=== PATIENT | female | born 1940 | race Caucasian/White ===

== ENCOUNTER 2019-08-11 15:23 | Inpatient (IN) | payer OTHER, MEDICARE ==
--- NOTE | 2019-08-11 16:21 | RAD REPORT ---
EXAM DESCRIPTION: RAD - Chest Single View - 08/11/2019 4:13 pm CLINICAL HISTORY: COUGH Chest pain. COMPARISON: CHEST PA AND LAT 2 VIEW dated 08/25/2012 FINDINGS: Portable technique limits examination quality. Interstitial lung markings are mildly prominent, nonspecific. No focal consolidation typical of pneum onia seen. The heart is normal in size. No displaced fractures.
[2019-08-11] MEDS ORDERED: ONDANSETRON 4 MG/2 ML VIAL ONE (17:04)
[2019-08-11] MEDS ORDERED: NA CHLORIDE 0.9% 1,000 ML ONE (17:04)
[2019-08-11 17:10] LABS: Absolute Lymphocytes (CBC) 0.8 K/uL (0.7-4.9); Basophils % 0.3 % (0-1.3); Hematocrit 41.5 % (36.0-45.0); Lymphocytes % 10.1 % (15.3-44.8); MPV 9.2 fL (7.6-11.3); RBC Red Blood Cell Count 4.74 M/uL (3.86-4.86)
[2019-08-11 17:35] LABS: Urine Blood NEGATIVE (NEG); Urine Glucose 1+ (NEG); Urine Protein 2+ (NEG); Urine Specific Gravity 1.025 (1.005-1.030); Urine pH 5.5 (5.0-7.0)
[2019-08-11 17:40] LABS: Albumin 3.3 g/dL (3.4-5.0); Bilirubin Direct 1.6 mg/dL (0-0.2); Bilirubin Total 2.4 mg/dL (0.2-1.0); Magnesium 1.8 mg/dL (1.8-2.4); Protein, Total 7.5 g/dL (6.4-8.2); Troponin (Emerg Dept Use Only) 0.02 ng/mL (0.0-0.045)
[2019-08-11 17:47] LABS: Potassium 2.9 mmol/L (3.5-5.1)
--- NOTE | 2019-08-11 18:01 | EDPHYS ---
Physician Documentation [facility] Name: Guadalupe Marie Age: 79 yrs Sex: Female : 1940 Arrival Date: 08/11/2019 Time: 15:28 Bed 16 Private MD: EVE Physician Chris Perez HPI: 08/10 15:51 This 79 yrs old Female presents to ER via Ambulatory with complaints of amado Vomiting, Fever. 15:51 The patient presents to the emergency department with nausea, vomiting. Onset: The amado symptoms/episode began/occurred 5 day(s) ago. Possible causes: unknown. The symptoms are aggravated by nothing. The symptoms are alleviated by nothing. Associated signs and symptoms: Pertinent positives: fever, nausea, vomiting. Severity of symptoms: At their worst the symptoms were mild moderate in the emergency department the symptoms are unchanged. The patient has not experienced similar symptoms in the past. Historical: - Allergies: 15:41 No Known Allergies; ll1 - PMHx: 15:41 Diabetes - IDDM; Hypertension; ll1 - Immunization history:: Adult Immunizations up to date. - Social history:: Smoking status: Patient denies any tobacco usage or history of. Patient/guardian denies using alcohol, street drugs, tobacco products. ROS: 15:52 Eyes: Negative for injury, pain, redness, and discharge, ENT: Negative for injury, amado pain, and discharge, Neck: Negative for injury, pain, and swelling, Cardiovascular: Negative for chest pain, palpitations, and edema, Respiratory: Negative for shortness of breath, cough, wheezing, and pleuritic chest pain, Back: Negative for injury and pain, : Negative for injury, bleeding, discharge, and swelling, MS/Extremity: Negative for injury and deformity, Skin: Negative for injury, rash, and discoloration, Neuro: Negative for headache, weakness, numbness, tingling, and seizure, Psych: Negative for depression, anxiety, suicide ideation, homicidal ideation, and hallucinations, Allergy/Immunology: Negative for hives, rash, and allergies, Endocrine: Negative for neck swelling, polydipsia, polyuria, polyphagia, and marked weight changes, Hematologic/Lymphatic: Negative for swollen nodes, abnormal bleeding, and unusual bruising. 15:52 Constitutional: Positive for fever. 15:52 Abdomen/GI: Positive for nausea and vomiting. Exam: 15:52 Constitutional: This is a well developed, well nourished patient who is awake, alert, amado and in no acute distress. Head/Face: Normocephalic, atraumatic. Eyes: Pupils equal round and reactive to light, extra-ocular motions intact. Lids and lashes normal. Conjunctiva and sclera are non-icteric and not injected. Cornea within normal limits. Periorbital areas with no swelling, redness, or edema. ENT: Nares patent. No nasal discharge, no septal abnormalities noted. Tympanic membranes are normal and external auditory canals are clear. Oropharynx with no redness, swelling, or masses, exudates, or evidence of obstruction, uvula midline. Mucous membranes moist. Neck: Trachea midline, no thyromegaly or masses palpated, and no cervical lymphadenopathy. Supple, full range of motion without nuchal rigidity, or vertebral point tenderness. No Meningismus. Chest/axilla: Normal chest wall appearance and motion. Nontender with no deformity. No lesions are appreciated. Cardiovascular: Regular rate and rhythm with a normal S1 and S2. No gallops, murmurs, or rubs. Normal PMI, no JVD. No pulse deficits. Respiratory: Lungs have equal breath sounds bilaterally, clear to auscultation and percussion. No rales, rhonchi or wheezes noted. No increased work of breathing, no retractions or nasal flaring. Back: No spinal tenderness. No costovertebral tenderness. Full range of motion. Female : Normal external genitalia. Skin: Warm, dry with normal turgor. Normal color with no rashes, no lesions, and no evidence of cellulitis. MS/ Extremity: Pulses equal, no cyanosis. Neurovascular intact. Full, normal range of motion. Neuro: Awake and alert, GCS 15, oriented to person, place, time, and situation. Cranial nerves II-XII grossly intact. Motor strength 5/5 in all extremities. Sensory grossly intact. Cerebellar exam normal. Normal gait. Psych: Awake, alert, with orientation to person, place and time. Behavior, mood, and affect are within normal limits. 15:52 Abdomen/GI: Inspection: abdomen appears normal, Bowel sounds: normal, Palpation: abdomen is soft and non-tender, Liver: no appreciated palpable abnormalities, Hernia: not appreciated. 18:18 ECG was reviewed by the Attending Physician. [facility] Vital Signs: 15:39 BP 173 / 60; Pulse 60; Resp 17; Temp 98.4; Pulse Ox 97% ; Pain 0/10; ll1 16:00 BP 161 / 65; Pulse 57; Resp 16; Pulse Ox 99% on R/A; vc 17:00 BP 169 / 56; Pulse 55; Resp 16; Pulse Ox 97% on R/A; vc 18:00 BP 181 / 74; Pulse 73; Resp 17; Pulse Ox 97% on R/A; vc 19:00 BP 161 / 64; Pulse 71; Resp 18; Pulse Ox 97% on R/A; vc 19:45 BP 161 / 49; Pulse 68; Resp 17; Pulse Ox 97% on R/A; vc 20:30 BP 126 / 83; Pulse 75; Resp 16; Pulse Ox 75% on R/A; vc MDM: 15:35 Patient medically screened. [facility] 15:53 Differential diagnosis: cholecystitis, viral Infection, UTI, gastroenteritis. [facility] 15:53 Data reviewed: vital signs, nurses notes, lab test result(s), EKG, radiologic studies, [facility] plain films. 18:18 Data interpreted: lunchroom monitor: rate is 60 beats/min, rhythm is normal sinus rhythm, [facility] Pulse oximetry: on room air is 97 %. Test interpretation: by ED physician or midlevel provider: ECG, plain radiologic studies. Counseling: I had a detailed discussion with the patient and/or guardian regarding: the historical points, exam findings, and any diagnostic results supporting the discharge/admit diagnosis, lab results, radiology results, the need for further work-up and treatment in the hospital. ED course: dw dr dorman, dr doe consullted, ct abd pelviis per dr dorman, replace potassium, hydrate, no changes to plan per dandy. plan explained to the patient. 19:31 Physician consultation: El Doe MD and will see patient in the hospital. Other [facility] consultation: dr roberts explained ct findings, will see and follow up the patient. ED course: all drs aware armando chen and dr doe.. 08/10 15:50 Order name: Basic Metabolic Panel; Complete Time: 17:49 amado 08/10 15:50 Order name: CBC with Diff; Complete Time: 17:31 amado 08/10 15:50 Order name: LFT's; Complete Time: 17:49 [facility] 08/10 15:50 Order name: Magnesium; Complete Time: 17:49 [facility] 08/10 15:50 Order name: NT PRO-BNP; Complete Time: 17:49 amado 08/10 15:50 Order name: Troponin (emerg Dept Use Only); Complete Time: 17:49 amado 08/10 15:50 Order name: Lipase; Complete Time: 17:49 [facility] 08/10 15:50 Order name: Procalcitonin; Complete Time: 17:49 [facility] 08/10 15:50 Order name: Lactate; Complete Time: 17:49 [facility] 08/10 15:50 Order name: Urine Culture [facility] 08/10 15:50 Order name: Blood Culture Adult (2) 08/10 17:07 Order name: Urine Dipstick--Ancillary (enter results); Complete Time: 17:49 em1 08/10 18:14 Order name: Influenza Screen (a \T\ B); Complete Time: 19:29 [facility] 08/10 18:14 Order name: COVID-19 08/10 15:50 Order name: XRAY Chest (1 view); Complete Time: 17:05 [facility] 08/10 15:50 Order name: EKG; Complete Time: 15:51 [facility] 08/10 15:50 Order name: Cardiac monitoring; Complete Time: 16:13 [facility] 08/10 15:50 Order name: EKG - Nurse/Tech; Complete Time: 16:13 [facility] 08/10 15:50 Order name: IV Saline Lock; Complete Time: 16:13 [facility] 08/10 15:50 Order name: Labs collected and sent; Complete Time: 16:13 [facility] 08/10 17:46 Order name: US Abdomen Limited: elevated lft, vomiting 08/10 18:07 Order name: CT Abd/Pelvis - IV Contrast Only: abd pain , elevated lft; Complete Time: [facility] 19:29 08/10 19:03 Order name: CONS Pharmacy Consult [facility] 08/10 19:03 Order name: CONS Physician Consult [facility] 08/10 15:50 Order name: O2 Per Protocol; Complete Time: 16:13 [facility] 08/10 15:50 Order name: O2 Sat Monitoring; Complete Time: 16:13 [facility] 08/10 15:50 Order name: Urine Dipstick-Ancillary (obtain specimen); Complete Time: 16:50 amado EC:18 Rate is 60 beats/min. Rhythm is regular. QRS [place] is Normal. MD interval is normal. QRS amado interval is normal. QT interval is normal. No Q waves. T waves are Normal. No ST changes noted. Clinical impression: Normal ECG. Interpreted by me. Reviewed by me. Administered Medications: 17:02 Drug: NS 0.9% 1000 ml Route: IV; Rate: 1 bolus; Site: right antecubital; vc 18:00 Follow up: IV Status: Completed infusion; IV Intake: 1000ml vc 17:02 Drug: Zofran (Ondansetron) 4 mg Route: IVP; Site: right antecubital; vc 19:38 Follow up: Response: No adverse reaction vc 19:09 Drug: Insulin Regular Human 6 units {Co-Signature: ll1 (Nikki Car RN).} Route: IVP; vc Site: right antecubital; 19:37 Follow up: Response: No adverse reaction vc 19:09 Drug: Zosyn 3.375 grams Route: IVPB; Infused Over: 60 mins; Site: right antecubital; vc 21:14 Follow up: IV Status: Completed infusion; IV Intake: 100ml vc 19:10 Drug: Potassium Chloride 20 mEq Route: IV; Rate: per protocol; Site: right antecubital; vc 21:14 Follow up: IV Status: Completed infusion; IV Intake: 50ml vc 19:10 Drug: NS 0.9% with KCl 20 mEq/L 1000 ml Route: IV; Rate: 125 ml/hr; Site: right vc antecubital; 21:14 Follow up: IV Status: Infusion continued upon admission vc Disposition: 08/11/19 18:00 Hospitalization ordered by Aleja Pollock for Inpatient Admission. Preliminary diagnosis are Fever, unspecified, Vomiting, Type 1 diabetes mellitus, Hypokalemia, Abdominal tenderness - elevated liver enzymes. - Bed requested for Telemetry/MedSurg (Inpatient). - Status is Inpatient Admission. vc - Condition is Fair. - Problem is new. - Symptoms have improved. Signatures: Dispatcher [employer] Chris Massey MD MD cha Garcia, Cindy, RN RN Ember Valentine RN RN vc Lewis, Lynsay, RN RN ll1 Nikki Car RN ll1 Corrections: (The following items were deleted from the chart) 18:09 18:00 Hospitalization Ordered by Aleja Pollock MD for Inpatient Admission. Preliminary amado diagnosis is Fever, unspecified; Vomiting; Type 1 diabetes mellitus; Hypokalemia. Bed requested for Telemetry/MedSurg (Inpatient). Status is Inpatient Admission. Condition is Fair. Problem is new. Symptoms have improved. amado 19:17 18:09 08/11/2019 18:00 Hospitalization Ordered by Aleja Pollock MD for Inpatient cg Admission. Preliminary diagnosis is Fever, unspecified; Vomiting; Type 1 diabetes mellitus; Hypokalemia; Abdominal tenderness - elevated liver enzymes. Bed requested for Telemetry/MedSurg (Inpatient). Status is Inpatient Admission. Condition is Fair. Problem is new. Symptoms have improved. [facility] 21:15 19:17 08/11/2019 18:00 Hospitalization Ordered by Aleja Pollock MD for Inpatient vc Admission. Preliminary diagnosis is Fever, unspecified; Vomiting; Type 1 diabetes mellitus; Hypokalemia; Abdominal tenderness - elevated liver enzymes. Bed requested for Telemetry/MedSurg (Inpatient). Status is Inpatient Admission. Condition is Fair. Problem is new. Symptoms have improved. cg
--- NOTE | 2019-08-11 18:01 | ER ---
Nurse's Notes [facility] Name: Guadalupe Marie Age: 79 yrs Sex: Female : 1940 Arrival Date: 08/11/2019 Time: 15:28 Bed 16 Private MD: Diagnosis: Fever, unspecified;Vomiting;Type 1 diabetes mellitus;Hypokalemia;Abdominal tenderness-elevated liver enzymes Presentation: 08/10 15:39 Chief complaint: Patient states: N/V with fever for 5 days. Coronavirus screen: Proceed ll1 with normal triage. Patient denies a cough. Patient denies shortness of breath or difficulty breathing. Patient reports a measured and/or subjective temperature greater than 100.4F. Patient denies travel on a cruise ship or to a country the [facility] currently lists as an affected area. Patient denies contact with known and/or suspected case of COVID-19. Ebola Screen: Patient denies travel to an Ebola-affected area in the 21 days before illness onset. Initial Sepsis Screen: Does the patient meet any 2 criteria? No. Patient's initial sepsis screen is negative. Does the patient have a suspected source of infection? No. Patient's initial sepsis screen is negative. Risk Assessment: Do you want to hurt yourself or someone else? Patient reports no desire to harm self or others. Onset of symptoms was August 06, 2019. 15:39 Method Of Arrival: Ambulatory ll1 15:39 Acuity: JUAN 3 ll1 Triage Assessment: 15:45 General: Appears in no apparent distress. uncomfortable, ill, Behavior is calm, vc cooperative, appropriate for age. Pain: Denies pain. GI: Reports nausea, vomiting. Historical: - Allergies: 15:41 No Known Allergies; ll1 - PMHx: 15:41 Diabetes - IDDM; Hypertension; ll1 - Immunization history:: Adult Immunizations up to date. - Social history:: Smoking status: Patient denies any tobacco usage or history of. Patient/guardian denies using alcohol, street drugs, tobacco products. Screenin:35 Abuse screen: Denies threats or abuse. vc 15:35 Nutritional screening: Has had N/V for 3 or more days. Tuberculosis screening: No vc symptoms or risk factors identified. Fall Risk None identified. Assessment: 15:35 GI: Abdomen is non-distended. vc 15:35 General: Appears in no apparent distress. uncomfortable, ill, Behavior is calm, vc cooperative, appropriate for age. Pain: Denies pain. Neuro: Level of Consciousness is awake, alert, obeys commands, Oriented to person, place, time, situation, Appropriate for age. Cardiovascular: Capillary refill < 3 seconds Patient's skin is warm and dry. Respiratory: Airway is patent Respiratory effort is even, unlabored, Respiratory pattern is regular, symmetrical. : Reports "I have only been urinating a little at a time. Derm: Skin is intact, is healthy with good turgor. Musculoskeletal: Circulation, motion, and sensation intact. Range of motion: intact in all extremities. 16:00 Reassessment: Patient appears in no apparent distress at this time. Patient and/or vc family updated on plan of care and expected duration. Pain level reassessed. 17:00 Reassessment: Patient appears in no apparent distress at this time. Patient and/or vc family updated on plan of care and expected duration. Pain level reassessed. Patient is alert, oriented x 3, equal unlabored respirations, skin warm/dry/pink. 17:46 Reassessment: Received call from lab with abnormal values of potassium 2.9, AST 371, ah ALT 559. Reported values to Dr. Perez. 18:00 Reassessment: Patient appears in no apparent distress at this time. Patient and/or vc family updated on plan of care and expected duration. Pain level reassessed. Patient is alert, oriented x 3, equal unlabored respirations, skin warm/dry/pink. Patient denies pain at this time. 19:00 Reassessment: Patient appears in no apparent distress at this time. Patient and/or vc family updated on plan of care and expected duration. Pain level reassessed. Patient is alert, oriented x 3, equal unlabored respirations, skin warm/dry/pink. Patient denies pain at this time. Patient states feeling better. Patient states symptoms have improved. 20:00 Reassessment: Patient appears in no apparent distress at this time. Patient and/or vc family updated on plan of care and expected duration. Pain level reassessed. Patient is alert, oriented x 3, equal unlabored respirations, skin warm/dry/pink. Patient denies pain at this time. Patient states feeling better. Patient states symptoms have improved. 21:00 Reassessment: Patient appears in no apparent distress at this time. Patient and/or vc family updated on plan of care and expected duration. Pain level reassessed. Patient is alert, oriented x 3, equal unlabored respirations, skin warm/dry/pink. Patient denies pain at this time. Patient states feeling better. Patient states symptoms have improved. Vital Signs: 15:39 BP 173 / 60; Pulse 60; Resp 17; Temp 98.4; Pulse Ox 97% ; Pain 0/10; ll1 16:00 BP 161 / 65; Pulse 57; Resp 16; Pulse Ox 99% on R/A; vc 17:00 BP 169 / 56; Pulse 55; Resp 16; Pulse Ox 97% on R/A; vc 18:00 BP 181 / 74; Pulse 73; Resp 17; Pulse Ox 97% on R/A; vc 19:00 BP 161 / 64; Pulse 71; Resp 18; Pulse Ox 97% on R/A; vc 19:45 BP 161 / 49; Pulse 68; Resp 17; Pulse Ox 97% on R/A; vc 20:30 BP 126 / 83; Pulse 75; Resp 16; Pulse Ox 75% on R/A; vc ED Course: 15:28 Patient arrived in ED. mr 15:35 Chris Perez MD is Attending Physician. amado 15:40 Triage completed. ll1 15:41 Arm band placed on Patient placed in an exam room, on a stretcher. ll1 15:56 Ember Valentine, RN is Primary Nurse. vc 16:12 Placed in gown. Bed in low position. Call light in reach. Side rails up X 1. Warm jp3 blanket given. Verbal reassurance given. plate painter on. Pulse ox on. NIBP on. 16:12 EKG done, by ED staff, reviewed by Chris Perez MD. Patient maintains SpO2 saturation jp3 greater than 95% on room air. 16:13 XRAY Chest (1 view) In Process Unspecified. EDMS 16:15 X-ray(s) taken. jp3 16:30 Inserted saline lock: 20 gauge in right antecubital area, using aseptic technique. jp3 Blood collected. 16:30 Initial lab(s) drawn, by me, sent to lab. First set of blood cultures drawn by me. jp3 16:42 Second set of blood cultures drawn by ED staff. jp3 16:50 Urine collected: clean catch specimen, clear, katie colored. jp3 17:58 Aleja Pollock MD is Hospitalizing Provider. amado 18:30 CT Abd/Pelvis - IV Contrast Only: abd pain , elevated lft In Process Unspecified. EDMS 21:08 No provider procedures requiring assistance completed. Patient admitted, IV remains in vc place. Administered Medications: 17:02 Drug: NS 0.9% 1000 ml Route: IV; Rate: 1 bolus; Site: right antecubital; vc 18:00 Follow up: IV Status: Completed infusion; IV Intake: 1000ml vc 17:02 Drug: Zofran (Ondansetron) 4 mg Route: IVP; Site: right antecubital; vc 19:38 Follow up: Response: No adverse reaction vc 19:09 Drug: Insulin Regular Human 6 units {Co-Signature: ll1 (Nikki Car RN).} Route: IVP; vc Site: right antecubital; 19:37 Follow up: Response: No adverse reaction vc 19:09 Drug: Zosyn 3.375 grams Route: IVPB; Infused Over: 60 mins; Site: right antecubital; vc 21:14 Follow up: IV Status: Completed infusion; IV Intake: 100ml vc 19:10 Drug: Potassium Chloride 20 mEq Route: IV; Rate: per protocol; Site: right antecubital; vc 21:14 Follow up: IV Status: Completed infusion; IV Intake: 50ml vc 19:10 Drug: NS 0.9% with KCl 20 mEq/L 1000 ml Route: IV; Rate: 125 ml/hr; Site: right vc antecubital; 21:14 Follow up: IV Status: Infusion continued upon admission vc Intake: 18:00 IV: 1000ml; Total: 1000ml. vc 21:14 IV: 100ml; Total: 1100ml. vc 21:14 IV: 50ml; Total: 1150ml. vc Outcome: 18:00 Decision to Hospitalize by Provider. [facility] 21:08 Admitted to Tele accompanied by tech, via stretcher, room 415, with chart, Report vc called to slim 21:08 Condition: good 21:15 Patient left the ED. vc Signatures: Dispatcher [employer] Chris Massey MD MD cha Rivera, Mary mr Pisarski, Jacob jp3 Ember Valentine RN RN vc Harris, Amy RN Nikki Levine RN RN ll1 Nikki Car RN ll1 Corrections: (The following items were deleted from the chart) 21:13 21:08 Admitted to Tele accompanied by tech, via stretcher, room 416, with chart, Report vc called to slim llanes
[2019-08-11] MEDS ORDERED: NS KCL 20MEQ 1,000 ML IV ONE (18:35)
[2019-08-11] MEDS ORDERED: INSULIN -REGULAR HUMAN 50 UNIT/0.5 ML ML ONE (18:35)
[2019-08-11] MEDS ORDERED: KCL 20 MEQ/100 mL IVPB 20 MEQ/100 ML BAG IV ONE (18:35)
[2019-08-11] MEDS ORDERED: PIPER/TAZO/NS 3.375gm 3.375 GM/100 ML BAG ONE (18:35)
[2019-08-11] MEDS ORDERED: MORPHINE 2 MG/ML SYR IV PRN (19:01)
--- NOTE | 2019-08-11 19:07 | RAD REPORT ---
EXAM DESCRIPTION: CTAbdomen Pelvis W Contrast - 08/11/2019 6:30 pm CLINICAL HISTORY: Abdominal pain. ABD PAIN COMPARISON: No comparisons TECHNIQUE: Biphasic CT imaging of the abdomen and pelvis was performed with 100 ml non-ionic IV cont rast. All CT scans are performed using dose optimization technique as appropriate and may include automated exposure control or mA/KV adjustment according to patient size. FINDINGS: The lung bases are clear. Small enhancing lesion is seen in the posterosuperior right lobe of the liver measuring 13 mm with mi ld surrounding hypoenhancing parenchyma nonspecific. The gallbladder demonstrates slight surrounding fluid and questionable gallbladder wall thickening. The spleen, adrenal glands and kidneys are within normal limits. Several benign cysts are present the cortices of the kidneys. Pancreas demonstrates s everal low-density masses, the largest in the mid body of pancreas measuring 13 mm. Aortic atheroscle rosis. No bowel obstruction, free air, free fluid or abscess. The appendix is not identified as a discrete s tructure, however, no secondary findings of appendicitis are identified. Significant retention of st ool is seen throughout the colon. No evidence of significant lymphadenopathy. Moderate lumbosacral degenerative changes. IMPRESSION: Significant fecal retention throughout the colon. Slight trace cholecystic fluid and mild gallbladder wall enhancement is suspected. Followup gallbladd er ultrasound may be of value. Several low-density pancreatic lesions are present, largest measuring 13 mm in the mid body pancreas. These are nonspecific but may represent small masses or dilated pancreatic side branches. Small 13 mm arterial phase enhancing liver lesion in the superior post right lobe. Followup nonemergent MR imaging of the abdomen with contrast may be of value to assess both the liver and pancreatic findings detailed above.
[2019-08-11] MEDS: INSULIN -REGULAR HUMAN 50 UNIT/0.5 ML ML SQ SCH (21:00)
[2019-08-11 21:48] VITALS: BMI 27.0
--- NOTE | 2019-08-11 23:29 | P.HP ---
Certification for Inpatient Patient admitted to: Inpatient With expected LOS: >2 Midnights Practitioner: I am a practitioner with admitting privileges, knowledge of patient current condition, hospital course, and medical plan of care. Services: Services provided to patient in accordance with Admission requirements found in Title 42 Section 412.3 of the Code of Federal Regulations Patient History Date of Service: 08/11/19 Reason for admission: Nausea and vomiting History of Present Illness: 79-year-old woman with a history of hypertension and diabetes presented to the emergency department with a complaint of nausea and vomiting which has been present for about 5 days. Patient also reports an episode of fever last night. She also reports frequent constipation. CT abdomen and pelvis done in the ED report possible gallbladder thickening and surrounding fluid which could suggest acute cholecystitis. CT scan also reported multiple nonspecific lesions in the pancreas and a lesion in the liver. She is being screened for Covid 19 and currently on droplet isolation. Patient denied any abdominal pain, cough or shortness of breath. Blood work demonstrated hypokalemia, significantly elevated liver enzyme and total bilirubin. Patient is admitted for further management. Allergies No Known Allergies Allergy (Verified 08/11/19 21:47) Home Medications: Clonidine HCl [Catapres*] 0.2 mg PO TID 08/11/19 Diltiazem HCl [Diltiazem ER] 1 tab PO QID 08/11/19 Insulin Glargine Human [Lantus] 32 unit SQ BEDTIME 08/11/19 Insulin Lispro [Humalog*] 12 unit SQ TIDWM 08/11/19 Losartan/Hydrochlorothiazide [Losartan-Hctz 100-12.5 mg Tab] 1 each PO DAILY 08/11/19 Metoprolol Succinate [Toprol Xl] 50 mg PO DAILY 08/11/19 Simvastatin 20 mg PO BEDTIME 08/11/19 - Past Medical/Surgical History Has patient received pneumonia vaccine in the past: Yes Diabetic: Yes -: DM -: HTN - Social History Smoking Status: Never smoker Alcohol use: No CD- Drugs: No Caffeine use: Yes Place of Residence: Home Review of Systems Other: Except as documented, all other systems reviewed and negative. Physical Examination - Vital Signs Temperature: 98.7 F Blood Pressure: 174/75 Pulse: 73 Respirations: 14 Pulse Ox (%): 96 - Physical Exam General: Alert, In no apparent distress, Oriented x3 HEENT: Atraumatic, Normocephalic, PERRLA, Mucous membr. moist/pink, Sclerae nonicteric Neck: Supple, JVD not distended Respiratory: Clear to auscultation bilaterally, Normal air movement Cardiovascular: No edema, Normal pulses, Regular rate/rhythm, Normal S1 S2 Capillary refill: <2 Seconds Gastrointestinal: Normal bowel sounds, Soft and benign, Non-distended, No tenderness Musculoskeletal: No swelling, No erythema Integumentary: No rashes Neurological: Normal speech, Normal strength at 5/5 x4 extr, Cranial nerves 3-12 intact - Studies Laboratory Data (last 24 hrs) 08/11/19 16:30: WBC 8.0, Hgb 13.8, Hct 41.5, Plt Count 159 08/11/19 16:30: Sodium 136, Potassium 2.9 L*, BUN 16, Creatinine 0.97, Glucose 311 H, Magnesium 1.8, Total Bilirubin 2.4 H, AST 371 H*, ALT 559 H*, Alkaline Phosphatase 755 H, Lipase 43 L Microbiology Data (last 24 hrs): 08/11/19 18:14 Nasopharnyx Coronavirus COVID-19 PCR - Final 08/11/19 18:48 Nasopharnyx Influenza Type A Antigen Screen - Final 08/11/19 18:48 Nasopharnyx Influenza Type B Antigen Screen - Final Assessment and Plan - Problems (Diagnosis) (1) Acute cholecystitis Current Visit: Yes Status: Acute (2) Pancreatic lesion Current Visit: Yes Status: Acute (3) Liver lesion Current Visit: Yes Status: Acute (4) Elevated LFTs Current Visit: Yes Status: Acute (5) Functional constipation Current Visit: Yes Status: Acute (6) Diabetes mellitus type 2 in obese Current Visit: Yes Status: Acute - Plan Admit to the medical floor. Covid 19 test is negative. Supportive measures with IV fluids Obtain MRCP to evaluate the liver, biliary tree and pancreas. Monitor LFT GI consult. Surgery consult pending ultrasound result. RUQ sono to evaluate for cholecystitis. Laxatives and stool softeners Replete potassium IV. Insulin sliding scale for glucose management. - Advance Directives Does patient have a Living Will: Yes Does patient have a Durable POA for Healthcare: No - Code Status/Comfort Care Code Status Assessed: Yes Code Status: Full Code
[2019-08-12] MEDS ORDERED: POTASSIUM 25 MEQ EFFERV TAB PO ONE (00:27)
[2019-08-12] MEDS: D5.45NS W/KCL 20MEQ 1,000 ML IV SCH ×3 (01:46→16:31)
[2019-08-12] MEDS: HYDRALAZINE HCL 20 MG/ML VIAL IV PRN ×3 (03:15→21:17)
[2019-08-12] MEDS: ONDANSETRON 4 MG/2 ML VIAL IV PRN ×2 (05:48→21:33)
[2019-08-12 05:56] LABS: Absolute Lymphocytes (CBC) 1.4 K/uL (0.7-4.9); Basophils % 0.2 % (0-1.3); Hematocrit 42.1 % (36.0-45.0); Lymphocytes % 12.9 % (15.3-44.8); MPV 9.5 fL (7.6-11.3); RBC Red Blood Cell Count 4.82 M/uL (3.86-4.86)
[2019-08-12 06:01] LABS: Protime INR 1.03
[2019-08-12 06:23] LABS: Albumin 3.1 g/dL (3.4-5.0); Bilirubin Total 1.4 mg/dL (0.2-1.0); Magnesium 2.1 mg/dL (1.8-2.4); Phosphorus 1.7 mg/dL (2.5-4.9); Potassium 3.6 mmol/L (3.5-5.1); Protein, Total 7.2 g/dL (6.4-8.2)
[2019-08-12] MEDS ORDERED: POTASSIUM PHOS IN 0.9 % NACL 15 MMOL/250 ML BAG IV ONE ×2 (06:42→09:00)
[2019-08-12] MEDS ORDERED: METOPROLOL TARTRATE 5 MG/5 ML INJ IV STA ×4 (07:29→16:04)
[2019-08-12] MEDS: INSULIN -REGULAR HUMAN 50 UNIT/0.5 ML ML SQ SCH ×4 (08:06→20:10)
--- NOTE | 2019-08-12 08:35 | RAD REPORT ---
EXAM DESCRIPTION: US - Abdomen Exam Limited - 08/12/2019 8:00 am CLINICAL HISTORY: ABD PAIN COMPARISON: Abdomen Pelvis W Contrast dated 08/11/2019 FINDINGS: Multiple gallstones fill the gallbladder lumen. Individual stone measurement cannot be per formed. There is dense posterior acoustic shadowing created by the gallstones. Gallbladder wall is mi ldly thickened. No pericholecystic fluid confirmed. No common duct stone or biliary tree dilatation identified. IMPRESSION: Multi stone cholelithiasis with wall thickening. Correlation is needed with any acute cholecystitis clinical findings. No biliary abnormality identified.
--- NOTE | 2019-08-12 09:43 | EKG ---
Test Date: 2019-08-12 Test Time: 08:43:51 Percussion Instrument Repairer: JUIDE MEASUREMENT RESULTS: Intervals: Rate: 116 IL: 144 QRSD: 88 QT: 320 QTc: 444 [place]: P: 64 IL: 144 QRS: -21 T: 57 INTERPRETIVE STATEMENTS: Sinus tachycardia conduction PVCs Abnormal ECG Electronically Signed On 08-12-19 09:43:09 CDT by Cal Butterfield
--- NOTE | 2019-08-12 09:43 | EKG ---
Test Date: 2019-08-12 Test Time: 06:29:51 Atmospheric Scientist: RT Crowder MEASUREMENT RESULTS: Intervals: Rate: 157 NC: QRSD: 82 QT: 298 QTc: 481 [place]: P: NC: QRS: -12 T: 54 INTERPRETIVE STATEMENTS: Atrial fibrillation with rapid ventricular response with premature ventricular or aberrantly conducted complexes Inferior infarct, age undetermined Abnormal ECG Electronically Signed On 08-12-19 09:43:33 CDT by Cal Butterfield
--- NOTE | 2019-08-12 09:49 | EKG ---
Test Date: 2019-08-11 Test Time: 16:06:59 Retail Account Manager: BETO MEASUREMENT RESULTS: Intervals: Rate: 60 SC: 148 QRSD: 90 QT: 458 QTc: 458 [place]: P: 38 SC: 148 QRS: 7 T: 31 INTERPRETIVE STATEMENTS: Sinus rhythm with occasional premature ventricular complexes Otherwise normal ECG No previous ECG available for comparison Electronically Signed On 08-12-19 09:48:45 CDT by Cal Butterfield
--- NOTE | 2019-08-12 12:09 | P.PN ---
Subjective Date of Service: 08/12/19 (Hospitalist) Chief Complaint: Nausea and vomiting atrial fibrillation Subjective: Improving (Patient is doing a little better she has has some nausea vomiting apparently got some potassium became even more nauseated ultrasound shows chronic gallbladder disease) Review of Systems General: Weakness Gastrointestinal: Nausea, Vomiting Physical Examination - Vital Signs Temperature: 98.9 F Blood Pressure: 150/69 Pulse: 115 Respirations: 16 Pulse Ox (%): 95 - Physical Exam General: Alert, Oriented x3 HEENT: Atraumatic Neck: Supple Respiratory: Clear to auscultation bilaterally Cardiovascular: No edema Gastrointestinal: Other (Mild right upper quadrant tendon) - Studies Laboratory Data (last 24 hrs) 08/11/19 16:30: WBC 8.0, Hgb 13.8, Hct 41.5, Plt Count 159 08/11/19 16:30: Sodium 136, Potassium 2.9 L*, BUN 16, Creatinine 0.97, Glucose 311 H, Magnesium 1.8, Total Bilirubin 2.4 H, AST 371 H*, ALT 559 H*, Alkaline Phosphatase 755 H, Lipase 43 L Microbiology Data (last 24 hrs): 08/11/19 16:38 Blood - Blood Anaerobic Blood Culture - Final 08/11/19 18:14 Nasopharnyx Coronavirus COVID-19 PCR - Final 08/11/19 18:48 Nasopharnyx Influenza Type A Antigen Screen - Final 08/11/19 18:48 Nasopharnyx Influenza Type B Antigen Screen - Final Assessment & Plan - Problems (Diagnosis) (1) Acute cholecystitis Current Visit: Yes Status: Acute Plan: Patient is 79 years of age admitted with abdominal pain nausea and vomiting presumed cholecystitis abnormal liver function tests most likely she has an obstruction MRCP spending white count normal vital signs stable GI has been consulted Several low-density pancreatic lesions are present, largest measuring 13 mm in the mid body pancreas. These are nonspecific but may represent small masses or dilated pancreatic side branches. Continue with IV fluids (2) Atrial fibrillation Current Visit: Yes Status: Acute Plan: Patient had a transient onset of AFib not reverted back to normal sinus consult cardiology Qualifiers: Atrial fibrillation type: paroxysmal Qualified Code(s): I48.0 - Paroxysmal atrial fibrillation
--- NOTE | 2019-08-12 14:54 | ECHO ---
HEIGHT: 5 ft 8 in WEIGHT: 178 lb 0 oz DATE OF STUDY: 08/12/[address]: Cal Butterfield MD 2-DIMENSIONAL: YES M.MODE: YES DOPPLER: YES COLOR FLOW: YES TDS: NO PORTABLE: NO DEFINITY: NO BUBBLE STUDY: NO DIAGNOSIS: ATRIAL FIBRILLATION CARDIAC HISTORY: CATHERIZATION: NO SURGERY: NO PROSTHETIC VALVE: NO PACEMAKER: NO MEASUREMENTS (cm) DIASTOLIC (NORMALS) SYSTOLIC (NORMALS) IVSd 1.1 (0.6-1.2) LA Diam 2.8 (1.9-4.0) LVEF 73% LVIDd 3.8 (3.5-5.7) LVIDs 2.2 (2.0-3.5) %FS 42% LVPWd 1.0 (0.6-1.2) Ao Diam 2.4 (2.0-3.7) 2 DIMENSIONAL ASSESSMENT: RIGHT ATRIUM: NORMAL LEFT ATRIUM: ENLARGED RIGHT VENTRICLE: NORMAL LEFT VENTRICLE: NORMAL TRICUSPID VALVE: NORMAL MITRAL VALVE: MILD MITRAL ANNULAR CALCIFICATION PULMONIC VALVE: NORMAL AORTIC VALVE: SCLEROSIS PERICARDIAL EFFUSION: NONE AORTIC ROOT: NORMAL LEFT VENTRICULAR WALL MOTION: NORMAL. DOPPLER/COLOR FLOW: ELEVATED RIGHT VENTRICULAR SYSTOLIC PRESSURE > 60 mmHg. COMMENTS: NORMAL LEFT VENTRICULAR EJECTION FRACTION, NORMAL WALL MOTION. DIASTOLIC DYSFUNCTION. ELEVATED RIGHT VENTRICULAR SYSTOLIC PRESSURE >60mmHg (SEVERE PULMONARY HYPERTENSION). TECHNOLOGIST: SHERYL PARMAR
[2019-08-12] MEDS ORDERED: METOPROLOL TAR 25 MG TAB PO ONE (15:00)
[2019-08-12] MEDS: METOPROLOL TAR 25 MG TAB PO SCH (17:18)
--- NOTE | 2019-08-12 18:52 | RAD REPORT ---
EXAM DESCRIPTION: MRI - Cholangiogram - 08/12/2019 6:05 pm CLINICAL HISTORY: Liver and pancreas lesions Abdominal pain COMPARISON: Abdomen Exam Limited dated 08/12/2019; Abdomen Pelvis W Contrast dated 08/11/2019 FINDINGS: Three-dimensional MRCP was performed using maximum intensity projection reconstruction on the same work station. No intrahepatic biliary tree dilatation is seen. The common bile duct is normal caliber without evide nce of retained stone, stricture or mass. Several pancreatic lesions are present which are T2 hyperin tense and nonspecific. These are favored to represent dilated pancreatic side branches or IPMNs. Extensive cholelithiasis. Small T2 hyperintense 10 mm lesion is seen in the posterior right lobe liver, incompletely assessed. IMPRESSION: No pathologic biliary tree abnormality. Extensive cholelithiasis.
--- NOTE | 2019-08-12 21:15 | CON ---
Date of Consultation: 08/12/2019 Reason For Consultation: Possible cholecystitis, cholelithiasis with nausea, vomiting, fever. History Of Present Illness: Patient is an 79-year-old white female with history of diabetes, hyperte nsion, who presented to primary care's office with persistent nausea, vomiting, especially after eati ng fatty foods. Patient states that she ate some meat loaf, had nausea, vomiting, some fever and a k not in her stomach somewhere around the midepigastric periumbilical area. She had labs drawn in the office and it showed elevation of liver chemistry, so she was brought to the hospital for further kathleen luation and care for suspected cholecystitis. Ultrasound of abdomen revealed cholelithiasis with cho lecystitis probably. CT scan revealed once again probably cholecystitis and pancreatic lesions or po ssible masses being 13 mm or less in size, mainly in the body of the pancreas, possibly associated wi th the pancreatic duct, possible IPMN. Patient states she has nausea, vomiting, predominantly some f ever and fatigue for the past 6 days, worse with fatty meals such as meat loaf, which seems to have b rought her to the hospital with extreme nausea and vomiting after she ate that prior to admission. P atient denies any other major problems except for diabetes, hypertension, possible hyperlipidemia. S he has had problems sleeping, hysterectomy in the past and she says her primary care physician told t hat she may have had an arrhythmia, but has no knowledge of ever having AFib, even though she has tere t now on the floor, rapid ventricular response with a heart rate up to 150s to 160s and a blood press ure of approximately 176/80 or 90 with 5 of IV metoprolol. Her blood pressure has come down to like 150s over 80s with heart rate to the 130s. More IV metoprolol to be given. MRCP is pending. Past Medical History: Significant for diabetes, hypertension, hyperlipidemia, insomnia, possible arr hythmia in the past with no definitive diagnosis of atrial fibrillation as per patient nor on chart fouzia samuel. She also had hysterectomy in the past. Medications At Home: Catapres, diltiazem, Lantus insulin, Humalog insulin, losartan, hydrochlorothia zide, Toprol, and Zocor. Allergies: NKDA. Social History: She is a . 2 children, a son and a daughter. No tobacco. No alcohol. Family History: Father of coronary artery disease, CABG, and [place]. Mother of Alzheimer dise ase at 90+ years of age. Review of Systems: The patient has nausea, vomiting, fever, fatigue for the past 6 days. She has occasional nausea in t he stomach somewhere in the midepigastric periumbilical area which is mild pain at most. She denies any melena, hematochezia, hematemesis, coffee-ground emesis, hematuria, dysuria, polydipsia, chest pa in, shortness of breath, seizure, syncope, lower extremity edema, muscle aches, joint aches, depressi on, anxiety. Physical Examination: Vital Signs: Patient is 5 foot 8 inches, 178 pounds, BMI 27.1 kg per sq m. Temperature 98.9 degrees Fahrenheit, pulse down to 128 last checked, blood pressure 158/74. On admission, she has gotten up to as high as 178/81 with a pulse of approximately 150s to 160s and now down. General: She is an elderly female lying in bed, in mild distress, and she cannot sleep and uncomfort able. She cannot sleep on her back, hooked up all the wires, she cannot go to sleep yet. Nausea see ms to be controlled on medications since admission. HEENT: Normocephalic, atraumatic. Anicteric. Pupils equal, round, and reactive to light. Neck: Supple. No masses. Respirations: Clear. Good air movement. Abdomen: Positive bowel sounds. Hypoactive, soft, nondistended. No abdominal pain. No hepatosplen omegaly. Mild obesity. No peritoneal or Luque sign. No rebound. Extremities: No clubbing, cyanosis. 2+ pulses. Neuro: Alert and oriented x3. Grossly nonfocal. 5/5 motor strength and intact to light touch. Laboratory Data: Patient's white count of 10.7, up from 8.0 yesterday; hemoglobin 14.0; hematocrit 4 2; platelet count of 184. Neutrophils 74%, lymphocytes 13%, monocytes 8%, eosinophils 0.1%. PT of 1 2.2, INR of 1.03. Patient has a sodium of 139, potassium 3.6, chloride 103, bicarb 24, BUN 11, creat inine 0.74, glucose 308. Lactate of 1.1, calcium 8.6, phosphorus 1.7, magnesium 2.1, total bilirubin 1.4. AST of 157, ALT of 426, alkaline phosphatase 659. Troponin I of 0.04. Total protein 7.2, alb umin 3.1. Triglycerides 191, cholesterol 142, LDL of 85, HDL of 19, lipase 43. UA: 4+ ketones, 1+ glucose, 2+ total protein, negative nitrite, leukocyte esterase otherwise negative. Patient had an u ltrasound of the abdomen, which revealed multiple gallstones in gallbladder with gallbladder wall thi ckening consistent with acute cholecystitis. No biliary tree abnormality identified. CT scan reveal ed trace cholecystic fluid and mild gallbladder wall enhancement suspicious for cholecystitis. Sever al low-density pancreatic lesions all 13 mm or less, mainly in the mid body of the pancreas. This co uld be consistent with small masses or dilated pancreatic side branches such as IPMN. MRCP or MRI of abdomen advised. Impression: 1.Possible cholecystitis with cholelithiasis. Ultrasound of abdomen revealed cholelithiasis and cho lecystitis. CT of abdomen revealed cholecystitis with pancreatic lesions as discussed below. Mahin t has elevated liver chemistries as stated in the above report with AST of 157, ALT of 426, alkaline phosphatase of 659, total bilirubin of 1.4. Consistent with this as well, we will need to determine whether the patient has any stones in the bile duct urgently. 2.Abnormal CT of abdomen revealing smaller density masses in the pancreas less than 13 mm into the b ivet of the pancreas, could be cyst masses or IPMN or other. We will need to investigate with MRCP an d check CA19-9. 3.Atrial fibrillation with rapid ventricular response. Unclear if patient had prior history of atri al fib or not. Cardiology has been consulted. Metoprolol has been given IV, n.p.o. We will need mo re IV. Pulse is still 130 at this point, down from approximately 160s. 4.History of diabetes, hypertension, hyperlipidemia, insomnia, hysterectomy, and possible atrial fib rillation or other arrhythmia prior to this admission, but it is unclear if she had that or not. Recommendations: 1.Rate control with AFib given IV and p.o. metoprolol. I think IV metoprolol can rate down below 13 0 level now. 2.MRCP stat once heart rate stable. Surgery consultation which has been done. Check for hepatitis panel and check CA19-9. 3.I will keep patient n.p.o. with IV fluids and p.r.n. antiemetics and pain medicines if needed. KLAUS/RUDOLPH Voice ID: [id number] Report ID: [id number]
[2019-08-12] MEDS ORDERED: TRAZODONE 50 MG TABLET PO PRN (22:40)
[2019-08-12] MEDS ORDERED: MELATONIN 5 MG TABLET PO ONE (23:30)
[2019-08-13] MEDS ORDERED: METOPROLOL TARTRATE 5 MG/5 ML INJ IV STA (01:10)
[2019-08-13] MEDS: D5.45NS W/KCL 20MEQ 1,000 ML IV SCH ×2 (01:28→15:45)
[2019-08-13] MEDS: METOPROLOL TAR 25 MG TAB PO SCH ×2 (04:44→17:46)
[2019-08-13 06:03] LABS: BUN Blood Urea Nitrogen 14 mg/dL (7-18); Bicarbonate 26 mmol/L (21-32); Glucose Level 298 mg/dL (74-106); Phosphorus 1.9 mg/dL (2.5-4.9); Potassium 3.5 mmol/L (3.5-5.1); Sodium Level 141 mmol/L (136-145)
[2019-08-13] MEDS ORDERED: AMLODIPINE 10 MG TAB PO ONE (06:05)
[2019-08-13] MEDS ORDERED: POTASSIUM PHOS IN 0.9 % NACL 15 MMOL/250 ML BAG IV ONE (08:00)
[2019-08-13] MEDS ORDERED: hydroCHLOROthiazide 12.5 MG CAP PO SCH (09:00)
[2019-08-13] MEDS ORDERED: HOME MED 1 EA UNK (Losartan/Hydrochlorothiazide [Losartan-Hctz 100-12.5 Mg Tab] 1 EACH) PO SCH (09:00)
[2019-08-13] MEDS ORDERED: LOSARTAN POTASSIUM 50 MG TABLET PO SCH (09:00)
[2019-08-13] MEDS: cloNIDine HCL 0.1 MG TAB PO SCH ×2 (09:04→12:54)
[2019-08-13] MEDS: INSULIN -REGULAR HUMAN 50 UNIT/0.5 ML ML SQ SCH ×3 (09:06→17:47)
--- NOTE | 2019-08-13 10:24 | P.PN ---
Subjective Date of Service: 08/13/19 Chief Complaint: Chronic cholecystitis Subjective: Improving (Patient is improving nausea and vomiting also improving MRCP shows gallstones evidence of biliary tract obstruction) Review of Systems General: Weakness Gastrointestinal: Nausea Physical Examination - Vital Signs Temperature: 97.6 F Blood Pressure: 150/80 Pulse: 112 Respirations: 18 Pulse Ox (%): 90 - Physical Exam General: Alert, In no apparent distress, Oriented x3 Respiratory: Clear to auscultation bilaterally Cardiovascular: No edema, Regular rate/rhythm Gastrointestinal: Normal bowel sounds, Soft and benign - Studies Microbiology Data (last 24 hrs): 08/11/19 16:53 Clean Catch Urine Gates Count - Final BETWEEN 10,000 & 100,000 CFU/ML 08/11/19 16:53 Clean Catch Urine - Final MIXED CARMEN. 08/11/19 16:38 Blood - Blood Anaerobic Blood Culture - Final Assessment & Plan - Problems (Diagnosis) (1) Acute cholecystitis Current Visit: Yes Status: Acute Plan: Patient admitted with cholecystitis MRCP does not show dilatation of the biliary tract discuss with Dr. Jimenez has a lesion in the pancreas/he will further contact GI to decide the best plan of care patient's blood pressure is little elevated there is no evidence of sepsis (2) Atrial fibrillation Current Visit: Yes Status: Acute Plan: Discuss with cardiology are echo looked fairly normal plan for rate control only Qualifiers: Atrial fibrillation type: paroxysmal Qualified Code(s): I48.0 - Paroxysmal atrial fibrillation (3) Pulmonary hypertension Current Visit: Yes Status: Acute Plan: U to patient has severe pulmonary hypertension no evidence of right ventricular dilatation patient will need better blood pressure control
[2019-08-13] MEDS ORDERED: SPIRONOLACTONE 25 MG TABLET PO SCH (10:25)
[2019-08-13 11:03] LABS: Absolute Lymphocytes (CBC) 0.8 K/uL (0.7-4.9); Basophils % 0.2 % (0-1.3); Hematocrit 40.1 % (36.0-45.0); Lymphocytes % 5.5 % (15.3-44.8); MPV 8.4 fL (7.6-11.3); RBC Red Blood Cell Count 4.49 M/uL (3.86-4.86)
[2019-08-13 11:17] LABS: Albumin 2.7 g/dL (3.4-5.0); Bilirubin Direct 0.4 mg/dL (0-0.2); Bilirubin Total 0.9 mg/dL (0.2-1.0); Protein, Total 6.3 g/dL (6.4-8.2)
[2019-08-13 11:50] LABS: Blood Morphology Comment NOT SEEN (NOT SEEN); Platelet Estimate ADEQ
[2019-08-13] MEDS ORDERED: CEFOXITIN SODIUM 1 GM/VIAL IVPB SCH (12:00)
[2019-08-13 12:48] VITALS: TEMP 98.1
[2019-08-13] MEDS: CEFOXITIN/SWI 1gm 1 GM/10 ML SYR IVP SCH ×2 (12:55→17:47)
[2019-08-13 12:57] VITALS: BP 140/60
[2019-08-13 13:08] VITALS: O2SAT 89
--- NOTE | 2019-08-13 13:40 | CON ---
Date of Consultation: 08/13/2019 Reason For Consultation: Cholelithiasis. History Of Present Illness: The patient is an 79-year-old female, who was admitted with nausea and v omiting for about a week. She has had a workup done and she has cholelithiasis with elevated liver f unction tests. She had an MRCP which did not show any biliary tree abnormalities, but did show cysti c lesions in the pancreas which could be IPMNs. I was consulted. Review of Systems: She is currently awake, alert, in no pain. No nausea, vomiting. No diarrhea, constipation. No bloo d in her stool. No dysuria or hematuria. No sore throat, runny nose, cough, headaches, or dizziness . No chest pain. No fever or chills. The review of systems otherwise unremarkable. Medical History: Significant for diabetes and hypertension. Past Surgical History: Negative. Allergies: NO ALLERGIES. Social History: She does not smoke or drink alcohol. Physical Examination: Vital Signs: Her vital signs show slight tachycardia, blood pressure slightly high 150/80, but she i s afebrile. General: She is awake, alert, and oriented x3. Head and neck: Cranial nerves 2 through 12 are grossly within normal limits. Neck: No neck masses. No JVD noted. Throat clear. Neck supple. Chest: Clear. Heart: S1 and S2. Abdomen: Soft, nondistended. No significant tenderness, rebound, rigidity, or guarding. Positive b owel sounds. Extremities: Adequately perfused. Nontender. Neuro: Nonfocal. Labaratory Data: Her white count this morning is 13.8, with a left shift. INR is 1.03. Chemistry re viewed. Her direct bilirubin on admission was 1.6, total bilirubin was 2.4. AST and ALT were elevat ed at 371 and 559, alkaline phosphatase was 755. Her potassium which was replaced is 2.9. Lipase wa s normal. Today her electrolytes reviewed. Glucose is elevated and remainder of the electrolytes are within normal limits. Her direct bilirubin is down to 0.4, total bilirubin is 0.9. AST and ALT are slightly elevated, now at 38 and 235. Alkaline phosphatase is 471. Her MRCP reviewed, it shows ext ensive cholelithiasis, but there are several pancreatic lesions are present which are T2 hyperintense and nonspecific. These are favored to represent dilated pancreatic side branches or IPMNS. She had an ultrasound, which showed multi-stone cholelithiasis with wall thickening and she had CT of the ab domen and pelvis fluid showed fecal retention throughout the colon. Trace cholecystic fluid, low den sity pancreatic lesions present, largest measuring 13 mm in the mid body pancreas. Assessment: An 79-year-old female with multiple medical problems with chronic cholecystitis, choleli thiasis, and pancreatic mass. Recommendations: I discussed the case with Dr. Bruce Owusu at [facility] as well as Dr. Matthew marino and essentially the patient has a 20% chance of having malignancy in those cystic lesions in the p ancreas and this needs to be further evaluated with an endoscopic ultrasound and probably fluid aspir ation and tissue sampling to be sure that it is not malignant, following which an appropriate surgica l plan could be made for the patient including a cholecystectomy. As obviously was unable to do some of the diagnostic procedures the patient requires, I would recommend that we transfer the patient un bianca the care of Dr. Owusu who has kindly accepted, the transfer process has begun. The patient needs to be on IV antibiotics which I will start and the plan of care was discussed with Dr. Oseguera as well and then the entire plan was discussed in detail with the son. SHIRA/RUDOLPH Voice ID: [id number] Report ID: [id number]
--- NOTE | 2019-08-13 14:42 | P.DS ---
Admission Date: 08/11/19 (Hospitalist) Discharge Date: 08/13/19 Disposition: TRANSFER TO [facility] Discharge Condition: FAIR Reason for Admission: Chronic cholecystitis Consultations: Zane and Sweat - Problems (1) Acute cholecystitis Current Visit: Yes Status: Acute (2) Atrial fibrillation Current Visit: Yes Status: Acute Qualifiers: Atrial fibrillation type: paroxysmal Qualified Code(s): I48.0 - Paroxysmal atrial fibrillation (3) Pulmonary hypertension Current Visit: Yes Status: Acute Brief History of Present Illness: AW nausea and vomiting and c abdominal pain Hospital Course: developed transient Afib S/b cardiology. MRCP no biliary duct stones. Multiple cystic lesion on pancreas.DW Dr. flores. Tx to [facility] evaluate forpancreatic cancer. Pt stable Enho pulmonary HTN presumed sec to diastolic dysfunction. Severe HTN. Abnormal LFT patient stable at this time of discharge poly benefit from spironolactone to control of blood pressure and the hypokalemia in addition to the diastolic dysfunction Vital Signs/Physical Exam: Temp Pulse Resp BP Pulse Ox 98.1 F 136 H 18 140/60 92 08/13/19 12:00 08/13/19 12:54 08/13/19 12:00 08/13/19 12:54 08/13/19 12:00 General: Alert, Oriented x3 HEENT: Atraumatic Neck: Supple Respiratory: Clear to auscultation bilaterally Laboratory Data at Discharge: WBC 13.8 K/uL (4.3-10.9) H D 08/13/19 10:50 Hgb 13.2 g/dL (12.0-15.0) 08/13/19 10:50 Hct 40.1 % (36.0-45.0) 08/13/19 10:50 Plt Count 182 K/uL (152-406) 08/13/19 10:50 PT 12.2 SECONDS (9.5-12.5) 08/12/19 05:13 INR 1.03 08/12/19 05:13 Sodium 141 mmol/L (136-145) 08/13/19 05:06 Potassium 3.5 mmol/L (3.5-5.1) 08/13/19 05:06 BUN 14 mg/dL (7-18) 08/13/19 05:06 Creatinine 0.59 mg/dL (0.55-1.3) 08/13/19 05:06 Glucose 298 mg/dL (74-106) H 08/13/19 05:06 Phosphorus 1.9 mg/dL (2.5-4.9) L 08/13/19 05:06 Magnesium 2.1 mg/dL (1.8-2.4) 08/12/19 05:13 Total Bilirubin 0.9 mg/dL (0.2-1.0) 08/13/19 10:50 AST 38 U/L (15-37) H D 08/13/19 10:50 ALT 235 U/L (12-78) H D 08/13/19 10:50 Alkaline Phosphatase 471 U/L (45-117) H 08/13/19 10:50 Troponin I 0.04 ng/mL (0.0-0.045) 08/12/19 09:00 Triglycerides 191 mg/dL (<150) H 08/12/19 05:13 Cholesterol 142 mg/dL (<200) 08/12/19 05:13 HDL Cholesterol 19 mg/dL (40-60) L 08/12/19 05:13 Cholesterol/HDL Ratio 7.47 08/12/19 05:13 Lipase 43 U/L (73-393) L 08/11/19 16:30 Home Medications: Clonidine HCl [Catapres*] 0.2 mg PO TID 08/11/19 Diltiazem HCl [Diltiazem ER] 1 tab PO QID 08/11/19 Insulin Glargine Human [Lantus] 32 unit SQ BEDTIME 08/11/19 Insulin Lispro [Humalog*] 12 unit SQ TIDWM 08/11/19 Losartan/Hydrochlorothiazide [Losartan-Hctz 100-12.5 mg Tab] 1 each PO DAILY 08/11/19 Metoprolol Succinate [Toprol Xl] 50 mg PO DAILY 08/11/19 Simvastatin 20 mg PO BEDTIME 08/11/19
--- NOTE | 2019-08-13 16:30 | P.PN ---
Subjective Date of Service: 08/13/19 Chief Complaint: N/V, mid abdominal pain, abnormal pancreas Subjective: New changes (Increasing WBC with N/V. Sleeping now with therapy.) Review of Systems General: Weakness, Malaise Gastrointestinal: Nausea, Vomiting (none now) Physical Examination - Vital Signs Temperature: 98.1 F Blood Pressure: 140/60 Pulse: 136 Respirations: 18 Pulse Ox (%): 92 - Physical Exam General: Alert, In no apparent distress HEENT: Atraumatic, Normocephalic Neck: Supple Respiratory: Normal air movement Cardiovascular: Normal pulses Gastrointestinal: Soft and benign, No tenderness, No rebound, No guarding - Studies Microbiology Data (last 24 hrs): 08/11/19 16:53 Clean Catch Urine [place] Count - Final BETWEEN 10,000 & 100,000 CFU/ML 08/11/19 16:53 Clean Catch Urine - Final MIXED CARMEN. 08/11/19 16:38 Blood - Blood Anaerobic Blood Culture - Final Assessment And Plan - Current Problems (Diagnosis) (1) Nausea & vomiting Current Visit: Yes Status: Acute (2) Abdominal pain Current Visit: Yes Status: Acute (3) Abnormal transaminases Current Visit: Yes Status: Acute (4) Cholecystitis with cholelithiasis Current Visit: Yes Status: Acute (5) Abnormal ultrasound Current Visit: Yes Status: Acute (6) Abnormal CT of the abdomen Current Visit: Yes Status: Acute (7) Atrial fibrillation Current Visit: Yes Status: Acute Qualifiers: Atrial fibrillation type: paroxysmal Qualified Code(s): I48.0 - Paroxysmal atrial fibrillation (8) Diabetes mellitus type 2 in obese Current Visit: Yes Status: Acute (9) Pancreatic lesion Current Visit: Yes Status: Acute Comment: Probable IPMN. - Plan REC: 1) continue IVFs & IV antibiotic therapy 2) lap vanessa as per surgery 3) EUS for probable IPMN (ensure no advanced findings)
[2019-08-13] MEDS: ONDANSETRON 4 MG/2 ML VIAL IV PRN (17:48)
== END 2019-08-13 18:55 | disposition short-term general hospital (02) | DRG 446 ==
LOC: ER 15:23 → ERHOLD 19:02 → 4TH 20:40 → 2ND 08-12 00:47
PROVIDERS: ADMIT Internal Medicine; ATTEND Internal Medicine Sleep Medicine
PROC: 8E0ZXY6 Isolation (ICD-10-PCS; principal; 2019-08-11)
DX: K80.12 Calculus of gallbladder with acute and chronic cholecystitis without obstruction (principal); I48.0 Paroxysmal atrial fibrillation; I27.20 Pulmonary hypertension, unspecified; E11.9 Type 2 diabetes mellitus without complications; K59.00 Constipation, unspecified; I10 Essential (primary) hypertension; K76.9 Liver disease, unspecified; K59.04 Chronic idiopathic constipation; E66.9 Obesity, unspecified; K86.9 Disease of pancreas, unspecified; E78.5 Hyperlipidemia, unspecified; R74.0 Nonspecific elevation of levels of transaminase and lactic acid dehydrogenase [LDH]; R79.89 Other specified abnormal findings of blood chemistry; Z79.899 Other long term (current) drug therapy; Z68.27 Body mass index [BMI] 27.0-27.9, adult; Z20.828 Contact with and (suspected) exposure to other viral communicable diseases; Z79.4 Long term (current) use of insulin; Z90.710 Acquired absence of both cervix and uterus
CPT/HCPCS: 36415; 71045; 74177; 74181; 76705; 80048; 80053; 80061; 80074; 80076; 81003; 82947; 83605; 83690; 83735; 83880; 84100; 84145; 84484; 85025; 85610; 86301; 87040; 87086; 87088; 87804; 93005; 93306; 94760; 96361; 96365; 96375; 99285; J0360; J2405; J2543; J7030; Q9967; U0002

== ENCOUNTER 2020-02-15 22:06 | Emergency (ER) | payer OTHER, MEDICARE ==
--- OUTSIDE RECORDS SUMMARY | 2020-02-15 22:09 | XMS REPORT | Clinical Summary ---
:1940 Author Organization [facility] Address [address] [place] [address] Care Team Providers Name Role Phone Unavailable Primary Care Provider Unavailable Allergies No Known Allergies Medications Medication Sig Dispensed Refills Start End Status Date Date cloNIDine HCL Take 1 tablet (0.2 90 tablet 3 08/26/19 Active (CATAPRES) 0.2 MG mg total) by mouth 20 tabletIndications: 3 (three) times hypertension daily. insulin lispro Inject 10 Units 21 mL 3 08/26/19 Active (HUMALOG U-100 subcutaneously 3 20 INSULIN) 100 (three) times unit/mL daily before CrtgIndications: meals. type 2 diabetes mellitus amiodarone Take 1 tablet (200 60 tablet 0 08/26/19 Active (PACERONE) 200 MG mg total) by mouth 20 021 tablet 2 (two) times daily. metoprolol Take 1 tablet (50 180 tablet 3 08/26/19 Active succinate mg total) by mouth 20 (TOPROL-XL) 50 MG daily. 24 hr tabletIndications: hypertension aspirin 81 MG EC Take 1 tablet (81 90 tablet 3 08/26/1908/252 Active tablet mg total) by mouth 20 021 daily. atorvastatin Take 1 tablet (10 90 tablet 3 08/26/192 Active (LIPITOR) 10 MG mg total) by mouth 20 021 tablet nightly. NIFEdipine (ADALAT Take 1 tablet (30 90 tablet 3 08/26/192 Active CC) 30 MG 24 hr mg total) by mouth 20 021 tablet daily. losartan-hydroCHLO Take 1 tablet by 90 tablet 3 08/26/19 05/ 5/2 Active ROthiazide mouth daily. 20 021 (HYZAAR) 100-25 mg per tablet insulin glargine Inject 28 Units 30 mL 3 08/26/19 Active (LANTUS) 100 subcutaneously 20 unit/mL nightly Use as injectionIndicatio directed . ns: type 2 diabetes mellitus cloNIDine HCL Take 0.2 mg by 0 15/2 D iscontinued (CATAPRES) 0.2 MG mouth 3 (three) 020 (Reorder) tabletIndications: times daily. hypertension insulin glargine Inject 32 Units 0 15/2 Discontinued (LANTUS) 100 subcutaneously 020 (R eorder) unit/mL nightly Use as injectionIndicatio directed . ns: type 2 diabetes mellitus insulin lispro Inject 12 Units 0 15/2 Discontinued (HUMALOG) 100 subcutaneously 3 020 (Reorder) unit/mL (three) times injectionIndicatio daily before ns: type 2 meals. diabetes mellitus losartan-hydrochlo Take 1 tablet by 0 / 5/2 Discontinued rothiazide mouth daily. 020 (Stop Taking at (HYZAAR) 100-12.5 Di scharge) mg per tabletIndications: hypertension metoprolol Take 50 mg by 0 15/2 Disco ntinued succinate mouth daily. 020 (Reorde r) (TOPROL-XL) 50 MG 24 hr tabletIndications: hypertension simvastatin Take 20 mg by 0 /15/2 Disc ontinued (ZOCOR) 20 MG mouth nightly. 020 ( Stop Taking at tabletIndications: D ischarge) hyperlipidemia dilTIAZem (TIAZAC) Take 360 mg by 0 15 2 Discontinued 360 MG 24 hr mouth daily. 020 (Sto p Taking at capsuleIndications D ischarge) : hypertension Active Problems Problem Noted Date Liver lesion 08/13/2019 Encounters Date Type Specialty Care Team Description 08/18/2019 Anesthesia Event John Rea MD Devoe, Ross A, TAYLOR 08/18/2019 Surgery Cherrie Suarez LAPAROSCOPY,CHO RADHA Andre Aba, MD 08/17/2019 Surgery Gastroenterology Fatuma, DOMENICA,PAPILL OTOMY MD Olman 08/17/2019 Anesthesia Event Gastroenterology Jasmyne De Guzman MD 08/15/2019 Orders Only General Internal Medicine 08/13/2019 Hospital Encounter Cardiology Bruce Owusu ion; - Teodoro Ashby MD Insulin dependent type 2 diabetes mell us ([facility]); 08/26/2019 , Paroxysmal atri al fibrillation (HCC); MD Kapil Cholecystitis; Tricuspid valve mass; Acute calculous cholecystitis; Fever, unspecif ied fever cause; Acute bacterial endocarditis; S/P laparoscopi c cholecystectomy 08/13/2019 Travel 08/11/2019 Lab Requisition Lab after 02/14/2019 Social History Tobacco Use Types Packs/Day Years Used Date Former Smoker 0.1 5 Quit: 04/13/18 80 Smokeless Tobacco: Never Used Alcohol Use Drinks/Week oz/Week Comments No Alcohol Habits Answer Date Recorded How often do you have a drink containing alcohol? Never 08/13/2019 How many drinks containing alcohol do you have on a typical Not asked day when you are drinking? How often do you have six or more drinks on one occasion? No t asked Sex Assigned at Date Recorded Not on file Last Filed Vital Signs Vital Sign Reading Time Taken Comments Blood Pressure 147/68 08/26/2019 7:26 AM CDT Pulse 59 08/26/2019 7:26 AM CDT Temperature 36.9 C (98.5 F) 08/26/2019 7:26 AM CDT Respiratory Rate 18 08/26/2019 7:26 AM CDT Oxygen Saturation 95% 08/26/2019 7:26 AM CDT Inhaled Oxygen Concentration - - Weight 83.4 kg (183 lb 12.8 oz) 08/24/2019 8:00 AM CDT Height 172.7 cm (5' 8") 08/13/2019 8:05 PM CDT Body Mass Index 27.95 08/13/2019 8:05 PM CDT Plan of Treatment Health Maintenance Due Date Last Done Comments DIABETIC EYE EXAM 1950 DIABETIC FOOT EXAM 1950 URINE MICROALBUMIN 1950 PNEUMOCOCCAL 65+ YRS (1 of 1 - [id number] PCV13) 02/21/2004 MEDICARE ANNUAL WELLNESS (YEAR 2 or FIRST YEAR if no 02/12/2005 IPPE) INFLUENZA VACCINE (#1) 2019 HEMOGLOBIN A1C 02/13/2020 08/13/2019 Procedures Procedure Name Priority Date/Time Associated Diagnosis Comme nts RHYTHM STRIP - SCAN 08/29/2019 11:00 AM CDT POCT-GLUCOSE METER Routine 08/26/2019 9:24 Resul ts for this AM CDT procedure are i n the results section. VENOUS DOPPLER ARM, STAT 08/26/2019 8:55 Resu lts for this LEFT AM CDT procedure are i n the results section. PROTHROMBIN TIME/INR Routine 08/26/2019 3:32 Res ults for this AM CDT procedure are i n the results section. HEPATIC FUNCTION PANEL Routine 08/26/2019 3:32 R esults for this AM CDT procedure are i n the results section. APTT Routine 08/26/2019 3:32 Results for this AM CDT procedure are i n the results section. PHOSPHORUS Routine 08/26/2019 3:32 Results for this AM CDT procedure are i n the results section. MAGNESIUM Routine 08/26/2019 3:32 Results for this AM CDT procedure are i n the results section. BASIC METABOLIC PANEL Routine 08/26/2019 3:32 Re sults for this (7) AM CDT procedure are i n the results section. CBC (HEMOGRAM ONLY) Routine 08/26/2019 3:32 Resu lts for this AM CDT procedure are i n the results section. POCT-GLUCOSE METER Routine 08/25/2019 8:33 Resul ts for this PM CDT procedure are i n the results section. POCT-GLUCOSE METER Routine 08/25/2019 5:13 Resul ts for this PM CDT procedure are i n the results section. POCT-GLUCOSE METER Routine 08/25/2019 12:30 Resul ts for this PM CDT procedure are i n the results section. POCT-GLUCOSE METER Routine 08/25/2019 7:38 Resul ts for this AM CDT procedure are i n the results section. PROTHROMBIN TIME/INR Routine 08/25/2019 5:04 Res ults for this AM CDT procedure are i n the results section. HEPATIC FUNCTION PANEL Routine 08/25/2019 5:04 R esults for this AM CDT procedure are i n the results section. APTT Routine 08/25/2019 5:04 Results for this AM CDT procedure are i n the results section. PHOSPHORUS Routine 08/25/2019 5:04 Results for this AM CDT procedure are i n the results section. MAGNESIUM Routine 08/25/2019 5:04 Results for this AM CDT procedure are i n the results section. BASIC METABOLIC PANEL Routine 08/25/2019 5:04 Re sults for this (7) AM CDT procedure are i n the results section. CBC (HEMOGRAM ONLY) Routine 08/25/2019 5:04 Resu lts for this AM CDT procedure are i n the results section. POCT-GLUCOSE METER Routine 08/24/2019 9:22 Resul ts for this PM CDT procedure are i n the results section. MISCELLANEOUS LAB Routine 08/24/2019 9:12 ORDER PM CDT POCT-GLUCOSE METER Routine 08/24/2019 4:24 Resul ts for this PM CDT procedure are i n the results section. POCT-GLUCOSE METER Routine 08/24/2019 12:13 Resul ts for this PM CDT procedure are i n the results section. POCT-GLUCOSE METER Routine 08/24/2019 8:14 Resul ts for this AM CDT procedure are i n the results section. PROCALCITONIN Routine 08/24/2019 3:41 Results fo r this AM CDT procedure are i n the results section. PROTHROMBIN TIME/INR Routine 08/24/2019 3:41 Res ults for this AM CDT procedure are i n the results section. HEPATIC FUNCTION PANEL Routine 08/24/2019 3:41 R esults for this AM CDT procedure are i n the results section. APTT Routine 08/24/2019 3:41 Results for this AM CDT procedure are i n the results section. PHOSPHORUS Routine 08/24/2019 3:41 Results for this AM CDT procedure are i n the results section. MAGNESIUM Routine 08/24/2019 3:41 Results for this AM CDT procedure are i n the results section. BASIC METABOLIC PANEL Routine 08/24/2019 3:41 Re sults for this (7) AM CDT procedure are i n the results section. CBC (HEMOGRAM ONLY) Routine 08/24/2019 3:41 Resu lts for this AM CDT procedure are i n the results section. POCT-GLUCOSE METER Routine 08/23/2019 9:14 Resul ts for this PM CDT procedure are i n the results section. POCT-GLUCOSE METER Routine 08/23/2019 5:27 Resul ts for this PM CDT procedure are i n the results section. POCT-GLUCOSE METER Routine 08/23/2019 4:45 Resul ts for this PM CDT procedure are i n the results section. POCT-GLUCOSE METER Routine 08/23/2019 1:12 Resul ts for this PM CDT procedure are i n the results section. POCT-GLUCOSE METER Routine 08/23/2019 7:42 Resul ts for this AM CDT procedure are i n the results section. PROTHROMBIN TIME/INR Routine 08/23/2019 3:38 Res ults for this AM CDT procedure are i n the results section. HEPATIC FUNCTION PANEL Routine 08/23/2019 3:38 R esults for this AM CDT procedure are i n the results section. APTT Routine 08/23/2019 3:38 Results for this AM CDT procedure are i n the results section. PHOSPHORUS Routine 08/23/2019 3:38 Results for this AM CDT procedure are i n the results section. MAGNESIUM Routine 08/23/2019 3:38 Results for this AM CDT procedure are i n the results section. BASIC METABOLIC PANEL Routine 08/23/2019 3:38 Re sults for this (7) AM CDT procedure are i n the results section. CBC (HEMOGRAM ONLY) Routine 08/23/2019 3:38 Resu lts for this AM CDT procedure are i n the results section. POCT-GLUCOSE METER Routine 08/22/2019 9:39 Resul ts for this PM CDT procedure are i n the results section. BLOOD CULTURE Routine 08/22/2019 9:30 Results fo r this PM CDT procedure are i n the results section. BLOOD CULTURE Routine 08/22/2019 9:25 Results fo r this PM CDT procedure are i n the results section. ECHOCARDIOGRAM REPORT 08/22/2019 9:11 - SCAN PM CDT POCT-GLUCOSE METER Routine 08/22/2019 5:37 Resul ts for this PM CDT procedure are i n the results section. URINE CULTURE STAT 08/22/2019 3:15 Results fo r this PM CDT procedure are i n the results section. URINALYSIS W/ REFLEX STAT 08/22/2019 3:13 Res ults for this URINE CULTURE PM CDT procedure are in the results section. POCT-GLUCOSE METER Routine 08/22/2019 12:45 Resul ts for this PM CDT procedure are i n the results section. TRANSESOPHAGEAL ECHO Routine 08/22/2019 9:21 Res ults for this AM CDT procedure are i n the results section. POCT-GLUCOSE METER Routine 08/22/2019 7:55 Resul ts for this AM CDT procedure are i n the results section. PREALBUMIN Routine 08/22/2019 3:32 Results for this AM CDT procedure are i n the results section. HEPATIC FUNCTION PANEL Routine 08/22/2019 3:32 R esults for this AM CDT procedure are i n the results section. PHOSPHORUS Routine 08/22/2019 3:32 Results for this AM CDT procedure are i n the results section. MAGNESIUM Routine 08/22/2019 3:32 Results for this AM CDT procedure are i n the results section. BASIC METABOLIC PANEL Routine 08/22/2019 3:32 Re sults for this (7) AM CDT procedure are i n the results section. CBC (HEMOGRAM ONLY) Routine 08/22/2019 3:32 Resu lts for this AM CDT procedure are i n the results section. PROTHROMBIN TIME/INR Routine 08/22/2019 3:31 Res ults for this AM CDT procedure are i n the results section. APTT Routine 08/22/2019 3:31 Results for this AM CDT procedure are i n the results section. POCT-GLUCOSE METER Routine 08/21/2019 10:19 Resul ts for this PM CDT procedure are i n the results section. POCT-GLUCOSE METER Routine 08/21/2019 8:26 Resul ts for this PM CDT procedure are i n the results section. POCT-GLUCOSE METER Routine 08/21/2019 5:16 Resul ts for this PM CDT procedure are i n the results section. POCT-GLUCOSE METER Routine 08/21/2019 12:20 Resul ts for this PM CDT procedure are i n the results section. POCT-GLUCOSE METER Routine 08/21/2019 8:53 Resul ts for this AM CDT procedure are i n the results section. HEPATIC FUNCTION PANEL Routine 08/21/2019 6:16 R esults for this AM CDT procedure are i n the results section. APTT Routine 08/21/2019 6:16 Results for this AM CDT procedure are i n the results section. PHOSPHORUS Routine 08/21/2019 6:16 Results for this AM CDT procedure are i n the results section. MAGNESIUM Routine 08/21/2019 6:16 Results for this AM CDT procedure are i n the results section. BASIC METABOLIC PANEL Routine 08/21/2019 6:16 Re sults for this (7) AM CDT procedure are i n the results section. CBC (HEMOGRAM ONLY) Routine 08/21/2019 6:16 Resu lts for this AM CDT procedure are i n the results section. POCT-GLUCOSE METER Routine 08/20/2019 9:42 Resul ts for this PM CDT procedure are i n the results section. POCT-GLUCOSE METER Routine 08/20/2019 5:40 Resul ts for this PM CDT procedure are i n the results section. CONT WAVE PULSED Routine 08/20/2019 4:52 DOPPLER PM CDT COLOR-FLOW MAPPING Routine 08/20/2019 4:52 PM CDT POCT-GLUCOSE METER Routine 08/20/2019 12:31 Resul ts for this PM CDT procedure are i n the results section. POCT-GLUCOSE METER Routine 08/20/2019 8:33 Resul ts for this AM CDT procedure are i n the results section. HEPATIC FUNCTION PANEL Routine 08/20/2019 4:37 R esults for this AM CDT procedure are i n the results section. APTT Routine 08/20/2019 4:37 Results for this AM CDT procedure are i n the results section. PHOSPHORUS Routine 08/20/2019 4:37 Results for this AM CDT procedure are i n the results section. MAGNESIUM Routine 08/20/2019 4:37 Results for this AM CDT procedure are i n the results section. BASIC METABOLIC PANEL Routine 08/20/2019 4:37 Re sults for this (7) AM CDT procedure are i n the results section. CBC (HEMOGRAM ONLY) Routine 08/20/2019 4:37 Resu lts for this AM CDT procedure are i n the results section. POCT-GLUCOSE METER Routine 08/20/2019 12:52 Resul ts for this AM CDT procedure are i n the results section. TRANSFUSION SERVICE 08/19/2019 5:50 REPORT - SCAN PM CDT POCT-GLUCOSE METER Routine 08/19/2019 5:25 Resul ts for this PM CDT procedure are i n the results section. POCT-GLUCOSE METER Routine 08/19/2019 12:13 Resul ts for this PM CDT procedure are i n the results section. POCT-GLUCOSE METER Routine 08/19/2019 8:09 Resul ts for this AM CDT procedure are i n the results section. POCT-GLUCOSE METER Routine 08/19/2019 6:11 Resul ts for this AM CDT procedure are i n the results section. HEPATIC FUNCTION PANEL Routine 08/19/2019 3:38 R esults for this AM CDT procedure are i n the results section. APTT Routine 08/19/2019 3:38 Results for this AM CDT procedure are i n the results section. PHOSPHORUS Routine 08/19/2019 3:38 Results for this AM CDT procedure are i n the results section. MAGNESIUM Routine 08/19/2019 3:38 Results for this AM CDT procedure are i n the results section. BASIC METABOLIC PANEL Routine 08/19/2019 3:38 Re sults for this (7) AM CDT procedure are i n the results section. CBC (HEMOGRAM ONLY) Routine 08/19/2019 3:38 Resu lts for this AM CDT procedure are i n the results section. POCT-GLUCOSE METER Routine 08/18/2019 11:51 Resul ts for this PM CDT procedure are i n the results section. POCT-GLUCOSE METER Routine 08/18/2019 6:21 Resul ts for this PM CDT procedure are i n the results section. POCT-GLUCOSE METER Routine 08/18/2019 5:44 Resul ts for this PM CDT procedure are i n the results section. POCT-GLUCOSE METER Routine 08/18/2019 5:09 Resul ts for this PM CDT procedure are i n the results section. TISSUE EXAM AP Routine 08/18/2019 3:45 Results for this PM CDT procedure are i n the results section. LAPAROSCOPY,CHOLECYSTE 08/18/2019 1:17 Calculus of CTOMY PM CDT gallbladder with acute cholecystitis without obstruction Special Needs (REQ 12:00) POCT-GLUCOSE METER Routine 08/18/2019 11:19 Resul ts for this AM CDT procedure are i n the results section. POCT-GLUCOSE METER Routine 08/18/2019 7:29 Resul ts for this AM CDT procedure are i n the results section. XR CHEST 1 VIEW Routine 08/18/2019 7:28 Results for this PORTABLE/BEDSIDE AM CDT procedure a re in the results section. ABORH, MANUAL STAT 08/18/2019 5:01 Results fo r this AM CDT procedure are i n the results section. HEPATIC FUNCTION Routine 08/18/2019 5:01 Results for this PANEL AM CDT procedure are i n the results section. TYPE AND SCREEN, Routine 08/18/2019 3:29 Results for this AUTOMATED AM CDT procedure are i n the results section. PROTHROMBIN TIME/INR Routine 08/18/2019 3:29 Res ults for this AM CDT procedure are i n the results section. APTT Routine 08/18/2019 3:29 Results for this AM CDT procedure are i n the results section. PHOSPHORUS Routine 08/18/2019 3:29 Results for this AM CDT procedure are i n the results section. MAGNESIUM Routine 08/18/2019 3:29 Results for this AM CDT procedure are i n the results section. BASIC METABOLIC PANEL Routine 08/18/2019 3:29 Re sults for this (7) AM CDT procedure are i n the results section. CBC (HEMOGRAM ONLY) Routine 08/18/2019 3:29 Resu lts for this AM CDT procedure are i n the results section. HEPATIC FUNCTION Routine 08/18/2019 3:29 Results for this PANEL AM CDT procedure are i n the results section. POCT-GLUCOSE METER Routine 08/17/2019 9:28 Resul ts for this PM CDT procedure are i n the results section. POCT-GLUCOSE METER Routine 08/17/2019 1:44 Resul ts for this PM CDT procedure are i n the results section. FL ERCP STAT 08/17/2019 8:50 Results for this AM CDT procedure are i n the results section. POCT-GLUCOSE METER Routine 08/17/2019 8:49 Resul ts for this AM CDT procedure are i n the results section. REPORT OF PROCEDURE - 08/17/2019 8:36 ENDOSCOPY URL AM CDT ERCP,BALLOON SWEEPING 08/17/2019 7:54 Abnormal findin gs on AM CDT examination of gastrointestinal tract UPPER 08/17/2019 7:54 Abnormal findings on ENDOSCOPY,ULTRASOUND AM CDT examination of gastrointestinal tract PROCEDURE W/ C-ARM 08/17/2019 7:54 Abnormal findings on AM CDT examination of gastrointestinal tract ERCP,PAPILLOTOMY 08/17/2019 7:54 Abnormal findings on AM CDT examination of gastrointestinal tract POCT-GLUCOSE METER Routine 08/17/2019 5:30 Resul ts for this AM CDT procedure are i n the results section. PHOSPHORUS Routine 08/17/2019 5:26 Results for this AM CDT procedure are i n the results section. MAGNESIUM Routine 08/17/2019 5:26 Results for this AM CDT procedure are i n the results section. BASIC METABOLIC PANEL Routine 08/17/2019 5:26 Re sults for this (7) AM CDT procedure are i n the results section. POCT-GLUCOSE METER Routine 08/17/2019 3:30 Resul ts for this AM CDT procedure are i n the results section. PROTHROMBIN TIME/INR Routine 08/17/2019 3:26 Res ults for this AM CDT procedure are i n the results section. APTT Routine 08/17/2019 3:26 Results for this AM CDT procedure are i n the results section. CBC (HEMOGRAM ONLY) Routine 08/17/2019 3:26 Resu lts for this AM CDT procedure are i n the results section. ECHOCARDIOGRAM REPORT 08/16/2019 9:23 - SCAN PM CDT POCT-GLUCOSE METER Routine 08/16/2019 5:09 Resul ts for this PM CDT procedure are i n the results section. POCT-GLUCOSE METER Routine 08/16/2019 12:29 Resul ts for this PM CDT procedure are i n the results section. 2D ECHO W/ DOPPLER IAIN 08/16/2019 9:32 Resul ts for this (CW/PW/COLOR) AM CDT procedure are in the results section. POCT-GLUCOSE METER Routine 08/16/2019 7:58 Resul ts for this AM CDT procedure are i n the results section. POCT-GLUCOSE METER Routine 08/16/2019 4:49 Resul ts for this AM CDT procedure are i n the results section. XR CHEST 1 VIEW Routine 08/16/2019 4:01 Results for this PORTABLE/BEDSIDE AM CDT procedure a re in the results section. HEPATIC FUNCTION Routine 08/16/2019 3:33 Results for this PANEL AM CDT procedure are i n the results section. PROTHROMBIN TIME/INR Routine 08/16/2019 3:33 Res ults for this AM CDT procedure are i n the results section. APTT Routine 08/16/2019 3:33 Results for this AM CDT procedure are i n the results section. PHOSPHORUS Routine 08/16/2019 3:33 Results for this AM CDT procedure are i n the results section. MAGNESIUM Routine 08/16/2019 3:33 Results for this AM CDT procedure are i n the results section. BASIC METABOLIC PANEL Routine 08/16/2019 3:33 Re sults for this (7) AM CDT procedure are i n the results section. CBC (HEMOGRAM ONLY) Routine 08/16/2019 3:33 Resu lts for this AM CDT procedure are i n the results section. POCT-GLUCOSE METER Routine 08/15/2019 11:21 Resul ts for this PM CDT procedure are i n the results section. ECG 12-LEAD Routine 08/15/2019 4:45 Results for this PM CDT procedure are i n the results section. ECG 12-LEAD Routine 08/15/2019 4:45 PM CDT Procedure Note - Interface, External Ris In - 08/15/2019 4:48 PM CDT Ventricular Rate 83 BPM Atrial Rate 83 BPM P-R Interval 132 ms QRS Duration 84 ms Q-T Interval 362 ms QTC Calculation(Bazett) 425 ms P [place] 59 degrees R [place] -15 degrees T [place] 28 degrees Normal sinus rhythm Septal infarct (cited on or before 15-AUG-2019) Inferior infarct , age undet ermined Abnormal ECG When compared with ECG of 06:29, Sinus rhythm has replaced At rial flutter XR CHEST 1 VIEW Routine 08/15/2019 9:33 AM CDT R esults for this PORTABLE/BEDSIDE procedure a re in the results section . ECG 12-LEAD Routine 08/15/2019 6:29 AM CDT Resu lts for this procedure are i n the results section . POCT-GLUCOSE METER Routine 08/15/2019 5:36 AM CDT Results for this procedure are i n the results section . TROPONIN I Routine 08/15/2019 3:41 AM CDT Resu lts for this procedure are i n the results section . B-TYPE NATRIURETIC FACTOR Routine 08/15/2019 3:41 AM CDT Results for this (BNP) procedure are i n the results section . HEPATIC FUNCTION PANEL Routine 08/15/2019 3:41 AM CDT Results for this procedure are i n the results section . PHOSPHORUS Routine 08/15/2019 3:41 AM CDT Resu lts for this procedure are i n the results section . MAGNESIUM Routine 08/15/2019 3:41 AM CDT Resu lts for this procedure are i n the results section . BASIC METABOLIC PANEL (7) Routine 08/15/2019 3:41 AM CDT Results for this procedure are i n the results section . CBC (HEMOGRAM ONLY) Routine 08/15/2019 3:41 AM CDT Results for this procedure are i n the results section . PROTHROMBIN TIME/INR Routine 08/15/2019 3:40 AM CDT Results for this procedure are i n the results section . APTT Routine 08/15/2019 3:40 AM CDT Resu lts for this procedure are i n the results section . POCT-GLUCOSE METER Routine 08/15/2019 12:20 AM CDT Results for this procedure are i n the results section . ECG 12-LEAD STAT 08/14/2019 10:36 PM CDT Resu lts for this procedure are i n the results section . MR ABDOMEN WITH & WITHOUT IV IAIN 08/14/2019 5:28 PM CDT Results for this CONTRAST procedure are i n the results section . POCT-GLUCOSE METER Routine 08/14/2019 5:27 PM CDT Results for this procedure are i n the results section . XR CHEST 1 VIEW Routine 08/14/2019 8:50 AM CDT R esults for this PORTABLE/BEDSIDE procedure a re in the results section . POCT-GLUCOSE METER Routine 08/14/2019 6:34 AM CDT Results for this procedure are i n the results section . 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 HEPATIC FUNCTION PANEL Routine 08/14/2019 5:37 AM CDT Results for this procedure are i n the results section . PROTHROMBIN TIME/INR Routine 08/14/2019 5:37 AM CDT Results for this procedure are i n the results section . APTT Routine 08/14/2019 5:37 AM CDT Resu lts for this procedure are i n the results section . PHOSPHORUS Routine 08/14/2019 5:37 AM CDT Resu lts for this procedure are i n the results section . MAGNESIUM Routine 08/14/2019 5:37 AM CDT Resu lts for this procedure are i n the results section . BASIC METABOLIC PANEL (7) Routine 08/14/2019 5:37 AM CDT Results for this procedure are i n the results section . CBC (HEMOGRAM ONLY) Routine 08/14/2019 5:37 AM CDT Results for this procedure are i n the results section . TROPONIN I STAT 08/14/2019 5:37 AM CDT Resu lts for this procedure are i n the results section . LIPASE Add-On 08/13/2019 11:52 PM CDT Resu lts for this procedure are i n the results section . AMYLASE Add-On 08/13/2019 11:52 PM CDT Resu lts for this procedure are i n the results section . TROPONIN I STAT Add-on 08/13/2019 11:52 PM CDT Resu lts for this procedure are i n the results section . HEPATIC FUNCTION PANEL STAT 08/13/2019 11:52 PM CDT Results for this procedure are i n the results section . PHOSPHORUS STAT 08/13/2019 11:52 PM CDT Resu lts for this procedure are i n the results section . MAGNESIUM STAT 08/13/2019 11:52 PM CDT Resu lts for this procedure are i n the results section . BASIC METABOLIC PANEL (7) STAT 08/13/2019 11:52 PM CDT Results for this procedure are i n the results section . XR CHEST 1 VIEW STAT 08/13/2019 11:50 PM CDT R esults for this PORTABLE/BEDSIDE procedure a re in the results section . ECG 12-LEAD STAT 08/13/2019 10:31 PM CDT Resu lts for this procedure are i n the results section . CBC W/PLT COUNT & AUTO STAT 08/13/2019 10:27 PM CDT Results for this DIFFERENTIAL procedure are i n the results section . APTT STAT 08/13/2019 10:27 PM CDT Resu lts for this procedure are i n the results section . PROTHROMBIN TIME/INR STAT 08/13/2019 10:27 PM CDT Results for this procedure are i n the results section . CBC W/PLT COUNT & AUTO STAT 08/13/2019 10:27 PM CDT Results for this DIFFERENTIAL procedure are i n the results section . HEMOGLOBIN A1C Routine 08/13/2019 10:27 PM CDT Re sults for this procedure are i n the results section . POCT-GLUCOSE METER Routine 08/13/2019 9:44 PM CDT Results for this procedure are i n the results section . SARS-COV2/RT-PCR (HS & Routine 08/11/2019 6:14 PM CDT Results for this REF LABS) procedure are i n the results section . after 02/14/2019 Results RHYTHM STRIP - SCAN (08/29/2019 11:00 AM CDT) Narrative Performed At This result has an attachment that is no t available. POC-Glucose meter (08/26/2019 9:24 AM CDT)Only the most recent of53 results within the time period is included. Pathologist [facility] POC-Glucose Meter 142 (H)Comment: 70 - 110 mg/dL [facility] : TESTED AT [address], [address]: Research Hydraulic Engineer/Technic stephanie ID = [id number] for ESME MCFADDEN Specimen Blood Performing Organization Address City/State/Zipcode Phone Number [address] [phone] [place] Venous doppler arm, left (08/26/2019 8:55 AM CDT) Pathologist Sig nature Ejection Fraction [facility] ECHO HEARTLAB [facility] Specimen Impressions Performed At [facility] ECHO [facility] Left Impression 1. There is total mildly echogenic superficial venous obstruction in the cephalic vein. 2. There is no deep venous obstruction in the jugular, subclavian, axillary, brachial, radial or ulnar veins. 3. There is no superficial venous obstruction in the basilic vein. Conclusions Summary Venous duplex imaging and compression of the left upper extremity were performed. The veins were adequately visualized. The left superficial venous system was positive with acute thrombus. The left deep venous system was patent and compressible with no evidence of thrombus. Signature Velocities are measured in cm/s ; Diameters are measured in cm Narrative Performed At PV LAB - Upper Extremities Veins [facility] E[facility] HEART[facility] Demographics Patient Name GUADALUPE HERNANDEZ Date of Study 08/26/2019 DAVIDA Age 79 Visit Number [id number] Gender Female Accession Number [id number] Date of 1940 Referring Kapil Garza Room Number 1411 Physician Paper Cap Machine Operator Yan Ramirez Interpreting Melida meng, S Physician Procedure Type of Study: Veins: Upper Extremities Veins, VENOUS DOPPLER ARM, LEFT. Indications for Study:Left arm swelling . Patient Status:STAT. Study Location:Vascular Lab. Technical Quality:Adequate visualization . - Results were reported to: Esme GLASGOW @ 9:00 am. Risk Factors History of Disease + + + + !Diagnosis !Date !Comments ! + + + + !History/Risk Factors:!08/26/2019!S/P Lap Cholecystectomy 08/18/2019, DM, HTN! + + + + Procedure Note Interface, External Ris In - 08/26/2019 4:13 PM CDT PV LAB - Upper Extremities Veins Demographics Patient Name GUADALUPE HERNANDEZ Bruno e of Study 08/26/2019 DAVIDA Age 79 Visit Number [id number] Gen bianca Female Accession Number [id number] Bruno e of 1940 Referring Kapil Soliman m Number [id number] Physician Paper Cap Machine Operator Yan Ramirez Int erpreting Melida Alicea, S Betsy rhoades MD Procedure Type of Study: Veins: Upper Extremities Veins, VENOUS DOPPLER ARM, LEFT. Indications for Study:Left arm swelling . Patient Status:STAT. Study Location:Vascular Lab. Technical Quality:Adequate visualization . - Results were reported to: Esme GLASGOW @ 9:00 am. Risk Factors History of Disease + + +------ + !Diagnosis !Date !Commen ts ! + + +------ + !History/Risk Factors:!08/26/2019!S/P Shanon Bermeo 08/18/2019, DM, HTN! + + +------ + Impressions Left Impression 1. There is total mildly echogenic super ficial venous obstruction in the cephalic vein. 2. There is no deep venous obstruction i n the jugular, subclavian, axillary, brachial, radial or ulnar veins. 3. There is no superficial venous obstru ction in the basilic vein. Conclusions Summary Venous duplex imaging and compression o f the left upper extremity were performed. The veins were adequately vi sualized. The left superficial venous system was positive with acute t hrombus. The left deep venous system was patent and compressible with no evidence of thrombus. Signature Velocities are measured in cm/s ; Diamet ers are measured in cm Performing Organization Address City/State/Zipcode Phone Number [facility] aPTT (08/26/2019 3:32 AM CDT)Only the most recent of14 resultswithin the time period is included. Pathologist Sig [place] PTT 37.5 (H) 22.5 - 36.0 seconds [facility] Specimen Blood Performing Organization Address City/State/Zipcode Phone Number [facility] [address] [place] [address] CENTER Prothrombin time/INR (08/26/2019 3:32 AM CDT)Only the most recent of11 results within the time period is included. Pathologist [facility] [place] Protime 14.1 11.9 - 14.2 seconds [facility] INR 1.1 <=5.9 [facility] Specimen Blood Narrative Performed At Effective 09/08/2018: PT Reference Range [facility] Change New: 11.9-14.2 Previous: 11.7-14.7 RECOMMENDED COUMADIN/WARFARIN INR THERAPY RANGES STANDARD DOSE: 2.0-3.0 Includes: PROPHYLAXIS for venous thrombosis, systemic embolization; TREATMENT for venous thrombosis and/or pulmonary embolus. HIGH RISK: Target INR is 2.5-3.5 for patients wiht mechanical heart valves. Performing Organization Address City/[facility] Phone Number [address] [address] CENTER CBC (Hemogram only) (08/26/2019 3:32 AM CDT)Only the most recent of13 results within the time period is included. Pathologist Sig nature WBC 6.0 3.5 - 10.5 K/L [facility] RBC 3.43 (L) 3.93 - 5.22 M/L [facility] Hemoglobin 10.1 (L) 11.2 - 15.7 GM/DL [facility] Hematocrit 31.0 (L) 34.1 - 44.9 % [facility] MCV 90.4 79.4 - 94.8 fL [facility] MCH 29.4 25.6 - 32.2 pg [facility] MCHC 32.6 32.2 - 35.5 GM/DL [facility] RDW 13.0 11.7 - 14.4 % [facility] Platelets 234 150 - 450 K/CU MM [facility] MPV 10.5 9.4 - 12.3 fL [facility] nRBC 0 0 - 0 /100 WBC [facility] Specimen Blood Performing Organization Address City/[facility]/Zipcode Phone Number [facility] [address] [address] CENTER Phosphorus (08/26/2019 3:32 AM CDT)Only the most recent of14 resultswithin the time period is included. Pathologist Sig nature Phosphorus 3.2 2.3 - 4.7 mg/dL [facility] Specimen Blood Narrative Performed At Research Hydraulic Engineer ID - [facility] Performing Organization Address [facility] Phone Number [address] [phone] CENTER Magnesium (08/26/2019 3:32 AM CDT)Only the most recent of14 resultswithin the time period is included. Pathologist Sig nature Magnesium 1.9 1.6 - 2.6 mg/dL [facility] Specimen Blood Narrative Performed At Research Hydraulic Engineer ID - [facility] Performing Organization Address [facility] Phone Number [address] [address] CENTER Hepatic function panel (08/26/2019 3:32 AM CDT)Only the most recent of14 resultswithin the time period is included. Pathologist Sig nature Protein, Total 5.8 (L) 6.0 - 8.3 gm/dL [facility] Albumin 2.9 (L) 3.5 - 5.0 g/dL [facility] Total Bilirubin 0.6 0.2 - 1.2 mg/dL [facility] Bilirubin, Direct 0.3 0.1 - 0.5 mg/dL [facility] Alkaline Phosphatase 105 40 - 150 U/L [facility] AST 10 5 - 34 U/L [facility] ALT 7 6 - 55 U/L [facility] Specimen Blood Narrative Performed At Research Hydraulic Engineer ID - [facility] Performing Organization Address City/State/Zipcode Phone Number [facility] [address] [place] [address] [place] Basic Metabolic Panel (08/26/2019 3:32 AM CDT)Only the most recent of14 results within the time period is included. Sodium 141 136 - 145 meq/L [facility] Potassium 4.3 3.5 - 5.1 meq/L [facility] Chloride 105 98 - 107 meq/L [facility] CO2 30 (H) 22 - 29 meq/L [facility] BUN 9 7 - 21 mg/dL [facility] Creatinine 0.69 0.57 - 1.25 [facility] mg/dL [facility] Glucose 146 (H) 70 - 105 mg/dL [facility] Calcium 8.7 8.4 - 10.2 [facility] mg/dL [facility] EGFR 82Comment: ESTIMATED mL/min/1.73 sq [facility] GFR IS NOT m [facility] ACCURATE [place] CREATININE CLEARANCE IN PREDICTING GLOMERULAR FILTRATION RATE. ESTIMATED GFR IS NOT APPLICABLE FOR DIALYSIS PATIENTS. Specimen Blood Narrative Performed At Research Hydraulic Engineer [place] - [facility] Performing Organization Address City/[facility]/Zipcode Phone Number [facility] [address] [place] [address] [place] Karius DNA assay (08/24/2019 9:12 PM CDT) Pathologist Sig nature Scan Result [facility] Specimen Blood - Structure of right forearm (body structure) Narrative Performed At This result has an attachment that is no t available. Performing Organization Address City/State/Zipcode Phone Number [facility] [address] [facility] o, [place] Procalcitonin (08/24/2019 3:41 AM CDT) Pathologist Sig nature Procalcitonin 0.06 (H) <0.05 ng/mL [facility] Specimen Blood Narrative Performed At SEPSIS RISK (ng/mL) [facility] Low: 0.05-0.50 Intermediate: 0.51-2.00 High: >=2.01 Performing Organization Address [facility] Phone Number [address] [address] [place] Blood Culture - Routine (Left Venipuncture) (08/22/2019 9:30 PM CDT)Only the most recent of2 resultswithin the time period is included. Pathologist Sig nature Result No growth in 5 days [facility] Specimen Blood - Entire left upper arm (body stru cture) Performing Organization Address [facility] Phone Number [address] [address] [place] ECHOCARDIOGRAM REPORT - SCAN (08/22/2019 9:11 PM CDT) Narrative Performed At This result has an attachment that is no t available. Urine culture (08/22/2019 3:15 PM CDT) Pathologist Sig nature Result No growth [facility]AL [place] Specimen Urine - Urine specimen collection, clean catch (procedure) Performing Organization Address [facility] Phone Number [address] [address] [place] Urinalysis w/Microscopic + Reflex to Culture (08/22/2019 3:13 PM CDT) Color, UA Light Yellow [facility] Clarity, UA Clear [facility] Specific [place], 1.011 1.001 - 1.035 [facility] pH, UA 7.0 5.0 - 8.0 [facility] Protein, UA Negative Negative [facility] Glucose, UA Negative Negative [facility] Ketones, UA Negative Negative [facility] Bilirubin, UA Negative Negative [facility] Blood, UA Negative Negative [facility] Nitrite, UA Negative Negative [facility] Leukocytes, UA Negative Negative [facility] Urobilinogen, UA 0.2 0.2 - 1.0 mg/dL [facility] RBC, UA 1 /HPF [facility] WBC, UA 1 /HPF [facility] Mucus Occasional [facility] Squam Epithel, UA 6 /HPF [facility] Specimen Source [facility] Specimen Urine - Urine specimen collection, clean catch (procedure) Narrative Performed At Research Hydraulic Engineer ID - [auto] [facility] Research Hydraulic Engineer ID - tech Performing Organization Address City/State/Zipcode Phone Number [facility] [address] [place] [address] CENTER Transesophageal echo (08/22/2019 9:21 AM CDT) Pathologist Sig nature Ejection Fraction [facility] ECHO HEARTLAB [facility] Specimen Narrative Performed At [facility]es[facility] E[facility]JUN[facility] Demographics Patient Name GUADALUPE HERNANDEZ Date of Study 08/22/2019 NABEELODA Gender Female Visit Number [id number] Race Room Number 1411 Number Date of 1940 Referring Toño Cantrell Physician Age 79 year(s) Paper Cap Machine Operator Jason whitmore Interpreting Javier peterson MD Physician Fellow NATACHA Whitehead FEL Procedure Type of Study ARJUN procedure:TRANSESOPHAGE AL ECHO Indications:Endocarditis. Clinical History A-FIB,DM,HTN,PANCREATIC LESSION,HYPERBILISUBINIMA,HEPATIC STEVEN GIOMA Height: 68 inches Weight: 83.01 kg (183 lbs) BSA: 1.97 m^2 BMI: 27.82 kg/m^2 HR: 65 bpm BP: 169/78 mmHg Procedure Informed Consent ARJUN procedure notes The patient was counseled and informed consent was obtained. Topical and intravenous anesthesia was administered. The esophagus was intubated without difficulty. The probe was passed and all standard echocardiographic views were obtained. The patient tolerated the procedure well.. Summary There is a 1.0x0.8 cm well-circumscribed mass on the atrial aspect of the posterior TV leaflet where it interfaces with the annulus. No evidence of valve destruction. Differential for this includes vegetation vs fibroelastoma. Mild tricuspid regurgitation. PASP is estimated at 29 + right atrial pressure. Lambl's excrescence visible on NCC. Estimated ejection fraction by visual estimation method is normal. Signature Findings Rhythm/BP Normal sinus rhythm during the exam. 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 LV chamber size is normal. There is no LV hypertrophy. All of the segments appear to contract normally. Estimated ejection fraction by visual estimation method is normal. Left Atrium Left atrium is adequately visualized. Left atrial size is normal (16-34 mL/m2). No evidence of left atrial or left atrial appendage thro mbus. Right Ventricle The right ventricular chamber size and systolic function are within normal limits. Right Atrium Right atrial size is normal. Atrial Septum The intraatrial septum is well visualized. Normal intraatrial septum by available views. IV saline contrast injection was negative for a PF O (patent foramen ovale) at rest and post Valsalva . Aortic Valve Grossly normal aortic valve morphology. Lambl's excrescence visible on NCC. There is a slight decrease in excursion of the LCC. Trace aortic regu rgitation. Mitral Valve Normal mitral structure. No mitral stenosis. Mild mitral regurgitation. Tricuspid Valve There is a 1.0x0.8 cm well-circumscribed mass on the atrial aspect of the posterior TV leaflet where it interfaces with the annulus. No evidence of valve destruction. Differential for this inclu kina vegetation vs fibroelastoma. Mild tricuspid regurgitation. PASP is estimated at 29 + right atrial pressure. Pulmonic Valve Normal pulmonic valve structure and function. Aorta Aortic root size (sinus of Valsalva diameter) is normal. Visualized aortic arch is normal. Pericardium No pericardial effusion is visualized. IVC/SVC/PA/PV/Pleural IVC and SVC are grossly normal by available views. Unable to estimate right atrial pressure. 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 Clinical History A-FIB,DM,HTN,PANCREATIC LESSION,HYPERBIL ISUBINIMA,HEPATIC HERMANGIOMA Height: 68 inches Weight: 83.01 kg (183 lbs) BSA: 1.97 m^2 BMI: 27.82 kg/m^2 HR: 65 bpm BP: 169/78 mmHg Procedure Informed Consent ARJUN procedure notes The patient was counseled and informed consent was obtained. Topical and intravenous anesthesia was administered . The esophagus was intubated without difficulty. The probe was passe d and all standard echocardiographic views were obtained. The patient tolerated the procedure well.. Summary There is a 1.0x0.8 cm well-circumscribe d mass on the atrial aspect of the posterior TV leaflet where it interface s with the annulus. No evidence of valve destruction. Differential for thi s includes vegetation vs fibroelastoma. Mild tricuspid regurgita tion. PASP is estimated at 29 + right atrial pressure. Lambl's excrescence visible on NCC. Estimated ejection fraction by visual e stimation method is normal. Signature Findings Rhythm/BP Normal sinus rhy thm during the exam. 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 LV c hamber size is normal. There is no LV hypertrophy. All of the segments appear to contract normall y. Estimated ejection fraction by visual estimatio n method is normal. Left Atrium Left atrium is a dequately visualized. Left atrial size is normal ( 16-34 mL/m2). No evidence of l eft atrial or left atrial appendage thrombus. Right Ventricle The right ventri cular chamber size and systolic function are wit hin normal limits. Right Atrium Right atrial siz e is normal. Atrial Septum The intraatrial septum is well visualized. Normal intraatrial sept um by available views. IV saline contra st injection was negative for a PFO (patent foramen ovale) at rest and post Valsalva. Aortic Valve Grossly normal a ortic valve morphology. Lambl's excrescence visi ble on NCC. There is a slight decrease in excu rsion of the LCC. Trace aortic regurgitation. Mitral Valve Normal mitral st ructure. No mitral stenos is. Mild mitral regu rgitation. Tricuspid Valve There is a 1.0x0 .8 cm well-circumscribed mass on the atrial aspec t of the posterior TV leaflet where it interfaces wi th the annulus. No evidence of valve destructio n. Differential for this includes vegetation vs fi broelastoma. Mild tricuspid regurgitation. P ASP is estimated at 29 + right atrial pressure. Pulmonic Valve Normal pulmonic valve structure and function. Aorta Aortic root size (sinus of Valsalva diameter) is normal. Visualiz ed aortic arch is normal. Pericardium No pericardial e ffusion is visualized. IVC/SVC/PA/PV/Pleural IVC and SVC are grossly normal by available views. Unable to estima te right atrial pressure. Doppler/Quantitative Measurements Tricuspid Valve TR Velocity: 2.68 m/s TR Gradient: 28.73 mmHg Performing Organization Address City/[facility]/Zipcode Phone Number [facility] ECHO HEARTLAB [facility] Prealbumin (08/22/2019 3:32 AM CDT) Pathologist Sig nature Prealbumin 11 (L) 14 - 45 mg/dL [facility] Specimen Blood Narrative Performed At Research Hydraulic Engineer ID - DB [facility] Performing Organization Address [facility]/Zipcode Phone Number [address] [address] CENTER TRANSFUSION SERVICE REPORT - SCAN (08/19/2019 5:50 PM CDT) Narrative Performed At This result has an attachment that is no t available. Tissue Exam (08/18/2019 3:45 PM CDT) Case Report Surgical Pathology Report Case: [id number] CH I [facility] Authorizing Provider: Cherrie Suarez Aba, MD Collected: 08/18/2019 03:45 PM [facility] Ordering Location: [facility] Received: 08/18/2019 04:10 PM [facility] Pathologist: Guadalupe Vaca MD Specimen: Gallbladder, GALLBLADDER DIAGNOSIS A. GALLBLADDER, LAPAROSCOPIC CHOLECYSTECTOMY: [facility] Electronically - PREDOMINANTLY CHRONIC AND FOCAL ACUTE CHOLECYSTITIS [facility] signed by Lio, - [facility] Guadalupe Schneider MD on - ONE BENIGN LYMPH NODE (0/1), 3MM 08/19/2019 at 4:32 PM Signing Pathologist Direct Phone Line: [phone] CPT Code(s) 10136 [facility] GROSS DESCRIPTION A. Received fresh labeled wi th the patient's name, MRN and gallbladder is a 8.2x3x2.2 cm intact gallbladder with a 0.8 cm long x 0.8 cm in diameter cystic duct. The serosa is mckeon pink and hyperem [facility]. A cystic duct lymph node measuring 0.3x0.3x0 .2 cm is identified. [facility] On opening, the mucosa is ta n white and trabeculated. The wall is 0.8 cm think. There is approximately 3 ml of yellow white bile. Multiple goldstein to orange faceted calculi ranging from 0.5-1.4 cm in great est dimension and 7.6x6x0.7 cm in aggregate are identified. There is a calculus lodged within the cystic duct. Manager Unit sections are submitted. Ink Code: Blue: Hepatic bed Section Code: A1: Cystic duct margin, en face and cystic duct lymph node A2: Gallbladder wall MICROSCOPIC Performed. [facility] Specimen Tissue - Gallbladder structure (body str ucture) Performing Organization Address City/State/Zipcode Phone Number [facility] [address] [place] [address] CENTER XR chest 1 view portable / bedside (08/18/2019 7:28 AM CDT)Only the most recent of5 resultswithin the time period is included. Specimen Narrative Performed At FINAL REPORT GE RIS INDICATION: preop assessment COMPARISON: August 16, 2019 TECHNIQUE: Single frontal view of the est. FINDINGS: Lungs and pleura: Clear lungs. No effusi on. Heart and mediastinum: Normal heart size . Unremarkable mediastinal contours. Osseous structures: No acute abnormality . Other: None. IMPRESSION: No acute intrathoracic abnormality. Signed: Ermias Mckeon MD Report Verified Date/Time: 08/18/2019 08:25:05 Reading Location: [facility] y Reading Room Procedure Note Interface, External Ris In - 08/18/2019 8:27 AM CDT FINAL REPORT INDICATION: preop assessment COMPARISON: August 16, 2019 TECHNIQUE: Single frontal view of the est. FINDINGS: Lungs and pleura: Clear lungs. No effusi on. Heart and mediastinum: Normal heart size . Unremarkable mediastinal contours. Osseous structures: No acute abnormality . Other: None. IMPRESSION: No acute intrathoracic abnormality. Signed: Ermias Mckeon MD Report Verified Date/Time: 08/18/2019 0 8:25:05 Reading Location: [facility] Reading Room Performing Organization Address City/[facility]/Zipcode Phone Number GE RIS ABORH, manual (08/18/2019 5:01 AM CDT) Pathologist Sig nature ABO Grouping A [facility] Rh Factor POSComment: ` [facility] Specimen Blood Performing Organization Address [facility]/Zipcode Phone Number [facility] [address] [place] [address] [phone] Type and screen, automated (08/18/2019 3:29 AM CDT) Pathologist Sig nature ABO/RH AUTOMATED A POSITIVE [facility] Ab Scrn NEGATIVE [facility] Specimen Blood Performing Organization Address [facility] Phone Number [facility] [address] [place] [address] [phone] [place] Endoscopic Retrograde Cholangiopancreatography (08/17/2019 8:50 AM CDT) Specimen Narrative Performed At FINAL REPORT RIS A fluoroscopic unit was utilized for a p rocedure performed in the operating room. No interpretation was re quested. Please refer to the operative report regarding findings. Ple ase refer to PACS for patient radiation dose information. Signed: Ermias Mckeon MD Report Verified Date/Time: 08/17/2019 10:54:06 Reading Location: [facility] Reading Room Procedure Note Interface, External Ris In - 08/17/2019 10:57 AM CDT FINAL REPORT A fluoroscopic unit was utilized for a p rocedure performed in the operating room. No interpretation was re quested. Please refer to the operative report regarding findings. Ple ase refer to PACS for patient radiation dose information. Signed: Ermias Mckeon MD Report Verified Date/Time: 08/17/2019 1 0:54:06 Reading Location: [facility] y Reading Room Performing Organization Address City/State/Zipcode Phone Number [employer] RIS REPORT OF PROCEDURE - ENDOSCOPY URL (08/17/2019 8:36 AM CDT) Narrative Performed At This result has an attachment that is no t available. ECHOCARDIOGRAM REPORT - SCAN (08/16/2019 9:23 PM CDT) Narrative Performed At This result has an attachment that is no t available. 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 Clinical History HGB 11.8 HCT 35.1 % DM, HTN, PANCREATIC/HEPATIC LESIONS Height: 68 inches Weight: 83.01 kg (183 lbs) BSA: 1.97 m^2 BMI: 27.82 kg/m^2 HR: 86 bpm BP: 190/78 mmHg Summary 1. Normal left ventricular chamber size. Mild concentric LVH noted. The LV endocardium is partially visualized. All of the LV segments contract normally . Global LV systolic function normal . Suboptimal endocardial definition precludes evaluation of EF by Bi-Plane Rosas's method. Estimated LVEF by qualitative assessment is normal (55-60%) . Grade 2 diastolic dysfunction (moderately increased LA pressure). 2. The right ventricular chamber size and systolic function are within normal limits. S' 17 cm/sec. 3. LA size is mildly enlarged (35-41 ml/m2) . RA size is normal. 4. In the limited views of the posterior leaflet of the tricuspid valve, there is a 1 cm x 0.7 cm prominence at the base of the leaflet. Unclear etiology. ( Best seen in images 15, 16, 17). Cannot rule out presence of vegetation. 5. Mild tricuspid regurgitation noted. Peak systolic pressure may be underestimated; partial TR signal. Estimated peak systolic pressure is at least 50-55 mmHg assuming RAP of 0-5 mm Hg. The estimated RA pressure by IVC dynamics 0-5 mm Hg. Previous Study No prior exam available for comparison. Please consider ARJUN for a more comprehensive evaluation of the tricuspid valve morphology if clinically indicated. Signature Findings Left Ventricle Normal left ventricular chamber size. Mild concentric LVH noted. The LV endocardium is partially visualized. All of the LV segments contract normally . Global LV systolic function normal . Suboptimal endocardial definition precludes evaluation of EF by Bi-Plane Rosas's method. Estimated LVEF by qualitative assessment is normal (55- 60%) . Grade 2 diastolic dysfunction (moderately increa sed LA p ressure). Left Atrium LA size is mildly enlarged (35-41 ml/m2) . Right Ventricle The right ventricular chamber size and systolic function are within normal limits. S' 17 cm/sec. Right Atrium RA size is normal. Aortic Valve Trileaflet aortic valve. The aortic valve leaflets appear mildly thickened. Trace AI. No evidence of aortic stenosis. Mitral Valve Normal MV structure and function. Trace MR. Tricuspid Valve In the limited views of the posterior leaflet of the tricuspid valve, there is a 1 cm x 0.7 cm prominence at the base of the leaflet. Unclear etiology. ( Best seen in images 15, 16, 17). Cannot rule out presence of vegetation. Mild tricuspid regurgitation noted. Peak systolic pressure may be underestimated; partial TR signal. Estimated peak systolic pressure is at least 50-55 mmHg assuming RAP of 0-5 mm Hg. Please consider ARJUN for a more comprehensive evaluation of the tricuspid valve morphology if clinically indicated. Pulmonic Valve Normal PV structure appears normal by available view s. Aorta Aortic root size (SInus of Valsalva diameter) is norm al . Pericardium No significant pericardial effusion is visualized. IVC/SVC/PA/PV/Pleural The estimated RA pressure by IVC dynamics 0-5 mm Hg. Chambers/Structures Left Atrium LA Volume: 71 ml LA Area: 16.18 cm^2 LA Vol. Index: 36 ml/m^2 Left Ventricle LVIDd: 4 cm LVEDV:70.04 ml LV Septum Diastolic: 1.3 cm LV PW Diastolic: 1.2 cm LVOT Diameter: 2.02 cm Right Ventricle RV Diast Dim.: 3.6 cm RV Systolic Pressure: 54 mmHg TAPSE: 2.45 cm Aorta Ao Root S of Shayy.: 2.8 cm Doppler/Quantitative Measurements Mitral Valve MV Peak E-Wave: 1.01 m/s MV Peak A-Wave: 1.26 m/s E/A Ratio: 0.8 Peak Gradient: 4.06 mmHg Deceleration Time: 195.2 msec MV Osmany. Peak: Tissue Doppler E' Septal Velocity: 0.06 m/s E/E': 14 E' Lateral Velocity: 0.08 m/s Aortic Valve Peak Velocity: 2.34 m/s Mean Velocity: 1.7 m/s Peak Gradient: 21.86 mmHg Mean Gradient: 12.46 mmHg AV Area (continuity): 2.12 cm^2 AV VTI: 39.13 cm AV DVI: 0.66 LVOT Peak Velocity: 1.41 m/s Peak Gradient: 7.97 mmHg Mean Velocity: 0.91 m/s Mean Gradient: 3.9 mmHg LVOT Diameter: 2.02 cm LVOT VTI: 25.92 cm LVOT Area: 3.2 cm^2 LVOT SV:83.02 ml LVOT CO: 7.14 l/min LVOT CI: 3.62 l/min/m^2 Tricuspid Valve Estimated RAP: 5 mmHg TR Velocity: 3.5 m/s TR Gradient: 49 mmHg Pulmonic Valve Estimated PASP: 54 mmHg Procedure Note Interface, External Ris In - 08/16/2019 1:06 PM CDT Transthoracic Echocardiography Report (TTE) Demographics Patient Name GUADALUPE HERNANDEZ Date of Study 08/16/2019 [place] Female Visit Number [id number] Race Room Number [id number] Number Date of 1940 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 Clinical History HGB 11.8 HCT 35.1 % DM, HTN, PANCREATIC/HEPATIC LESIONS Height: 68 inches Weight: 83.01 kg (183 lbs) BSA: 1.97 m^2 BMI: 27.82 kg/m^2 HR: 86 bpm BP: 190/78 mmHg Summary 1. Normal left ventricular chamber size . Mild concentric LVH noted. The LV endocardium is partially visuali zed. All of the LV segments contract normally . Global LV systolic function normal . Suboptimal endocardial definition precludes evalua tion of EF by Bi-Plane Rosas's method. Estimated LVEF by qualitative assessmen t is normal (55-60%) . Grade 2 diastolic dysfunction (moderate ly increased LA pressure). 2. The right ventricular chamber size a nd systolic function are within normal limits. S' 17 cm/sec. 3. LA size is mildly enlarged (35-41 ml /m2) . RA size is normal. 4. In the limited views of the posterio r leaflet of the tricuspid valve, there is a 1 cm x 0.7 cm prominence at the base of the leaflet. Unclear etiology. ( Best seen in images 15, 16, 17). Cannot rule out presence of vegetation. 5. Mild tricuspid regurgitation noted. Peak systolic pressure may be underestimated; partial TR signal. Carla mated peak systolic pressure is at least 50-55 mmHg assuming RAP of 0-5 mm Hg. The estimated RA pressure by IVC dynamics 0-5 mm Hg. Previous Study No prior exam available for comparison. Please consider ARJUN for a more comprehensive evaluation of the tricusp id valve morphology if clinically indicated. Signature Findings Left Ventricle Normal left vent ricular chamber size. Mild concentric LVH n oted. The LV endocardi um is partially visualized. All of the LV segments contract normally . Global LV systolic functio n normal . Suboptimal endocardial definition precl udes evaluation of EF by Bi-Plane Rosas's method . Estimated LVEF b y qualitative assessment is normal (55-60%) . Grade 2 diastoli c dysfunction (moderately increased LA pressure). Left Atrium LA size is mildl y enlarged (35-41 ml/m2) . Right Ventricle The right ventri cular chamber size and systolic function are wit hin normal limits. S' 17 cm/sec. Right Atrium RA size is sylvester l. Aortic Valve Trileaflet aorti c valve. The aortic valve leaflets appear mildly th ickened. Trace AI. No evidence of a ortic stenosis. Mitral Valve Normal MV struct ure and function. Trace MR. Tricuspid Valve In the limited v iews of the posterior leaflet of the tricuspid va lve, there is a 1 cm x 0.7 cm prominence at th e base of the leaflet. Unclear etiology. ( Best seen in images 15, 16, 17). Cannot rule out presenc e of vegetation. Mild tricuspid regurgitation no kelly. Peak systolic pressure may be underestimated; partial TR signal. Estimated peak systolic pressur e is at least 50-55 mmHg assuming RAP of 0-5 mm Hg . Please consider ARJUN for a more comprehensive ev aluation of the tricuspid valve morphology if cl inically indicated. Pulmonic Valve Normal PV struct ure appears normal by available views. Aorta Aortic root size (SInus of Valsalva diameter) is normal . Pericardium No significant p ericardial effusion is visualized. IVC/SVC/PA/PV/Pleural The estimated RA pressure by IVC dynamics 0-5 mm Hg. Chambers/Structures Left Atrium LA Volume: 71 ml LA Area: 16.18 cm^2 LA Vol. Index: 36 ml/m^2 Left Ventricle LVIDd: 4 cm LVEDV:70.04 ml LV Septum Diastolic: 1.3 cm LV PW Diastolic: 1.2 cm LVOT Diameter: 2.02 cm Right Ventricle RV Diast Dim.: 3.6 cm RV Syst olic Pressure: 54 mmHg TAPSE: 2.45 cm Aorta Ao Root S of Shayy.: 2.8 cm Doppler/Quantitative Measurements Mitral Valve MV Peak E-Wave: 1.01 m/s M V Peak A-Wave: 1.26 m/s E /A Ratio: 0.8 P eak Gradient: 4.06 mmHg D eceleration Time: 195.2 msec MV Osmany. Peak: Tissue Doppler E' Septal Velocity: 0.06 m/s E /E': 14 E' Lateral Velocity: 0.08 m/s Aortic Valve Peak Velocity: 2.34 m/s Mean Velocity: 1.7 m/s Peak Gradient: 21.86 mmHg Mean Gradient: 12.46 mmHg AV Area (continuity): 2.12 cm^2 AV VTI: 39.13 cm AV DVI: 0.66 LVOT Peak Velocity: 1.41 m/s Pea k Gradient: 7.97 mmHg Mean Velocity: 0.91 m/s Dolores n Gradient: 3.9 mmHg LVOT Diameter: 2.02 cm LVO T VTI: 25.92 cm LVOT Area: 3.2 cm^2 LVO T SV:83.02 ml LVOT CO: 7.14 l/min LVO T CI: 3.62 l/min/m^2 Tricuspid Valve Estimated RAP: 5 mmHg TR Velocity: 3.5 m/s TR Gradient: 49 mmHg Pulmonic Valve Estimated PASP: 54 mmHg Performing Organization Address City/State/Zipcode Phone Number [facility] 12 lead (08/15/2019 4:45 PM CDT)Only the most recent of5 resultswithin the time period is included. Specimen Narrative Performed At Ventricular Rate 83 BPM GE MUSE Atrial Rate 83 BPM P-R Interval 132 ms QRS Duration 84 ms Q-T Interval 362 ms QTC Calculation(Bazett) 425 ms P [place] 59 degrees R [place] -15 degrees T [place] 28 degrees Normal sinus rhythm Septal infarct (cited on or before ) Inferior infarct , age undetermined Abnormal ECG When compared with ECG of 15-AUG-2019 06 :29, Sinus rhythm has replaced Atrial flutter Confirmed by Fili PARRA MICHAEL ([id number]) on 08/16/2019 6:47:47 AM Procedure Note Interface, External Ris In - 08/16/2019 6:47 AM CDT Ventricular Rate 83 BPM Atrial Rate 83 BPM P-R Interval 132 ms QRS Duration 84 ms Q-T Interval 362 ms QTC Calculation(Bazett) 425 ms P [place] 59 degrees R [place] -15 degrees T [place] 28 degrees Normal sinus rhythm Septal infarct (cited on or before ) Inferior infarct , age undetermined Abnormal ECG When compared with ECG of 15-AUG-2019 06 :29, Sinus rhythm has replaced Atrial flutter Confirmed by Fili PARRA MICHAEL ([id number]) on 08/16/2019 6:47:47 AM Performing Organization Address City/[facility] Phone Number [employer] MUSE Troponin I (08/15/2019 3:41 AM CDT)Only the most recent of3 resultswithin the time period is included. Pathologist Sig nature Troponin I 0.06 (H) 0.00 - 0.03 ng/mL [facility] Specimen Blood Narrative Performed At Troponin I (TnI) levels must be interpreted [facility] in the context of the presenting symptoms and the clinical findings. Elevated TnI levels indicate myocardial damage, but are not specific for ischemic heart disease. Elevated TnI levels are seen in patients with other cardiac conditions (including myocarditis and congestive heart failure), and slight TnI elevations occur in patients with other conditions, including sepsis, renal failure, acidosis, acute neurological disease, and persistent tachyarrhythmia. Research Hydraulic Engineer ID - PIAYA L Performing Organization Address City/State/Zipcode Phone Number [facility] [address] [place] [phone] [place] B-type Natriuretic Factor (BNP) (08/15/2019 3:41 AM CDT) Pathologist Sig nature BNP 577 (H) 0 - 100 pg/mL [facility] Specimen Blood Narrative Performed At Research Hydraulic Engineer ID - MALU Marsh [facility] Performing Organization Address City/State/Zipcode Phone Number [facility] [address] [place] [address] [place] MR abdomen without & with IV contrast (08/14/2019 5:28 PM CDT) Specimen Narrative Performed At FINAL REPORT [employer] RIS TECHNIQUE: MRI of the abdomen WITHOUT an d WITH intravenous contrast. INDICATION: MRI Abd/Pelvis - LIVER/PANCR EAS PROTOCOL for liver \\T\\ pancreas lesions. COMPARISON: None. FINDINGS: LOWER THORAX: Unremarkable. LIVER: Diffuse loss of signal in the doron er on out of phase imaging. A mass in segment VII which measures 1 cm on axial T2-weighted image 26 is mildly hyperintense on T2-weighted im aging, arterially enhances, and continues to enhance on delayed phas e imaging. This is consistent with a hemangioma. BILIARY: The gallbladder contains multip le stones. No gallbladder distention or wall thickening. The gallb ladder wall is hyperenhancing on delayed phase imaging. There is a lik evans stone in the distal common bile duct which measures 0.2 cm o n axial T2 fat-saturated image 8. Low medial insertion of the cys tic duct. Mild intrahepatic ductal dilation. SPLEEN: No splenomegaly. The spleen cyn ures 11 cm in length. Multiple lesions in the spleen are hyper intense on T2-weighted imaging, measure up to 1.2 cm, and progr essively enhance on postcontrast imaging, most consistent wi th hemangiomas. PANCREAS: Cystic lesions in the pancreas measure 2.5 cm in the uncinate process, 1.3 cm in the pancreat ic head, and 1.2 cm in the pancreatic neck. ADRENALS: No adrenal nodules. KIDNEYS/URETERS: No hydronephrosis or so lid mass lesions. A right lower pole exophytic renal lesion is int ermediate signal on T2-weighted imaging and measures 0.8 cm. Several bilateral simple renal cysts measure up to 0.7 cm. PERITONEUM/RETROPERITONEUM: No free flui d. LYMPH NODES: No lymphadenopathy. VESSELS: Conventional hepatic arterial a natomy. The main portal vein is patent and measures 1.1 cm diameter. GI TRACT: No distention or wall thickeni ng. BONES AND SOFT TISSUES: Moderate degener ative disc changes of the lumbar spine. IMPRESSION: The outside hospital CT and MRCP would b e helpful for comparison. 1.A stone in the distal common bile duct measures 0.2 cm and results in mild intrahepatic ductal dilation. 2.Cystic lesions in the pancreas measure up to 2.5 cm and are indeterminate. 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 No definit e ductal dilation or nodular component to suggest malignant transform ation. The lack of MRCP images does make evaluation for connecti on to the pancreatic duct suboptimal. 3.The hepatic lesion in segment VII cyn ures 1 cm and is most consistent with a hemangioma. If the pat ient has a known primary malignancy or underlying liver disease, consider a follow-up MRI in three months. 4.The multiple splenic lesions measure u p to 1.2 cm and are most consistent with hemangiomas. 5.Diffuse fatty infiltration of the live r. 6.The gallbladder is filled with stones without specific signs for acute cholecystitis. The gallbladder wal l hyperenhancement may be due to chronic cholecystitis or resolving ac [place] cholecystitis. 7.Low medial insertion of the cystic sara t. 8.A lesion in the right lower pole was n ot visualized on postcontrast imaging and is indeterminate. Consider a follow-up MRI or CT of the abdomen with and without intravenous con trast, renal mass protocol, in six months to document stability and definitively characterize the renal lesion. Signed: Tevin Coombs MD Report Verified Date/Time: 08/15/2019 07:34:37 Reading Location: [facility] Reading Room - [place] [id number] Procedure Note Interface, External Ris In - 08/15/2019 7:36 AM CDT FINAL REPORT TECHNIQUE: MRI of the abdomen WITHOUT an d WITH intravenous contrast. INDICATION: MRI Abd/Pelvis - LIVER/PANCR EAS PROTOCOL for liver \\T\\ pancreas lesions. COMPARISON: None. FINDINGS: LOWER THORAX: Unremarkable. LIVER: Diffuse loss of signal in the doron er on out of phase imaging. A mass in segment VII which measures 1 cm on axial T2-weighted image 26 is mildly hyperintense on T2-weighted im aging, arterially enhances, and continues to enhance on delayed phas e imaging. This is consistent with a hemangioma. BILIARY: The gallbladder contains multip le stones. No gallbladder distention or wall thickening. The gallb ladder wall is hyperenhancing on delayed phase imaging. There is a lik evans stone in the distal common bile duct which measures 0.2 cm o n axial T2 fat-saturated image 8. Low medial insertion of the cys tic duct. Mild intrahepatic ductal dilation. SPLEEN: No splenomegaly. The spleen cyn ures 11 cm in length. Multiple lesions in the spleen are hyper intense on T2-weighted imaging, measure up to 1.2 cm, and progr essively enhance on postcontrast imaging, most consistent wi th hemangiomas. PANCREAS: Cystic lesions in the pancreas measure 2.5 cm in the uncinate process, 1.3 cm in the pancreat ic head, and 1.2 cm in the pancreatic neck. ADRENALS: No adrenal nodules. KIDNEYS/URETERS: No hydronephrosis or so lid mass lesions. A right lower pole exophytic renal lesion is int ermediate signal on T2-weighted imaging and measures 0.8 cm. Several bilateral simple renal cysts measure up to 0.7 cm. PERITONEUM/RETROPERITONEUM: No free flui d. LYMPH NODES: No lymphadenopathy. VESSELS: Conventional hepatic arterial a natomy. The main portal vein is patent and measures 1.1 cm diameter. GI TRACT: No distention or wall thickeni ng. BONES AND SOFT TISSUES: Moderate degener ative disc changes of the lumbar spine. IMPRESSION: The outside hospital CT and MRCP would b e helpful for comparison. 1.A stone in the distal common bile duct measures 0.2 cm and results in mild intrahepatic ductal dilation. 2.Cystic lesions in the pancreas measure up to 2.5 cm and are indeterminate. 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 No definit e ductal dilation or nodular component to suggest malignant transform ation. The lack of MRCP images does make evaluation for connecti on to the pancreatic duct suboptimal. 3.The hepatic lesion in segment VII cyn ures 1 cm and is most consistent with a hemangioma. If the pat ient has a known primary malignancy or underlying liver disease, consider a follow-up MRI in three months. 4.The multiple splenic lesions measure u p to 1.2 cm and are most consistent with hemangiomas. 5.Diffuse fatty infiltration of the live r. 6.The gallbladder is filled with stones without specific signs for acute cholecystitis. The gallbladder wal l hyperenhancement may be due to chronic cholecystitis or resolving ac [place] cholecystitis. 7.Low medial insertion of the cystic sara t. 8.A lesion in the right lower pole was n ot visualized on postcontrast imaging and is indeterminate. Consider a follow-up MRI or CT of the abdomen with and without intravenous con trast, renal mass protocol, in six months to document stability and definitively characterize the renal lesion. Signed: Tevin Coombs MD Report Verified Date/Time: 08/15/2019 0 7:34:37 Reading Location: [facility] Reading Room - [place] [id number] Performing Organization Address City/[facility]/Zipcode Phone Number [facility] Lipase (08/13/2019 11:52 PM CDT) Pathologist Sig nature Lipase 41 8 - 78 U/L [facility] Specimen Blood - Entire left upper arm (body stru cture) Narrative Performed At Research Hydraulic Engineer ID - PIAYA L [facility] Performing Organization Address [facility] Phone Number [address] [address] CENTER Amylase (08/13/2019 11:52 PM CDT) Pathologist Sig nature Amylase 21 (L)Comment: 25 - 125 U/L [facility] Specimen slightly [facility] hemolyzed Specimen Blood - Entire left upper arm (body stru cture) Narrative Performed At Research Hydraulic Engineer ID - PIAYA L [facility] Performing Organization Address [facility]/Zipcode Phone Number [address] [address] CENTER CBC with platelet count + automated diff (08/13/2019 10:27 PM CDT) Pathologist Sig nature WBC 12.6 (H) 3.5 - 10.5 [facility] RBC 4.53 3.93 - 5.22 [facility] M/L [facility] Hemoglobin 13.3 11.2 - 15.7 [facility] GM/DL [facility] Hematocrit 39.8 34.1 - 44.9 % [facility] MCV 87.9 79.4 - 94.8 fL [facility] MCH 29.4 25.6 - 32.2 pg [facility] MCHC 33.4 32.2 - 35.5 [facility] GM/[facility] RDW 14.2 11.7 - 14.4 % [facility] Platelets 199 150 - 450 K/CU [facility] MPV 10.1 9.4 - 12.3 fL [facility] nRBC 0 0 - 0 /100 WBC [facility] % Neutros 76 % [facility] % Lymphs 15 % [facility] % Monos 7 % [facility] % Eos 1 % [facility] % Baso 0 % [facility] # Neutros 9.49 (H) 1.56 - 6.13 [facility] # Lymphs 1.91 1.18 - 3.74 [facility] # Monos 0.91 (H) 0.24 - 0.36 [facility] # Eos 0.07 0.04 - 0.36 [facility] # Baso 0.04 0.01 - 0.08 [facility] Immature 1 0 - 1 % [facility] Granulocytes-Relative [facility] Specimen Blood Performing Organization Address City/State/Zipcode Phone Number [facility] [address] [place] [address] [place] Hemoglobin A1c (08/13/2019 10:27 PM CDT) Pathologist Sig nature Hemoglobin A1C 7.8 (H) 4.3 - 6.1 % [facility] Specimen Blood Performing Organization Address City/State/Zipcode Phone Number [place] [phone] [place] [address] CENTER SARS-CoV2/RT-PCR ([facility]) (08/11/2019 6:14 PM CDT) SARS-COV2/RT-PCR Not Detected Not Detected, [facility] Negative [facility] SARS-COV-2 [facility] PERFORMING LAB [facility] Specimen Other - Nasopharyngeal wall structure (b ivet structure) Narrative Performed At Negative results do not preclude SARS-CoV-2 [facility] infection and should not be used as the sole basis for patient management decisions. Negative results must be combined with clinical observations, patient history, and epidemiological information. A false negative result may occur if a specimen is improperly collected, transported or handled. The limit of detection for this assay is 250 copies/mL. This SARS CoV-2 test is a rapid, real-time RT-PCR test intended for the qualitative detection of nucleic acid from SARS-CoV-2 in a nasopharyngeal swab specimen collected from individuals suspected of COVID-19 by their healthcare provider. This test has not been Food and Drug Administration (FDA) cleared or approved and has been authorized by FDA under an Emergency Use Authorization (EUA). This EUA will be effective until the declaration that circumstances exist justifying the authorization of the emergency use of in vitro diagnostic tests for detection and/or diagnosis of COVID-19 is terminated under Section 564(b)(2) of the Act or the EUA is revoked under Section 564(g) of the Act. Fact Sheet for Healthcare Providers: https://www.cepfor; to (do)/Documents/Xpert%20Xpre ss%20SARS%20CoV-2/Fact%20Sheets/302-3802%20SAR S-COV-2%20HEALTHCARE%20PROVIDERS%20FACT%20SHEE T.pdf Fact Sheet for Healthcare Patients: https://www.[employer]/Documents/Xpert%20Xpre ss%20SARS%20CoV-2/Fact%20Sheets/302-3801%20SAR S-COV-2%20PATIENT%20FACT%20SHEET.pdf Performing Laboratory: [address] [place] [address] Performing Organization Address City/State/Zipcode Phone Number [address] [address] CENTER after 02/14/2019 Insurance Payer Benefit Plan / Subscriber ID Effective Phone Address T ype Group Dates MEDICARE MEDICARE A B [id number] 2004-Pres Medicare ent [facility] AAR/[place] [id number] 2019-Prese M [employer]ap SUPPLEMENT/[employer] nt IVIDUAL CDC REVIEW CDC REVIEW [id number] 2019[place] [address] [place] [address] Advance Directives For more information, please contact: [phone] Code Status Date Activated Date Inactivated Comments Full Code 08/13/2019 10:12 PM 08/26/2019 1:55 PM This code status was determined by: Patient
--- OUTSIDE RECORDS SUMMARY | 2020-02-15 22:14 | XMS REPORT | Continuity of Care Document ---
:1940 Author Organization [facility] t Address [address] [place] [address] Care Team Providers Name Role Phone TAMEKA OWUSU Attending Clinician Unavailable Tameka Owusu MD Attending Clinician Merchant SALGUERO Attending Clinician Álavro SALGUERO Attending Clinician Francisco Foster Attending Clinician Unavailable Fadi Suarez MD Attending Clinician Fatuma SALGUERO Attending Clinician Marcial De Guzman MD Attending Clinician TAMEKA OWUSU Admitting Clinician Unavailable Payers Payer Name Policy Type Policy Effective Date Expiration Date Sour ce Number MEDICAREMEDICARE A [id number] HARMONY [place] [id number] 2003- 00:00:00 - Medical PresentMedicare Center [facility] [id number] 2019 HARMONY Almaguer SUPPLEMENT/INDIVIDUALA 00:00:00 - Medical [id number] /04/2019-PresentMedigap CDC REVIEWCDC [id number] 2019 HARMONY Leon [id number]/ 00:00:00 [place] [address] Problems Condition Condition Condition Status Onset Resolution Last Treating Co mments Source Name Details Category Date Date Treatment Clinician Date Liver Liver Disease Active [facility] Allergies, Adverse Reactions, Alerts This patient has no known allergies or adverse reactions. Social History Social Habit Start Date Stop Date Quantity Comments Source History [facility] - Alcohol Std Drinks Medica [facility] History [facility] - Alcohol Binge Medical Jazmyne ter Sex Assigned At [facility] Cigarettes smoked 2019-08-18 2019-08-[address] [facility] - current (pack per 00:00:00 00:00:00 [facility] day) - Reported Cigarette 2019-08-18 2019-08-[address] [facility] - pack-years 00:00:00 00:00:00 [facility] Tobacco use and 2019-08-18 2019-08-18 Never used [facility] - exposure 00:00:00 00:00:00 [facility] Alcohol intake 2019-08-18 2019-08-[address] [facility] - 00:00:00 00:00:00 non-drinker of Medical Ce nter alcohol (finding) History [facility] 2019-08-13 2019-08-[address] [facility] - Alcohol Frequency 00:00:00 00:00:00 [facility] History of tobacco 1979-04-13 [facility] use 00:00:00 [facility] Smoking Status Start Date Stop Date Source Former smoker 2019-08-18 00:00:00 2019-08-18 00:00:00 [facility] Medications Ordered Filled Start Stop Current Ordering Indication Dosage Frequency Signature Comments Components Source Medication Medication Date Date Medication? Clinician (SIG) Name Name cloNIDine hypertensio .2mg Q.[id number] Take 0.[address] HCL - 05-15 n [id number] mg by [facility] - (CATAPRES) 09:10: 00:00 3D mouth 3 Med ical 0.2 MG 19 :00 (three) Center tablet times daily. insulin type 2 32U QD Inject [address] glargine 5-15 05-15 diabetes Units [facility] - (LANTUS) 09:10: 00:00 mellitus subcutaneo Medical 100 unit/mL 19 :00 ly [place] injection nightly Use as directed . insulin type 2 12U Inject [address] lispro 5-15 05-15 diabetes Units [facility] - (HUMALOG) 09:10: 00:00 mellitus subcutaneo Medical 100 unit/mL 19 :00 usly 3 Center injection (three) times daily before meals. losartan-hy No hypertensio 1{tbl} QD Take [address] drochloroth 5-15 05-15 n tablet by [facility] kenisha - iazide 09:10: 00:00 mouth Medical (HYZAAR) 19 :00 daily. [place] 100-12.5 mg per tablet metoprolol No hypertensio 50mg QD Take [address] succinate 5-15 05-15 n by mouth [facility] - (TOPROL-XL) 09:10: 00:00 daily. Med ical 50 MG 24 hr 19 :00 Center tablet simvastatin No hyperlipide 20mg QD Take [address] (ZOCOR) 20 5-15 05-15 henrique by mouth Luke s - MG tablet 09:10: 00:00 nightly. Med ical 19 :00 [place] dilTIAZem 2019- No hypertensio 360mg QD Take [address] (TIAZAC) 5-15 05-15 n mg by [facility] - 360 MG 24 09:10: 00:00 mouth Medica l hr capsule 19 :00 daily. [place] cloNIDine 2019- Yes hypertensio .2mg Q.[id number] Take [address] HCL 5-15 n [id number] tablet [facility] - (CATAPRES) 00:00: 3D (0.2 mg Medi michael 0.2 MG 00 total) by Center tablet mouth 3 (three) times daily. insulin Yes type 2 10U Inject [address] lispro 5-15 diabetes Units [facility] - (HUMALOG 00:00: mellitus subcutaneo Medical U-100 00 usly 3 Center INSULIN) (three) 100 unit/mL times Crtg daily before meals. metoprolol Yes hypertensio 50mg QD Take [address] succinate 5-15 n tablet (50 Luke s - (TOPROL-XL) 00:00: mg total) M edical 50 MG 24 hr 00 by mouth Cent er tablet daily. insulin 2019- Yes type 2 28U QD Inject [address] glargine 5-15 diabetes Units [facility] - (LANTUS) 00:00: mellitus subcutaneo Medical 100 unit/mL 00 usly Center injection nightly Use as directed . amiodarone No 200mg Q.5D Take [address] (PACERONE) 5-15 05-15 tablet [facility] - 200 MG 00:00: 23:59 (200 mg Medical tablet 00 :00 total) by Center mouth 2 (two) times daily. aspirin 81 No 81mg QD Take [address] MG EC 5-15 05-15 tablet (81 [facility] - tablet 00:00: 23:59 mg total) Medic al 00 :00 by mouth Center daily. atorvastati No 10mg QD Take [address] n (LIPITOR) 5-15 05-15 tablet (10 L ukes - 10 MG 00:00: 23:59 mg total) Medica l tablet 00 :00 by mouth Center nightly. NIFEdipine No 30mg QD Take [address] (ADALAT CC) 5-15 05-15 tablet (30 L ukes - 30 MG 24 hr 00:00: 23:59 mg total) Medical tablet 00 :00 by mouth Center daily. losartan-hy No 1{tbl} QD Take [address] droCHLOROth 5-15 05-15 tablet by [place] spence 00:00: 23:59 mouth Medical (HYZAAR) 00 :00 daily. Center 100-25 mg per tablet Vital Signs Vital Name Observation Time Observation Value Comments Source Systolic blood 2019-08-26 07:26:00 147 mm[Hg] [facility] pressure [facility] Diastolic blood 2019-08-26 07:26:00 68 mm[Hg] [facility] S t [facility] pressure [facility] Heart rate 2019-08-26 07:26:00 59 /min [facility] Body temperature 2019-08-26 07:26:00 36.94 [place] [facility] Respiratory rate 2019-08-26 07:26:00 18 /min [facility] Oxygen saturation in 2019-08-26 07:26:00 95 /min [facility] - Arterial blood by Medical Ce nter Pulse oximetry Body weight 2019-08-24 08:00:00 83.371 kg [facility] BMI 2019-08-24 08:00:00 27.95 kg/m2 [facility] Body height 2019-08-13 20:05:00 172.7 cm [facility] Procedures Procedure Date / Time Performing Clinician Source Performed RHYTHM STRIP - SCAN 2019-08-29 11:00:18 ProviderTammi [facility] POCT-GLUCOSE METER 2019-08-26 09:24:00 [facility]EN[facility] DOPPL[facility] ARM, LEFT 2019-08-26 08:55:00 [facility] (HEMOGRAM ONLY) 2019-08-26 03:32:00 Madhav Browning [facility] BASIC METABOLIC PANEL (7) 2019-08-26 03:32:00 RadtsMadhav gunter [facility] MAGNESIUM 2019-08-26 03:32:00 CritsMadhav gunter [facility] PHOSPHORUS 2019-08-26 03:32:00 RadtsMadhav gunter [facility] APTT 2019-08-26 03:32:00 Madhav Browning [facility] HEPATIC FUNCTION PANEL 2019-08-26 03:32:00 Amparo Pham [facility] PROTHROMBIN TIME/INR 2019-08-26 03:32:00 Ba Alvarenga [facility] POCT-GLUCOSE METER 2019-08-25 20:33:00 [facility] PO[facility]SE METER 2019-08-25 17:13:00 [facility] POCT-GLUCOSE METER 2019-08-25 12:30:00 [facility] POCT-GLUCOSE METER 2019-08-25 07:38:00 [facility] CBC (HEMOGRAM ONLY) 2019-08-25 05:04:00 CriMadhav ramos [facility] BASIC METABOLIC PANEL (7) 2019-08-25 05:04:00 Madhav Browning [facility] MAGNESIUM 2019-08-25 05:04:00 Madhav Browning [facility] PHOSPHORUS 2019-08-25 05:04:00 Madhav Browning [facility] APTT 2019-08-25 05:04:00 Madhav Browning [facility] HEPATIC FUNCTION PANEL 2019-08-25 05:04:00 [facility] PROTHROMBIN TIME/INR 2019-08-25 05:04:00 Ba Alvarenga [facility] POCT-GLUCOSE METER 2019-08-24 21:22:00 [facility] MISCELLANEOUS LAB ORDER 2019-08-24 21:12:00 Samaria Oh [facility] POCT-GLUCOSE METER 2019-08-24 16:24:00 [facility] POCT-GLUCOSE METER 2019-08-24 12:13:00 [facility] POCT-GLUCOSE METER 2019-08-24 08:14:00 Bruce Owusu [facility] CBC (HEMOGRAM ONLY) 2019-08-24 03:41:00 Madhav Browning [facility] BASIC METABOLIC PANEL (7) 2019-08-24 03:41:00 Madhav Browning [facility] MAGNESIUM 2019-08-24 03:41:00 Madhav Browning [facility] PHOSPHORUS 2019-08-24 03:41:00 Madhav Browning [facility] APTT 2019-08-24 03:41:00 Madhav Browning [facility] HEPATIC FUNCTION PANEL 2019-08-24 03:41:00 Ankit [facility] PROTHROMBIN TIME/INR 2019-08-24 03:41:00 Ba Alvarenga [facility] PROCALCITONIN 2019-08-24 03:41:00 Samaria Oh [facility] POCT-GLUCOSE METER 2019-08-23 21:14:00 Umer [facility] POCT-GLUCOSE METER 2019-08-23 17:27:00 Umer [facility] POCT-GLUCOSE METER 2019-08-23 16:45:00 Umer [facility] POCT-GLUCOSE METER 2019-08-23 13:12:00 Umer [facility] POCT-GLUCOSE METER 2019-08-23 07:42:[facility] 2019-08-23 03:38:00 Madhav Browning [facility] BASIC METABOLIC PANEL (7) 2019-08-23 03:38:00 Madhav Browning [facility] MAGNESIUM 2019-08-23 03:38:00 Radtsinebrionna [facility] PHOSPHORUS 2019-08-23 03:38:00 Nam [facility] APTT 2019-08-23 03:38:00 Nam [facility] HEPATIC FUNCTION PANEL 2019-08-23 03:38:00 [facility] PROTHROMBIN TIME/INR 2019-08-23 03:38:00 Ba Alvarenga [facility] POCT-GLUCOSE METER 2019-08-22 21:39:00 Umer [facility] BLOOD CULTURE 2019-08-22 21:30:00 [facility] BLOOD CULTURE 2019-08-22 21:25:00 [facility] ECHOCARDIOGRAM REPORT - 2019-08-22 21:11:26 Provider, Default I [facility] POCT-GLUCOSE METER 2019-08-22 17:37:00 Bruce Owusu [facility] URINE CULTURE 2019-08-22 15:15:00 [facility] URINALYSIS W/ REFLEX URINE 2019-08-22 15:13:00 Alfredo Phamah [facility] POCT-GLUCOSE METER 2019-08-22 12:45:00 Bruce Owusu [facility] TRANSESOPHAGEAL ECHO 2019-08-22 09:21:31 [facility]SE [facility]ER 2019-08-22 07:55:00 Umer [facility] CBC (HEMOGRAM ONLY) 2019-08-22 03:32:00 Madhav Browning [facility] BASIC METABOLIC PANEL (7) 2019-08-22 03:32:00 Madhav Browning [facility] MAGNESIUM 2019-08-22 03:32:00 Madhav Browning [facility] PHOSPHORUS 2019-08-22 03:32:00 Madhav Browning [facility] HEPATIC FUNCTION PANEL 2019-08-22 03:32:00 [facility] PREALBUMIN 2019-08-22 03:32:00 Ba Alvarenga [facility] APTT 2019-08-22 03:31:00 Madhav Browning [facility] PROTHROMBIN TIME/INR 2019-08-22 03:31:00 Ba Alvarenga [facility] POCT-GLUCOSE METER 2019-08-21 22:19:00 Umer [facility] POCT-GLUCOSE METER 2019-08-21 20:26:00 Umer [facility] POCT-GLUCOSE METER 2019-08-21 17:16:00 Umer [facility] POCT-GLUCOSE METER 2019-08-21 12:20:00 Bruce Owusu [facility] POCT-GLUCOSE METER 2019-08-21 08:53:00 Umer [facility] CBC (HEMOGRAM ONLY) 2019-08-21 06:16:00 Madhav Browning [facility] BASIC METABOLIC PANEL (7) 2019-08-21 06:16:00 RadtsMadhav gunter [facility] MAGNESIUM 2019-08-21 06:16:00 CritsMadhav gunter [facility] PHOSPHORUS 2019-08-21 06:16:00 CritsMadhav gunter [facility] APTT 2019-08-21 06:16:00 Madhav Browning [facility] HEPATIC FUNCTION PANEL 2019-08-21 06:16:00 Amparo Pham [facility] POCT-GLUCOSE METER 2019-08-20 21:42:00 Umer [facility] POCT-GLUCOSE METER 2019-08-20 17:40:00 Umer [facility] COLOR-FLOW MAPPING 2019-08-20 16:52:57 [facility] CONT WAVE PULSED DOPPLER 2019-08-20 16:52:57 [facility] POCT-GLUCOSE METER 2019-08-20 12:31:00 Umer [facility] POCT-GLUCOSE METER 2019-08-20 08:33:00 Bruce Owusu [facility] CBC (HEMOGRAM ONLY) 2019-08-20 04:37:00 Madhav Browning [facility] BASIC METABOLIC PANEL (7) 2019-08-20 04:37:00 Madhav Browning [facility] MAGNESIUM 2019-08-20 04:37:00 Madhav Browning [facility] PHOSPHORUS 2019-08-20 04:37:00 Critsinelis, Madhav C [facility] APTT 2019-08-20 04:37:00 RadtsineMadhav staton [facility] HEPATIC FUNCTION PANEL 2019-08-20 04:37:00 Ankit [facility] POCT-GLUCOSE METER 2019-08-20 00:52:00 Umer [facility] TRANSFUSION SERVICE REPORT 2019-08-19 17:50:28 Antonia [facility] POCT-GLUCOSE METER 2019-08-19 17:25:00 Umer [facility] POCT-GLUCOSE METER 2019-08-19 12:13:00 Umer [facility] POCT-GLUCOSE METER 2019-08-19 08:09:00 Umer [facility] POCT-GLUCOSE METER 2019-08-19 06:11:00 Umer [facility] CBC (HEMOGRAM ONLY) 2019-08-19 03:38:00 Madhav Browning [facility] BASIC METABOLIC PANEL (7) 2019-08-19 03:38:00 Madhav Browning [facility] MAGNESIUM 2019-08-19 03:38:00 CritsMadhav gunter [facility] PHOSPHORUS 2019-08-19 03:38:00 RadtsMadhav gunter [facility] APTT 2019-08-19 03:38:00 RadtsMadhav gunter [facility] HEPATIC FUNCTION PANEL 2019-08-19 03:38:00 Ankit [facility] POCT-GLUCOSE METER 2019-08-18 23:51:00 Umer [facility] POCT-GLUCOSE METER 2019-08-18 18:21:00 Umer [facility] POCT-GLUCOSE METER 2019-08-18 17:44:00 Umer [facility] POCT-GLUCOSE METER 2019-08-18 17:09:00 Bruce Owusu [facility] TISSUE EXAM 2019-08-18 15:45:00 Cherrie Suarez Aba [facility] LAPAROSCOPY,CHOLECYSTECTOM 2019-08-18 13:17:00 Cherrie Suarez Aba [facility] POCT-GLUCOSE METER 2019-08-18 11:19:00 Bruce Owusu [facility] POCT-GLUCOSE METER 2019-08-18 07:29:00 Bruce Owusu Tameka [facility] XR CHEST 1 VIEW 2019-08-18 07:28:00 Madhav Browning [facility]/BEDSIDE [facility] HEPATIC FUNCTION PANEL 2019-08-18 05:01:00 [facility] ABORH, MANUAL 2019-08-18 05:01:00 Asya Hillman [facility] HEPATIC FUNCTION PANEL 2019-08-18 03:29:00 [facility] CBC (HEMOGRAM ONLY) 2019-08-18 03:29:00 Madhav Browning [facility] BASIC METABOLIC PANEL (7) 2019-08-18 03:29:00 Madhav Browning [facility] MAGNESIUM 2019-08-18 03:29:00 Madhav Browning [facility] PHOSPHORUS 2019-08-18 03:29:00 Madhav Browning [facility] APTT 2019-08-18 03:29:00 Madhav Browning [facility] PROTHROMBIN TIME/INR 2019-08-18 03:29:00 Madhav Browning [facility] TYPE AND SCREEN, AUTOMATED 2019-08-18 03:29:00 Ba Alvarenga ra [facility] POCT-GLUCOSE METER 2019-08-17 21:28:00 Bruce Owusu [facility] POCT-GLUCOSE METER 2019-08-17 13:44:00 Bruce Owusu [facility] FL ERCP 2019-08-17 08:50:00 Fatuma [facility] POCT-GLUCOSE METER 2019-08-17 08:49:00 Bruce Owusu Tameka [facility] REPORT OF PROCEDURE - 2019-08-17 08:36:09 Olman Burris [facility] ENDOSCOPY [facility] ERCP,PAPILLOTOMY 2019-08-17 07:54:00 Fatuma [facility] PROCEDURE W/ C-ARM 2019-08-17 07:54:00 Fatuma [facility] UPPER ENDOSCOPY,ULTRASOUND 2019-08-17 07:54:00 Fatuma Olman [facility] ERCP,BALLOON SWEEPING 2019-08-17 07:54:00 Fatuma [facility] POCT-GLUCOSE METER 2019-08-17 05:30:00 Bruce Owusu [facility] BASIC METABOLIC PANEL (7) 2019-08-17 05:26:00 Madhav Browning [facility] MAGNESIUM 2019-08-17 05:26:00 Madhav Browning [facility] PHOSPHORUS 2019-08-17 05:26:00 Madhav Browning [facility] POCT-GLUCOSE METER 2019-08-17 03:30:00 Bruce Owusu [facility] CBC (HEMOGRAM ONLY) 2019-08-17 03:26:00 Madhav Browning [facility] APTT 2019-08-17 03:26:00 Madhav Browning [facility] PROTHROMBIN TIME/INR 2019-08-17 03:26:00 Madhav Browning [facility] ECHOCARDIOGRAM REPORT - 2019-08-16 21:23:02 Provider, Tammi [facility] POCT-GLUCOSE METER 2019-08-16 17:09:00 Bruce Owusu [facility] POCT-GLUCOSE METER 2019-08-16 12:29:00 Bruce Owusu [facility] 2D ECHO W/ DOPPLER 2019-08-16 09:32:39 Javier Mancia [facility] (CW/PW/COLOR) [facility] POCT-GLUCOSE METER 2019-08-16 07:58:00 Bruce Owusu [facility] POCT-GLUCOSE METER 2019-08-16 04:49:00 Bruce Owusu Tameka [facility] XR CHEST 1 VIEW 2019-08-16 04:01:00 Madhav Browning [facility] PORTABLE/BEDSIDE [facility] CBC (HEMOGRAM ONLY) 2019-08-16 03:33:00 Madhav Browning [facility] BASIC METABOLIC PANEL (7) 2019-08-16 03:33:00 Madhav Browning [facility] MAGNESIUM 2019-08-16 03:33:00 RadtsMadhav gunter [facility] PHOSPHORUS 2019-08-16 03:33:00 Madhav Browning [facility] APTT 2019-08-16 03:33:00 Madhav Browning [facility] PROTHROMBIN TIME/INR 2019-08-16 03:33:00 Madhav Browning [facility] HEPATIC FUNCTION PANEL 2019-08-16 03:33:00 Madhav Browning [facility] POCT-GLUCOSE METER 2019-08-15 23:21:00 Bruce Owusu [facility] ECG 12-LEAD 2019-08-15 16:45:32 Unknown, Hl7 [facility] XR CHEST 1 VIEW 2019-08-15 09:33:00 CritsMadhav gunter [facility] PORTABLE/BEDSIDE [facility] ECG 12-LEAD 2019-08-15 06:29:27 Rahat Turner [facility] POCT-GLUCOSE METER 2019-08-15 05:36:00 Bruce Owusu [facility] CBC (HEMOGRAM ONLY) 2019-08-15 03:41:00 Madhav Browning [facility] BASIC METABOLIC PANEL (7) 2019-08-15 03:41:00 Madhav Browning [facility] MAGNESIUM 2019-08-15 03:41:00 Madhav Browning [facility] PHOSPHORUS 2019-08-15 03:41:00 Madhav Browning [facility] HEPATIC FUNCTION PANEL 2019-08-15 03:41:00 Madhav Browning [facility] B-TYPE NATRIURETIC FACTOR 2019-08-15 03:41:00 Rahat Turner [facility] (BNP) [facility] TROPONIN I 2019-08-15 03:41:00 Rahat Turner [facility] APTT 2019-08-15 03:40:00 Madhav Browning [facility] PROTHROMBIN TIME/INR 2019-08-15 03:40:00 Madhav Browning [facility] POCT-GLUCOSE METER 2019-08-15 00:20:00 Bruce Owusu [facility] ECG 12-LEAD 2019-08-14 22:36:38 Rahat Turner [facility] MR ABDOMEN WITH & WITHOUT 2019-08-14 17:28:00 Tanvi Casillas [facility] IV CONTRAST [facility] POCT-GLUCOSE METER 2019-08-14 17:27:00 Bruce Owusu [facility] XR CHEST 1 VIEW 2019-08-14 08:50:00 Madhav Browning [facility] PORTABLE/BEDSIDE [facility] POCT-GLUCOSE METER 2019-08-14 06:34:00 Bruce Owusu [facility] ECG 12-LEAD 2019-08-14 06:29:11 Unknown, Hl7 Doctor [facility] TROPONIN I 2019-08-14 05:37:00 Madhav Browning [facility] CBC (HEMOGRAM ONLY) 2019-08-14 05:37:00 Madhav Browning [facility] BASIC METABOLIC PANEL (7) 2019-08-14 05:37:00 Madhav Browning [facility] MAGNESIUM 2019-08-14 05:37:00 Madhav Browning [facility] PHOSPHORUS 2019-08-14 05:37:00 Madhav Browning [facility] APTT 2019-08-14 05:37:00 Madhav Browning [facility] PROTHROMBIN TIME/INR 2019-08-14 05:37:00 Madhav Browning [facility] HEPATIC FUNCTION PANEL 2019-08-14 05:37:00 Madhav Browning [facility] BASIC METABOLIC PANEL (7) 2019-08-13 23:52:00 Madhav Browning [facility] MAGNESIUM 2019-08-13 23:52:00 Madhav Browning [facility] PHOSPHORUS 2019-08-13 23:52:00 RadtsMadhav gunter [facility] HEPATIC FUNCTION PANEL 2019-08-13 23:52:00 Madhav Browning [facility] TROPONIN I 2019-08-13 23:52:00 Madhav Browning [facility] AMYLASE 2019-08-13 23:52:00 Madhav Browning [facility] LIPASE 2019-08-13 23:52:00 Madhav Browning [facility] XR CHEST 1 VIEW 2019-08-13 23:50:00 Madhav Browning [facility]/BEDSIDE [facility] [place] ECG 12-LEAD 2019-08-13 22:31:52 Nam [facility] HEMOGLOBIN A1C 2019-08-13 22:27:00 Madhav Browning [facility] PROTHROMBIN TIME/INR 2019-08-13 22:27:00 Madhav Browning [facility] APTT 2019-08-13 22:27:00 Madhav Browning [facility] CBC W/PLT COUNT & AUTO 2019-08-13 22:27:00 Madhav Browning [facility] POCT-GLUCOSE METER 2019-08-13 21:44:00 Bruce Owusu [facility] SARS-COV2/RT-PCR ([facility] & 2019-08-11 18:14:00 [facility] - REF LABS) Medical Center Plan of Care Planned Activity Planned Date Details Comments Source Future Scheduled 2020-02-13 Hemoglobin A1c [facility] kes - Test 00:00:00 measurement [facility] (procedure) [code = 59973616] Future Scheduled 2019-12-13 INFLUENZA VACCINE (#1) [facility] Test 00:00:00 [code = INFLUENZA Medical Ce nter VACCINE (#1)] Future Scheduled 2005-02-12 MEDICARE ANNUAL [facility] - Test 00:00:00 WELLNESS (YEAR 2 or Medical Center FIRST YEAR if no IPPE) [code = MEDICARE ANNUAL WELLNESS (YEAR 2 or FIRST YEAR if no IPPE)] Future Scheduled 2004-02-21 PNEUMOCOCCAL 65+ YRS [facility] - Test 00:00:00 (1 of 1 - Medical Center [id number] [id number]) [code = PNEUMOCOCCAL 65+ YRS (1 of 1 - [id number] PCV13)] Future Scheduled 1949 DIABETIC EYE EXAM [facility] - Test 00:00:00 [code = DIABETIC EYE Medical Center EXAM] Future Scheduled 1949 Diabetic foot [facility] es - Test 00:00:00 examination Medical Center (regime/therapy) [code = [id number]] Future Scheduled 1949 Urine screening for [facility] - Test 00:00:00 protein (procedure) [facility] [code = 693521114] Results Test Description Test Time Test Comments Results Result Sourc e Comments Karius DNA assay 2019-08-[address] [facility] 07:16:00 NON-INTERFACED - Medical LAB Center Blood Culture - Routine (Left Venipuncture) 2019-08-27 23:00 :00 Test Item Value Reference Range Interpretation Comme nts Result (test code = 6463-4) No growth in 5 days [facility] [id number] 23:00:00 Test Item Value Reference Range Interpretation Comments CULTURE (BEAKER) (test No growth in 5 days code = 1095) BLOOD [id number] 23:00:00 Test Item Value Reference Range Interpretation Comments CULTURE (BEAKER) (test No growth in 5 days code = 1095) Venous doppler arm, [id number] 16:12:53Ejection FractionSLEH ECHO HEARTLAB MKCKESSON CPACS Left Impression1. There is total mildly echogenic superficial venous obstruction in thecephalic vein.2. There is no deep venous obstruction in the jugular, subclavian, axillary,brachial, radial or ulnar veins.3. There is no superficial venous obstruction in [...] cm/s ; Diameters are measured in cm Interface, External Ris In - 08/26/2019 4:13 PM CDTPV LAB - Upper Extremities Veins Demographics Patient Name GUADALUPE HERNANDEZ Date of Study 08/26/2019 DAVIDA Age 79 Visit Number [id number] Female Accession Number [id number] Date of 1940 Referring Kapil Narvaez Room Number 1411 Physician Criminal Justice Instructor Yan Ramirez Interpreting DWIGHT Garza Physician ProcedureType of Study: Veins: Upper Extremities Veins, VENOUS DOPPLER ARM, LEFT. Indications for Study:Left arm swelling .Patient Status:STAT.Study Location:Vascular Lab.Technical Quality:Adequate visualization. - Results were reported to: Sergei GLASGOW @ 9:00 am.Risk FactorsHistory of Disease+ + + +!Diagnosis !Date !Comments !+ + + +!History/Risk Factors:!08/26/2019!S/P Lap Cholecystectomy 08/18/2019, DM, HTN!+ + + +ImpressionsLeft Impression1. There is total mildly echogenic superficial venous obstruction in thecephalic vein.2. There is no deep venous obstruction in the jugular, subclavian, axillary,brachial, radial or ulnar veins.3. There is no superficial venous obstruction in the basilic vein. Conclusions Summary Venous duplex imaging and compression of the left upper extremity were performed. The veins were adequately visualized. The left superficial venous system was positive with acute thrombus. The left deep venous system was patent andcompressible with no evidence of thrombus. Signature Velocities are measured in cm/s ; Diameters are measured [facility] [id number] 09:56:00 Test Item Value Reference Range Interpretation Comments POC-Glucose Meter (test 142 mg/dL 70-110 H : TE STED AT [facility] code = 1538) [address] [facility], 770 30: Rf Manager/Techni chad ID = [id number] for SERGEI MCFADDEN Lab Interpretation (test Abnormal code = 25616-0) [facility]-GLUCOSE [id number] 09:56:00 Test Item Value Reference Range Interpretation Comments POC-GLUCOSE METER 142 mg/dL 70-110 H : TESTED A T [facility] 6720 (BEAKER) (test code = KWAME Souza [facility], 1538) [address]: Rf Manager/Techni chad ID = [id number] for VALENTINE SINHASERGEI Singh Basic Metabolic [id number] 04:34:00 Test Item Value Reference Range Interpretation Comments Sodium (test code = 141 meq/L 205-286 0197-2) Potassium (test code = 4.3 meq/L 3.5-5.1 2823-3) Chloride (test code = 105 meq/L 98-107 2075-0) CO2 (test code = 30 meq/L 22-29 H 8-9) BUN (test code = 9 mg/dL 7-21 3094-0) Creatinine (test code 0.69 mg/dL 0.57-1.25 = 2160-0) Glucose (test code = 146 mg/dL 70-105 H 2345-7) Calcium (test code = 8.7 mg/dL 8.4-10.2 42902-3) EGFR (test code = 82 mL/min/1.73 [place] [address]-2) NOT ACCURATE CREATININE CLEARANCE IN PREDICTING GLOMERULAR FILTRATION RATE . ESTIMATED GFR I S NOT APPLICABLE FOR DIALYSIS PATIENTS. JAY (test code = JAY) Rf Manager ID - LUPE Seals Lab Interpretation Abnormal (test code = 22952-4) [facility] HospitalHepatic function [id number] 04:34:00 Test Item Value Reference Range Interpretation Comments Protein, Total (test code 5.8 6.0- 8.3 gm/dL L = 2885-2) Albumin (test code = 2.9 g/dL 3.5-5 L 27565-7) Total Bilirubin (test code 0.6 mg/dL 0.2-1.2 = 1975-2) Bilirubin, Direct (test 0.3 mg/dL 0.1-0.5 code = 1968-7) Alkaline Phosphatase (test 105 U/L 40-150 code = 6768-6) AST (test code = 1920-8) 10 U/L 5-34 ALT (test code = 1742-6) 7 U/L 6-55 JAY (test code = JAY) Rf Manager COLTON Seals Lab Interpretation (test Abnormal code = 46450-8) [facility] HospitalMagnesium2020-05-15 04:34:00 Test Item Value Reference Range Interpretation Comments Magnesium (test code = 1.9 mg/dL 1.6-2.6 15089-0) JAY (test code = JAY) Rf Manager COLTON ANDRADE W Lab Interpretation (test Normal code = 26051-7) [facility] HospitalPhosphorus2020-[facility]-15 04:34:00 Test Item Value Reference Range Interpretation Comments Phosphorus (test code = 3.2 mg/dL 2.3-4.7 2777-1) JAY (test code = JAY) Rf Manager COLTON ANDRADE W Lab Interpretation (test Normal code = 32736-8) [facility] HospitalPHOSPHORUS2020-05-15 04:34:00 Test Item Value Reference Range Interpretation Comments PHOSPHORUS (BEAKER) (test code = 3.2 mg/dL 2.3-4.7 604) Rf Manager COLTON ANDRADE [id number] 04:34:00 Test Item Value Reference Range Interpretation Comments MAGNESIUM (BEAKER) (test code = 1.9 mg/dL 1.6-2.6 627) Rf Manager COLTON ANDRADE WBASIC METABOLIC [id number] 04:34:00 Test Item Value Reference Range Interpretation Comments SODIUM (BEAKER) 141 meq/L 136-145 (test code = 381) POTASSIUM (BEAKER) 4.3 meq/L 3.5-5.1 (test code = 379) CHLORIDE (BEAKER) 105 meq/L 98-107 (test code = 382) CO2 (BEAKER) (test 30 meq/L 22-29 H code = 355) BLOOD UREA NITROGEN 9 mg/dL 7-21 (BEAKER) (test code = 354) CREATININE (BEAKER) 0.69 mg/dL 0.57-1.25 (test code = 358) GLUCOSE RANDOM 146 mg/dL 70-105 H (BEAKER) (test code = 652) CALCIUM (BEAKER) 8.7 mg/dL 8.4-10.2 (test code = 697) EGFR (BEAKER) (test 82 mL/min/1.73 ESTIMA NAYELI GFR IS code = 1092) sq m NOT ACCURATE CREATININE CLEARANCE IN PREDICTING GLOMERULAR FILTRATION RATE . ESTIMATED GFR I S NOT APPLICABLE FOR DIALYSIS PATIEN TS. Rf Manager ID Enriqueta ANDRADE [facility] FUNCTION [id number] 04:34:00 Test Item Value Reference Range Interpretation Comments TOTAL PROTEIN (BEAKER) (test code = 5.8 gm/dL 6.0-8.3 L 770) ALBUMIN (BEAKER) (test code = 1145) 2.9 g/dL 3.5-5.0 L BILIRUBIN TOTAL (BEAKER) (test code 0.6 mg/dL 0.2-1.2 = 377) BILIRUBIN DIRECT (BEAKER) (test 0.3 mg/dL 0.1-0.5 code = 706) ALKALINE PHOSPHATASE (BEAKER) (test 105 U/L 40-150 code = 346) AST (SGOT) (BEAKER) (test code = 10 U/L 5-34 353) ALT (SGPT) (BEAKER) (test code = 7 U/L 6-55 347) Rf Manager ID Enriqueta ANDRADE [id number] 04:23:00 Test Item Value Reference Range Interpretation Comments PTT (test code = 93056-1) 37.5 22.5- 36.0 seconds H Lab Interpretation (test code = Abnormal 31524-2) [facility] HospitalAPTT2020-[facility] 04:23:00 Test Item Value Reference Range Interpretation Comments PARTIAL THROMBOPLASTIN TIME 37.5 seconds 22.5-36.0 H (BEAKER) (test code = 760) Prothrombin time/[id number] 04:22:00 Test Item Value Reference Range Interpretation Comments Protime (test code = 14.1 11.9- 14.2 5902-2) seconds INR (test code = 1.1 <=5.9 6301-6) JAY (test code = JAY) Effective 09/08/2018: PT Reference Range ChangeNew: 11.9-14.2 Previous: 11.7-14.7 RECOMMENDED COUMADIN/WARFARIN INR THERAPY RANGESSTANDARD DOSE: 2.0-3.0 Includes: PROPHYLAXIS for venous thrombosis, systemic embolization; TREATMENT for venous thrombosis and/or pulmonary embolus.HIGH RISK: Target INR is 2.5-3.5 for patients wiht mechanical heart valves. Lab Interpretation Normal (test code = 53497-4) [facility] HospitalPROTHROMBIN TIME/[id number] 04:22:00 Test Item Value Reference Range Interpretation Comments PROTIME (BEAKER) (test code = 14.1 seconds 11.9-14.2 759) INR (BEAKER) (test code = 370) 1.1 <=5.9 Effective 09/08/2018: PT Reference Range ChangeNew: 11.9-14.2 Previous: 11.7- 14.7RECOMMENDED COUMADIN/WARFARIN INR THERAPY RANGESSTANDARD DOSE: 2.0-3.0 Includes: PROPHYLAXIS for venous thrombosis, systemic embolization; TREATMENT for venous thrombosis and/or pulmonary embolus.HIGH RISK: Target INR is2.5-3.5 for patients wiht mechanical heart valves.CBC (Hemogram only)2019-08-26 04:02:00 Test Item Value Reference Range Interpretation Comments WBC (test code = 6690-2) 6.0 3.5- 10.5 K/L RBC (test code = 789-8) 3.43 3.93- 5.22 M/L L MCHC (test code = 786-4) 32.6 32.2- 35.5 GM/DL L Hematocrit (test code = 4544-3) 31.0 % 34.1-44.9 L MCV (test code = 787-2) 90.4 fL 79.4-94.8 MCH (test code = 785-6) 29.4 pg 25.6-32.2 RDW (test code = 788-0) 13.0 % 11.7-14.4 Platelets (test code = 777-3) 234 150- 450 K/CU MM MPV (test code = 21113-8) 10.5 fL 9.4-12.3 nRBC (test code = 413) 0 0- 0 /100 WBC Lab Interpretation (test code = Abnormal 95997-0) [facility] (HEMOGRAM ONLY)2019-08-26 04:02:00 Test Item Value Reference Range Interpretation Comments WHITE BLOOD CELL COUNT (BEAKER) 6.0 K/ L 3.5-10.5 (test code = 775) RED BLOOD CELL COUNT (BEAKER) 3.43 M/ L 3.93-5.22 L (test code = 761) HEMOGLOBIN (BEAKER) (test code = 10.1 GM/DL 11.2-15.7 L 410) HEMATOCRIT (BEAKER) (test code = 31.0 % 34.1-44.9 L 411) MEAN CORPUSCULAR VOLUME (BEAKER) 90.4 fL 79.4-94.8 (test code = 753) MEAN CORPUSCULAR HEMOGLOBIN 29.4 pg 25.6-32.2 (BEAKER) (test code = 751) MEAN CORPUSCULAR HEMOGLOBIN CONC 32.6 GM/DL 32.2-35.5 (BEAKER) (test code = 752) RED CELL DISTRIBUTION WIDTH 13.0 % 11.7-14.4 (BEAKER) (test code = 412) PLATELET COUNT (BEAKER) (test 234 K/CU MM 150-450 code = 756) MEAN PLATELET VOLUME (BEAKER) 10.5 fL 9.4-12.3 (test code = 754) NUCLEATED RED BLOOD CELLS 0 /100 WBC 0-0 (BEAKER) (test code = 413) POCT-GLUCOSE [id number] 20:52:00 Test Item Value Reference Range Interpretation Comments POC-GLUCOSE METER 194 mg/dL 70-110 H : TESTED A T [facility] 6720 (BEAKER) (test code = [place], 1538) [address]: Rf Manager/Techni chad ID = [id number] for MELISSA SPANGLER POCT-GLUCOSE [id number] 17:24:00 Test Item Value Reference Range Interpretation Comments POC-GLUCOSE METER 146 mg/dL 70-110 H : [facility] ([facility] (test code = [facility], 1538) [address]: Rf Manager/Techni chad ID = [id number] for JASON GARCIA POCT-GLUCOSE [id number] 12:41:00 Test Item Value Reference Range Interpretation Comments POC-GLUCOSE METER 170 mg/dL 70-110 H : Notified RN/MD: ([facility]) (test code = TESTED AT [facility] 67[address] 1538) [facility], [address]: Rf Manager/Techni chad ID = [id number] for MELIZA KRISHNAMURTHY POCT-GLUCOSE [id number] 07:51:00 Test Item Value Reference Range Interpretation Comments POC-GLUCOSE METER 135 mg/dL 70-110 H : [facility] ([facility]) (test code = [facility] [place], 1538) [address]: Rf Manager/Techni chad ID = [id number] for JASON GARCIA [id number] 06:04:00 Test Item Value Reference Range Interpretation Comments PHOSPHORUS (BEAKER) (test code = 3.3 mg/dL 2.3-4.7 604) Rf Manager ID - SCOTTY [id number] 06:04:00 Test Item Value Reference Range Interpretation Comments MAGNESIUM (BEAKER) (test code = 1.9 mg/dL 1.6-2.6 627) Rf Manager ID - SCOTTY MBASIC METABOLIC [id number] 06:04:00 Test Item Value Reference Range Interpretation Comments SODIUM (BEAKER) 141 meq/L 136-145 (test code = 381) POTASSIUM (BEAKER) 4.1 meq/L 3.5-5.1 (test code = 379) CHLORIDE (BEAKER) 104 meq/L 98-107 (test code = 382) CO2 (BEAKER) (test 31 meq/L 22-29 H code = 355) BLOOD UREA NITROGEN 9 mg/dL 7-21 (BEAKER) (test code = 354) CREATININE (BEAKER) 0.74 mg/dL 0.57-1.25 (test code = 358) GLUCOSE RANDOM 132 mg/dL 70-105 H (BEAKER) (test code = 652) CALCIUM (BEAKER) 8.2 mg/dL 8.4-10.2 L (test code = 697) EGFR (BEAKER) (test 76 mL/min/1.73 ESTIMA NAYELI GFR IS code = 1092) sq m NOT ACCURATE CREATININE CLEARANCE IN PREDICTING GLOMERULAR FILTRATION RATE . ESTIMATED GFR I S NOT APPLICABLE FOR DIALYSIS PATIEN TS. Rf Manager ID - SCOTTY EPATIC FUNCTION [id number] 06:04:00 Test Item Value Reference Range Interpretation Comments TOTAL PROTEIN (BEAKER) (test code = 5.8 gm/dL 6.0-8.3 L 770) ALBUMIN (BEAKER) (test code = 1145) 2.8 g/dL 3.5-5.0 L BILIRUBIN TOTAL (BEAKER) (test code 0.7 mg/dL 0.2-1.2 = 377) BILIRUBIN DIRECT (BEAKER) (test 0.3 mg/dL 0.1-0.5 code = 706) ALKALINE PHOSPHATASE (BEAKER) (test 108 U/L 40-150 code = 346) AST (SGOT) (BEAKER) (test code = 9 U/L 5-34 353) ALT (SGPT) (BEAKER) (test code = 9 U/L 6-55 347) Rf Manager COLTON FAJARDO [id number] 05:37:00 Test Item Value Reference Range Interpretation Comments PARTIAL THROMBOPLASTIN TIME 31.6 seconds 22.5-36.0 (BEAKER) (test code = 760) PROTHROMBIN TIME/[id number] 05:36:00 Test Item Value Reference Range Interpretation Comments PROTIME (BEAKER) (test code = 14.3 seconds 11.9-14.2 H 759) INR (BEAKER) (test code = 370) 1.1 <=5.9 Effective 09/08/2018: PT Reference Range ChangeNew: 11.9-14.2 Previous: 11.7- 14.7RECOMMENDED COUMADIN/WARFARIN INR THERAPY RANGESSTANDARD DOSE: 2.0-3.0 Includes: PROPHYLAXIS for venous thrombosis, systemic embolization; TREATMENT for venous thrombosis and/or pulmonary embolus.HIGH RISK: Target INR is2.5-3.5 for patients wiht mechanical heart valves.CBC (HEMOGRAM ONLY)2019-08-25 05:28:00 Test Item Value Reference Range Interpretation Comments WHITE BLOOD CELL COUNT (BEAKER) 6.3 K/ L 3.5-10.5 (test code = 775) RED BLOOD CELL COUNT (BEAKER) 3.66 M/ L 3.93-5.22 L (test code = 761) HEMOGLOBIN (BEAKER) (test code = 10.4 GM/DL 11.2-15.7 L 410) HEMATOCRIT (BEAKER) (test code = 32.4 % 34.1-44.9 L 411) MEAN CORPUSCULAR VOLUME (BEAKER) 88.5 fL 79.4-94.8 (test code = 753) MEAN CORPUSCULAR HEMOGLOBIN 28.4 pg 25.6-32.2 (BEAKER) (test code = 751) MEAN CORPUSCULAR HEMOGLOBIN CONC 32.1 GM/DL 32.2-35.5 L (BEAKER) (test code = 752) RED CELL DISTRIBUTION WIDTH 13.2 % 11.7-14.4 (BEAKER) (test code = 412) PLATELET COUNT (BEAKER) (test 239 K/CU MM 150-450 code = 756) MEAN PLATELET VOLUME (BEAKER) 10.1 fL 9.4-12.3 (test code = 754) NUCLEATED RED BLOOD CELLS 0 /100 WBC 0-0 (BEAKER) (test code = 413) POCT-GLUCOSE [id number] 21:35:00 Test Item Value Reference Range Interpretation Comments POC-GLUCOSE METER 204 mg/dL 70-110 H : TESTED A T [facility] 6720 (BEAKER) (test code = [facility] [place], 153) [address]: Rf Manager/Techni chad ID = [id number] for Lupis Carney POCT-GLUCOSE [id number] 17:23:00 Test Item Value Reference Range Interpretation Comments POC-GLUCOSE METER 142 mg/dL 70-110 H : TESTED A T [facility] 6720 (BEAKER) (test code = [facility] [place], 153) [address]: Rf Manager/Techni chad ID = [id number] for ROCK GAMA POCT-GLUCOSE [id number] 12:37:00 Test Item Value Reference Range Interpretation Comments POC-GLUCOSE METER 236 mg/dL 70-110 H : TESTED A T [facility] 6720 (BEAKER) (test code = [place], 1538) [address]: Rf Manager/Techni chad ID = [id number] for ROCK GAMA POCT-GLUCOSE [id number] 08:39:00 Test Item Value Reference Range Interpretation Comments POC-GLUCOSE METER 107 mg/dL 70-110 : TESTED A T [facility] 6720 (BEAKER) (test code = KW[place] [facility], 1538) [address]: Rf Manager/Techni chad ID = [id number] for ROCK GAMA [id number] 05:58:00 Test Item Value Reference Range Interpretation Comments Procalcitonin (test code = 0.06 ng/mL <0.05 H 12176-1) JAY (test code = JAY) SEPSIS RISK (ng/mL)Low: 0.05-0.50Intermedi ate: 0.51-2.00High: >=2.01 Lab Interpretation (test Abnormal code = 47525-6) [facility]2020-[facility]13 05:58:00 Test Item Value Reference Range Interpretation Comments PROCALCITONIN (BEAKER) (test code 0.06 ng/mL <0.05 H = 3036) SEPSIS RISK (ng/mL)Low: 0.05-0.50Intermediate: 0.51-2.00High: >=[id number] 04:47:00 Test Item Value Reference Range Interpretation Comments PHOSPHORUS (BEAKER) (test code = 3.8 mg/dL 2.3-4.7 604) Rf Manager ID - MALU [id number] 04:47:00 Test Item Value Reference Range Interpretation Comments MAGNESIUM (BEAKER) (test code = 1.9 mg/dL 1.6-2.6 627) Rf Manager ID - MALU LBASIC METABOLIC [id number] 04:47:00 Test Item Value Reference Range Interpretation Comments SODIUM (BEAKER) 143 meq/L 136-145 (test code = 381) POTASSIUM (BEAKER) 3.2 meq/L 3.5-5.1 L (test code = 379) CHLORIDE (BEAKER) 103 meq/L 98-107 (test code = 382) CO2 (BEAKER) (test 34 meq/L 22-29 H code = 355) BLOOD UREA NITROGEN 12 mg/dL 7-21 (BEAKER) (test code = 354) CREATININE (BEAKER) 0.73 mg/dL 0.57-1.25 (test code = 358) GLUCOSE RANDOM 113 mg/dL 70-105 H (BEAKER) (test code = 652) CALCIUM (BEAKER) 8.6 mg/dL 8.4-10.2 (test code = 697) EGFR (BEAKER) (test 77 mL/min/1.73 ESTIMA NAYELI GFR IS code = 1092) sq m NOT ACCURATE CREATININE CLEARANCE IN PREDICTING GLOMERULAR FILTRATION RATE . ESTIMATED GFR I S NOT APPLICABLE FOR DIALYSIS PATIEN TS. Rf Manager ID - PIRJ EPATIC FUNCTION [id number] 04:47:00 Test Item Value Reference Range Interpretation Comments TOTAL PROTEIN (BEAKER) (test code = 5.8 gm/dL 6.0-8.3 L 770) ALBUMIN (BEAKER) (test code = 1145) 3.0 g/dL 3.5-5.0 L BILIRUBIN TOTAL (BEAKER) (test code 0.8 mg/dL 0.2-1.2 = 377) BILIRUBIN DIRECT (BEAKER) (test 0.3 mg/dL 0.1-0.5 code = 706) ALKALINE PHOSPHATASE (BEAKER) (test 125 U/L 40-150 code = 346) AST (SGOT) (BEAKER) (test code = 11 U/L 5-34 353) ALT (SGPT) (BEAKER) (test code = 14 U/L 6-55 347) Rf Manager ID - PIRJ [id number] 04:22:00 Test Item Value Reference Range Interpretation Comments PARTIAL THROMBOPLASTIN TIME 38.4 seconds 22.5-36.0 H (BEAKER) (test code = 760) PROTHROMBIN TIME/[id number] 04:21:00 Test Item Value Reference Range Interpretation Comments PROTIME (BEAKER) (test code = 14.1 seconds 11.9-14.2 759) INR (BEAKER) (test code = 370) 1.1 <=5.9 Effective 09/08/2018: PT Reference Range ChangeNew: 11.9-14.2 Previous: 11.7- 14.7RECOMMENDED COUMADIN/WARFARIN INR THERAPY RANGESSTANDARD DOSE: 2.0-3.0 Includes: PROPHYLAXIS for venous thrombosis, systemic embolization; TREATMENT for venous thrombosis and/or pulmonary embolus.HIGH RISK: Target INR is2.5-3.5 for patients wiht mechanical heart valves.CBC (HEMOGRAM ONLY)2019-08-24 04:12:00 Test Item Value Reference Range Interpretation Comments WHITE BLOOD CELL COUNT (BEAKER) 6.7 K/ L 3.5-10.5 (test code = 775) RED BLOOD CELL COUNT (BEAKER) 3.60 M/ L 3.93-5.22 L (test code = 761) HEMOGLOBIN (BEAKER) (test code = 10.6 GM/DL 11.2-15.7 L 410) HEMATOCRIT (BEAKER) (test code = 32.1 % 34.1-44.9 L 411) MEAN CORPUSCULAR VOLUME (BEAKER) 89.2 fL 79.4-94.8 (test code = 753) MEAN CORPUSCULAR HEMOGLOBIN 29.4 pg 25.6-32.2 (BEAKER) (test code = 751) MEAN CORPUSCULAR HEMOGLOBIN CONC 33.0 GM/DL 32.2-35.5 (BEAKER) (test code = 752) RED CELL DISTRIBUTION WIDTH 13.1 % 11.7-14.4 (BEAKER) (test code = 412) PLATELET COUNT (BEAKER) (test 226 K/CU MM 150-450 code = 756) MEAN PLATELET VOLUME (BEAKER) 10.3 fL 9.4-12.3 (test code = 754) NUCLEATED RED BLOOD CELLS 0 /100 WBC 0-0 (BEAKER) (test code = 413) POCT-GLUCOSE [id number] 21:26:00 Test Item Value Reference Range Interpretation Comments POC-GLUCOSE METER 202 mg/dL 70-110 H : TESTED [place] [facility] 6720 (BEAKER) (test code = [place], 1538) [address]: Rf Manager/Techni chad ID = [id number] for Charlene Gibbs POCT-GLUCOSE [id number] 17:43:00 Test Item Value Reference Range Interpretation Comments POC-GLUCOSE METER 252 mg/dL 70-110 H : TESTED A T [facility] 6720 (BEAKER) (test code = [facility] [place], 1538) [address]: Rf Manager/Techni chad ID = [id number] for CATHERINE GAMAA POCT-GLUCOSE [id number] 16:57:00 Test Item Value Reference Range Interpretation Comments POC-GLUCOSE METER 278 mg/dL 70-110 H : TESTED A T [facility] 6720 (BEAKER) (test code = [facility] [place], 1538) [address]: Rf Manager/Techni chad ID = [id number] for Salome Valladares POCT-GLUCOSE [id number] 13:23:00 Test Item Value Reference Range Interpretation Comments POC-GLUCOSE METER 121 mg/dL 70-110 H : TESTED A T [facility] 6720 (BEAKER) (test code = [facility] [place], 1538) [address]: Rf Manager/Techni chad ID = [id number] for Ca daniela, Zanenia Urine [id number] 10:40:00 Test Item Value Reference Range Interpretation Comments Result (test code = 6463-4) [facility] [id number] 10:40:00 Test Item Value Reference Range Interpretation Comments CULTURE (BEAKER) (test code = 1095) No growth POCT-GLUCOSE [id number] 09:14:00 Test Item Value Reference Range Interpretation Comments POC-GLUCOSE METER 167 mg/dL 70-110 H : TESTED A T [facility] 6720 (BEAKER) (test code = [facility] [place], 153) [address]: Rf Manager/Techni chad ID = [id number] for CATHERINE GAMAA [id number] 05:24:00 Test Item Value Reference Range Interpretation Comments PHOSPHORUS (BEAKER) (test code = 3.4 mg/dL 2.3-4.7 604) Rf Manager ID - MALU [id number] 05:24:00 Test Item Value Reference Range Interpretation Comments MAGNESIUM (BEAKER) (test code = 1.7 mg/dL 1.6-2.6 627) Rf Manager ID - MALU LBASIC METABOLIC [id number] 05:24:00 Test Item Value Reference Range Interpretation Comments SODIUM (BEAKER) 139 meq/L 136-145 (test code = 381) POTASSIUM (BEAKER) 3.6 meq/L 3.5-5.1 (test code = 379) CHLORIDE (BEAKER) 101 meq/L 98-107 (test code = 382) CO2 (BEAKER) (test 32 meq/L 22-29 H code = 355) BLOOD UREA NITROGEN 15 mg/dL 7-21 (BEAKER) (test code = 354) CREATININE (BEAKER) 0.70 mg/dL 0.57-1.25 (test code = 358) GLUCOSE RANDOM 126 mg/dL 70-105 H (BEAKER) (test code = 652) CALCIUM (BEAKER) 8.6 mg/dL 8.4-10.2 (test code = 697) EGFR (BEAKER) (test 81 mL/min/1.73 ESTIMA NAYELI GFR IS code = 1092) sq m NOT ACCURATE CREATININE CLEARANCE IN PREDICTING GLOMERULAR FILTRATION RATE . ESTIMATED GFR I S NOT APPLICABLE FOR DIALYSIS PATIEN TS. Rf Manager ID - PIAYA EPATIC FUNCTION [id number] 05:24:00 Test Item Value Reference Range Interpretation Comments TOTAL PROTEIN (BEAKER) (test code = 5.7 gm/dL 6.0-8.3 L 770) ALBUMIN (BEAKER) (test code = 1145) 2.9 g/dL 3.5-5.0 L BILIRUBIN TOTAL (BEAKER) (test code 0.6 mg/dL 0.2-1.2 = 377) BILIRUBIN DIRECT (BEAKER) (test 0.3 mg/dL 0.1-0.5 code = 706) ALKALINE PHOSPHATASE (BEAKER) (test 130 U/L 40-150 code = 346) AST (SGOT) (BEAKER) (test code = 15 U/L 5-34 353) ALT (SGPT) (BEAKER) (test code = 12 U/L 6-55 347) Rf Manager ID - PIRJ [id number] 04:14:00 Test Item Value Reference Range Interpretation Comments PARTIAL THROMBOPLASTIN TIME 37.8 seconds 22.5-36.0 H (BEAKER) (test code = 760) PROTHROMBIN TIME/[id number] 04:13:00 Test Item Value Reference Range Interpretation Comments PROTIME (BEAKER) (test code = 13.8 seconds 11.9-14.2 759) INR (BEAKER) (test code = 370) 1.1 <=5.9 Effective 09/08/2018: PT Reference Range ChangeNew: 11.9-14.2 Previous: 11.7- 14.7RECOMMENDED COUMADIN/WARFARIN INR THERAPY RANGESSTANDARD DOSE: 2.0-3.0 Includes: PROPHYLAXIS for venous thrombosis, systemic embolization; TREATMENT for venous thrombosis and/or pulmonary embolus.HIGH RISK: Target INR is2.5-3.5 for patients wiht mechanical heart valves.CBC (HEMOGRAM ONLY)2019-08-23 04:09:00 Test Item Value Reference Range Interpretation Comments WHITE BLOOD CELL COUNT (BEAKER) 7.7 K/ L 3.5-10.5 (test code = 775) RED BLOOD CELL COUNT (BEAKER) 3.54 M/ L 3.93-5.22 L (test code = 761) HEMOGLOBIN (BEAKER) (test code = 10.4 GM/DL 11.2-15.7 L 410) HEMATOCRIT (BEAKER) (test code = 31.5 % 34.1-44.9 L 411) MEAN CORPUSCULAR VOLUME (BEAKER) 89.0 fL 79.4-94.8 (test code = 753) MEAN CORPUSCULAR HEMOGLOBIN 29.4 pg 25.6-32.2 (BEAKER) (test code = 751) MEAN CORPUSCULAR HEMOGLOBIN CONC 33.0 GM/DL 32.2-35.5 (BEAKER) (test code = 752) RED CELL DISTRIBUTION WIDTH 13.1 % 11.7-14.4 (BEAKER) (test code = 412) PLATELET COUNT (BEAKER) (test 228 K/CU MM 150-450 code = 756) MEAN PLATELET VOLUME (BEAKER) 10.4 fL 9.4-12.3 (test code = 754) NUCLEATED RED BLOOD CELLS 0 /100 WBC 0-0 (BEAKER) (test code = 413) POCT-GLUCOSE [id number] 21:50:00 Test Item Value Reference Range Interpretation Comments POC-GLUCOSE METER 139 mg/dL 70-110 H : TESTED A T [place] [facility] 67[facility] (BEAKER) (test code = K[place]AME [place], 1538) [address]: Rf Manager/Techni chad ID = [id number] for DAYAMI BAUTISTA POCT-GLUCOSE [id number] 17:49:00 Test Item Value Reference Range Interpretation Comments POC-GLUCOSE METER 290 mg/dL 70-110 H : TESTED A T [facility] 6720 (BEAKER) (test code = [place], 1538) [address]: Rf Manager/Techni chad ID = [id number] for JONAH RUBIO Urinalysis w/Microscopic + Reflex to [id number] 15:33:00 Test Item Value Reference Range Interpretation Comments Color, UA (test code = Light Yellow 5778-6) Clarity, UA (test code Clear = 5767-9) Specific Lawrence, UA 1.011 1.001-1.035 (test code = 5811-5) pH, UA (test code = 7.0 5.0-8.0 5803-2) Protein, UA (test code Negative Negative = 62832-8) Glucose, UA (test code Negative Negative = 365) Ketones, UA (test code Negative Negative = 2514-8) Bilirubin, UA (test Negative Negative code = 83589-7) Blood, UA (test code = Negative Negative 96951-5) Nitrite, UA (test code Negative Negative = 5802-4) Leukocytes, UA (test Negative Negative code = 5799-2) Urobilinogen, UA (test 0.2 mg/dL 0.2-1 code = 32753-8) RBC, UA (test code = 1 /HPF 54609-9) WBC, UA (test code = 1 /HPF 5821-4) Mucus (test code = Occasional 8247-9) Squam Epithel, UA 6 /HPF (test code = 65041-8) Specimen Source (test code = 2795) JAY (test code = JAY) Rf Manager ID - [auto]Rf Manager ID - tech [facility] [id number] 15:33:00 Test Item Value Reference Range Interpretation Comments COLOR (BEAKER) (test code = 470) Light Yellow CLARITY (BEAKER) (test code = Clear 469) SPECIFIC GRAVITY UA (BEAKER) 1.011 1.001-1.035 (test code = 468) PH UA (BEAKER) (test code = 467) 7.0 5.0-8.0 PROTEIN UA (BEAKER) (test code = Negative Negative 464) GLUCOSE UA (BEAKER) (test code = Negative Negative 365) KETONES UA (BEAKER) (test code = Negative Negative 371) BILIRUBIN UA (BEAKER) (test code Negative Negative = 462) BLOOD UA (BEAKER) (test code = Negative Negative 461) NITRITE UA (BEAKER) (test code = Negative Negative 465) LEUKOCYTE ESTERASE UA (BEAKER) Negative Negative (test code = 466) UROBILINOGEN UA (BEAKER) (test 0.2 mg/dL 0.2-1.0 code = 463) RBC UA (BEAKER) (test code = 1 /HPF 519) WBC UA (BEAKER) (test code = 1 /HPF 520) MUCUS (BEAKER) (test code = Occasional 1574) SQUAMOUS EPITHELIAL (BEAKER) 6 /HPF (test code = 516) SOURCE(BEAKER) (test code = 2795) Rf Manager ID - [auto]Rf Manager ID - techTransesophageal [id number] 13:17:33 Ejection FractionSLEH ECHO HEARTLAB MKCKESSON CPACSInterface, External Ris In - 08/22/2019 1:17 PM CDTTransesophageal Echocardiography Report (ARJUN) Demographics Patient Name GUADALUPE HERNANDEZ Dateof Study 08/22/2019 DAVIDA GenderFemale Visit Number [id number] Race Room Number 1411 Number Date of 1940 Referring Toño Cantrell Physician Age 79 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 No evidence ofvalve destruction. Differential for this includes vegetation vs fibroelastoma. Mild tricuspid regurgitation. PASP is estimated at 29 + right atrial pressure. Lambl's excrescence visible on NCC. Estimated ejection fraction by visual estimation method is normal. Signature Findings Rhythm/BP Normal sinus rhythm during the exam. 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 LV chamber size is normal. There isno LV hypertrophy. All of the segments appear to contract normally. Estimated ejection fraction by visual estimation method is normal. Left Atrium Left atrium is adequately visualized. Left atrial size is normal (16-34 mL/m2). No evidence of left atrial or left atrial appendage thrombus. Right Ventricle The right ventricular chamber size and systolic function are within normal limits. Right Atrium Right atrialsize is normal. Atrial Septum The intraatrial septum is well visualized. Normal intraatrial septum by available views. IV saline contrast injection was negative for a PFO (patent foramen ovale) at rest and post Valsalva. Aortic Valve Grossly normal aortic valve morphology. Lambl's excrescence visible on NCC. There is a slight decrease in excursion of the LCC. Trace aortic regurgitation. Mitral Valve Normal mitral structure. No mitral stenosis. Mild mitral regurgitation. Tricuspid Valve There is a 1.0x0.8 cm well-circumscribed mass on the atrial aspect ofthe posterior TV leaflet where it interfaces with the annulus. No evidence of valve destruction. Differential for this includes veget ation vs fibroelastoma. Mild tricuspid regurgitation. PASP is estimated at 29+ right atrial pressure. Pulmonic Valve Normal pulmonic valve structure and function. Aorta Aortic root size (sinus of Valsalva diameter) is normal. Visualized aortic arch is normal. Pericardium No pericardial effusion is visualized. IVC/SVC/PA/PV/Pleural IVC and SVC are grossly normal by available views. Unable to estimate right atrial pressure. Doppler/Quantitative Measurements Tricuspid Valve TR Velocity: 2.68 m/s TR Gradient: 28.73 mmHgCHI Pioneers Memorial HospitalPOCT-GLUCOSE [id number] 12:57:00 Test Item Value Reference Range Interpretation Comments POC-GLUCOSE METER 144 mg/dL 70-110 H : TESTED A T [facility] 6720 (BEAKER) (test code = [facility] [place], 153) 680[address]: Rf Manager/Techni chad ID = [id number] for JOANNE, JONAH BEL POCT-GLUCOSE [id number] 09:58:00 Test Item Value Reference Range Interpretation Comments POC-GLUCOSE METER 162 mg/dL 70-110 H : TESTED A T [facility] 6720 (BEAKER) (test code = [facility] [place], 153) 53698: Rf Manager/Techni chad ID = [id number] for JOANNE, OJNAH BEL POCT-GLUCOSE [id number] 09:49:00 Test Item Value Reference Range Interpretation Comments POC-GLUCOSE METER 132 mg/dL 70-110 H : TESTED A T [facility] 6720 ([employer]) (test code = [facility] [place], 153) 05978: Rf Manager/Techni chad ID = [id number] for AP URA, ARELY POCT-GLUCOSE [id number] 09:46:00 Test Item Value Reference Range Interpretation Comments POC-GLUCOSE METER 129 mg/dL 70-110 H : TESTED A T [facility] 6720 ([email or web address]) (test code = [facility] [place], 153) 62831: Rf Manager/Techni chad ID = [id number] for PI TTS, HUDSON POCT-GLUCOSE [id number] 09:42:00 Test Item Value Reference Range Interpretation Comments POC-GLUCOSE METER 230 mg/dL 70-110 H : TESTED A T [facility] 6720 (BEAKER) (test code [facility], = 1538) 02451: Rf Manager/Techni chad ID = [id number] for HORTENCIA MUÑOZO POCT-GLUCOSE [id number] 09:38:00 Test Item Value Reference Range Interpretation Comments POC-GLUCOSE METER 277 mg/dL 70-110 H : TESTED A T [facility] 6720 (BEAKER) (test code = [facility] [place] [facility], 1538) 18099: Rf Manager/Techni chad ID = [id number] for Ta tsch, Denny POCT-GLUCOSE [id number] 09:33:00 Test Item Value Reference Range Interpretation Comments POC-GLUCOSE METER 108 mg/dL 70-110 : TESTED A T [facility] 6720 (BEAKER) (test code [facility], = 1538) 47623: Rf Manager/Techni chad ID = [id number] for HORTENCIA MUÑOZO [id number] 05:08:00 Test Item Value Reference Range Interpretation Comments PHOSPHORUS (BEAKER) (test code = 3.2 mg/dL 2.3-4.7 604) Rf Manager ID - SCOTTY [id number] 05:08:00 Test Item Value Reference Range Interpretation Comments MAGNESIUM (BEAKER) (test code = 1.8 mg/dL 1.6-2.6 627) Rf Manager ID - SCOTTY MBASIC METABOLIC [id number] 05:08:00 Test Item Value Reference Range Interpretation Comments SODIUM (BEAKER) 140 meq/L 136-145 (test code = 381) POTASSIUM (BEAKER) 3.4 meq/L 3.5-5.1 L (test code = 379) CHLORIDE (BEAKER) 102 meq/L 98-107 (test code = 382) CO2 (BEAKER) (test 32 meq/L 22-29 H code = 355) BLOOD UREA NITROGEN 16 mg/dL 7-21 (BEAKER) (test code = 354) CREATININE (BEAKER) 0.73 mg/dL 0.57-1.25 (test code = 358) GLUCOSE RANDOM 160 mg/dL 70-105 H (BEAKER) (test code = 652) CALCIUM (BEAKER) 8.3 mg/dL 8.4-10.2 L (test code = 697) EGFR (BEAKER) (test 77 mL/min/1.73 ESTIMA NAYELI GFR IS code = 1092) sq m NOT ACCURATE CREATININE CLEARANCE IN PREDICTING GLOMERULAR FILTRATION RATE . ESTIMATED GFR I S NOT APPLICABLE FOR DIALYSIS PATIEN TS. Rf Manager ID - SCOTTY MHEPATIC FUNCTION [id number] 05:08:00 Test Item Value Reference Range Interpretation Comments TOTAL PROTEIN (BEAKER) (test code = 5.5 gm/dL 6.0-8.3 L 770) ALBUMIN (BEAKER) (test code = 1145) 2.8 g/dL 3.5-5.0 L BILIRUBIN TOTAL (BEAKER) (test code 0.6 mg/dL 0.2-1.2 = 377) BILIRUBIN DIRECT (BEAKER) (test 0.3 mg/dL 0.1-0.5 code = 706) ALKALINE PHOSPHATASE (BEAKER) (test 116 U/L 40-150 code = 346) AST (SGOT) (BEAKER) (test code = 10 U/L 5-34 353) ALT (SGPT) (BEAKER) (test code = 19 U/L 6-55 347) Rf Manager ID - SCOTTY [id number] 04:38:00 Test Item Value Reference Range Interpretation Comments Prealbumin (test code = 11 mg/dL 14-45 L 15617-0) JAY (test code = JAY) Rf Manager ID - DB Lab Interpretation (test Abnormal code = 65684-2) [id number] 04:38:00 Test Item Value Reference Range Interpretation Comments PREALBUMIN (BEAKER) (test code = 11 mg/dL 14-45 L 586) Rf Manager ID - DBPROTHROMBIN TIME/[id number] 04:22:00 Test Item Value Reference Range Interpretation Comments PROTIME (BEAKER) (test code = 13.8 seconds 11.9-14.2 759) INR (BEAKER) (test code = 370) 1.1 <=5.9 Effective 09/08/2018: PT Reference Range ChangeNew: 11.9-14.2 Previous: 11.7- 14.7RECOMMENDED COUMADIN/WARFARIN INR THERAPY RANGESSTANDARD DOSE: 2.0-3.0 Includes: PROPHYLAXIS for venous thrombosis, systemic embolization; TREATMENT for venous thrombosis and/or pulmonary embolus.HIGH RISK: Target INR is2.5-3.5 for patients wiht mechanical heart valves.[id number] 04:22:00 Test Item Value Reference Range Interpretation Comments PARTIAL THROMBOPLASTIN TIME 35.5 seconds 22.5-36.0 (BEAKER) (test code = 760) CBC (HEMOGRAM ONLY)2019-08-22 04:07:00 Test Item Value Reference Range Interpretation Comments WHITE BLOOD CELL COUNT (BEAKER) 7.9 K/ L 3.5-10.5 (test code = 775) RED BLOOD CELL COUNT (BEAKER) 3.75 M/ L 3.93-5.22 L (test code = 761) HEMOGLOBIN (BEAKER) (test code = 10.5 GM/DL 11.2-15.7 L 410) HEMATOCRIT (BEAKER) (test code = 33.0 % 34.1-44.9 L 411) MEAN CORPUSCULAR VOLUME (BEAKER) 88.0 fL 79.4-94.8 (test code = 753) MEAN CORPUSCULAR HEMOGLOBIN 28.0 pg 25.6-32.2 (BEAKER) (test code = 751) MEAN CORPUSCULAR HEMOGLOBIN CONC 31.8 GM/DL 32.2-35.5 L (BEAKER) (test code = 752) RED CELL DISTRIBUTION WIDTH 13.2 % 11.7-14.4 (BEAKER) (test code = 412) PLATELET COUNT (BEAKER) (test 235 K/CU MM 150-450 code = 756) MEAN PLATELET VOLUME (BEAKER) 10.3 fL 9.4-12.3 (test code = 754) NUCLEATED RED BLOOD CELLS 0 /100 WBC 0-0 (BEAKER) (test code = 413) [id number] 07:14:00 Test Item Value Reference Range Interpretation Comments PHOSPHORUS (BEAKER) (test code = 3.1 mg/dL 2.3-4.7 604) Rf Manager ID - [id number] 07:14:00 Test Item Value Reference Range Interpretation Comments MAGNESIUM (BEAKER) (test code = 1.8 mg/dL 1.6-2.6 627) Rf Manager ID - NTPBASIC METABOLIC [id number] 07:14:00 Test Item Value Reference Range Interpretation Comments SODIUM (BEAKER) 140 meq/L 136-145 (test code = 381) POTASSIUM (BEAKER) 3.5 meq/L 3.5-5.1 (test code = 379) CHLORIDE (BEAKER) 103 meq/L 98-107 (test code = 382) CO2 (BEAKER) (test 31 meq/L 22-29 H code = 355) BLOOD UREA NITROGEN 15 mg/dL 7-21 (BEAKER) (test code = 354) CREATININE (BEAKER) 0.65 mg/dL 0.57-1.25 (test code = 358) GLUCOSE RANDOM 93 mg/dL 70-105 (BEAKER) (test code = 652) CALCIUM (BEAKER) 8.4 mg/dL 8.4-10.2 (test code = 697) EGFR (BEAKER) (test 88 mL/min/1.73 ESTIMA NAYELI GFR IS code = 1092) sq m NOT ACCURATE CREATININE CLEARANCE IN PREDICTING GLOMERULAR FILTRATION RATE . ESTIMATED GFR I S NOT APPLICABLE FOR DIALYSIS PATIEN TS. Rf Manager ID - NTPHEPATIC FUNCTION [id number] 07:14:00 Test Item Value Reference Range Interpretation Comments TOTAL PROTEIN (BEAKER) (test code = 5.4 gm/dL 6.0-8.3 L 770) ALBUMIN (BEAKER) (test code = 1145) 2.9 g/dL 3.5-5.0 L BILIRUBIN TOTAL (BEAKER) (test code 0.8 mg/dL 0.2-1.2 = 377) BILIRUBIN DIRECT (BEAKER) (test 0.3 mg/dL 0.1-0.5 code = 706) ALKALINE PHOSPHATASE (BEAKER) (test 126 U/L 40-150 code = 346) AST (SGOT) (BEAKER) (test code = 14 U/L 5-34 353) ALT (SGPT) (BEAKER) (test code = 19 U/L 6-55 347) Rf Manager ID - [id number] 07:06:00 Test Item Value Reference Range Interpretation Comments PARTIAL THROMBOPLASTIN TIME 33.2 seconds 22.5-36.0 (BEAKER) (test code = 760) CBC (HEMOGRAM ONLY)2019-08-21 06:35:00 Test Item Value Reference Range Interpretation Comments WHITE BLOOD CELL COUNT (BEAKER) 8.1 K/ L 3.5-10.5 (test code = 775) RED BLOOD CELL COUNT (BEAKER) 3.48 M/ L 3.93-5.22 L (test code = 761) HEMOGLOBIN (BEAKER) (test code = 10.1 GM/DL 11.2-15.7 L 410) HEMATOCRIT (BEAKER) (test code = 31.3 % 34.1-44.9 L 411) MEAN CORPUSCULAR VOLUME (BEAKER) 89.9 fL 79.4-94.8 (test code = 753) MEAN CORPUSCULAR HEMOGLOBIN 29.0 pg 25.6-32.2 (BEAKER) (test code = 751) MEAN CORPUSCULAR HEMOGLOBIN CONC 32.3 GM/DL 32.2-35.5 (BEAKER) (test code = 752) RED CELL DISTRIBUTION WIDTH 13.7 % 11.7-14.4 (BEAKER) (test code = 412) PLATELET COUNT (BEAKER) (test 196 K/CU MM 150-450 code = 756) MEAN PLATELET VOLUME (BEAKER) 11.1 fL 9.4-12.3 (test code = 754) NUCLEATED RED BLOOD CELLS 0 /100 WBC 0-0 (BEAKER) (test code = 413) POCT-GLUCOSE [id number] 21:55:00 Test Item Value Reference Range Interpretation Comments POC-GLUCOSE METER 450 mg/dL 70-110 HH : TESTED A T [facility] 6720 (BEAKER) (test code = KWAME [place] [facility], 153) 7[address]: Rf Manager/Techni chad ID = [id number] for UG ORJI, SOCORRO POCT-GLUCOSE [id number] 17:52:00 Test Item Value Reference Range Interpretation Comments POC-GLUCOSE METER 146 mg/dL 70-110 H : TESTED A T [facility] 6720 (BEAKER) ([facility] = 1538[facility] 46454: Rf Manager/Techni chad ID = [id number] for KRISTA NEFF POCT-GLUCOSE [id number] 12:43:00 Test Item Value Reference Range Interpretation Comments POC-GLUCOSE METER 238 mg/dL 70-110 H : Notified RN/MD: TESTED (BEAKER) (test code AT [facility] [address] [facility] = 1538) [facility], 770 30: Rf Manager/Techni chad ID = [id number] for MOOD Y, SEEMAWNTELL POCT-GLUCOSE [id number] 08:45:00 Test Item Value Reference Range Interpretation Comments POC-GLUCOSE METER 236 mg/dL 70-110 H : Notified RN/MD: TESTED (BEAKER) (test code AT [facility] [address] [place] = 1538) [place], 7[address]: Rf Manager/Techni chad ID = [id number] for MOOD Y, SHAWNTELL [id number] 06:42:00 Test Item Value Reference Range Interpretation Comments PHOSPHORUS (BEAKER) (test code = 2.3 mg/dL 2.3-4.7 604) Rf Manager ID - MALU [id number] 06:42:00 Test Item Value Reference Range Interpretation Comments MAGNESIUM (BEAKER) (test code = 1.8 mg/dL 1.6-2.6 627) Rf Manager ID - MALU LBASIC METABOLIC [id number] 06:42:00 Test Item Value Reference Range Interpretation Comments SODIUM (BEAKER) 137 meq/L 136-145 (test code = 381) POTASSIUM (BEAKER) 3.5 meq/L 3.5-5.1 (test code = 379) CHLORIDE (BEAKER) 101 meq/L 98-107 (test code = 382) CO2 (BEAKER) (test 31 meq/L 22-29 H code = 355) BLOOD UREA NITROGEN 14 mg/dL 7-21 (BEAKER) (test code = 354) CREATININE (BEAKER) 0.68 mg/dL 0.57-1.25 (test code = 358) GLUCOSE RANDOM 260 mg/dL 70-105 H (BEAKER) (test code = 652) CALCIUM (BEAKER) 8.0 mg/dL 8.4-10.2 L (test code = 697) EGFR (BEAKER) (test 83 mL/min/1.73 ESTIMA NAYELI GFR IS code = 1092) sq m NOT ACCURATE CREATININE CLEARANCE IN PREDICTING GLOMERULAR FILTRATION RATE . ESTIMATED GFR I S NOT APPLICABLE FOR DIALYSIS PATIEN TS. Rf Manager ID - MALU LHEPATIC FUNCTION [id number] 06:42:00 Test Item Value Reference Range Interpretation Comments TOTAL PROTEIN (BEAKER) (test code = 5.0 gm/dL 6.0-8.3 L 770) ALBUMIN (BEAKER) (test code = 1145) 2.7 g/dL 3.5-5.0 L BILIRUBIN TOTAL (BEAKER) (test code 0.7 mg/dL 0.2-1.2 = 377) BILIRUBIN DIRECT (BEAKER) (test 0.3 mg/dL 0.1-0.5 code = 706) ALKALINE PHOSPHATASE (BEAKER) (test 132 U/L 40-150 code = 346) AST (SGOT) (BEAKER) (test code = 15 U/L 5-34 353) ALT (SGPT) (BEAKER) (test code = 24 U/L 6-55 347) Rf Manager ID - MALU [id number] 05:47:00 Test Item Value Reference Range Interpretation Comments PARTIAL THROMBOPLASTIN TIME 30.5 seconds 22.5-36.0 (BEAKER) (test code = 760) CBC (HEMOGRAM ONLY)2019-08-20 05:41:00 Test Item Value Reference Range Interpretation Comments WHITE BLOOD CELL COUNT (BEAKER) 9.9 K/ L 3.5-10.5 (test code = 775) RED BLOOD CELL COUNT (BEAKER) 3.29 M/ L 3.93-5.22 L (test code = 761) HEMOGLOBIN (BEAKER) (test code = 9.8 GM/DL 11.2-15.7 L 410) HEMATOCRIT (BEAKER) (test code = 29.9 % 34.1-44.9 L 411) MEAN CORPUSCULAR VOLUME (BEAKER) 90.9 fL 79.4-94.8 (test code = 753) MEAN CORPUSCULAR HEMOGLOBIN 29.8 pg 25.6-32.2 (BEAKER) (test code = 751) MEAN CORPUSCULAR HEMOGLOBIN CONC 32.8 GM/DL 32.2-35.5 (BEAKER) (test code = 752) RED CELL DISTRIBUTION WIDTH 13.7 % 11.7-14.4 (BEAKER) (test code = 412) PLATELET COUNT (BEAKER) (test 205 K/CU MM 150-450 code = 756) MEAN PLATELET VOLUME (BEAKER) 10.9 fL 9.4-12.3 (test code = 754) NUCLEATED RED BLOOD CELLS 0 /100 WBC 0-0 (BEAKER) (test code = 413) POCT-GLUCOSE [id number] 01:04:00 Test Item Value Reference Range Interpretation Comments POC-GLUCOSE METER 252 mg/dL 70-110 H : TESTED A T [facility] 6720 (BEAKER) (test code = [place] [facility], 1538) [address]: Rf Manager/Techni chad ID = [id number] for SOCORRO ROBERSON POCT-GLUCOSE [id number] 17:37:00 Test Item Value Reference Range Interpretation Comments POC-GLUCOSE METER 190 mg/dL 70-110 H : TESTED A T [facility] 6720 (BEAKER) (test code = [place]AME [place] [facility], 1538) [address]: Rf Manager/Techni chad ID = [id number] for JONAH RUBIO BEL Tissue [id number] 16:32:00 Test Item Value Reference Range Interpretation Comments Case Report (test code Surgical Pathology = 104) Report Case: [id number] Authorizing Provider: Cherrie Suarez Aba, MD Collected: 08/18/2019 03:45 PM Ordering Location: [facility] Received: 08/18/2019 04:10 PM PERIOPERATIVE SERVICES Pathologist: Guadalupe Vaca MD Specimen: Gallbladder, GALLBLADDER DIAGNOSIS (test code = [id number] 3220) uZzEwMzNcZnRuYmpcdWMxIH xjsnWlQDvkc6VqG5VcTxSoE FxhbnNpXGRlZmxhbmcxMDMz RQL7keNkKWHyGRilYOTdQFf zKh1huXBtgPxvFkGgJNZtb1 qmayJNxbswvOz4m6tlCIKgE mK7rWFaFEywO7ithkRqfCCp IPDnXWo8hW09DHYapE4cdAM qZGrjruOmLcX3AHuhZIWyDf R8VQZwdEHsMTSlP4puQCWfB GzlJIZuQHqrfVWeRYD2gNac f8J5tKJfvEZhfElkUwAsDsL iJZGPb1LcKNw5vBozI2PtIA IiHlP6zYPsVPAnCUseFFXwJ JAigjV2zU17JImhudZ0lXGr i9Gdh98vd167aD3zySGoADP 9MNNoNGBgtLLlUVXlYOI8VH MlkCBoG2k1IgAgmFDgP6T6B oAyzRHzG1B1FbNrlZDkQ0E2 CnDrqUTnBOUszBBsSy0fxFN msHRtvi4qwn32NWQ1m0WnsS qyTNM5FKM8CfXwZe4zfCHvR DOwQW1hZvIabMVlIVRitm01 zMxmJDnvzkEtiU9fLzSkMUE rrDOfAVChNH5vzNVvDFAhzX 5ucmxjXHBnYnJkcmhlYWRcc TpiemKtVn0wiGdrQVX1XWts F5smpW3pGgH8XOigS8aqoG9 nCOa9AXphmXR1QZFciO4oCP 5rnhkij8zgQuJvUJ9nenxby 8ynGlAcGD3ghqw5h9hjOrNo KN1cmqtrx9mtYnJfXDpqYWI lisboCDYtj0SjatrzOPFym8 VfF7AlzXyyZ41kpAmjO51vO FQptZeigW5cbViarG7qTtVd ZnMyNFxxbFxwbGFpblxmMVx mczIwXGxhbmcxMDMzXGhpY2 lxOgOfJDDxoVkrRXkkm8KcA EEcNEFfBrTpZI2pB3ETWMLU YSLMVWRtCGhAZHZLI4BNQ7N TLkQGLR2VJKYLP5TAM0JPIZ n8TIXbzbUnNHFRHULFLMpFA D0OLMvgR6mWG52VGfDVZbTl Ej1PDTkeVILCWCPtT2xDFQD NECBXHAXSF4vqWIVfWPLNEF 9AOSdOORlNJPAEZ8ryRSVuQ SBPTkUgQkVOSUdOIExZTVBI CV5WWZFbQIPwJMbiUVTGWNx qRBX9q5lwzTIuBXAneUIlFN AwMFxhbnNpXGRlZmxhbmcxM YKsYLA8twOhOXQcYNgxQTLd HNmqHu3gfVWswFeoWpEvPLO by3pbbwROznaocHu1r0myCH GpEhD9bKSgEDtxS6fhuiTos IIrAGCfSTb2tT56LWVbaX2p qUQxUZntyzJmDoI7KIoxTYT nZuZ6ULAbgTYjHZPhD8keLE HbYYxcZEFiJUpelOXrRBL0c Bqfw4G0rRVmbJAwhQkvQwEr LoWoUhAWz0FxMUr6pDkeB0M sCMLiDiI3mXNrMTKnWIduRH RlEBWsfmM2wR72ESenvbR9o STtz1Lkn30en460rA2prZVh FUC4ZAJoXYFbsFGyLIIaQOF 0UZXswXThS8juZTNgVA4tjh vpBUgrKYmwBQRnpMS3RIShn LIqL8WiKHGaLQxoGONfjeb0 FiBeGy3inXMnzMpzCJltc5o hn4updLAiEsr1OXBfIsZqQu epRSmkf5Rqf4hoKQTxww1kB MD4cVLunXmtb4A3pBPiDRLu sPPiTCRpKO5rsGJkTAXuhV0 ucmxjXHBnYnJkcmhlYWRccG sibhXbEh5bxHorTFN5XWhvW 9fncI6oXqW4PEyiR0bdtD6f BNy2JSdrTOOfcQZ0zmP4JMK gzNVwF3OqnK2iGASgDT9cej w7z9ezNIE6CBlnHUFeUlE4r sE5IDTddZRlSKQdhZsvBEzr u598UON7ImDzVPHms9MzJ2E ccUcgJ25isCtmN08jKKYmkF lomJ0gnJblzJ2cKiUfHgInK DnfsSdyRO1bBNNgU8aifHIm GISuUSIuU2oyJnXpsI9bqUt oVRpomnQrFBDlVbi6HYGwkV WgAEUqJrm9MCJqWGBbX92ql pbfNOV1tK6by9hjj3WuSVeo NHJ8XEUln79rMEgidpS7TNy uBp7gWbSiTPB4PDidTSR4lD == CPT Code(s) (test code b7ifoOHdMBDfdBUrBxKcTGZ = 3357) cHMUig0ikTBBonLTaMzBzSj NcZnRuYmpcdWMxXGRlZmYwe 3mwu566dOQso4eyBAYsRhZ7 iOUoPXPhvIOyO750y0xhk9e penWnnUO0NNVwIKI1MMjcgz NyrsE6RCafjFPnZnV5JAlfk jHmCTroygZurhAxGsy2ZEAx B648EQN7jJvhd3stIKD9BZQ oUOHmVuRbUy8nwUEiV997MC MoPJDQWWBipPn7HOPxqjGlg bUfjRIVj439E794s3hyFAOr euQmpXkRcrrbw7afF864EEJ hcGVydzEyMjQwXHBhcGVyaD H6JBMjAM7ggdgpEgZkRL7qb hnyKnMyHC7xdur2ShEhSW1k cmdiNzIwXGhlYWRlcnkwXGZ ub3DhuothJN5eF0Mnd4C8pX 9maXRcZGVmdGFiNzIwXGZvc w8fbQIcEJfph5WrDTP5jtL9 mXHkgGHvDCPwER18Yskxb3D sWdioRKE8AZAmojErg2Qbo5 srYvXtdcJeB6dnG6RqJNEeF PUjQPRlWuAwwvDew0Rnw6Lx xMOmlFa7p2qqLINqXAFqaXi cn8kwRGX4UIWuZ3C4uYQov3 hvKPzmMUYnrUX0msquEDnyX PUdapS9pubaVPwmPVHnlTR5 itdzJHjgOVSvWgP4jaiyZAm iJOUpZKX3TIatc017XOV9XJ xzYmtwYWdlXHBnbmNvbnRcc GduZGVjXHBsYWluXHBsYWlu XGYwXGZzMjRccWxccGxhaW5 aJcBhDxYrKHdmVJ4rRAMkW7 yigHHfJQSiIAIeW6cnPvWdu R0oqRsuPRllfcSvKHk3ZcG5 XHBhcn0= GROSS DESCRIPTION j3pcfRPbJQLunMJbAcQwNCF (test code = 3366) xHXBen7frQDVljCJzVsMlIp NcZnRuYmpcdWMxXGRlZmYwe 0xgn966uVXof1ryWNEeBgO4 sIPwNVEqgJJuC393CHWeOZf tv7bhe2HiWHEavTDyu3R7UZ MFwlxilFy9eXeyX84im3D5V srjK4zvOGDmNZRkJ5OpZM0t IJMmMbf2PDG0VWK7FRMjLWS cO1BsVW0xNWPfrRJqYCz8d5 mxbNvyVRSdLZI5b7hyMUvel sCyYS4fmp2oyLw9r9vgvsDe DREjEAMxrVDSJGVqC4IyxMt fXf3oqSz1fCzxUfnqWJM6Pf d4WL8avx99rwg7iOtfPPOsb escWsW6BPcvUJJzflsgQZm0 MFxtYXJnbDcyMFxtYXJncjc yMFxtYXJndDcyMFxtYXJnYj yfLUpoLUUoEGU7WWgsd968E AN7WKegw6gpa4ptpEHePhl2 CWYgSwFkEnltNKyow9Phf5j iDDWaqn7rDAZ7gLXdsWyca1 E9kBRwLYNuzHYcxmUxWXPcm z43fFPhpMKzgNCdcv6rfkEx wXOofFNdMVR8tZEzjbLbFIB jbICxEDNxCMNvY7woIbEfmn RiF1noG6PmQVCoTBRvXREnN kNncvHpt5Tlz0KnvXKgrSv9 g2jzWPQmKZIocVuul3vdJME 6YOLhB3C4vGLml9pjVDuqDH MvsNA1swzdCMpoYXGrqiW3c biiUMpiSIWnvLJ6murvAArq ZFZyCaA6etemKZprNQQkCFO 2UMjup704QOB4XOckRuquFT dlXHBnbmNvbnRccGduZGVjX HBsYWluXHBsYWluXGYwXGZz AwRyhOLfOVqma1MpxmIsxPa pWDLpIQl2zjXhtgiglVp4pH DdcTstADFyhAckoH5zPxHvS qGpJYrlHY7nMGMvB6ggtARp OQMfVSOtH3ntDfUkdH0pwLt mMVxmczIwIEEuIFxwbGFpbl xmMVxmczIwXGxhbmcxMDMzX BqwU5wuBuNvKKZkiQvnJQab y0RfRGAdNGMgZqotvkViKUr 4rhDwDTXvgZfslB6mUwOuKm BuDLceBZ6kBJQnJ3fbqQClK HHlGAGnQ6wgAfJxmV5zyXbo LUiqmrAwQYXbBNj3LPEpAjN ub1nrAVEwVJxqBEIvZEEzBl BcbGFuZzEwMzNcaGljaFxmM VsaVdNaMTCtBArdC0nrLsFq M3ZfWSEbRpTzkETqU6hgiBE iZWxlZFxwbGFpblxmMVxmcz RlJGgibzmyAZLvVWatJ7emQ sMfBTIdbCvuFTleb0XyRUFj XGZzMjAgIHdpdGggdGhlIHB kpKtvfvDmzfNjHY8zFOEDVz 5yXU8hQHSqKCalPQLuSIZdT jBcbGFuZzEwMzNcaGljaFxm BJswPiPmOKCsJTjhW2xqWpC xU7TzBMQsBwFcfWNeS9cpEY xwbGFpblxmMVxmczIwXGxhb zadICGgPFdrS9txSdPlRFEc kSqeFRygz3LjFRSpCVBfGlq frdGaSPe9fjWkZCG0GyNnFY yuDQYfwFfgsZ7kXmDlYoIuO IwjWK0kDATyU3uhnUSiYGXw IKSfI3psKoGwnN5pmHycCEb jZjJcZnMyMFxsdHJjaCBnYW xsYmxhZGRlclxwbGFpblxmM VxmczIwXGxhbmcxMDMzXGhp A7ajExGbWEUgvLjfNRohm0F hOFTtMXJtIylxjkTfBLj8cu GwYHF6XuPzRCfiNRTyxIpga M3nGtTwLfLvCLmvZB7hXVUv B7gfwBEhLZJqGMSgH8poEoV syN2ngXxuZNnxObTpJdAxAN xsdHJjaCAgaXMgYSBccGxha I7bBxQkAlDuFBbbVO8nTMBg V5mxuOChBCXqKIPqK0uqYpR duO7vjTddPBjxveUcFEvfCd scoTFuZrMbqPqvyY6oMgIgS hMdDLdpCJ5bHQKlB0oceGFq UMLrCRCdT1ldQiKrvJ7fpDd mMVxjZjJcZnMyMFxsdHJjaC GluIKlsHysvS0pYzKtYxOkM IkgXI3bOHCuS0foeEEcWKEq OTTtL3pxFjAtsY6kbLhdOHw mczIwIGludGFjdFxwbGFpbl xmMVxmczIwXGxhbmcxMDMzX RknZ5gnIjFiDLCwvHzuCJxp y9VzEIAzPNRmJpwicmXrLIt 0cmNoICBnYWxsYmxhZGRlci S4eOPqUCCaZKZuZJneYYImM GZzMjBcbGFuZzEwMzNcaGlj jCtcXEsoUwWtSJGbDRtdR4v zNmLtLxUyCUCpNasnQ11nwH 4sGrB3GGHwCAIugJKkcdNba NLjHPXcnhNizNrvsL9xRmSb DxCyDTnsYF9tBKMrC2lrqIT oQFWeMJUwM2nbZfSrjY6cbH xmMVxjZjJcZnMyMFxsdHJja IZbvYU4qUHhVRZchJ3zXTOa YKBxMDLzf5QqkSQcFISyUXe uXGYxXGZzMjBcbGFuZzEwMz NcaGljaFxmMVxkYmNoXGYxX WenL2czHdTwBmPsLMV3XT4f cGluayBhbmQgaHlwZXJlbWl jXHBsYWluXGYxXGZzMjBcbG FuZzEwMzNcaGljaFxmMVxkY gDdZLKxUNyiG3hlNcHvF9Px ZHRjTsOfqVKmR2mwWeVopGe lsB5lYeEbOrMhZRalYB6wMC OoT6dlzXXeGDWcCQZyL1piQ aJivG7xaEdhLFixbpDbLUJl A4sxvQyuWHN5O2YpxBaktPz ndl1uPLGqVFOitWBpvhvnLL 2hxMQjH2vsQrXkB97iuQNbe TDjwyEyPvkbNP4bzSDcSPIq YWluXGYxXGZzMjBcbGFuZzE wMzNcaGljaFxmMVxkYmNoXG BtILcfO8avVpWvY3WvZXQtW jJyzYEpS0frfFOmXU6nJN7g NA3mwpuuBJKoLUAibFTln5Y gaXMgXHBsYWluXGYxXGZzMj BcbGFuZzEwMzNcaGljaFxmM QimCiDlGBDlYBviB5zyWmFy BmMyERK8HV6fd6pntAMwSQ0 jRVEbIFZxA0ZnQFMrIRtbbC FpblxmMVxmczIwXGxhbmcxM QByBKwuJ9iqChKvFSHicJjx CVclr6BtAFZvJGVdPnuqxoV rSKt9fkHmPM4eLUqgJWebaA wgaXMgXHBsYWluXGYxXGZzM jBcbGFuZzEwMzNcaGljaFxm CNtyYiGgZAQbYNtgW1wgMcO cZnMyMCAwLjggXHBsYWluXG YxXGZzMjBcbGFuZzEwMzNca GljaFxmMVxkYmNoXGYxXGxv O0otClApS0PzGFThKpYaoNB dY5fpI84izYufpwwyQVFpVC JlIGlzIFxwbGFpblxmMVxmc mSoCRbojylbKBSvXJzoX2ui HzUuPOFotBzkLIpmk0SnYKR uOQEnUnEaLXTujv14jP2btR GehYOcBU1gXI3iZNfytZwjt bE9cLh0KWowlBNadlsjYZqw bmWfVTbhmskmOFKkLUfoN7c hEiRfRRQbwRtdBMtir9JvAS FaADCsIcocxoVtTIm1rrMyM YMqmQkcOpHuyIjjkZ5iXsQd VbCjOAnnGQ8tABCrS2lwvXJ kZQMoYMFcH2plJjUtnW2wwW ujPPnzdtYzYP5ihWqboA9xY jOaXiNpQPwxWD5cCGZvK9yi vWYxAWEyGGOdN7gjLyMjcV6 jaFxmMVxjZjJcZnMyMFxsdH JwaFQ0kJKygVcvTNVjQAmiX GYxXGZzMjBcbGFuZzEwMzNc aGljaFxmMVxkYmNoXGYxXGx nZ3lnTtOtTfYcDEHoU0SegU S3axIgmuLrR3SsEqLsHCWqJ FxwbGFpblxmMVxmczIwXGxh qvjdJVCxBCeqE3gzKjYbRVM obWtcJXvsj0QuCDXgQYYeQv faehTsHFs2wmMtDMOrSKibx WxpXHBsYWluXGYxXGZzMjBc bGFuZzEwMzNcaGljaFxmMVx oTsCjMUJeCUkxD0gbHvFcQr DtPXHasbEmJ8abFaEipx3hI HIcLX0lRxRiV33uhD5dL1Ls JTKkw0UrUShgSW9apZ2hOJC sYWluXGYxXGZzMjBcbGFuZz EwMzNcaGljaFxmMVxkYmNoX VKfNOhjI1gqAhLiI5VfVOYs VbUrgDOaU2ekJBCmTZVszBi tjP6xWhRrAhVwUZkfTQ0pHH NqA4gzdCGfISRqGQTeE4pdU kDlqQ8gnGguXTofhnSiHTqo NlxwbGFpblxmMVxmczIwXGx ynhdbLQFlTCduA8mwXfRjKS RqvLsyDZzht7NlVGDpHFCqP qbqfiCpLBe8feWuRKhinQaf mM4eNfFuVcEyLDsgLV0tECV yY6vjaRCnSXOpYYUoN1iyGb JclT7wiVpgKIchwrSqCBFki PuxkH7kRtOhIwFtUQchYX0z UKBqJ6mgvSXvILNyRLQjC6g qXsTfzN4asAqjDIseBmJlUq ImKUzosYXehQW9EFLdPNpsV GYxXGZzMjBcbGFuZzEwMzNc aGljaFxmMVxkYmNoXGYxXGx iO9peWsEvCjXeVPMyBchbY4 6ukIpiaM3dGtEkTmWyZYqrF E4uFSUxZ5dqcCMjQCBmJVKn N3yvBaMdxG9ceYwxVHufIjN dZmVpQNkkzBEoiFFclF7aVV dncmVnYXRlXHBsYWluXGYxX GZzMjBcbGFuZzEwMzNcaGlj jCotZSloCkHbXVLgZAnvG6i cZjFcZnMyMCAgYXJlIGlkZW 13eBXcGJFhhSwnsZ5jRwJzT oEyAOnvIN5zWFAdQ8temULs BLQaAANyK9fiFhXdxG5ccJw mMVxjZjJcZnMyMFxsdHJjaC AuIFRoZXJlXHBsYWluXGYxX GZzMjBcbGFuZzEwMzNcaGlj bVhqLEmjTeKsAIHxSOyzK9u cZjFcZnMyMCAgaXMgYSBccG nojS7tCbPaEnGvIMkeEZ5jQ OAaC5uskAIoJWCdFQEuZ8gj WeUqwZ1ssGqsGCqoUzOwVgU oXOuguKMkoONnDQeneDm5ne Obl8LiWTQjzBzjkG2fSkRxT jLsSAqqAA8kMNQsD5hobUHd DBMeCBAdB4axPmGauH9clTa oVFycyhHcQIX8mJVaoU6tCN BsYWluXGYxXGZzMjBcbGFuZ zEwMzNcaGljaFxmMVxkYmNo JKGtZXcsZ9teKyNyT9IlBDU vJrLteDIdK7xxyHbqPPO9e8 DcZaIdxDK4WpPtCaGyxfIfS X72EEUhfqXfy3ReqGojxwCg IKDmONS9Wb6ekPWqCYxmbSE pblxmMVxmczIwXGxhbmcxMD OdETlzX1joCiBuQABdzJaeY Zjte4AzYVIhFETiNnAvAtwr KWTqxKVoJKwrhkBZg6AuXnp dCKHvQpm7QUeiDMVoKVJqOh YyESLqgFBkSGXcigHEOVT0w C3eGNTlVFS6DMWcmuBXWKwz N0mdoYvgWYM1O0KiqNEuR0n uLCBlbiBmYWNlIGFuZCBjeX C0hVQhJLHqeHUceQ7vlYNez 2RlXHBhclxwYXJkXHNzcGFy CKW0qGFqumYsaYrlzLpkoO6 cZjBcZnMyNFxwbGFpblxmMV xmczIwXGxhbmcxMDMzXGhpY 6eeZiMvNRQzmFkhVIasu8Ez LQOdPHSjRpXnXAM0JDwdpYy ibGFkZGVyIHdhbGxccGFyXH Bhcn0= MICROSCOPIC l3elpXRiGOZjkMZrTtXjYDP DESCRIPTION (test code gSEKyl7pbUOMqlKWbWoClHx = 3371) NcZnRuYmpcdWMxXGRlZmYwe 8duj695cZDzd6jmUGKeJjP8 jOErSKAwqNPxY637u3cbd7v mzvYzdRF2TJHtETO0OSrdqm QhbcE9FHqhaTScSxY0ZUzah qFpBPgghlSigfYiYou7OLIf F845HNU7tFrvr1qpMSO4OUO cEXQeVzDeBt7orDNjY004YM YqSEZHENNijCn9AVLratHgp bJysFFZe180N379n1gpVFGs pfGugOqIpxurb7cvE935TQZ hcGVydzEyMjQwXHBhcGVyaD O3UNUrIS1ofeczPaGeLK0rp xsnSqJtSZ4hbuf8BjUqGU4e cmdiNzIwXGhlYWRlcnkwXGZ vk8HijanhZM0qA3Zme3O8gU 9maXRcZGVmdGFiNzIwXGZvc e9shJRdJJdvm3MwEOK4fcQ1 mGYmoXXnTDUxDL32Cqksf2R yLhyvGWM7UIRfusVnd0Wwj9 ofEkVbehFrM6xhT8QgZBZeR MQhLSZoGtBrupUuc0Fjl1Xc gLAejNh7d5ivLANaCOOueLl bf0zeFIO3LQScK7K9gELku9 sgFUjlHAFxvOG3iqpwDYtiS HGnbrX7duzxXZahYGEhuPX3 iidiGVwaEXBdWbF9vxadAXb iKBTjBJK5AKmfc213DLG8FK xzYmtwYWdlXHBnbmNvbnRcc GduZGVjXHBsYWluXHBsYWlu XGYwXGZzMjRccWxccGxhaW5 eXsKjBtQlHKxlSV7wAPLqR1 zenOKiDPOsIZHqB6sbOcEqe V5mzWlbKElivhKwFVIrsyJa ve4uZY7vkIOobT== [facility] [id number] 16:32:00Surgical Pathology Report Case: [id number] Authorizing Provider: Cherrie Suarez Aba, MD Collected: 08/18/2019 03:45 PM Ordering Location: [facility] Received: 08/18/2019 04:10 PM PERIOPERATIVE SERVICES Pathologist: Guadalupe Vaca MD Specimen: Gallbladder, GALLBLADDER A. GALLBLADDER, LAPAROSCOPIC CHOLECYSTECTOMY:- PREDOMINANTLY CHRONIC AND FOCAL ACUTE CHOLECYSTITIS- CHOLELITHIASIS- ONE BENIGN LYMPH NODE (0/1), 3MM Signing Pathologist Direct Phone Line: [phone] by Guadalupe Vaca MD on 08/19/2019 at 4:32 [id number]. Received fresh labeled with the patient's name, ANDRE and "gallbladder" is a 8.2x3x2.2 cm intact gallbladder with a 0.8 cm long x 0.8 cm in diameter cystic duct. The serosa is mckeon pink and hyperemic. A cystic duct lymph node measuring 0.3x0.3x0.2 cm is identified.On opening, the mucosa is mckeon white and trabeculated. The wall is 0.8 cm think. There is approximately 3 ml of yellow white bile. Multiple goldstein to orange faceted calculi ranging from 0.5-1.4 cm in greatest dimension and 7.6x6x0.7 cm in aggregate are identified. There is a calculus lodged within the cystic duct. Senior Interaction Designer sections are submitted.Ink Code:Blue: Hepatic bedSection Code:A1: Cystic duct margin, en face and cystic duct lymph nodeA2: Gallbladder wallPerformed.POCT-GLUCOSE METER 2019-08-19 12:25:00 Test Item Value Reference Range Interpretation Comments POC-GLUCOSE METER 158 mg/dL 70-110 H : TESTED A T [facility] 6720 ([email or web address]) (test code = [facility] [place], [facility]) [address]: Rf Manager/Techni chad ID = [id number] for JOANNE, JONAH BEL POCT-GLUCOSE [id number] 08:21:00 Test Item Value Reference Range Interpretation Comments POC-GLUCOSE METER 267 mg/dL 70-110 H : TESTED A T [facility] 6720 ([email or web address]) (test code = [facility] [place], 1538) 23987: Rf Manager/Techni chad ID = [id number] for JOANNE, JONAH BEL POCT-GLUCOSE [id number] 06:23:00 Test Item Value Reference Range Interpretation Comments POC-GLUCOSE METER 288 mg/dL 70-110 H : [facility] A T [facility] ([facility] (test code = [facility] [place], 1538) 08[address]: Rf Manager/Techni chad ID = [id number] for DAYAMI BAUTISTA [id number] 05:09:00 Test Item Value Reference Range Interpretation Comments PARTIAL THROMBOPLASTIN TIME 30.6 seconds 22.5-36.0 (TrevenaAKER) (test code = 760) [id number] 04:46:00 Test Item Value Reference Range Interpretation Comments MAGNESIUM (BEAKER) 1.9 mg/dL 1.6-2.6 Specimen slightly (test code = 627) hemolyzed Rf Manager ID - PIAYA [id number] 04:46:00 Test Item Value Reference Range Interpretation Comments PHOSPHORUS (BEAKER) 3.4 mg/dL 2.3-4.7 Specimen slightly (test code = 604) hemolyzed Rf Manager ID - MALU LBASIC METABOLIC [id number] 04:46:00 Test Item Value Reference Range Interpretation Comments SODIUM (BEAKER) 137 meq/L 136-145 (test code = 381) POTASSIUM (BEAKER) 4.2 meq/L 3.5-5.1 Specimen slightly (test code = 379) hemolyzed CHLORIDE (BEAKER) 100 meq/L 98-107 (test code = 382) CO2 (BEAKER) (test 26 meq/L 22-29 code = 355) BLOOD UREA NITROGEN 10 mg/dL 7-21 (BEAKER) (test code = 354) CREATININE (BEAKER) 0.73 mg/dL 0.57-1.25 Specimen slightly (test code = 358) hemolyzed GLUCOSE RANDOM 340 mg/dL 70-105 H (BEAKER) (test code = 652) CALCIUM (BEAKER) 8.1 mg/dL 8.4-10.2 L (test code = 697) EGFR (BEAKER) (test 77 mL/min/1.73 ESTIMA NAYELI GFR IS code = 1092) sq m NOT ACCURATE CREATININE CLEARANCE IN PREDICTING GLOMERULAR FILTRATION RATE . ESTIMATED GFR I S NOT APPLICABLE FOR DIALYSIS PATIEN TS. Rf Manager ID - PIAYA LHEPATIC FUNCTION [id number] 04:46:00 Test Item Value Reference Range Interpretation Comments TOTAL PROTEIN (BEAKER) 6.0 gm/dL 6.0-8.3 Speci men slightly (test code = 770) hemolyzed ALBUMIN (BEAKER) (test 3.2 g/dL 3.5-5.0 L Speci men slightly code = 1145) hemolyzed BILIRUBIN TOTAL 0.9 mg/dL 0.2-1.2 Specimen sli ghtly (BEAKER) (test code = hemoly zed 377) BILIRUBIN DIRECT 0.4 mg/dL 0.1-0.5 Specimen sl ightly (BEAKER) (test code = hemoly zed 706) ALKALINE PHOSPHATASE 175 U/L 40-150 H (BEAKER) (test code = 346) AST (SGOT) (BEAKER) 27 U/L 5-34 Specimen slightly (test code = 353) hemolyzed ALT (SGPT) (BEAKER) 34 U/L 6-55 Specimen slightly (test code = 347) hemolyzed Rf Manager ID - KRYSTINAAYA LCBC (HEMOGRAM ONLY)2019-08-19 04:27:00 Test Item Value Reference Range Interpretation Comments WHITE BLOOD CELL COUNT (BEAKER) 15.4 K/ L 3.5-10.5 H (test code = 775) RED BLOOD CELL COUNT (BEAKER) 4.02 M/ L 3.93-5.22 (test code = 761) HEMOGLOBIN (BEAKER) (test code = 12.0 GM/DL 11.2-15.7 410) HEMATOCRIT (BEAKER) (test code = 35.9 % 34.1-44.9 411) MEAN CORPUSCULAR VOLUME (BEAKER) 89.3 fL 79.4-94.8 (test code = 753) MEAN CORPUSCULAR HEMOGLOBIN 29.9 pg 25.6-32.2 (BEAKER) (test code = 751) MEAN CORPUSCULAR HEMOGLOBIN CONC 33.4 GM/DL 32.2-35.5 (BEAKER) (test code = 752) RED CELL DISTRIBUTION WIDTH 13.5 % 11.7-14.4 (BEAKER) (test code = 412) PLATELET COUNT (BEAKER) (test 206 K/CU MM 150-450 code = 756) MEAN PLATELET VOLUME (BEAKER) 10.6 fL 9.4-12.3 (test code = 754) NUCLEATED RED BLOOD CELLS 0 /100 WBC 0-0 (BEAKER) (test code = 413) POCT-GLUCOSE [id number] 00:06:00 Test Item Value Reference Range Interpretation Comments POC-GLUCOSE METER 334 mg/dL 70-110 H : TESTED A T [facility] 67[facility] (BEAKER) (test code = [place], 1538) 15[address]: Rf Manager/Techni chad ID = [id number] for PH DAYAMI ELLIOTT POCT-GLUCOSE [id number] 18:34:00 Test Item Value Reference Range Interpretation Comments POC-GLUCOSE METER 313 mg/dL 70-110 H : TESTED A T [facility] (BEAKER) (test code = [facility] [place], 1538) [address]87[address]: Rf Manager/Techni chad ID = [id number] for SARA FLORES POCT-GLUCOSE [id number] 17:56:00 Test Item Value Reference Range Interpretation Comments POC-GLUCOSE METER 321 mg/dL 70-110 H : TESTED A T [facility] 67[facility] (BEAKER) (test code = [facility] [place], 1538) [address]: Rf Manager/Techni chad ID = [id number] for KISHA SETHI POCT-GLUCOSE [id number] 17:21:00 Test Item Value Reference Range Interpretation Comments POC-GLUCOSE METER 322 mg/dL 70-110 H : TESTED A T [facility] 6720 (BEAKER) (test code = [facility] [place], 1538) 46926: Rf Manager/Techni chad ID = [id number] for Srini Silverman POCT-GLUCOSE [id number] 11:46:00 Test Item Value Reference Range Interpretation Comments POC-GLUCOSE METER 265 mg/dL 70-110 H : TESTED A T [facility] 67[facility] (BEAKER) (test code = [facility] [place], 1538) 23224: Rf Manager/Techni chad ID = [id number] for SARA FLORES RAD, CHEST, 1 VIEW, NON [id number] 08:25:00Reason for exam:->preop assessmentShould this be performed at the bedside?->YesFINAL REPORT INDICATION: preop assessment COMPARISON: August 16, 2019 TECHNIQUE: S victor m frontal view of the chest. FINDINGS: Lungs and pleura: Clear lungs. No effusion.Heart and mediastinum: Normal heart size. Unremarkable mediastinal contours.Osseous structures: No acute abnormality.Other: None. IMPRESSION: No acute intrathoracic abnormality. Signed: Amparo Frey Verified Date/Time: 08/18/2019 08:25:05 Reading Location: [facility] Radiology Reading Room XR chest 1 view portable / [id number] 08:25:00 Interface, External Ris In - 08/18/2019 8:27 AM CDTFINAL REPORT INDICATION: preop assessment COMPARISON: August 16, 2019 TECHNIQUE: Single frontal view of the chest. FINDINGS: Lungsand pleura: Clear lungs. No effusion.Heart and mediastinum: Normal heart size. Unremarkable mediastinal contours.Osseous structures: No acute abnormality.Other: None. IMPRESSION: No acute intrathoracic abnormality. Signed: Amparo Frey MDReport Verified Date/Time: 08/18/2019 08:25:05 Reading Location: [facility] Radiology Reading [facility] [id number] 08:10:00 Test Item Value Reference Range Interpretation Comments POC-GLUCOSE METER 270 mg/dL 70-110 H : TESTED A T [facility] 6720 (BEAKER) (test code = [facility], 1538) 665[address]: Rf Manager/Techni chad ID = [id number] for SARA FLORES HEPATIC FUNCTION [id number] 05:47:00 Test Item Value Reference Range Interpretation Comments TOTAL PROTEIN (BEAKER) (test code = 5.6 gm/dL 6.0-8.3 L 770) ALBUMIN (BEAKER) (test code = 1145) 3.2 g/dL 3.5-5.0 L BILIRUBIN TOTAL (BEAKER) (test code 1.1 mg/dL 0.2-1.2 = 377) BILIRUBIN DIRECT (BEAKER) (test 0.5 mg/dL 0.1-0.5 code = 706) ALKALINE PHOSPHATASE (BEAKER) (test 185 U/L 40-150 H code = 346) AST (SGOT) (BEAKER) (test code = 10 U/L 5-34 353) ALT (SGPT) (BEAKER) (test code = 29 U/L 6-55 347) Rf Manager ID - SCOTTY MABLITA, [id number] 05:23:00 Test Item Value Reference Range Interpretation Comments ABO Grouping (test code = 2588) A Rh Factor (test code = 7128) [facility] [id number] 05:09:00 Test Item Value Reference Range Interpretation Comments ABO/RH AUTOMATED (BEAKER) (test A POSITIVE code = 2260) Ab Scrn (test code = 890-4) NEGATIVE [facility] 04:52:00 Test Item Value Reference Range Interpretation Comments PHOSPHORUS (BEAKER) (test code = 3.2 mg/dL 2.3-4.7 604) Rf Manager ID - SCOTTY [id number] 04:52:00 Test Item Value Reference Range Interpretation Comments MAGNESIUM (BEAKER) (test code = 1.7 mg/dL 1.6-2.6 627) Rf Manager ID - SCOTTY MBASIC METABOLIC [id number] 04:52:00 Test Item Value Reference Range Interpretation Comments SODIUM (BEAKER) 136 meq/L 136-145 (test code = 381) POTASSIUM (BEAKER) 2.9 meq/L 3.5-5.1 L (test code = 379) CHLORIDE (BEAKER) 99 meq/L 98-107 (test code = 382) CO2 (BEAKER) (test 28 meq/L 22-29 code = 355) BLOOD UREA NITROGEN 10 mg/dL 7-21 (BEAKER) (test code = 354) CREATININE (BEAKER) 0.72 mg/dL 0.57-1.25 (test code = 358) GLUCOSE RANDOM 287 mg/dL 70-105 H (BEAKER) (test code = 652) CALCIUM (BEAKER) 8.3 mg/dL 8.4-10.2 L (test code = 697) EGFR (BEAKER) (test 78 mL/min/1.73 ESTIMA NAYELI GFR IS code = 1092) sq m NOT ACCURATE CREATININE CLEARANCE IN PREDICTING GLOMERULAR FILTRATION RATE . ESTIMATED GFR I S NOT APPLICABLE FOR DIALYSIS PATIEN TS. Rf Manager ID - SCOTTY MHEPATIC FUNCTION [id number] 04:52:00 Test Item Value Reference Range Interpretation Comments TOTAL PROTEIN (BEAKER) (test code = 5.5 gm/dL 6.0-8.3 L 770) ALBUMIN (BEAKER) (test code = 1145) 3.1 g/dL 3.5-5.0 L BILIRUBIN TOTAL (BEAKER) (test code 1.1 mg/dL 0.2-1.2 = 377) BILIRUBIN DIRECT (BEAKER) (test 0.5 mg/dL 0.1-0.5 code = 706) ALKALINE PHOSPHATASE (BEAKER) (test 184 U/L 40-150 H code = 346) AST (SGOT) (BEAKER) (test code = 10 U/L 5-34 353) ALT (SGPT) (BEAKER) (test code = 30 U/L 6-55 347) Rf Manager ID - SCOTTY [id number] 04:36:00 Test Item Value Reference Range Interpretation Comments PARTIAL THROMBOPLASTIN TIME 31.2 seconds 22.5-36.0 (BEAKER) (test code = 760) PROTHROMBIN TIME/[id number] 04:35:00 Test Item Value Reference Range Interpretation Comments PROTIME (BEAKER) (test code = 13.7 seconds 11.9-14.2 759) INR (BEAKER) (test code = 370) 1.1 <=5.9 Effective 09/08/2018: PT Reference Range ChangeNew: 11.9-14.2 Previous: 11.7- 14.7RECOMMENDED COUMADIN/WARFARIN INR THERAPY RANGESSTANDARD DOSE: 2.0-3.0 Includes: PROPHYLAXIS for venous thrombosis, systemic embolization; TREATMENT for venous thrombosis and/or pulmonary embolus.HIGH RISK: Target INR is2.5-3.5 for patients wiht mechanical heart valves.CBC (HEMOGRAM ONLY)2019-08-18 04:30:00 Test Item Value Reference Range Interpretation Comments WHITE BLOOD CELL COUNT (BEAKER) 7.6 K/ L 3.5-10.5 (test code = 775) RED BLOOD CELL COUNT (BEAKER) 3.84 M/ L 3.93-5.22 L (test code = 761) HEMOGLOBIN (BEAKER) (test code = 11.4 GM/DL 11.2-15.7 410) HEMATOCRIT (BEAKER) (test code = 33.9 % 34.1-44.9 L 411) MEAN CORPUSCULAR VOLUME (BEAKER) 88.3 fL 79.4-94.8 (test code = 753) MEAN CORPUSCULAR HEMOGLOBIN 29.7 pg 25.6-32.2 (BEAKER) (test code = 751) MEAN CORPUSCULAR HEMOGLOBIN CONC 33.6 GM/DL 32.2-35.5 (BEAKER) (test code = 752) RED CELL DISTRIBUTION WIDTH 13.8 % 11.7-14.4 (BEAKER) (test code = 412) PLATELET COUNT (BEAKER) (test 185 K/CU MM 150-450 code = 756) MEAN PLATELET VOLUME (BEAKER) 10.4 fL 9.4-12.3 (test code = 754) NUCLEATED RED BLOOD CELLS 0 /100 WBC 0-0 (BEAKER) (test code = 413) POCT-GLUCOSE [id number] 21:40:00 Test Item Value Reference Range Interpretation Comments POC-GLUCOSE METER 344 mg/dL 70-110 H : TESTED A T [facility] 6720 (BEAKER) (test code = [facility] [place], 1538) [address]: Rf Manager/Techni chad ID = [id number] for Charlene Gibbs POCT-GLUCOSE [id number] 13:56:00 Test Item Value Reference Range Interpretation Comments POC-GLUCOSE METER 256 mg/dL 70-110 H : TESTED A T [facility] 6720 (BEAKER) (test code = [facility] [facility], 1538) [address]: Rf Manager/Techni chad ID = [id number] for JONAH RUBIO PA, [id number] 10:54:00Reason for exam:->bile duct stonesFINAL REPORT A fluoroscopic unit was utilized for a procedure performed in the operating room. No interpretation was requested. Please refer to the operative report regarding findings. Please refer to PACS for patient radiation dose information. Signed: Amparo Frey MDReport Verified Date/Time: 08/17/2019 10:54:06 Reading Location: [facility] Radiology Reading Room [facility] Endoscopic Retrograde [id number] 10:54:00Interface, External Ris In - 08/17/2019 10:57 AM CDTFINAL REPORT A fluoroscopic unit was utilized for a procedure performed in the operating room. No interpretation was requested. Please refer to the operative report regarding findings. Please refer to PACS for patient radiationdose information. Signed: Amparo Frey MDReport Verified Date/Time: 08/17/2019 10:54:06 Reading L ocation: LUCINDA Suazo Radiology [facility] [id number] 09:01:00 Test Item Value Reference Range Interpretation Comments POC-GLUCOSE METER 323 mg/dL 70-110 H : TESTED A T [facility] 6720 (BEAKER) (test code = [place], 1538) [address]: Rf Manager/Techni chad ID = [id number] for LARISSA CASTANEDA [id number] 06:16:00 Test Item Value Reference Range Interpretation Comments PHOSPHORUS (BEAKER) (test code = 2.7 mg/dL 2.3-4.7 604) Rf Manager ID - SCOTTY [id number] 06:16:00 Test Item Value Reference Range Interpretation Comments MAGNESIUM (BEAKER) (test code = 1.8 mg/dL 1.6-2.6 627) Rf Manager ID - SCOTTY MBASIC METABOLIC [id number] 06:16:00 Test Item Value Reference Range Interpretation Comments SODIUM (BEAKER) 138 meq/L 136-145 (test code = 381) POTASSIUM (BEAKER) 3.5 meq/L 3.5-5.1 (test code = 379) CHLORIDE (BEAKER) 103 meq/L 98-107 (test code = 382) CO2 (BEAKER) (test 30 meq/L 22-29 H code = 355) BLOOD UREA NITROGEN 15 mg/dL 7-21 (BEAKER) (test code = 354) CREATININE (BEAKER) 0.72 mg/dL 0.57-1.25 (test code = 358) GLUCOSE RANDOM 337 mg/dL 70-105 H (BEAKER) (test code = 652) CALCIUM (BEAKER) 8.1 mg/dL 8.4-10.2 L (test code = 697) EGFR (BEAKER) (test 78 mL/min/1.73 ESTIMA NAYELI GFR IS code = 1092) sq m NOT ACCURATE CREATININE CLEARANCE IN PREDICTING GLOMERULAR FILTRATION RATE . ESTIMATED GFR I S NOT APPLICABLE FOR DIALYSIS PATIEN TS. Rf Manager ID - SCOTTY MPOCT-GLUCOSE [id number] 05:42:00 Test Item Value Reference Range Interpretation Comments POC-GLUCOSE METER 316 mg/dL 70-110 H : [facility] [place] [facility] ([facility]ER[facility] (test code = [place], 1538) [address]: Rf Manager/Techni chad ID = [id number] for LESTER COBURN PROTHROMBIN TIME/[id number] 05:34:00 Test Item Value Reference Range Interpretation Comments PROTIME (BEAKER) (test code = 13.1 seconds 11.9-14.2 759) INR (BEAKER) (test code = 370) 1.0 <=5.9 Effective 09/08/2018: PT Reference Range ChangeNew: 11.9-14.2 Previous: 11.7- 14.7RECOMMENDED COUMADIN/WARFARIN INR THERAPY RANGESSTANDARD DOSE: 2.0-3.0 Includes: PROPHYLAXIS for venous thrombosis, systemic embolization; TREATMENT for venous thrombosis and/or pulmonary embolus.HIGH RISK: Target INR is2.5-3.5 for patients wiht mechanical heart valves.[id number] 05:30:00 Test Item Value Reference Range Interpretation Comments PARTIAL THROMBOPLASTIN TIME 26.4 seconds 22.5-36.0 (BEAKER) (test code = 760) CBC (HEMOGRAM ONLY)2019-08-17 04:55:00 Test Item Value Reference Range Interpretation Comments WHITE BLOOD CELL COUNT (BEAKER) 7.0 K/ L 3.5-10.5 (test code = 775) RED BLOOD CELL COUNT (BEAKER) 3.89 M/ L 3.93-5.22 L (test code = 761) HEMOGLOBIN (BEAKER) (test code = 11.3 GM/DL 11.2-15.7 410) HEMATOCRIT (BEAKER) (test code = 33.8 % 34.1-44.9 L 411) MEAN CORPUSCULAR VOLUME (BEAKER) 86.9 fL 79.4-94.8 (test code = 753) MEAN CORPUSCULAR HEMOGLOBIN 29.0 pg 25.6-32.2 (BEAKER) (test code = 751) MEAN CORPUSCULAR HEMOGLOBIN CONC 33.4 GM/DL 32.2-35.5 (BEAKER) (test code = 752) RED CELL DISTRIBUTION WIDTH 13.4 % 11.7-14.4 (AKER) (test code = 412) PLATELET COUNT ([facility]) (test 194 K/CU MM 150-450 code = 756) MEAN PLATELET VOLUME (AKER) 10.3 fL 9.4-12.3 (test code = 754) NUCLEATED RED BLOOD CELLS 0 /100 WBC 0-0 ([facility]) (test code = 413) POCT-GLUCOSE [id number] 03:42:00 Test Item Value Reference Range Interpretation Comments POC-GLUCOSE METER 346 mg/dL 70-110 H : TESTED A T [facility] 6720 ([facility]) (test code = [facility], 1538) [address]: Rf Manager/Techni chad ID = [id number] for LESTER COBURN POCT-GLUCOSE [id number] 17:20:00 Test Item Value Reference Range Interpretation Comments POC-GLUCOSE METER 305 mg/dL 70-110 H : Notified RN/MD: ([facility]) (test code = TESTED AT [facility] 6720 1538) [facility], [address]: Rf Manager/Techni chad ID = [id number] for SEGUNDO EVANS 2D Echo W/Doppler(CW/PW/Color)2019-08-16 13:06:22Ejection FractionSLE ECHO HEARTLAB MKCKESSON CPACSInterface, External Ris In - 08/16/2019 1:06 PM C DTTransthoracic Echocardiography Report (TTE) Demographics Patient Name GUADALUPE HERNANDEZ Date of Study 08/16/2019 Gender Female Visit Number [id number] Race Room Number 1411 Number Date of 1940 Referring Physician Umer Valerio Age 79 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 [...] posterior leaflet of the tricuspid valve, there jonah 1 cm x 0.7 cm prominence at the base of the leaflet. Unclear etiology. ( Best seen in images 15, 16, 17). Cannot rule out presence of vegetation. 5. Mild tricuspid regurgitation noted. Peak systolic pressure may be underestimated; partial TR signal. Estimated peak systolic pressure is at least 50-55mmHg assuming RAP of 0-5 mm Hg. The estimated RA pressure by IVC dynamics 0-5 mm Hg. Previous StudyNo prior exam available for comparison. Please consider ARJUN for a more comprehensive evaluation of the tricuspid valve morphology if clinically indicated. Signature Findings Left Ventricle Normal left ventricular chamber size. Mild concentric LVH noted. The LV endocardium is partially visualized. All of the LV segments contract normally . Global LV systolic function normal . Subopti mal endocardial definition precludes evaluation of EF by Bi-Plane Rosas's method. Estimated LVEF by qualitative assessment is normal (55-60%) . Grade 2 diastolic dysfunction (moderately increased LA pressure). Left Atrium LA size is mildly enlarged (35-41 ml/m2) . Right Ventricle The right ventricular chamber size and systolic function are within normal limits. S' 17 cm/sec. Right Atrium RA size is normal.Aortic Valve Trileaflet aortic valve. The aortic valve leaflets appear mildly thickened. Trace AI. No evidence of aortic stenosis. Mitral Valve Normal MV structure and function. Trace MR. Tricuspid Valve In the limited views ofthe posterior leaflet of the tricuspid valve, there [...] more comprehensive evaluation of the tricuspid valve morphologyif clinically indicated. Pulmonic Valve Normal PV structure appears normal by available views. Aorta Aortic root size (SInus of Valsalva diameter) is normal . Pericardium No significant pericardial effusion is [...] Velocity: 0.91 m/s Mean Gradient: 3.9 mmHg LVOTDiameter: 2.02 cm LVOT VTI: 25.92 cm LVOT Area: 3.2 cm^2 LVOT SV:83.02 ml LVOT CO: 7.14 l/min LVOT CI: 3.62 l/min/m^2 Tricuspid Valve Estimated RAP: 5 mmHg TR Velocity: 3.5 m/s TR Gradient: 49 mmHg Pulmonic Valve Estimated PASP: 54 mmHgCHI [facility] HospitalPO[facility] [id number] 12:40:00 Test Item Value Reference Range Interpretation Comments POC-GLUCOSE METER 340 mg/dL 70-110 H : Notified RN/MD: TESTED ([facility]) (test code AT [place] [address] [place] = 1538) [facility], [facility] 30: Rf Manager/Techni chad ID = [id number] for MOOD Y, SEEMAWNTELL POCT-GLUCOSE [id number] 08:10:00 Test Item Value Reference Range Interpretation Comments POC-GLUCOSE METER 243 mg/dL 70-110 H : Notified RN/MD: TESTED ([facility]) (test code AT [place] [address] [place] = 1538) [facility], [facility] 30: Rf Manager/Techni chad ID = [id number] for MOOD Y, SHAWNTELL ECG 12 [id number] 06:47:50Interface, External Ris In - 08/16/2019 6:47 AM CDTVentricular Rate 83 BPMAtrial Rate 83 BPMP-R Interval 132 msQRS Duration 84 msQ-T Interval 362 msQTC Calculation(Bazett) 425 msP [place] 59 degreesR [place] -15 degreesT [place] 28 degreesNormal sinus rhythmSeptal infarct (cited on or before 15-AUG-2019)Inferior infarct , age undeterminedAbnormal ECGWhen compared with ECG of 15-AUG-2019 06:29,Sinus rhythm has replaced Atrial flutterConfirmed by Fili PARRA MICHAEL ([id number]) on 08/16/2019 6:47:47 [facility] 05:04:00 Test Item Value Reference Range Interpretation Comments PHOSPHORUS (BEAKER) (test code = 2.0 mg/dL 2.3-4.7 L 604) Rf Manager ID Enriqueta TORIBIO [id number] 05:04:00 Test Item Value Reference Range Interpretation Comments MAGNESIUM (BEAKER) (test code = 1.8 mg/dL 1.6-2.6 627) Rf Manager ID Enriqueta TORIBIO LBASIC METABOLIC [id number] 05:04:00 Test Item Value Reference Range Interpretation Comments SODIUM (BEAKER) 137 meq/L 136-145 (test code = 381) POTASSIUM (BEAKER) 3.2 meq/L 3.5-5.1 L (test code = 379) CHLORIDE (BEAKER) 102 meq/L 98-107 (test code = 382) CO2 (BEAKER) (test 24 meq/L 22-29 code = 355) BLOOD UREA NITROGEN 11 mg/dL 7-21 (BEAKER) (test code = 354) CREATININE (BEAKER) 0.66 mg/dL 0.57-1.25 (test code = 358) GLUCOSE RANDOM 233 mg/dL 70-105 H (BEAKER) (test code = 652) CALCIUM (BEAKER) 8.3 mg/dL 8.4-10.2 L (test code = 697) EGFR (BEAKER) (test 86 mL/min/1.73 ESTIMA NAYELI GFR IS code = 1092) sq m NOT ACCURATE CREATININE CLEARANCE IN PREDICTING GLOMERULAR FILTRATION RATE . ESTIMATED GFR I S NOT APPLICABLE FOR DIALYSIS PATIEN TS. Rf Manager ID Enriqueta TORIBIO LHEPATIC FUNCTION [id number] 05:04:00 Test Item Value Reference Range Interpretation Comments TOTAL PROTEIN (BEAKER) (test code = 6.0 gm/dL 6.0-8.3 770) ALBUMIN (BEAKER) (test code = 1145) 3.5 g/dL 3.5-5.0 BILIRUBIN TOTAL (BEAKER) (test code 1.3 mg/dL 0.2-1.2 H = 377) BILIRUBIN DIRECT (BEAKER) (test 0.6 mg/dL 0.1-0.5 H code = 706) ALKALINE PHOSPHATASE (BEAKER) (test 255 U/L 40-150 H code = 346) AST (SGOT) (BEAKER) (test code = 13 U/L 5-34 353) ALT (SGPT) (BEAKER) (test code = 65 U/L 6-55 H 347) Rf Manager ID - MALU LPOCT-GLUCOSE [id number] 05:00:00 Test Item Value Reference Range Interpretation Comments POC-GLUCOSE METER 200 mg/dL 70-110 H : TESTED A T [facility] 6720 (BEAKER) (test code = [place], 1538) [address]: Rf Manager/Techni chad ID = [id number] for KARI TTCHADWICK, KASIYELL [id number] 04:42:00 Test Item Value Reference Range Interpretation Comments PARTIAL THROMBOPLASTIN TIME 28.2 seconds 22.5-36.0 (BEAKER) (test code = 760) PROTHROMBIN TIME/[id number] 04:41:00 Test Item Value Reference Range Interpretation Comments PROTIME (BEAKER) (test code = 13.1 seconds 11.9-14.2 759) INR (BEAKER) (test code = 370) 1.0 <=5.9 Effective 09/08/2018: PT Reference Range ChangeNew: 11.9-14.2 Previous: 11.7- 14.7RECOMMENDED COUMADIN/WARFARIN INR THERAPY RANGESSTANDARD DOSE: 2.0-3.0 Includes: PROPHYLAXIS for venous thrombosis, systemic embolization; TREATMENT for venous thrombosis and/or pulmonary embolus.HIGH RISK: Target INR is2.5-3.5 for patients wiht mechanical heart valves.CBC (HEMOGRAM ONLY)2019-08-16 04:38:00 Test Item Value Reference Range Interpretation Comments WHITE BLOOD CELL COUNT (BEAKER) 9.0 K/ L 3.5-10.5 (test code = 775) RED BLOOD CELL COUNT (BEAKER) 4.07 M/ L 3.93-5.22 (test code = 761) HEMOGLOBIN (BEAKER) (test code = 11.8 GM/DL 11.2-15.7 410) HEMATOCRIT (BEAKER) (test code = 35.1 % 34.1-44.9 411) MEAN CORPUSCULAR VOLUME (BEAKER) 86.2 fL 79.4-94.8 (test code = 753) MEAN CORPUSCULAR HEMOGLOBIN 29.0 pg 25.6-32.2 (BEAKER) (test code = 751) MEAN CORPUSCULAR HEMOGLOBIN CONC 33.6 GM/DL 32.2-35.5 (BEAKER) (test code = 752) RED CELL DISTRIBUTION WIDTH 13.2 % 11.7-14.4 (BEAKER) (test code = 412) PLATELET COUNT (BEAKER) (test 204 K/CU MM 150-450 code = 756) MEAN PLATELET VOLUME (BEAKER) 9.8 fL 9.4-12.3 (test code = 754) NUCLEATED RED BLOOD CELLS 0 /100 WBC 0-0 (BEAKER) (test code = 413) RAD, CHEST, 1 VIEW, NON [id number] 04:14:00Reason for exam:->preop assessmentShould this be performed at the bedside?->YesFINAL REPORT RAD, CHEST, 1 VIEW, NON DEPT INDICATION: preop assessment COMPARI SON: Prior day's exam FINDINGS: Portable frontal view of the chest. IMPRESSION: Lungs and pleura:Prominence of the pulmonary vasculature may be elated to technique versus pulmonary vascular congestion. No lobar consolidation. Minimal left basilar atelectasis is unchanged. No large pleural effusion. No pneumothorax.Heart and mediastinum: Stable contours. Atherosclerotic calcifications of the thoracic aorta.Additional findings: None. Signed: Nikki Colindres Verified Date/Time: 08/16/2019 04:14:22 -GLUCOSE [id number] 23:35:00 Test Item Value Reference Range Interpretation Comments POC-GLUCOSE METER 255 mg/dL 70-110 H : TESTED A T [facility] 6720 (BEAKER) (test code = [place], 1538) [address]: Rf Manager/Techni chad ID = [id number] for BA TTCHADWICK, ARYELL RAD, CHEST, 1 VIEW, NON [id number] 09:53:00Reason for exam:->preop assessmentShould this be performed at the bedside?->YesFINAL REPORT INDICATION: preop assessment COMPARISON: August 14, 2019 TECHNIQUE: S victor m frontal view of the chest. FINDINGS: Lungs and pleura: No significant interval change and trace left effusion and left basilar subsegmental atelectasis Heart and mediastinum: Normal heart size. Unremarkable mediastinal contours.Osseous structures: No acute abnormality.Other: None. . Signed: Amparo Johnson MDReport Verified Date/Time: 08/15/2019 09:53:41 Reading Location: [facility] Radiology Reading Room MR, ABDOMEN, [id number] 07:34:00FINAL REPORT TECHNIQUE: MRI of the abdomen WITHOUT and WITH intravenous contrast. INDICATION: MRI Abd/Pelvis - LIVER/PANCREAS PROTOCOL for liver \\T\\ pancreas lesions. COMPARISON:None. FINDINGS: LOWER THORAX: Unremarkable. LIVER: Diffuse loss of signal in the liver on out of phase imaging. A mass in segment VII which measures 1 cm on axial T2-weighted image 26 is mildly hyperintense on T2-weighted imaging, arterially enhances, and continues to enhance on delayed phase imaging. This is consistent with a hemangioma. BILIARY: The gallbladder contains multiple stones. No gallbladder distention or wall thickening. The gallbladder wall is hyperenhancing on delayed phase imaging. There is a likely stone in the distal common bile duct which measures 0.2 cm on axial T2 fat-saturated image 8. Low medial insertion of the cystic duct. Mild intrahepatic ductal dilation. SPLEEN: No splenomegaly. The spleen measures 11 cm in length. Multiple lesions in the spleen are hyperintense on T2-weighted imaging, measure up to 1.2 cm, and progressively enhance on postcontrast imaging, most consistent with hemangiomas.PANCREAS: Cystic lesions in the pancreas measure 2.5 cm in the uncinate process, 1.3 cm in the pancreatic head, and 1.2 cm in the pancreatic neck. ADRENALS: No adrenal nodules.KID NEYS/URETERS: No hydronephrosis or solid mass lesions. A right lower pole exophytic renal lesion is intermediate signal on T2-weighted imaging and measures 0.8 cm. Several bilateral simple renal cysts measure up to 0.7 cm. PERITONEUM/RETROPERITONEUM: No free fluid.LYMPH NODES: No lymphadenopathy.VESSEL S: Conventional hepatic arterial anatomy. The main portal vein is patent and measures 1.1 cm diameter. GI TRACT: No distention or wall thickening. BONES AND SOFT TISSUES: Moderate degenerative disc changes of the lumbar spine. IMPRESSION: The outside hospital CT and MRCP would be helpful for comparison. 1.A stone in the distal common bile duct measures 0.2 cm and results in mild intrahepatic ductal dilation. 2.Cystic lesions in the pancreas measure up to 2.5 cm and are indeterminate. However, theseare most likely side branch intraductal papillary mucinous neoplasms. No definite ductal dilation ornodular component to suggest malignant transformation. The lack of MRCP images does make evaluation for connection to the pancreatic duct suboptimal. 3.The hepatic lesion in segment VII measures 1 cm and is most consistent with a hemangioma. If the patient has a known primary malignancy or underlying liver disease, consider a follow-up MRI in three months. 4.The multiple splenic lesions measure up to1.2 cm and are most consistent with hemangiomas. 5.Diffuse fatty infiltration of the liver. 6.The gallbladder is filled with stones without specific signs for acute cholecystitis. The gallbladder wall hyperenhancement may be due to chronic cholecystitis or resolving acute cholecystitis. 7.Low medial insertion of the cystic duct. 8.A lesion in the right lower pole was not visualized on postcontrast imaging and is indeterminate. Consider a follow-up MRI or CT of the abdomen with and without intravenous contrast, renal mass protocol, in six months to document stability and definitively characterize the renal lesion. Signed: Bozena White MDRort Verified Date/Time: 08/15/2019 07:34:37 Reading Location: [facility] Diagnostic Imaging Reading Room - [place] [address] MR abdomen without & with IV [id number] 07:34:00Interface, External Ris In - 08/15/2019 7:36 AM CDTFINAL REPORT TECHNIQUE: MRI of the abdomen WITHOUT and WITH intravenous contrast. INDICATION: MRI Abd/Pelvis - LIVER/PANCREAS PROTOCOL for liver \\T\\ pancreas lesions. COMPARISON: None. FINDINGS: LOWER THORAX: Unremarkable. LIVER: Diffuse loss of signal in the liver on out of phase imaging. A mass in segment VII which measures1 cm on axial T2- weighted image 26 is mildly hyperintense on T2-weighted imaging, arterially enhances, and continues to enhance on delayed phase imaging. This is consistent with a hemangioma. BILIARY: The gallbladder contains multiple stones. No gallbladder distention or wall thickening. The gallbladder wall is hyperenhancing on delayed phase imaging. There is a likely stone in the distal common bileduct which measures 0.2 cm on axial T2 fat-saturated image 8. Low medial insertion of the cystic duct. Mild intrahepatic ductal dilation. SPLEEN: No splenomegaly. The spleen measures 11 cm in length. Multiple lesions in the spleen are hyperintense on T2-weighted imaging, measure up to 1.2 cm, and progr essively enhance on postcontrast imaging, most consistent with hemangiomas.PANCREAS: Cystic lesions in the pancreas measure 2.5 cm in the uncinate process, 1.3 cm in the pancreatic head, and 1.2 cm in the pancreatic neck. ADRENALS: No adrenal nodules.KIDNEYS/URETERS: No hydronephrosis or solid mass lesions. A right lower pole exophytic renal lesion is intermediate signal on T2-weighted imaging and measures 0.8 cm. Several bilateral simple renal cysts measure up to 0.7 cm. PERITONEUM/RETROPERITONEUM:No free fluid.LYMPH NODES: No lymphadenopathy.VESSELS: Conventional hepatic arterial anatomy. The main portal vein is patent and measures 1.1 cm diameter. GI TRACT: No distention or wall thickening. BONES AND SOFT TISSUES: Moderate degenerative disc changes of the lumbar spine. IMPRESSION: The outside hospital CT and MRCP would be helpful for comparison. 1.A stone in the distal common bile duct measures 0.2 cm and results in mild intrahepatic ductal dilation. 2.Cystic lesions in the pancreas measure up to 2.5 cm and are indeterminate. However, these are most likely side branch intraductal papillary mucinous neoplasms. No definite ductal dilation or nodular component to suggest malignant transformation. The lack of MRCP images does make evaluation for connection to the pancreatic duct suboptimal.3.The hepatic lesion in segment VII measures 1 cm and is most consistent with a hemangioma. If the patient has a known primary malignancy or underlying liver disease, consider a follow-up MRI in three months. 4.The multiple splenic lesions measure up to 1.2 cm and are most consistent with hemangiomas.5.Diffuse fatty infiltration of the liver. 6.The gallbladder is filled with stones without specific signs for acute cholecystitis. The gallbladder wall hyperenhancement may be due to chronic cholecystitis or resolving acute cholecystitis. 7.Low medial insertion of the cystic duct. 8.A lesion in the right lower pole was not visualized on postcontrast imaging and is indeterminate. Consider a follow-up M RI or CT of the abdomen with and without intravenous contrast, renal mass protocol, in six months todocument stability and definitively characterize the renal lesion. Signed: Bozena White MDReport Verified Date/Time: 08/15/2019 07:34:37 Reading Location: [facility] Diagnostic Imaging Reading Room - [place] [address] [facility] [id number] 05:47:00 Test Item Value Reference Range Interpretation Comments POC-GLUCOSE METER 175 mg/dL 70-110 H : TESTED A T [facility] 6720 (BEAKER) (test code = [place], [address]) [address]: Rf Manager/Techni chad ID = [id number] for BERKLEY GRESHAM Troponin [id number] 05:18:00 Test Item Value Reference Range Interpretation Comments Troponin I (test code = 0.06 ng/mL 0-0.03 H 32896-9) JAY (test code = JAY) Troponin I (TnI) levels must be interpreted in the context of the presenting symptoms and the clinical findings. Elevated TnI levels indicate myocardial damage, but are not specific for ischemic heart disease. Elevated TnI levels are seen in patients with other cardiac conditions (including myocarditis and congestive heart failure), and slight TnI elevations occur in patients with other conditions, including sepsis, renal failure, acidosis, acute neurological disease, and persistent tachyarrhythmia.Opera tor ID - PIAYA L Lab Interpretation (test Abnormal code = 99247-6) [facility] [id number] 05:18:00 Test Item Value Reference Range Interpretation Comments TROPONIN I (BEAKER) (test code = 0.06 ng/mL 0.00-0.03 H 397) Troponin I (TnI) levels must be interpreted in the context of the presenting symptoms and the clinical findings. Elevated TnI levels indicate myocardial damage, but are not specific for ischemic heart disease. Elevated TnI levels are seen in patients with other cardiac conditions (including myocarditis and congestive heart failure), and slight TnI elevations occur in patients with other conditions, including sepsis, renal failure, acidosis, acute neurological disease, and persistent tachyarrhythmia.Rf Manager ID Enriqueta TORIBIO LB-type Natriuretic Factor (BNP)2019-08-15 05:13:00 Test Item Value Reference Range Interpretation Comments BNP (test code = 31283-7) 577 pg/mL 0-100 H JAY (test code = JAY) Rf Manager ID Enriqueta TORIBIO L Lab Interpretation (test Abnormal code = 24544-3) [facility] (BNP)2019-08-15 05:13:00 Test Item Value Reference Range Interpretation Comments B-TYPE NATRIURETIC PEPTIDE (BEAKER) 577 pg/mL 0-100 H (test code = 700) Rf Manager ID - MALU [id number] 05:10:00 Test Item Value Reference Range Interpretation Comments PHOSPHORUS (BEAKER) (test code = 2.3 mg/dL 2.3-4.7 604) Rf Manager ID - MALU [id number] 05:10:00 Test Item Value Reference Range Interpretation Comments MAGNESIUM (BEAKER) (test code = 2.0 mg/dL 1.6-2.6 627) Rf Manager ID - MALU LBASIC METABOLIC [id number] 05:10:00 Test Item Value Reference Range Interpretation Comments SODIUM (BEAKER) 137 meq/L 136-145 (test code = 381) POTASSIUM (BEAKER) 3.8 meq/L 3.5-5.1 (test code = 379) CHLORIDE (BEAKER) 103 meq/L 98-107 (test code = 382) CO2 (BEAKER) (test 21 meq/L 22-29 L code = 355) BLOOD UREA NITROGEN 9 mg/dL 7-21 (BEAKER) (test code = 354) CREATININE (BEAKER) 0.65 mg/dL 0.57-1.25 (test code = 358) GLUCOSE RANDOM 184 mg/dL 70-105 H (BEAKER) (test code = 652) CALCIUM (BEAKER) 8.2 mg/dL 8.4-10.2 L (test code = 697) EGFR (BEAKER) (test 88 mL/min/1.73 ESTIMA NAYELI GFR IS code = 1092) sq m NOT ACCURATE CREATININE CLEARANCE IN PREDICTING GLOMERULAR FILTRATION RATE . ESTIMATED GFR I S NOT APPLICABLE FOR DIALYSIS PATIEN TS. Rf Manager ID - PIAYA LHEPATIC FUNCTION [id number] 05:10:00 Test Item Value Reference Range Interpretation Comments TOTAL PROTEIN (BEAKER) (test code = 6.2 gm/dL 6.0-8.3 770) ALBUMIN (BEAKER) (test code = 1145) 3.8 g/dL 3.5-5.0 BILIRUBIN TOTAL (BEAKER) (test code 1.4 mg/dL 0.2-1.2 H = 377) BILIRUBIN DIRECT (BEAKER) (test 0.6 mg/dL 0.1-0.5 H code = 706) ALKALINE PHOSPHATASE (BEAKER) (test 304 U/L 40-150 H code = 346) AST (SGOT) (BEAKER) (test code = 20 U/L 5-34 353) ALT (SGPT) (BEAKER) (test code = 101 U/L 6-55 H 347) Rf Manager ID - MALU [id number] 04:51:00 Test Item Value Reference Range Interpretation Comments PARTIAL THROMBOPLASTIN TIME 29.3 seconds 22.5-36.0 (BEAKER) (test code = 760) PROTHROMBIN TIME/[id number] 04:50:00 Test Item Value Reference Range Interpretation Comments PROTIME (BEAKER) (test code = 13.6 seconds 11.9-14.2 759) INR (BEAKER) (test code = 370) 1.1 <=5.9 Effective 09/08/2018: PT Reference Range ChangeNew: 11.9-14.2 Previous: 11.7- 14.7RECOMMENDED COUMADIN/WARFARIN INR THERAPY RANGESSTANDARD DOSE: 2.0-3.0 Includes: PROPHYLAXIS for venous thrombosis, systemic embolization; TREATMENT for venous thrombosis and/or pulmonary embolus.HIGH RISK: Target INR is2.5-3.5 for patients wiht mechanical heart valves.CBC (HEMOGRAM ONLY)2019-08-15 04:39:00 Test Item Value Reference Range Interpretation Comments WHITE BLOOD CELL COUNT (BEAKER) 9.0 K/ L 3.5-10.5 (test code = 775) RED BLOOD CELL COUNT (BEAKER) 4.06 M/ L 3.93-5.22 (test code = 761) HEMOGLOBIN (BEAKER) (test code = 12.0 GM/DL 11.2-15.7 410) HEMATOCRIT (BEAKER) (test code = 36.4 % 34.1-44.9 411) MEAN CORPUSCULAR VOLUME (BEAKER) 89.7 fL 79.4-94.8 (test code = 753) MEAN CORPUSCULAR HEMOGLOBIN 29.6 pg 25.6-32.2 (BEAKER) (test code = 751) MEAN CORPUSCULAR HEMOGLOBIN CONC 33.0 GM/DL 32.2-35.5 (BEAKER) (test code = 752) RED CELL DISTRIBUTION WIDTH 13.6 % 11.7-14.4 (BEAKER) (test code = 412) PLATELET COUNT (BEAKER) (test 184 K/CU MM 150-450 code = 756) MEAN PLATELET VOLUME (BEAKER) 10.1 fL 9.4-12.3 (test code = 754) NUCLEATED RED BLOOD CELLS 0 /100 WBC 0-0 (BEAKER) (test code = 413) POCT-GLUCOSE [id number] 00:31:00 Test Item Value Reference Range Interpretation Comments POC-GLUCOSE METER 190 mg/dL 70-110 H : TESTED A T [facility] 6720 (BEAKER) (test code = [facility] [place], 1538) [address]: Rf Manager/Techni chad ID = [id number] for BERKLEY GRESHAM POCT-GLUCOSE [id number] 17:38:00 Test Item Value Reference Range Interpretation Comments POC-GLUCOSE METER 243 mg/dL 70-110 H : TESTED A T [facility] 6720 (BEAKER) (test code = [facility] [place], 1538) [address]: Rf Manager/Techni chad ID = [id number] for LINDSEY VASQUEZ RAD, CHEST, 1 VIEW, NON [id number] 09:13:00Reason for exam:->preop assessmentShould this be performed at the bedside?->YesFINAL REPORT Chest, 1 view, 08/14/2019 9:00 AM. History: Preop, cholelithiasis. Comparison: 08/13/2019. Discussion: The cardiomediastinal silhouette and pulmonary vasculature are within normal limits for a portable exam. The lungs are clear without evidence of consolidation or effusion. Degenerative changes are present in both shoulders. IMPRESSION: No acute cardiopulmonary abnor mality. Signed: Cuong Judd MDReport Verified Date/Time: 08/14/2019 09:13:41 Reading Location: [facility] B1 [id number] Ortho Consult Reading Room Hemoglobin [id number] 07:35:00 Test Item Value Reference Range Interpretation Comments Hemoglobin A1C (test code = 4548-4) 7.8 % 4.3-6.1 H Lab Interpretation (test code = Abnormal 33856-0) [facility] [id number] 07:35:00 Test Item Value Reference Range Interpretation Comments HEMOGLOBIN A1C (BEAKER) (test code = 7.8 % 4.3-6.1 H 368) [id number] 07:25:00 Test Item Value Reference Range Interpretation Comments PHOSPHORUS (BEAKER) (test code = 2.6 mg/dL 2.3-4.7 604) Rf Manager ID Enriqueta SHIPLEY [id number] 07:25:00 Test Item Value Reference Range Interpretation Comments MAGNESIUM (BEAKER) (test code = 1.9 mg/dL 1.6-2.6 627) Rf Manager ID Enriqueta SHIPLEY WBASIC METABOLIC [id number] 07:25:00 Test Item Value Reference Range Interpretation Comments SODIUM (BEAKER) 140 meq/L 136-145 (test code = 381) POTASSIUM (BEAKER) 3.6 meq/L 3.5-5.1 (test code = 379) CHLORIDE (BEAKER) 102 meq/L 98-107 (test code = 382) CO2 (BEAKER) (test 25 meq/L 22-29 code = 355) BLOOD UREA NITROGEN 18 mg/dL 7-21 (BEAKER) (test code = 354) CREATININE (BEAKER) 0.74 mg/dL 0.57-1.25 (test code = 358) GLUCOSE RANDOM 210 mg/dL 70-105 H (BEAKER) (test code = 652) CALCIUM (BEAKER) 8.5 mg/dL 8.4-10.2 (test code = 697) EGFR (BEAKER) (test 76 mL/min/1.73 ESTIMA NAYELI GFR IS code = 1092) sq m NOT ACCURATE CREATININE CLEARANCE IN PREDICTING GLOMERULAR FILTRATION RATE . ESTIMATED GFR I S NOT APPLICABLE FOR DIALYSIS PATIEN TS. Rf Manager ID Enriqueta SHIPLEY WHEPATIC FUNCTION [id number] 07:25:00 Test Item Value Reference Range Interpretation Comments TOTAL PROTEIN (BEAKER) (test code = 6.5 gm/dL 6.0-8.3 770) ALBUMIN (BEAKER) (test code = 1145) 3.4 g/dL 3.5-5.0 L BILIRUBIN TOTAL (BEAKER) (test code 1.3 mg/dL 0.2-1.2 H = 377) BILIRUBIN DIRECT (BEAKER) (test 0.6 mg/dL 0.1-0.5 H code = 706) ALKALINE PHOSPHATASE (BEAKER) (test 458 U/L 40-150 H code = 346) AST (SGOT) (BEAKER) (test code = 61 U/L 5-34 H 353) ALT (SGPT) (BEAKER) (test code = 183 U/L 6-55 H 347) Rf Manager ID Enriqueta SHIPLEY WTROPONIN [id number] 07:20:00 Test Item Value Reference Range Interpretation Comments TROPONIN I (BEAKER) (test code = 0.08 ng/mL 0.00-0.03 H 397) Troponin I (TnI) levels must be interpreted in the context of the presenting symptoms and the clinical findings. Elevated TnI levels indicate myocardial damage, but are not specific for ischemic heart disease. Elevated TnI levels are seen in patients with other cardiac conditions (including myocarditis and congestive heart failure), and slight TnI elevations occur in patients with other conditions, including sepsis, renal failure, acidosis, acute neurological disease, and persistent tachyarrhythmia.Rf Manager ID Enriqueta SHIPLEY WPROTHROMBIN [id number] 07:06:00 Test Item Value Reference Range Interpretation Comments PROTIME (BEAKER) (test code = 13.3 seconds 11.9-14.2 759) INR (BEAKER) (test code = 370) 1.0 <=5.9 Effective 09/08/2018: PT Reference Range ChangeNew: 11.9-14.2 Previous: 11.7- 14.7RECOMMENDED COUMADIN/WARFARIN INR THERAPY RANGESSTANDARD DOSE: 2.0-3.0 Includes: PROPHYLAXIS for venous thrombosis, systemic embolization; TREATMENT for venous thrombosis and/or pulmonary embolus.HIGH RISK: Target INR is2.5-3.5 for patients wiht mechanical heart valves.[id number] 07:06:00 Test Item Value Reference Range Interpretation Comments PARTIAL THROMBOPLASTIN TIME 28.1 seconds 22.5-36.0 (BEAKER) (test code = 760) CBC (HEMOGRAM ONLY)2019-08-14 06:59:00 Test Item Value Reference Range Interpretation Comments WHITE BLOOD CELL COUNT (BEAKER) 11.2 K/ L 3.5-10.5 H (test code = 775) RED BLOOD CELL COUNT (BEAKER) 4.63 M/ L 3.93-5.22 (test code = 761) HEMOGLOBIN (BEAKER) (test code = 13.7 GM/DL 11.2-15.7 410) HEMATOCRIT (BEAKER) (test code = 41.5 % 34.1-44.9 411) MEAN CORPUSCULAR VOLUME (BEAKER) 89.6 fL 79.4-94.8 (test code = 753) MEAN CORPUSCULAR HEMOGLOBIN 29.6 pg 25.6-32.2 (BEAKER) (test code = 751) MEAN CORPUSCULAR HEMOGLOBIN CONC 33.0 GM/DL 32.2-35.5 (BEAKER) (test code = 752) RED CELL DISTRIBUTION WIDTH 14.1 % 11.7-14.4 (BEAKER) (test code = 412) PLATELET COUNT (BEAKER) (test 193 K/CU MM 150-450 code = 756) MEAN PLATELET VOLUME (BEAKER) 10.6 fL 9.4-12.3 (test code = 754) NUCLEATED RED BLOOD CELLS 0 /100 WBC 0-0 (BEAKER) (test code = 413) POCT-GLUCOSE [id number] 06:45:00 Test Item Value Reference Range Interpretation Comments POC-GLUCOSE METER 240 mg/dL 70-110 H : TESTED Francisco T [facility] 6720 (BEAKER) (test code = KWAME BARAJAS, 1538) [address]86: Rf Manager/Techni chad ID = [id number] for Lupis Carney [id number] 05:40:00 Test Item Value Reference Range Interpretation Comments Amylase (test code = 21 U/L 25-125 L Specime n 1798-8) slightly hemolyzed JAY (test code = JAY) Rf Manager ID Enriqueta TORIBIO L Lab Interpretation Abnormal (test code = 41152-9) [facility] Test Item Value Reference Range Interpretation Comments Lipase (test code = 41 U/L 878 3040-3) JAY (test code = JAY) Rf Manager ID Enriqueta TORIBIO L Lab Interpretation (test Normal code = 40637-7) [facility]00 Test Item Value Reference Range Interpretation Comments AMYLASE (BEAKER) (test 21 U/L 25-125 L Speci men slightly code = 349) hemolyzed Rf Manager ID Enriqueta TORIBIO [id number] 05:40:00 Test Item Value Reference Range Interpretation Comments LIPASE (BEAKER) (test code = 749) 41 U/L 8-78 Rf Manager ID - MALU LTROPONIN [id number] 01:16:00 Test Item Value Reference Range Interpretation Comments TROPONIN I (BEAKER) (test code = 0.09 ng/mL 0.00-0.03 H 397) Troponin I (TnI) levels must be interpreted in the context of the presenting symptoms and the clinical findings. Elevated TnI levels indicate myocardial damage, but are not specific for ischemic heart disease. Elevated TnI levels are seen in patients with other cardiac conditions (including myocarditis and congestive heart failure), and slight TnI elevations occur in patients with other conditions, including sepsis, renal failure, acidosis, acute neurological disease, and persistent tachyarrhythmia.Rf Manager ID - MALU [id number] 00:23:00 Test Item Value Reference Range Interpretation Comments MAGNESIUM (BEAKER) (test code = 1.9 mg/dL 1.6-2.6 627) Rf Manager ID Enriqueta TORIBIO LBASIC METABOLIC [id number] 00:22:00 Test Item Value Reference Range Interpretation Comments SODIUM (BEAKER) 140 meq/L 136-145 (test code = 381) POTASSIUM (BEAKER) 3.7 meq/L 3.5-5.1 (test code = 379) CHLORIDE (BEAKER) 105 meq/L 98-107 (test code = 382) CO2 (BEAKER) (test 26 meq/L 22-29 code = 355) BLOOD UREA NITROGEN 15 mg/dL 7-21 (BEAKER) (test code = 354) CREATININE (BEAKER) 0.68 mg/dL 0.57-1.25 (test code = 358) GLUCOSE RANDOM 133 mg/dL 70-105 H (BEAKER) (test code = 652) CALCIUM (BEAKER) 8.2 mg/dL 8.4-10.2 L (test code = 697) EGFR (BEAKER) (test 83 mL/min/1.73 ESTIMA NAYELI GFR IS code = 1092) sq m NOT ACCURATE CREATININE CLEARANCE IN PREDICTING GLOMERULAR FILTRATION RATE . ESTIMATED GFR I S NOT APPLICABLE FOR DIALYSIS PATIEN TS. Rf Manager COLTON TORIBIO [id number] 00:22:00 Test Item Value Reference Range Interpretation Comments PHOSPHORUS (BEAKER) (test code = 2.2 mg/dL 2.3-4.7 L 604) Rf Manager COLTON TORIBIO LHEPATIC FUNCTION [id number] 00:22:00 Test Item Value Reference Range Interpretation Comments TOTAL PROTEIN (BEAKER) (test code = 6.0 gm/dL 6.0-8.3 770) ALBUMIN (BEAKER) (test code = 1145) 3.1 g/dL 3.5-5.0 L BILIRUBIN TOTAL (BEAKER) (test code 1.1 mg/dL 0.2-1.2 = 377) BILIRUBIN DIRECT (BEAKER) (test 0.5 mg/dL 0.1-0.5 code = 706) ALKALINE PHOSPHATASE (BEAKER) (test 442 U/L 40-150 H code = 346) AST (SGOT) (BEAKER) (test code = 79 U/L 5-34 H 353) ALT (SGPT) (BEAKER) (test code = 188 U/L 6-55 H 347) Rf Manager COLTON TORIBIO LRAD, CHEST, 1 VIEW, NON [id number] 00:09:00Reason for exam:->preopShould this be performed at the bedside?->YesFINAL REPORT Chest one view. Clinical history: 79yF with history of hypertension and diabetes admitted with cholelithiasis, with incidental finding of hepatic and pancreatic lesions on preoperative imaging for a Lap cholecystectomy at OSH. Preop evaluation. Comparison: None. Technique: A single frontal view of the chest was obtained. Findings: The heart is normal size. The aorta is uncoiled and atherosclerotic. The right hemidiaphragm is elevated. There is mild bibasilar subsegmental atelectasis. There is mild discoid atelectasis in the left lung base. There is no pulmonary edema, pleural effusion or pneumothorax. There are mild degenerative changes of the left shoulder. Impression:Elevated right hemidiaphragm.Mild bibasilar atelectatic changes. Signed: Casandra Gonzalezeplori Verified Date/Time: 08/14/2019 00:09:06 PROTHROMBIN [id number] 22:49:00 Test Item Value Reference Range Interpretation Comments PROTIME (BEAKER) (test code = 12.9 seconds 11.9-14.2 759) INR (BEAKER) (test code = 370) 1.0 <=5.9 Effective 09/08/2018: PT Reference Range ChangeNew: 11.9-14.2 Previous: 11.7- 14.7RECOMMENDED COUMADIN/WARFARIN INR THERAPY RANGESSTANDARD DOSE: 2.0-3.0 Includes: PROPHYLAXIS for venous thrombosis, systemic embolization; TREATMENT for venous thrombosis and/or pulmonary embolus.HIGH RISK: Target INR is2.5-3.5 for patients wiht mechanical heart valves.[id number] 22:49:00 Test Item Value Reference Range Interpretation Comments PARTIAL THROMBOPLASTIN TIME 26.5 seconds 22.5-36.0 (BEAKER) (test code = 760) CBC with platelet count + automated [id number] 22:40:00 Test Item Value Reference Range Interpretation Comments WBC (test code = 6690-2) 12.6 3.5- 10.5 K/L H RBC (test code = 789-8) 4.53 3.93- 5.22 M/L MCHC (test code = 786-4) 33.4 32.2- 35.5 GM/DL Hematocrit (test code = 4544-3) 39.8 % 34.1-44.9 MCV (test code = 787-2) 87.9 fL 79.4-94.8 MCH (test code = 785-6) 29.4 pg 25.6-32.2 RDW (test code = 788-0) 14.2 % 11.7-14.4 Platelets (test code = 777-3) 199 150- 450 K/CU MM MPV (test code = 87610-0) 10.1 fL 9.4-12.3 nRBC (test code = 413) 0 0- 0 /100 WBC % Neutros (test code = 429) 76 % % Lymphs (test code = 430) 15 % % Monos (test code = 431) 7 % % Eos (test code = 432) 1 % % Baso (test code = 437) 0 % # Neutros (test code = 670) 9.49 1.56- 6.13 K/L H # Lymphs (test code = 414) 1.91 1.18- 3.74 K/L # Monos (test code = 415) 0.91 0.24- 0.36 K/L H # Eos (test code = 416) 0.07 0.04- 0.36 K/L # Baso (test code = 417) 0.04 0.01- 0.08 K/L Immature Granulocytes-Relative 1 % 0-1 (test code = 2801) Lab Interpretation (test code = Abnormal 51241-6) [facility] W/PLT COUNT & AUTO [id number] 22:40:00 Test Item Value Reference Range Interpretation Comments WHITE BLOOD CELL COUNT (BEAKER) 12.6 K/ L 3.5-10.5 H (test code = 775) RED BLOOD CELL COUNT (BEAKER) 4.53 M/ L 3.93-5.22 (test code = 761) HEMOGLOBIN (BEAKER) (test code = 13.3 GM/DL 11.2-15.7 410) HEMATOCRIT (BEAKER) (test code = 39.8 % 34.1-44.9 411) MEAN CORPUSCULAR VOLUME (BEAKER) 87.9 fL 79.4-94.8 (test code = 753) MEAN CORPUSCULAR HEMOGLOBIN 29.4 pg 25.6-32.2 (BEAKER) (test code = 751) MEAN CORPUSCULAR HEMOGLOBIN CONC 33.4 GM/DL 32.2-35.5 (BEAKER) (test code = 752) RED CELL DISTRIBUTION WIDTH 14.2 % 11.7-14.4 (BEAKER) (test code = 412) PLATELET COUNT (BEAKER) (test 199 K/CU MM 150-450 code = 756) MEAN PLATELET VOLUME (BEAKER) 10.1 fL 9.4-12.3 (test code = 754) NUCLEATED RED BLOOD CELLS 0 /100 WBC 0-0 (BEAKER) (test code = 413) NEUTROPHILS RELATIVE PERCENT 76 % (BEAKER) (test code = 429) LYMPHOCYTES RELATIVE PERCENT 15 % (BEAKER) (test code = 430) MONOCYTES RELATIVE PERCENT 7 % (BEAKER) (test code = 431) EOSINOPHILS RELATIVE PERCENT 1 % (BEAKER) (test code = 432) BASOPHILS RELATIVE PERCENT 0 % (BEAKER) (test code = 437) NEUTROPHILS ABSOLUTE COUNT 9.49 K/ L 1.56-6.13 H (BEAKER) (test code = 670) LYMPHOCYTES ABSOLUTE COUNT 1.91 K/ L 1.18-3.74 (BEAKER) (test code = 414) MONOCYTES ABSOLUTE COUNT (BEAKER) 0.91 K/ L 0.24-0.36 H (test code = 415) EOSINOPHILS ABSOLUTE COUNT 0.07 K/ L 0.04-0.36 (BEAKER) (test code = 416) BASOPHILS ABSOLUTE COUNT (BEAKER) 0.04 K/ L 0.01-0.08 (test code = 417) IMMATURE GRANULOCYTES-RELATIVE 1 % 0-1 PERCENT (BEAKER) (test code = 2801) POCT-GLUCOSE [id number] 21:56:00 Test Item Value Reference Range Interpretation Comments POC-GLUCOSE METER 130 mg/dL 70-110 H : TESTED A T [facility] 6720 (BEAKER) (test code = KWAME BARAJAS, 1538) 773[address]: Rf Manager/Techni chad ID = [id number] for TAMIKA CARTER SARS-CoV2/RT-PCR ([facility])2019-08-11 23:10:00 Test Item Value Reference Range Interpretation Comments SARS-COV2/RT-PCR Not Detected Not Detected, (test code = Negative 90073-9) SARS-COV-2 [facility] PERFORMING LAB (test code = 19423-0) JAY (test code = Negative results do not JAY) preclude SARS-CoV-2 infection and should not be used as [...] of the Act. Fact Sheet for Healthcare Providers:https://www.HowDo/Documents/Xper t%20Xpress%20SARS%20CoV- 2/Fact%20Sheets/302-3802 %41ETGF-IVY-5%20HEALTHCA RE%20PROVIDERS%20FACT%20 SHEET.pdf Fact Sheet for Healthcare Patients:https://www.[employer]/Documents/Xpert %20Xpress%20SARS%20CoV-2 /Fact%20Sheets/302-3801% 88IVDN-VQR-9%20PATIENT%2 0FACT%20SHEET.pdf Performing Laboratory:[facility] [place] [address] [facility] ([facility])2019-08-11 23:10:00 Test Item Value Reference Range Interpretation Comments SARS-COV2/RT-PCR (test Not Detected Not Detected, Negative code = 0495176) SARS-COV-2 PERFORMING LAB [facility] (test code = 6245286) Negative results do not preclude SARS-CoV-2 infection and should not be used as the sole basis for patient management decisions. Negative results must be combined with clinical observations, patient history, and epidemiological information. A false negative result may occur if a specimen is improperly collected, transported or handled.The limit of detection for this assay is 250 copies/mL.This SARS CoV-2 test is a rapid, real-time RT-PCR test intended for the qualitative detection of nucleic acid from SARS-CoV-2 in a nasopharyngeal swab specimen collected from individuals suspected of COVID-19 by their healthcare provider.This test has not been Food and Drug [...] is revoked under Section 564(g) of the Act.Fact Sheet for Healthcare Pro viders:https://www.[employer]/Documents/Xpert%20Xpress%20SARS%20CoV-2/Fact%20Sh eets/3023802%75DZBP-RKU-7%20HEALTHCARE%20PROVIDERS%20FACT%20SHEET.pdfFact Sheet for Healthcare Patients:https://www.[employer]/Documents/Xpert%20Xpress%20SARS%20CoV-2/Fact%20Sheets/3023801%20SARS-COV -2%20PATIENT%20FACT%20SHEET.pdfPerforming Laboratory:[facility] [place] [address]
[2020-02-15 23:45] LABS: Absolute Lymphocytes (CBC) 1.5 K/uL (0.7-4.9); Basophils % 0.5 % (0-1.3); Hematocrit 38.7 % (36.0-45.0); Lymphocytes % 25.1 % (15.3-44.8); MPV 9.1 fL (7.6-11.3); RBC Red Blood Cell Count 4.34 M/uL (3.86-4.86)
[2020-02-15 23:48] LABS: Protime INR 1.32
[2020-02-16 00:05] LABS: ALT/SGPT 38 U/L (12-78); AST/SGOT 19 U/L (15-37); Albumin 3.4 g/dL (3.4-5.0); Alkaline Phosphatase 108 U/L (45-117); BUN Blood Urea Nitrogen 22 mg/dL (7-18); Bicarbonate 31 mmol/L (21-32); Bilirubin Direct 0.2 mg/dL (0-0.2); Bilirubin Total 0.6 mg/dL (0.2-1.0); Glucose Level 137 mg/dL (74-106); Magnesium 2.1 mg/dL (1.8-2.4); NT PRO-BNP 100 pg/mL (<450); Potassium 3.6 mmol/L (3.5-5.1); Protein, Total 6.8 g/dL (6.4-8.2); Sodium Level 145 mmol/L (136-145); Troponin (Emerg Dept Use Only) < 0.02 ng/mL (0.0-0.045)
[2020-02-16 00:26] LABS: Urine Blood TRACE (NEG); Urine Glucose TRACE (NEG); Urine Protein NEGATIVE (NEG); Urine pH 5.5 (5.0-7.0)
--- NOTE | 2020-02-16 01:17 | ER ---
Nurse's Notes [facility] Name: Guadalupe Marie Age: 79 yrs Sex: Female : 1940 Arrival Date: 02/15/2020 Time: 22:10 Bed 17 Private MD: Christ Gibson R Diagnosis: Hypertension;Urinary tract infection, site not specified Presentation: 02/14 22:32 Chief complaint: Patient states: "My blood pressure at home was 220/90. I don't have jd3 any headache or anything, just worrying about my blood pressure being high.". Coronavirus screen: At this time, the client does not indicate any symptoms associated with coronavirus-19. Ebola Screen: Patient negative for fever greater than or equal to 101.5 degrees Fahrenheit, and additional compatible Ebola Virus Disease symptoms. Initial Sepsis Screen: Does the patient meet any 2 criteria? No. Patient's initial sepsis screen is negative. Does the patient have a suspected source of infection? No. Patient's initial sepsis screen is negative. Risk Assessment: Do you want to hurt yourself or someone else? Patient reports no desire to harm self or others. Onset of symptoms was February 15, 2020. 22:32 Method Of Arrival: Wheelchair jd3 22:32 Acuity: JUAN 4 jd3 Historical: - Allergies: 22:34 No Known Allergies; jd3 - Home Meds: 22:34 Eliquis oral oral [Active]; jd3 - PMHx: 22:34 Diabetes - IDDM; Hypertension; jd3 - Immunization history:: Adult Immunizations up to date. - Social history:: Smoking status: Patient denies any tobacco usage or history of. Screenin:35 Abuse screen: Denies threats or abuse. Nutritional screening: No deficits noted. jd3 Tuberculosis screening: No symptoms or risk factors identified. Fall Risk Ambulatory Aid- None/Bed Rest/Nurse Assist (0 pts). Gait- Normal/Bed Rest/Wheelchair (0 pts) Mental Status- Oriented to own ability (0 pts). Total Coyle Fall Scale indicates No Risk (0-24 pts). Assessment: 22:35 General: Appears in no apparent distress. comfortable, Behavior is calm, cooperative, jd3 appropriate for age. Pain: Denies pain. Neuro: Level of Consciousness is awake, alert, obeys commands, Oriented to person, place, time, situation. Cardiovascular: Denies chest pain, Capillary refill < 3 seconds Patient's skin is warm and dry. Respiratory: Airway is patent Respiratory effort is even, unlabored, Respiratory pattern is regular, symmetrical, Denies cough, shortness of breath. GI: No signs and/or symptoms were reported involving the gastrointestinal system. : No signs and/or symptoms were reported regarding the genitourinary system. EENT: No signs and/or symptoms were reported regarding the EENT system. Derm: Skin is intact, Skin is dry, Skin is normal, Skin temperature is warm. Musculoskeletal: Circulation, motion, and sensation intact. Range of motion: intact in all extremities. 02/15 00:09 Reassessment: pt taken to CT. jv1 00:15 Reassessment: pt back from CT. jv1 00:28 Reassessment: Patient appears in no apparent distress at this time. No changes from jv1 previously documented assessment. Patient and/or family updated on plan of care and expected duration. Pain level reassessed. Patient is alert, oriented x 3, equal unlabored respirations, skin warm/dry/pink. Patient denies pain at this time. Patient states feeling better. 01:10 Reassessment: notified provider that pt's bp is 175/54, HR 50. pt is also feeling jv1 anxious. he said BP is fine. no new orders received. 01:16 Reassessment: provider in the room with patient. explained findings and notified her jv1 that she is for discharge. Vital Signs: 02/14 22:24 BP 196 / 47 RA (auto/lg); Pulse 57; Resp 20 S; Temp 99.1(O); Pulse Ox 98% on R/A; jp3 Weight 79.38 kg (R); Height 5 ft. 8 in. (172.72 cm) (R); Pain 0/10; 22:32 BP 168 / 57 RA (auto/lg); jd3 02/15 00:28 BP 157 / 60; Pulse 51; Resp 18; Temp 98.9; Pulse Ox 97% on R/A; Pain 0/10; jv1 01:30 BP 160 / 75; Pulse 55; Resp 18; Temp 98.5; Pulse Ox 98% on R/A; Pain 0/10; jv1 02/14 22:24 Body Mass Index 26.61 (79.38 kg, 172.72 cm) jp3 ED Course: 02/14 22:10 Patient arrived in ED. am2 22:10 Christ Gibson MD is Private Physician. am2 22:20 Patient has correct armband on for positive identification. Bed in low position. Call jp3 light in reach. Verbal reassurance given. Pulse ox on. NIBP on. 22:30 Patient maintains SpO2 saturation greater than 95% on room air. jp3 22:33 Triage completed. jd3 22:35 Arm band placed on. jd3 22:39 Noah Linn MD is Attending Physician. mh7 22:58 XRAY Chest (1 view) In Process Unspecified. EDMS 23:40 Inserted saline lock: 22 gauge in right wrist, using aseptic technique. Blood collected.ds4 02/15 00:27 CT Head Brain wo Cont In Process Unspecified. EDMS 01:40 No provider procedures requiring assistance completed. IV discontinued, intact, jv1 bleeding controlled, No redness/swelling at site. Pressure dressing applied. Administered Medications: 01:24 Drug: Macrobid 100 mg Route: PO; jv1 01:40 Follow up: Response: No adverse reaction jv1 Outcome: 01:17 Discharge ordered by . mh7 01:40 Discharged to home ambulatory, with friend. jv1 01:40 Condition: stable 01:40 Discharge instructions given to patient, friend, Instructed on discharge instructions, follow up and referral plans. medication usage, Demonstrated understanding of instructions, follow-up care, medications. 01:43 Patient left the ED. jv1 Addendum: 02/19/2020 07:26 Addendum: Culture Results: Positive urine culture. No further action required. Bacteria e b sensitive to prescribed antibiotic. Signatures: Dispatcher [employer] EDMS Thee Brizuela ds4 Savannah Bethea am2 Grayson Zarco RN RN jd3 Hazel Landry Jacob jp3 Batsheva Mott, PEE RN jv1 Noah Linn MD MD 7 Corrections: (The following items were deleted from the chart) 02/15 01:55 01:10 Reassessment: notified provider that pt's bp is 175/54, HR 50. pt is also feeling jv1 anxious. he said BP is fine jv1
--- NOTE | 2020-02-16 01:17 | EDPHYS ---
Physician Documentation [facility] Name: Guadalupe Marie Age: 79 yrs Sex: Female : 1940 Arrival Date: 02/15/2020 Time: 22:10 Bed 17 Private MD: Christ Gibson R ED Physician Noah Linn HPI: 02/14 23:23 This 79 yrs old Female presents to ER via Wheelchair with complaints of High mh7 Blood Pressure. 23:23 The patient has elevated blood pressure and discovered this at home, with a home mh7 device. Onset: The symptoms/episode began/occurred today, at 21:00. Modifying factors: The symptoms are aggravated by stress, The symptoms are alleviated by prescription meds. Associated signs and symptoms: Pertinent positives: sensation of something crawling around her head, Pertinent negatives: chest pain, dizziness, dyspnea, lightheadedness, nausea, visual changes, vomiting, weakness. Severity of symptoms: At its worst the blood pressure was moderate, earlier today, 220 mm Hg, in the emergency department the blood pressure is improved, markedly, 168 mm Hg. The patient has experienced similar episodes in the past, several times. Historical: - Allergies: 22:34 No Known Allergies; jd3 - Home Meds: 22:34 Eliquis oral oral [Active]; jd3 - PMHx: 22:34 Diabetes - IDDM; Hypertension; jd3 - Immunization history:: Adult Immunizations up to date. - Social history:: Smoking status: Patient denies any tobacco usage or history of. ROS: 23:23 Constitutional: Negative for fever, chills, and weight loss, Eyes: Negative for injury, mh7 pain, redness, and discharge, ENT: Negative for injury, pain, and discharge, Neck: Negative for injury, pain, and swelling, Cardiovascular: Negative for chest pain, palpitations, and edema, Respiratory: Negative for shortness of breath, cough, wheezing, and pleuritic chest pain, Abdomen/GI: Negative for abdominal pain, nausea, vomiting, diarrhea, and constipation, Back: Negative for injury and pain, : Negative for injury, bleeding, discharge, and swelling, MS/Extremity: Negative for injury and deformity, Skin: Negative for injury, rash, and discoloration, Psych: Negative for depression, anxiety, suicide ideation, homicidal ideation, and hallucinations, Allergy/Immunology: Negative for hives, rash, and allergies, Endocrine: Negative for neck swelling, polydipsia, polyuria, polyphagia, and marked weight changes, Hematologic/Lymphatic: Negative for swollen nodes, abnormal bleeding, and unusual bruising. Exam: 23:23 Constitutional: This is a well developed, well nourished patient who is awake, alert, mh7 and in no acute distress. Head/Face: Normocephalic, atraumatic. Eyes: Pupils equal round and reactive to light, extra-ocular motions intact. Lids and lashes normal. Conjunctiva and sclera are non-icteric and not injected. Cornea within normal limits. Periorbital areas with no swelling, redness, or edema. Neck: Trachea midline, no thyromegaly or masses palpated, and no cervical lymphadenopathy. Supple, full range of motion without nuchal rigidity, or vertebral point tenderness. No Meningismus. Chest/axilla: Normal chest wall appearance and motion. Nontender with no deformity. No lesions are appreciated. Cardiovascular: Regular rate and rhythm with a normal S1 and S2. No gallops, murmurs, or rubs. Normal PMI, no JVD. No pulse deficits. Respiratory: Lungs have equal breath sounds bilaterally, clear to auscultation and percussion. No rales, rhonchi or wheezes noted. No increased work of breathing, no retractions or nasal flaring. Abdomen/GI: Soft, non-tender, with normal bowel sounds. No distension or tympany. No guarding or rebound. No evidence of tenderness throughout. Back: No spinal tenderness. No costovertebral tenderness. Full range of motion. Skin: Warm, dry with normal turgor. Normal color with no rashes, no lesions, and no evidence of cellulitis. MS/ Extremity: Pulses equal, no cyanosis. Neurovascular intact. Full, normal range of motion. Neuro: Awake and alert, GCS 15, oriented to person, place, time, and situation. Cranial nerves II-XII grossly intact. Motor strength 5/5 in all extremities. Sensory grossly intact. Cerebellar exam normal. Normal gait. Psych: Awake, alert, with orientation to person, place and time. Behavior, mood, and affect are within normal limits. Vital Signs: 22:24 BP 196 / 47 RA (auto/lg); Pulse 57; Resp 20 S; Temp 99.1(O); Pulse Ox 98% on R/A; jp3 Weight 79.38 kg (R); Height 5 ft. 8 in. (172.72 cm) (R); Pain 0/10; 22:32 BP 168 / 57 RA (auto/lg); jd3 02/15 00:28 BP 157 / 60; Pulse 51; Resp 18; Temp 98.9; Pulse Ox 97% on R/A; Pain 0/10; jv1 01:30 BP 160 / 75; Pulse 55; Resp 18; Temp 98.5; Pulse Ox 98% on R/A; Pain 0/10; jv1 02/14 22:24 Body Mass Index 26.61 (79.38 kg, 172.72 cm) 3 MDM: 02/14 22:48 Patient medically screened. [facility] 02/15 01:15 Differential diagnosis: hypertensive crisis, Malignant HTN, intracerebral hemorrhage, 7 Hypertension, Stress Reaction. Data reviewed: vital signs, nurses notes, lab test result(s), cardiac enzymes, CBC, electrolytes, urinalysis, EKG, radiologic studies, CT scan, plain films. Data interpreted: Pulse oximetry: on room air is 97 %. Interpretation: normal. Counseling: I had a detailed discussion with the patient and/or guardian regarding: the historical points, exam findings, and any diagnostic results supporting the discharge/admit diagnosis, the presence of at least one elevated blood pressure reading (>120/80) during this emergency department visit, lab results, radiology results, the need for outpatient follow up, to return to the emergency department if symptoms worsen or persist or if there are any questions or concerns that arise at home. Response to treatment: the patient's symptoms have markedly improved after treatment. 02/14 22:49 Order name: Basic Metabolic Panel; Complete Time: 00: [facility] 02/14 22:49 Order name: CBC with Diff; Complete Time: 00:03 [facility] 02/14 22:49 Order name: LFT's; Complete Time: 00:21 [facility] 02/14 22:49 Order name: Magnesium; Complete Time: 00: [facility] 02/14 22:49 Order name: NT PRO-BNP; Complete Time: 00: [facility] 02/14 22:49 Order name: PT-INR; Complete Time: 00:03 [facility] 02/14 22:49 Order name: Troponin (emerg Dept Use Only); Complete Time: 00:21 [facility] 02/14 22:49 Order name: XRAY Chest (1 view) [facility] 02/14 22:49 Order name: EKG; Complete Time: 22:50 [facility] 02/14 22:49 Order name: Cardiac monitoring; Complete Time: 00:01 [facility] 02/14 22:50 Order name: CT Head Brain wo Cont [facility] 02/15 00:14 Order name: Urine Dipstick--Ancillary (enter results); Complete Time: 01:11 tt3 02/15 01:15 Order name: Urine Culture [facility] 02/14 22:49 Order name: EKG - Nurse/Tech; Complete Time: 00:01 [facility] 02/14 22:49 Order name: IV Saline Lock; Complete Time: 23:45 [facility] 02/14 22:49 Order name: Labs collected and sent; Complete Time: 23:45 [facility] 02/14 22:49 Order name: O2 Per Protocol; Complete Time: 23:45 [facility] 02/14 22:49 Order name: O2 Sat Monitoring; Complete Time: 23:45 [facility] 02/14 22:50 Order name: Urine Dipstick-Ancillary (obtain specimen); Complete Time: 00:23 [facility] Administered Medications: 01:24 Drug: Macrobid 100 mg Route: PO; jv1 01:40 Follow up: Response: No adverse reaction jv1 Disposition: 02/16/20 01:17 Discharged to Home. Impression: Hypertension, Urinary tract infection, site not specified. - Condition is Stable. - Discharge Instructions: Urinary Tract Infection, Adult, [id number], Hypertension, [id number]. - Prescriptions for Macrobid 100 mg Oral Capsule - take 1 capsule by ORAL route every 12 hours for 7 days; 14 capsule. - Medication Reconciliation Form, Thank You Letter, Antibiotic Education, Prescription Opioid Use form. - Follow up: Private Physician; When: 1 - 2 days; Reason: Worsening of condition, Recheck today's complaints, Continuance of care, Re-evaluation by your physician. - Problem is an acute exacerbation. - Symptoms have improved. Signatures: Dispatcher [employer] Grayson Obando RN RN jd3 Batsheva Mott RN RN jv1 Noah Linn MD MD mh7 Corrections: (The following items were deleted from the chart) 01:43 01:17 02/16/2020 01:17 Discharged to Home. Impression: Hypertension; Urinary tract jv1 infection, site not specified. Condition is Stable. Forms are Medication Reconciliation Form, Thank You Letter, Antibiotic Education, Prescription Opioid Use. Follow up: Private Physician; When: 1 - 2 days; Reason: Worsening of condition, Recheck today's complaints, Continuance of care, Re-evaluation by your physician. Problem is an acute exacerbation. Symptoms have improved. mh7
[2020-02-16] MEDS ORDERED: NITROFURAN MACRO 100 MG CAP PO ONE (01:35)
[2020-02-16 05:21] VITALS: BP 157/60; TEMP 98.9; O2SAT 97
--- NOTE | 2020-02-16 07:43 | RAD REPORT ---
EXAM DESCRIPTION: Krystal Single View02/15/2020 10:58 pm CLINICAL HISTORY: Hypertension COMPARISON: July 2019 FINDINGS: The lungs appear clear of acute infiltrate. The heart is normal size IMPRESSION: No acute abnormalities displayed
--- NOTE | 2020-02-16 11:27 | RAD REPORT ---
EXAM DESCRIPTION: CT - Head Brain Wo Cont - 02/16/2020 6:22 am CLINICAL HISTORY: HEADACHE TECHNIQUE: Contiguous axial CT images obtained through the brain without IV contrast. Coronal and sa gittal reformatted images were provided. This exam was performed according to our departmental dose-optimization program, which includes autom ated exposure control, adjustment of the mA and/or kV according to patient size and/or use of iterati ve reconstruction technique. COMPARISON: None available for comparison FINDINGS: Brain: Mild cerebral atrophy. Mild bilateral periventricular and subcortical white matter hypodensity which is nonspecific and can be seen in the clinical setting of chronic microvascular ang iopathy. Remote left caudate lacunar infarct. No focal mass effect. Alves-white matter differentiation is within normal limits. No hemorrhage. Ventricles: No ventriculomegaly or midline shift. Extra-axial spaces: No extra-axial collection or hemorrhage. Paranasal sinuses and mastoid air cells: Well-aerated Vessels: There is atherosclerotic disease of the internal carotid arteries bilaterally. Bones: Unremarkable Soft tissues: Unremarkable IMPRESSION: 1. No acute intracranial or extra-axial abnormality. 2. Other findings as above. Electronically signed by: Kwame Fink MD 02/16/2020 12:42 AM ANALYTIC PROGRAMMER Due to temporary technical issues with the PACS/Fluency reporting system, reports are being signed by the in house radiologists without review as a courtesy to insure prompt reporting. The interpreting radiologist is fully responsible for the content of the report.
== END 2020-02-16 01:43 | disposition home or self-care (01) ==
LOC: ER 22:06
DX: I10 Essential (primary) hypertension (principal); N39.0 Urinary tract infection, site not specified; E11.9 Type 2 diabetes mellitus without complications; Z79.01 Long term (current) use of anticoagulants
CPT/HCPCS: 36415; 70450; 71045; 80048; 80076; 81003; 83735; 83880; 84484; 85025; 85610; 87077; 87086; 87088; 87186; 93005; 99284

== ENCOUNTER 2020-02-27 00:42 | Emergency (ER) | payer OTHER, MEDICARE ==
--- OUTSIDE RECORDS SUMMARY | 2020-02-27 00:54 | XMS REPORT | Clinical Summary ---
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 ([facility]); 08/26/2019 , Paroxysmal atri al fibrillation (HCC); MD Kapil Cholecystitis; Tricuspid valve mass; Acute calculous cholecystitis; Fever, unspecif ied fever cause; Acute bacterial endocarditis; S/P laparoscopi c cholecystectomy 08/13/2019 Travel 08/11/2019 Lab Requisition Lab after 02/26/2019 Social History Tobacco Use Types Packs/Day Years [...] PNEUMOCOCCAL 65+ YRS (1 of 1 - [id number] PCV13) 02/21/2004 MEDICARE ANNUAL WELLNESS (YEAR 2 [...] 362 ms QTC Calculation(Bazett) 425 ms P [place] 59 degrees R [place] -15 degrees T [place] 28 degrees Normal sinus rhythm Septal infarct [...] 326 ms QTC Calculation(Bazett) 483 ms R [place] -61 degrees [place] -23 degrees Sinus tachycardia with occas ional Premature ventricular complexes Left axis deviation Septal infarct (cited on or before 13-AUG-2019) ST & T wave abnormality, con water analyst inferior ischemia Abnormal ECG When compared with [...] i n the results section . after 02/26/2019 Results RHYTHM STRIP - SCAN (08/29/2019 11:00 AM CDT) Narrative Performed At This result has an attachment that is no t available. POC-Glucose meter (08/26/2019 9:24 AM CDT)Only the most recent of53 results within the time period is included. Pathologist [facility] POC-Glucose Meter 142 (H)Comment: 70 - 110 mg/dL [facility] : TESTED AT [address], [address]: Type Photography Supervisor/Technic stephanie ID = [id number] for ESME MCFADDEN Specimen Blood Performing Organization Address City/State/Zipcode Phone Number [address] [phone] [place] Venous doppler arm, left (08/26/2019 8:55 AM CDT) Pathologist Sig nature Ejection Fraction [facility] Specimen Impressions Performed At [facility] Left Impression 1. There is total mildly [...] Upper Extremities Veins [facility] Demographics Patient Name GUADALUPE HERNANDEZ Date of Study 08/26/2019 DAVIDA Age 79 Visit Number [id number] Gender Female Accession Number [id number] Date of 1940 Referring Kapil Garza Room Number 1411 Physician Wave Solder Offbearer Yan Ramirez Interpreting Melida meng, S Physician [...] Study 08/26/2019 DAVIDA Age 79 Visit Number [id number] Gen bianca Female Accession Number [id number] Bruno e of 1940 Referring Kapil Soliman m Number 1411 Physician Wave Solder Offbearer Yan Ramirez Int erpreting Melida Alicea, S [...] the time period is included. Pathologist Sig Order[facility] PTT 37.5 (H) 22.5 - 36.0 seconds [facility] Specimen Blood Performing Organization Address City/State/Zipcode Phone Number [facility] [address] [place] [address] CENTER Prothrombin time/INR (08/26/2019 3:32 AM CDT)Only the most recent of11 results within the time period is included. Pathologist [facility] Protime 14.1 11.9 - 14.2 seconds [facility] INR 1.1 <=5.9 [facility] Specimen Blood Narrative Performed At Effective 09/08/2018: PT Reference Range [facility] Change New: 11.9-14.2 Previous: 11.7-14.7 RECOMMENDED COUMADIN/WARFARIN INR THERAPY RANGES STANDARD DOSE: 2.0-3.0 Includes: PROPHYLAXIS for venous thrombosis, systemic embolization; TREATMENT for venous thrombosis and/or pulmonary embolus. HIGH RISK: Target INR is 2.5-3.5 for patients wiht mechanical heart valves. Performing Organization Address City/[facility] Cent[facility] Phone Number [address] [address] CENTER CBC (Hemogram only) (08/26/2019 3:32 AM CDT)Only the most recent of13 results within the time period is included. Pathologist Sig nature WBC 6.0 3.5 - 10.5 K/L [facility] RBC 3.43 (L) 3.93 - 5.22 M/L [facility] Hemoglobin 10.1 (L) 11.2 - 15.7 GM/DL [facility] Hematocrit 31.0 (L) 34.1 - 44.9 % [facility] MCV 90.4 79.4 - 94.8 fL [facility] MCH 29.4 25.6 - 32.2 pg [facility] MCHC 32.6 32.2 - 35.5 GM/DL [facility] RDW 13.0 11.7 - 14.4 % [facility] Platelets 234 150 - 450 K/CU MM [facility] MPV 10.5 9.4 - 12.3 fL [facility] nRBC 0 0 - 0 /100 WBC [facility] Specimen Blood Performing Organization Address City/[facility]/Zipcode Phone Number [facility] [address] [address] CENTER Phosphorus (08/26/2019 3:32 AM CDT)Only the most recent of14 resultswithin the time period is included. Pathologist Sig nature Phosphorus 3.2 2.3 - 4.7 mg/dL [facility] Specimen Blood Narrative Performed At Type Photography Supervisor ID - LUPE W [facility] Performing Organization Address [facility] Phone Number [address] [phone] CENTER Magnesium (08/26/2019 3:32 AM CDT)Only the most recent of14 resultswithin the time period is included. Pathologist Sig nature Magnesium 1.9 1.6 - 2.6 mg/dL [facility] Specimen Blood Narrative Performed At Type Photography Supervisor ID - [facility] Performing Organization Address [facility] Phone Number [address] [address] CENTER Hepatic function panel (08/26/2019 3:32 AM CDT)Only the most recent of14 resultswithin the time period is included. Pathologist Sig nature Protein, Total 5.8 (L) 6.0 - 8.3 gm/dL [facility] Albumin 2.9 (L) 3.5 - 5.0 g/dL [facility] Total Bilirubin 0.6 0.2 - 1.2 mg/dL [facility] Bilirubin, Direct 0.3 0.1 - 0.5 mg/dL [facility] Alkaline Phosphatase 105 40 - 150 U/L [facility] AST 10 5 - 34 U/L [facility] ALT 7 6 - 55 U/L [facility] Specimen Blood Narrative Performed At Type Photography Supervisor ID - [facility] Performing Organization Address City/State/Zipcode Phone Number [facility] [address] [place] [address] [place] Basic Metabolic Panel (08/26/2019 3:32 AM CDT)Only the most recent of14 results within the time period is included. Sodium 141 136 - 145 meq/L [facility] Potassium 4.3 3.5 - 5.1 meq/L [facility] Chloride 105 98 - 107 meq/L [facility] CO2 30 (H) 22 - 29 meq/L [facility] BUN 9 7 - 21 mg/dL [facility] Creatinine 0.69 0.57 - 1.25 [facility] mg/dL [facility] Glucose 146 (H) 70 - 105 mg/dL [facility] Calcium 8.7 8.4 - 10.2 [facility] mg/dL [facility] EGFR 82Comment: ESTIMATED mL/min/1.73 sq [facility] GFR IS NOT m [facility] ACCURATE [place] CREATININE CLEARANCE IN PREDICTING GLOMERULAR FILTRATION RATE. ESTIMATED GFR IS NOT APPLICABLE FOR DIALYSIS PATIENTS. Specimen Blood Narrative Performed At Type Photography Supervisor COLTON - LUPE Seals [facility] Performing Organization Address City/[facility]/Zipcode Phone Number [facility] [address] [place] [address] [place] Karius DNA assay (08/24/2019 9:12 PM CDT) Pathologist Sig nature Scan Result [facility] Specimen Blood - Structure of right forearm (body structure) Narrative Performed At This result has an attachment that is no t available. Performing Organization Address City/State/Zipcode Phone Number [facility] [address] [facility] o, [place] Procalcitonin (08/24/2019 3:41 AM CDT) Pathologist Sig nature Procalcitonin 0.06 (H) <0.05 ng/mL [facility] Specimen Blood Narrative Performed At SEPSIS RISK (ng/mL) [facility] Low: 0.05-0.50 Intermediate: 0.51-2.00 High: >=2.01 Performing Organization Address [facility] Cent[facility] Phone Number [address] [address] [place] Blood Culture - Routine (Left Venipuncture) (08/22/2019 9:30 PM CDT)Only the most recent of2 resultswithin the time period is included. Pathologist Sig nature Result No growth in 5 days [facility] Specimen Blood - Entire left upper arm (body stru cture) Performing Organization Address [facility] Centerc[facility] Phone Number [address] [address] [place] ECHOCARDIOGRAM REPORT - SCAN (08/22/2019 9:11 PM CDT) Narrative Performed At This result has an attachment that is no t available. Urine culture (08/22/2019 3:15 PM CDT) Pathologist Sig nature Result No growth [facility] [place] Specimen Urine - Urine specimen collection, clean catch (procedure) Performing Organization Address [facility] Centercode Phone Number [address] [address] [place] Urinalysis w/Microscopic + Reflex to Culture (08/22/2019 3:13 PM CDT) Color, UA Light Yellow [facility] Clarity, UA Clear [facility] Specific [place], 1.011 1.001 - 1.035 [facility] pH, UA 7.0 5.0 - 8.0 [facility] Protein, UA Negative Negative [facility] Glucose, UA Negative Negative [facility] Ketones, UA Negative Negative [facility] Bilirubin, UA Negative Negative [facility] Blood, UA Negative Negative [facility] Nitrite, UA Negative Negative [facility] Leukocytes, UA Negative Negative [facility] Urobilinogen, UA 0.2 0.2 - 1.0 mg/dL [facility] RBC, UA 1 /HPF [facility] WBC, UA 1 /HPF [facility] Mucus Occasional [facility] Squam Epithel, UA 6 /HPF [facility] Specimen Source [facility] Specimen Urine - Urine specimen collection, clean catch (procedure) Narrative Performed At Type Photography Supervisor ID - [auto] [facility] Type Photography Supervisor ID - tech Performing Organization Address City/State/Zipcode Phone Number [facility] [address] [place] [address] CENTER Transesophageal echo (08/22/2019 9:21 AM CDT) Pathologist Sig nature Ejection Fraction [facility] Specimen Narrative Performed At Transesophageal Echocardiography Report [facility]ARJUN[facility] Demographics Patient Name GUADALUPE HERNANDEZ Date of Study 08/22/2019 NABEELODA Gender Female Visit Number [id number] Race Room Number 1411 Number Date of 1940 Referring Toño Cantrell Physician Age 79 year(s) Wave Solder Offbearer Jason whitmore Interpreting Javier peterson MD Physician [...] Study 08/22/2019 DAVIDA Gender Female Visit Number [id number] Race [place] [address] Number Date of 1940 Referr carmen Cantrell [...] TR Gradient: 28.73 mmHg Performing Organization Address City/[facility]/Zipcode Phone Number [facility] Prealbumin (08/22/2019 3:32 AM CDT) Pathologist Sig nature Prealbumin 11 (L) 14 - 45 mg/dL [facility] Specimen Blood Narrative Performed At Type Photography Supervisor ID - DB [facility] Performing Organization Address [facility]/Zipcode Phone Number [address] [address] CENTER TRANSFUSION SERVICE REPORT - SCAN (08/19/2019 5:50 PM CDT) Narrative Performed At This result has an attachment that is no t available. Tissue Exam (08/18/2019 3:45 PM CDT) Case Report Surgical Pathology Report Case: [id number] [facility] Authorizing Provider: Cherrie Suarez Aba, MD Collected: 08/18/2019 03:45 PM [facility] Ordering Location: [facility] Received: 08/18/2019 04:10 PM [facility] Pathologist: Guadalupe Vaca MD Specimen: Gallbladder, GALLBLADDER DIAGNOSIS A. GALLBLADDER, LAPAROSCOPIC CHOLECYSTECTOMY: [facility] Electronically - PREDOMINANTLY CHRONIC AND FOCAL ACUTE CHOLECYSTITIS [facility] signed by Lio, - [facility] Guadalupe Schneider MD on - ONE BENIGN LYMPH NODE (0/1), 3MM 08/19/2019 at 4:32 PM Signing Pathologist Direct Phone Line: CPT Code(s) [address] [facility] GROSS DESCRIPTION A. Received fresh labeled wi th the patient's name, MRN and gallbladder is a 8.2x3x2.2 cm intact gallbladder with a 0.8 cm long x 0.8 cm in diameter cystic duct. The serosa is mckeon pink and hyperem [facility]. A cystic duct lymph node measuring 0.3x0.3x0 .2 cm is identified. [facility] On opening, the mucosa is ta n white and trabeculated. The wall is 0.8 cm think. There is approximately 3 ml of yellow white bile. Multiple goldstein to orange faceted calculi ranging from 0.5-1.4 cm in great est dimension and 7.6x6x0.7 cm in aggregate are identified. There is a calculus lodged within the cystic duct. Track Rider sections are submitted. Ink Code: Blue: Hepatic bed Section Code: A1: Cystic duct margin, en face and cystic duct lymph node A2: Gallbladder wall MICROSCOPIC Performed. [facility] Specimen Tissue - Gallbladder structure (body str ucture) Performing Organization Address City/State/Zipcode Phone Number [facility] [address] [place] [address] CENTER XR chest 1 view [...] Report Verified Date/Time: 08/18/2019 08:25:05 Reading Location: [facility] y Reading Room Procedure Note Interface, [...] Radiolog y Reading Room Performing Organization Address City/[facility]/Zipcode Phone Number GE RIS ABORH, manual (08/18/2019 5:01 AM CDT) Pathologist Sig nature ABO Grouping A [facility] Rh Factor POSComment: ` [facility] Specimen Blood Performing Organization Address [facility]/Zipcode Phone Number [facility] [address] [place] [phone] Type and screen, automated (08/18/2019 3:29 AM CDT) Pathologist Sig nature ABO/RH AUTOMATED A POSITIVE [facility] Ab Scrn NEGATIVE [facility] Specimen Blood Performing Organization Address [facility] Centercome Phone Number [facility] [address] [place] [phone] [place] Endoscopic Retrograde Cholangiopancreatography (08/17/2019 8:50 AM [...] Verified Date/Time: 08/17/2019 1 0:54:06 Reading Location: [facility] y Reading Room Performing Organization Address City/State/Zipcode Phone Number [employer] RIS REPORT OF PROCEDURE - ENDOSCOPY URL (08/17/2019 8:36 AM CDT) Narrative Performed At This result has an attachment that is no t available. ECHOCARDIOGRAM REPORT - SCAN (08/16/2019 9:23 PM CDT) Narrative Performed At This result has an attachment that is no t available. 2D Echo W/Doppler(CW/PW/Color) (08/16/2019 9:32 AM CDT) Pathologist Sig nature Ejection Fraction [facility] Specimen Narrative Performed At Transthoracic Echocardiography Report (T TE) [facility] Demographics Patient Name GUADALUPE HERNANDEZ Date of Study 08/16/2019 Gender Female Visit Number [id number] Race Room Number 1411 Number Date of 1940 Referring Physician Umer Valerio Age 79 year(s) Wave Solder Offbearer Oralia Dick [facility] Interpreting Ying Leslie MD Physician Fellow [...] Study 08/16/2019 [place] Female Visit Number [id number] Race Room Number 1411 Number Date of [...] City/State/Zipcode Phone Number [facility] 12 lead (08/15/2019 4:45 PM CDT)Only the most recent of5 resultswithin the time period is included. Specimen Narrative Performed At Ventricular Rate 83 BPM GE MUSE Atrial Rate 83 BPM P-R Interval 132 ms QRS Duration 84 ms Q-T Interval 362 ms QTC Calculation(Bazett) 425 ms P [place] 59 degrees R [place] -15 degrees [place] 28 degrees Normal sinus rhythm Septal infarct [...] 362 ms QTC Calculation(Bazett) 425 ms [place] 59 degrees [place] -15 degrees [place] 28 degrees Normal sinus rhythm Septal infarct (cited on or before ) Inferior infarct , age undetermined Abnormal ECG When compared with ECG of 15-AUG-2019 06 :29, Sinus rhythm has replaced Atrial flutter Confirmed by Fili PARRA MICHAEL (15 0) on 08/16/2019 6:47:47 AM Performing Organization Address City/[facility] Cent[facility]ode Phone Number [employer] MUSE Troponin I (08/15/2019 3:41 AM CDT)Only the most recent of3 resultswithin the time period is included. Pathologist Sig nature Troponin I 0.06 (H) 0.00 - 0.03 ng/mL [facility] Specimen Blood Narrative Performed At Troponin I (TnI) levels must be interpreted [facility] in the context of the presenting symptoms and the clinical findings. Elevated TnI levels indicate myocardial damage, but are not specific for ischemic heart disease. Elevated TnI levels are seen in patients with other cardiac conditions (including myocarditis and congestive heart failure), and slight TnI elevations occur in patients with other conditions, including sepsis, renal failure, acidosis, acute neurological disease, and persistent tachyarrhythmia. Type Photography Supervisor ID - PIAYA L Performing Organization Address City/State/Zipcode Phone Number [facility] [address] [place] [address] [place] B-type Natriuretic Factor (BNP) (08/15/2019 3:41 AM CDT) Pathologist Sig nature BNP 577 (H) 0 - 100 pg/mL [facility] Specimen Blood Narrative Performed At Type Photography Supervisor ID - MALU Marsh [facility] ICA CENTER Performing Organization Address City/State/Zipcode Phone Number [facility] [address] [place] [address] [place] MR abdomen without & with IV contrast (08/14/2019 5:28 PM CDT) Specimen Narrative Performed At FINAL REPORT [employer] RIS TECHNIQUE: MRI of the abdomen WITHOUT [...] due to chronic cholecystitis or resolving ac [place] cholecystitis. 7.Low medial insertion of the cystic [...] Report Verified Date/Time: 08/15/2019 07:34:37 Reading Location: [facility] Reading Room - [place] [address] Procedure Note Interface, External Ris In [...] due to chronic cholecystitis or resolving ac [place] cholecystitis. 7.Low medial insertion of the cystic [...] Verified Date/Time: 08/15/2019 0 7:34:37 Reading Location: [facility] Reading Room - [place] [address] Performing Organization Address City/[facility]/Zipcode Phone Number [facility] Lipase (08/13/2019 11:52 PM CDT) Pathologist Sig nature Lipase 41 8 - 78 U/L [facility] Specimen Blood - Entire left upper arm (body stru cture) Narrative Performed At Type Photography Supervisor ID - PIAYA L [facility] Performing Organization Address [facility] Phone Number [address] [address] CENTER Amylase (08/13/2019 11:52 PM CDT) Pathologist Sig nature Amylase 21 (L)Comment: 25 - 125 U/L [facility] Specimen slightly [facility] hemolyzed Specimen Blood - Entire left upper arm (body stru cture) Narrative Performed At Type Photography Supervisor ID - PIAYA L [facility] Performing Organization Address [facility]/Zipcode Phone Number [address] [address] CENTER CBC with platelet count + automated diff (08/13/2019 10:27 PM CDT) Pathologist Sig nature WBC 12.6 (H) 3.5 - 10.5 [facility] RBC 4.53 3.93 - 5.22 [facility] M/L [facility] Hemoglobin 13.3 11.2 - 15.7 [facility] GM/DL [facility] Hematocrit 39.8 34.1 - 44.9 % [facility] MCV 87.9 79.4 - 94.8 fL [facility] MCH 29.4 25.6 - 32.2 pg [facility] MCHC 33.4 32.2 - 35.5 [facility] GM/[facility] RDW 14.2 11.7 - 14.4 % [facility] Platelets 199 150 - 450 K/CU [facility] MPV 10.1 9.4 - 12.3 fL [facility] nRBC 0 0 - 0 /100 WBC [facility] % Neutros 76 % [facility] % Lymphs 15 % [facility] % Monos 7 % [facility] % Eos 1 % [facility] % Baso 0 % [facility] # Neutros 9.49 (H) 1.56 - 6.13 [facility] # Lymphs 1.91 1.18 - 3.74 [facility] # Monos 0.91 (H) 0.24 - 0.36 [facility] # Eos 0.07 0.04 - 0.36 [facility] # Baso 0.04 0.01 - 0.08 [facility] Immature 1 0 - 1 % [facility] Granulocytes-Relative [facility] Specimen Blood Performing Organization Address City/State/Zipcode Phone Number [facility] [address] [place] [address] [place] Hemoglobin A1c (08/13/2019 10:27 PM CDT) Pathologist Sig nature Hemoglobin A1C 7.8 (H) 4.3 - 6.1 % [facility] Specimen Blood Performing Organization Address City/State/Zipcode Phone Number [place] [phone] [place] [address] CENTER SARS-CoV2/RT-PCR ([facility]) (08/11/2019 6:14 PM CDT) SARS-COV2/RT-PCR Not Detected Not Detected, [facility] Negative [facility] SARS-COV-2 [facility] PERFORMING LAB [facility] Specimen Other - Nasopharyngeal wall structure (b ivet structure) Narrative Performed At Negative results do not preclude SARS-CoV-2 [facility] infection and should not be used as [...] the Act. Fact Sheet for Healthcare Providers: https://www.cepSoweso/Documents/Xpert%20Xpre ss%20SARS%20CoV-2/Fact%20Sheets/302-3802%20SAR S-COV-2%20HEALTHCARE%20PROVIDERS%20FACT%20SHEE T.pdf Fact Sheet for Healthcare Patients: https://www.Smart Patients/Documents/Xpert%20Xpre ss%20SARS%20CoV-2/Fact%20Sheets/302-3801%20SAR S-COV-2%20PATIENT%20FACT%20SHEET.pdf Performing Laboratory: [address] [place] [address] Performing Organization Address City/State/Zipcode Phone Number [address] [address] CENTER after 02/26/2019 Insurance Payer Benefit Plan / Subscriber ID Effective Phone Address T ype Group Dates MEDICARE MEDICARE A B [id number] 2004-Pres Medicare ent [facility] [place] [id number] 2019-Prese M edigap SUPPLEMENT/[employer] nt IVIDUAL CDC REVIEW CDC REVIEW [id number] 2019-[place] [address] [place] [address] Advance Directives For more information, please contact: [phone] Code Status Date Activated Date Inactivated Comments Full Code 08/13/2019 10:12 PM 08/26/2019 1:55 PM This code status was determined by: Patient
--- OUTSIDE RECORDS SUMMARY | 2020-02-27 00:59 | XMS REPORT | Continuity of Care Document ---
:1940 Author Organization [facility] t Address [address] [place] [address] Care Team Providers Name Role Phone TAMEKA OWUSU Attending Clinician Unavailable Tameka Owusu MD Attending Clinician Merchant SALGUERO Attending Clinician Álvaro SALGUERO Attending Clinician Francisco Foster Attending Clinician Unavailable Fadi Suarez MD Attending Clinician Fatuma SALGUERO Attending Clinician Marcial De Guzman MD Attending Clinician TAMEKA OWUSU Admitting Clinician Unavailable Payers Payer Name Policy Type Policy Effective Date Expiration Date Sour ce Number MEDICAREMEDICARE A [id number] 2004 HARMONY [place] [id number] 2003- 00:00:00 - Medical PresentMedicare Center [facility] [id number] 2019 HARMONY Almaguer SUPPLEMENT/INDIVIDUALA 00:00:00 - [id number] /04/2019-PresentMedigap CDC REVIEWCDC [id number] 2019 HARMONY Leon [id number]/ 00:00:00 [place] [address] Problems Condition Condition Condition Status Onset Resolution Last Treating Co mments Source Name Details Category Date Date Treatment Clinician Date Liver Liver Disease Active [facility] Allergies, Adverse Reactions, Alerts This patient has no known allergies or adverse reactions. Social History Social Habit Start Date Stop Date Quantity Comments Source History [facility] - Alcohol Std Drinks Medica [facility] History [facility] - Alcohol Binge Medical Jazmyne ter Sex Assigned At [facility] Cigarettes smoked 2019-08-18 2019-08-[address] [facility] - current (pack per 00:00:00 00:00:00 [facility] day) - Reported Cigarette 2019-08-18 2019-08-[address] [facility] - pack-years 00:00:00 00:00:00 [facility] Tobacco use and 2019-08-18 2019-08-18 Never used [facility] kenisha - exposure 00:00:00 00:00:00 [facility] Alcohol intake 2019-08-18 2019-08-[address] [facility] - 00:00:00 00:00:00 non-drinker of Medical Ce nter alcohol (finding) History [facility] 2019-08-13 2019-08-[address] [facility] - Alcohol Frequency 00:00:00 00:00:00 [facility] History of tobacco 1979-04-13 Current sm[facility] - use 00:[facility]:00 [facility] Smoking Status Start Date Stop Date Source Former smoker 2019-08-18 00:00:00 2019-08-18 00:00:00 [facility] Medications Ordered Filled Start Stop Current Ordering Indication Dosage Frequency Signature Comments Components Source Medication Medication Date Date Medication? Clinician (SIG) Name Name cloNIDine hypertensio .2mg Q.[id number] Take 0.[address] [facility] - 05-15 n [id number] mg by [facility] - (CATAPRES) 09:10: 00:00 3D mouth 3 Med ical 0.2 MG 19 :00 (three) Center tablet times daily. insulin type 2 32U QD Inject [address] glargine 5-15 05-15 diabetes Units [facility] - (LANTUS) 09:10: 00:00 mellitus subcutaneo Medical 100 unit/mL 19 :00 ly [place] injection nightly Use as directed . insulin [...] 00:00 mouth Medical (HYZAAR) 19 :00 daily. [place] 100-12.5 mg per tablet metoprolol No hypertensio [...] 09:10: 00:00 nightly. Med ical 19 :00 [place] dilTIAZem 2019- No hypertensio 360mg QD Take [address] (TIAZAC) 5-15 05-15 n mg by [facility] - 360 MG 24 09:10: 00:00 mouth Medica l hr capsule 19 :00 daily. [place] cloNIDine 2019- Yes hypertensio .2mg Q.[id number] Take [address] HCL 5-15 n [id number] tablet [facility] - (CATAPRES) 00:00: 3D (0.2 [...] Source Systolic blood 2019-08-26 07:26:00 147 mm[Hg] [facility] pressure [facility] Diastolic blood 2019-08-26 07:26:00 68 mm[Hg] [facility] S t [facility] pressure [facility] Heart rate 2019-08-26 07:26:00 59 /min [facility] Body temperature 2019-08-26 07:26:00 36.94 Nita [facility] Respiratory rate 2019-08-26 07:26:00 18 /min [facility] Oxygen saturation in 2019-08-26 07:26:00 95 /min [facility] - Arterial blood by Medical Ce nter Pulse oximetry Body weight 2019-08-24 08:00:00 83.371 kg [facility] BMI 2019-08-24 08:00:00 27.95 kg/m2 [facility] Body height 2019-08-13 20:05:00 172.7 cm [facility] Procedures Procedure Date / Time Performing Clinician Source Performed RHYTHM STRIP - SCAN 2019-08-29 11:00:18 ProviderTammi [facility] POCT-GLUCOSE METER 2019-08-26 09:24:00 [facility] VEN[facility]OPPL[facility] ARM, LEFT 2019-08-26 08:55:00 [facility] (HEMO[facility] ONLY) 2019-08-26 03:32:00 Madhav Browning [facility] BASIC METABOLIC PANEL (7) 2019-08-26 03:32:00 RadtsMadhav gunter [facility] MAGNESIUM 2019-08-26 03:32:00 CritsMadhav gunter [facility] PHOSPHORUS 2019-08-26 03:32:00 RadtsMadhav gunter [facility] APTT 2019-08-26 03:32:00 Madhav Browning [facility] HEPATIC FUNCTION PANEL 2019-08-26 03:32:00 Amparo Pham [facility] PROTHROMBIN TIME/INR 2019-08-26 03:32:00 Ba Alvarenga [facility] POCT-GLUCOSE METER 2019-08-25 20:33:00 [facility] POCT-GLUCOSE METER 2019-08-25 17:13:00 [facility] POCT-GLUCOSE METER 2019-08-25 12:30:00 [facility] POCT-GLUCOSE METER 2019-08-25 07:38:00 [facility] CBC (HEMOGRAM ONLY) 2019-08-25 05:04:00 CriMadhav ramos [facility] BASIC METABOLIC PANEL (7) 2019-08-25 05:04:00 Madhav Browning [facility] MAGNESIUM 2019-08-25 05:04:00 Madhav Browning [facility] PHOSPHORUS 2019-08-25 05:04:00 Madhav Browning [facility] APTT 2019-08-25 05:04:00 Madhav Browning [facility] HEPATIC FUNCTION PANEL 2019-08-25 05:04:00 [facility] PROTHROMBIN TIME/INR 2019-08-25 05:04:00 Ba Alvarenga [facility] POCT-GLUCOSE METER 2019-08-24 21:22:00 [facility] MISCELLANEOUS LAB ORDER 2019-08-24 21:12:00 Samaria Oh [facility] POCT-GLUCOSE METER 2019-08-24 16:24:00 [facility] POCT-GLUCOSE METER 2019-08-24 12:13:00 [facility] POCT-GLUCOSE METER 2019-08-24 08:14:00 Bruce Owusu [facility] CBC (HEMOGRAM ONLY) 2019-08-24 03:41:00 Madhav Browning [facility] BASIC METABOLIC PANEL (7) 2019-08-24 03:41:00 Madhav Browning [facility] MAGNESIUM 2019-08-24 03:41:00 Madhav Browning [facility] PHOSPHORUS 2019-08-24 03:41:00 Madhav Browning [facility] APTT 2019-08-24 03:41:00 Madhav Browning [facility] HEPATIC FUNCTION PANEL 2019-08-24 03:41:00 Ankit [facility] PROTHROMBIN TIME/INR 2019-08-24 03:41:00 Ba Alvarenga [facility] PROCALCITONIN 2019-08-24 03:41:00 Samaria Oh [facility] POCT-GLUCOSE METER 2019-08-23 21:14:00 Umer [facility] POCT-GLUCOSE METER 2019-08-23 17:27:00 Umer [facility] POCT-GLUCOSE METER 2019-08-23 16:45:00 Umer [facility] POCT-GLUCOSE METER 2019-08-23 13:12:00 Umer [facility] POCT-GLUCOSE METER 2019-08-23 07:42:00 [facility] ([facility] ONLY[facility] 2019-08-23 03:38:00 Madhav Browning [facility] BASIC METABOLIC PANEL (7) 2019-08-23 03:38:00 Madhav Browning [facility] MAGNESIUM 2019-08-23 03:38:00 Radtsinebrionna [facility] PHOSPHORUS 2019-08-23 03:38:00 Nam [facility] APTT 2019-08-23 03:38:00 Nam [facility] HEPATIC FUNCTION PANEL 2019-08-23 03:38:00 [facility] PROTHROMBIN TIME/INR 2019-08-23 03:38:00 Ba Alvarenga [facility] POCT-GLUCOSE METER 2019-08-22 21:39:00 Umer [facility] BLOOD CULTURE 2019-08-22 21:30:00 [facility] BLOOD CULTURE 2019-08-22 21:25:00 [facility] ECHOCARDIOGRAM REPORT - 2019-08-22 21:11:26 Provider, Default I [facility] POCT-GLUCOSE METER 2019-08-22 17:37:00 Bruce Owusu [facility] URINE CULTURE 2019-08-22 15:15:00 [facility] URINALYSIS W/ REFLEX URINE 2019-08-22 15:13:00 Alfredo Phamah [facility] POCT-GLUCOSE METER 2019-08-22 12:45:00 Bruce Owusu [facility] TRANSESOPHAGEAL ECHO 2019-08-22 09:21:31 [facility] POCT-GLUCOSE METER 2019-08-22 07:55:00 Umer [facility] CBC (HEMOGRAM ONLY) 2019-08-22 03:32:00 Madhav Browning [facility] BASIC METABOLIC PANEL (7) 2019-08-22 03:32:00 Madhav Browning [facility] MAGNESIUM 2019-08-22 03:32:00 Madhav Browning [facility] PHOSPHORUS 2019-08-22 03:32:00 Madhav Browning [facility] HEPATIC FUNCTION PANEL 2019-08-22 03:32:00 [facility] PRE[facility]UMIN 2019-08-22 03:32:00 Ba Alvarenga [facility] APTT 2019-08-22 03:31:00 Madhav Browning [facility] PROTHROMBIN TIME/INR 2019-08-22 03:31:00 Ba Alvarenga [facility] POCT-GLUCOSE METER 2019-08-21 22:19:00 Umer [facility] POCT-GLUCOSE METER 2019-08-21 20:26:00 Umer [facility] POCT-GLUCOSE METER 2019-08-21 17:16:00 Umer [facility] POCT-GLUCOSE METER 2019-08-21 12:20:00 Bruce Owusu [facility] POCT-GLUCOSE METER 2019-08-21 08:53:00 Umer [facility] CBC (HEMOGRAM ONLY) 2019-08-21 06:16:00 Madhav Browning [facility] BASIC METABOLIC PANEL (7) 2019-08-21 06:16:00 RadtsMadhav gunter [facility] MAGNESIUM 2019-08-21 06:16:00 CritsMadhav gunter [facility] PHOSPHORUS 2019-08-21 06:16:00 CritsMadhav gunter [facility] APTT 2019-08-21 06:16:00 Madhav Browning [facility] HEPATIC FUNCTION PANEL 2019-08-21 06:16:00 Amparo Pham [facility] POCT-GLUCOSE METER 2019-08-20 21:42:00 Umer [facility] POCT-GLUCOSE METER 2019-08-20 17:40:00 Umer [facility] COLOR-FLOW MAPPING 2019-08-20 16:52:57 [facility] CONT WAVE PULSED DOPPLER 2019-08-20 16:52:57 [facility] POCT-GLUCOSE METER 2019-08-20 12:31:00 Umer [facility] POCT-GLUCOSE METER 2019-08-20 08:33:00 Bruce Owusu [facility] CBC (HEMOGRAM ONLY) 2019-08-20 04:37:00 Madhav Browning [facility] BASIC METABOLIC PANEL (7) 2019-08-20 04:37:00 Madhav Browning [facility] MAGNESIUM 2019-08-20 04:37:00 Madhav Browning [facility] PHOSPHORUS 2019-08-20 04:37:00 Critsinelis, Madhav C [facility] APTT 2019-08-20 04:37:00 RadtsineMadhav staton [facility] HEPATIC FUNCTION PANEL 2019-08-20 04:37:00 Ankit [facility] POCT-GLUCOSE METER 2019-08-20 00:52:00 Umer [facility] TRANSFUSION SERVICE REPORT 2019-08-19 17:50:28 [facility] POCT-GLUCOSE METER 2019-08-19 17:25:00 Umer [facility] POCT-GLUCOSE METER 2019-08-19 12:13:00 Umer [facility] POCT-GLUCOSE METER 2019-08-19 08:09:00 Umer [facility] POCT-GLUCOSE METER 2019-08-19 06:11:00 Umer [facility] CBC (HEMOGRAM ONLY) 2019-08-19 03:38:00 Madhav Browning [facility] BASIC METABOLIC PANEL (7) 2019-08-19 03:38:00 Madhav Browning [facility] MAGNESIUM 2019-08-19 03:38:00 CritsMadhav gunter [facility] PHOSPHORUS 2019-08-19 03:38:00 RadtsMadhav gunter [facility] APTT 2019-08-19 03:38:00 RadtsMadhav gunter [facility] HEPATIC FUNCTION PANEL 2019-08-19 03:38:00 Ankit [facility] POCT-GLUCOSE METER 2019-08-18 23:51:00 Umer [facility] POCT-GLUCOSE METER 2019-08-18 18:21:00 Umer [facility] POCT-GLUCOSE METER 2019-08-18 17:44:00 Umer [facility] POCT-GLUCOSE METER 2019-08-18 17:09:00 Bruce Owusu [facility] TISSUE EXAM 2019-08-18 15:45:00 Cherrie Suarez Aba [facility] LAPAROSCOPY,CHOLECYSTECTOM 2019-08-18 13:17:00 hCerrie Suarez Aba [facility] POCT-GLUCOSE METER 2019-08-18 11:19:00 Bruce Owusu [facility] POCT-GLUCOSE METER 2019-08-18 07:29:00 Bruce Owusu Tameka [facility] XR CHEST 1 VIEW 2019-08-18 07:28:00 Madhav [facility] HEPATIC FUNCTION PANEL 2019-08-18 05:01:00 [facility] ABORH, MANUAL 2019-08-18 05:01:00 Asya Hillman [facility] HEPATIC FUNCTION PANEL 2019-08-18 03:29:00 [facility] CBC (HEMOGRAM ONLY) 2019-08-18 03:29:00 Madhav Browning [facility] BASIC METABOLIC PANEL (7) 2019-08-18 03:29:00 Madhav Browning [facility] MAGNESIUM 2019-08-18 03:29:00 Madhav Browning [facility] PHOSPHORUS 2019-08-18 03:29:00 Madhav Browning [facility] APTT 2019-08-18 03:29:00 Madhav Browning [facility] PROTHROMBIN TIME/INR 2019-08-18 03:29:00 Madhav Browning [facility] TYPE AND SCREEN, AUTOMATED 2019-08-18 03:29:00 Ba Alvarenga ra [facility] POCT-GLUCOSE METER 2019-08-17 21:28:00 Bruce Owusu [facility] POCT-GLUCOSE METER 2019-08-17 13:44:00 Bruce Owusu [facility] [place] ERCP 2019-08-17 08:50:00 Fatuma [facility] POCT-GLUCOSE METER 2019-08-17 08:49:00 Bruce Owusu Tameka [facility] REPORT OF PROCEDURE - 2019-08-17 08:36:[address] [facility] ENDOSCOPY [facility] ERCP,PAPILLOTOMY 2019-08-17 07:54:00 Fatuma [facility] PROCEDURE W/ C-ARM 2019-08-17 07:54:00 Fatuma [facility] UPPER ENDOSCOPY,ULTRASOUND 2019-08-17 07:54:00 Fatuma Olman [facility] ERCP,BALLOON SWEEPING 2019-08-17 07:54:00 Fatuma [facility] POCT-GLUCOSE METER 2019-08-17 05:30:00 Bruce Owusu [facility] BASIC METABOLIC PANEL (7) 2019-08-17 05:26:00 Madhav Browning [facility] MAGNESIUM 2019-08-17 05:26:00 Madhav Browning [facility] PHOSPHORUS 2019-08-17 05:26:00 Madhav Browning [facility] POCT-GLUCOSE METER 2019-08-17 03:30:00 Bruce Owusu [facility] CBC (HEMOGRAM ONLY) 2019-08-17 03:26:00 Madhav Browning [facility] APTT 2019-08-17 03:26:00 Madhav Browning [facility] PROTHROMBIN TIME/INR 2019-08-17 03:26:00 Madhav Browning [facility] ECHOCARDIOGRAM REPORT - 2019-08-16 21:23:02 Provider, Tammi [facility] POCT-GLUCOSE METER 2019-08-16 17:09:00 Bruce Owusu [facility] POCT-GLUCOSE METER 2019-08-16 12:29:00 Bruce Owusu [facility] 2D ECHO W/ DOPPLER 2019-08-16 09:32:[address] [facility] (CW/PW/COLOR) [facility] POCT-GLUCOSE METER 2019-08-16 07:58:00 Bruce Owusu [facility] POCT-GLUCOSE METER 2019-08-16 04:49:00 Bruce Owusu Tameka [facility] XR CHEST 1 VIEW 2019-08-16 04:01:[address] [facility] PORTABLE/BEDSIDE [facility] CBC (HEMOGRAM ONLY) 2019-08-16 03:33:00 Madhav Browning [facility] BASIC METABOLIC PANEL (7) 2019-08-16 03:33:00 Madhav Browning [facility] MAGNESIUM 2019-08-16 03:33:00 RadtsMadhav gunter [facility] PHOSPHORUS 2019-08-16 03:33:00 Madhav Browning [facility] APTT 2019-08-16 03:33:00 Madhav Browning [facility] PROTHROMBIN TIME/INR 2019-08-16 03:33:00 Madhav [facility] HEPATIC FUNCTION PANEL 2019-08-16 03:33:00 Madhav Browning [facility] POCT-GLUCOSE METER 2019-08-15 23:21:00 Bruce Owusu [facility] ECG 12-LEAD 2019-08-15 16:45:32 Unknown, Hl7 [facility] XR CHEST 1 VIEW 2019-08-15 09:33:[address] [facility] PORTABLE/BEDSIDE [facility] ECG 12-LEAD 2019-08-15 06:29:27 Rahat Turner [facility] POCT-GLUCOSE METER 2019-08-15 05:36:00 Bruce Owusu [facility] CBC (HEMOGRAM ONLY) 2019-08-15 03:41:00 Madhav Browning [facility] BASIC METABOLIC PANEL (7) 2019-08-15 03:41:00 Madhav Browning [facility] MAGNESIUM 2019-08-15 03:41:00 Madhav Browning [facility] PHOSPHORUS 2019-08-15 03:41:00 Madhav Browning [facility] HEPATIC FUNCTION PANEL 2019-08-15 03:41:00 Madhav Browning [facility] B-TYPE NATRIURETIC FACTOR 2019-08-15 03:41:00 Rahat Turner [facility] (BNP) [facility] TROPONIN I 2019-08-15 03:41:00 Rahat Turner [facility] APTT 2019-08-15 03:40:00 Madhav Browning [facility] PROTHROMBIN TIME/INR 2019-08-15 03:40:00 Madhav Browning [facility] POCT-GLUCOSE METER 2019-08-15 00:20:00 Bruce Owusu [facility] ECG 12-LEAD 2019-08-14 22:36:38 Rahat Turner [facility] MR ABDOMEN WITH & WITHOUT 2019-08-14 17:28:[address] [facility] IV CONTRAST [facility] POCT-GLUCOSE METER 2019-08-14 17:27:00 Bruce Owusu [facility] XR CHEST 1 VIEW 2019-08-14 08:50:00 Madhav Browning [facility] PORTABLE/BEDSIDE [facility] POCT-GLUCOSE METER 2019-08-14 06:34:00 Bruce Owusu [facility] ECG 12-LEAD 2019-08-14 06:29:11 Unknown, Hl7 Doctor [facility] TROPONIN I 2019-08-14 05:37:00 Madhav Browning [facility] CBC (HEMOGRAM ONLY) 2019-08-14 05:37:00 Madhav Browning [facility] BASIC METABOLIC PANEL (7) 2019-08-14 05:37:00 Madhav Browning [facility] MAGNESIUM 2019-08-14 05:37:00 Madhav Browning [facility] PHOSPHORUS 2019-08-14 05:37:00 Madhav Browning [facility] APTT 2019-08-14 05:37:00 Madhav Browning [facility] PROTHROMBIN TIME/INR 2019-08-14 05:37:00 Madhav Browning [facility] HEPATIC FUNCTION PANEL 2019-08-14 05:37:00 Madhav Browning [facility] BASIC METABOLIC PANEL (7) 2019-08-13 23:52:00 Madhav Browning [facility] MAGNESIUM 2019-08-13 23:52:00 Madhav Browning [facility] PHOSPHORUS 2019-08-13 23:52:00 RadtsMadhav gunter [facility] HEPATIC FUNCTION PANEL 2019-08-13 23:52:00 Madhav Browning [facility] TROPONIN I 2019-08-13 23:52:00 Madhav Browning [facility] AMYLASE 2019-08-13 23:52:00 Madhav Browning [facility] LIPASE 2019-08-13 23:52:00 Madhav Browning [facility] XR CHEST 1 VIEW 2019-08-13 23:50:00 Madhav Browning [facility]/BEDSIDE Medical [place] ECG 12-LEAD 2019-08-13 22:31:52 Nam [facility] HEMOGLOBIN A1C 2019-08-13 22:27:00 Madhav Browning [facility] PROTHROMBIN TIME/INR 2019-08-13 22:27:00 Madhav Browning [facility] APTT 2019-08-13 22:27:00 Madhav Browning [facility] CBC W/PLT COUNT & AUTO 2019-08-13 22:27:00 Madhav Browning [facility] POCT-GLUCOSE METER 2019-08-13 21:44:00 Bruce Owusu [facility] SARS-COV2/RT-PCR ([facility] & 2019-08-11 18:14:00 [facility] - REF LABS) Medical Center Plan of Care Planned Activity Planned Date Details Comments Source Future Scheduled 2020-02-13 Hemoglobin A1c [facility] kes - Test 00:00:00 measurement [facility] (procedure) [code = 93530800] Future Scheduled 2019-12-13 INFLUENZA VACCINE (#1) [facility] 00:00:00 [code = INFLUENZA Medical Ce nter VACCINE (#1)] Future Scheduled 2005-02-12 MEDICARE ANNUAL [facility] - Test 00:00:00 WELLNESS (YEAR 2 or Medical Center FIRST YEAR if no IPPE) [code = MEDICARE ANNUAL WELLNESS (YEAR 2 or FIRST YEAR if no IPPE)] Future Scheduled 2004-02-21 PNEUMOCOCCAL 65+ YRS [facility] - Test 00:00:00 (1 of 1 - Medical Center [id number] PCV13) [code = PNEUMOCOCCAL 65+ YRS (1 of 1 - [id number] PCV13)] Future Scheduled 1949 DIABETIC EYE EXAM [facility] - Test 00:00:00 [code = DIABETIC EYE Medical Center EXAM] Future Scheduled 1949 Diabetic foot [facility] es - Test 00:00:00 examination Medical Center (regime/therapy) [code = 315417886] Future Scheduled 1949 Urine screening for [facility] - Test 00:00:00 protein (procedure) [facility] [code = 427357052] Results Test Description Test Time Test Comments Results Result Sourc e Comments Karius DNA assay 2019-08-[address] [facility] 07:16:00 NON-INTERFACED - Medical LAB Center Blood Culture - Routine (Left Venipuncture) 2019-08-27 23:00 :00 Test Item Value Reference Range Interpretation Comme nts Result (test code = 6463-4) No growth in 5 days [facility] [id number] 23:00:00 Test Item Value Reference Range Interpretation Comments CULTURE (BEAKER) (test No growth in 5 days code = 1095) BLOOD [id number] 23:00:00 Test Item Value Reference Range Interpretation Comments CULTURE (BEAKER) (test No growth in 5 days code = 1095) Venous doppler arm, [id number] 16:12:53Ejection FractionSLEH ECHO HEARTLAB MKCKESSON CPACS Left [...] Study 08/26/2019 DAVIDA Age 79 Visit Number [id number] Female Accession Number [id number] Date of 1940 Referring Kapil Narvaez Room Number 1411 Physician Head Sawyer Yan Ramirez Interpreting DWIGHT Garza Physician ProcedureType of Study: Veins: Upper Extremities Veins, VENOUS DOPPLER ARM, LEFT. Indications for Study:Left arm swelling .Patient Status:STAT.Study Location:Vascular Lab.Technical Quality:Adequate visualization. - Results were reported to: Segrei GLASGOW @ 9:00 am.Risk FactorsHistory of Disease+ [...] cm/s ; Diameters are [facility] [id number] 09:56:00 Test Item Value Reference Range Interpretation Comments POC-Glucose Meter (test 142 mg/dL 70-110 H : TE STED AT [facility] code = 1538) [address] [facility], 770 30: Plc Technician/Techni chad ID = [id number] for SERGEI MCFADDEN Lab Interpretation (test Abnormal code = 23604-1) [facility]-GLUCOSE [id number] 09:56:00 Test Item Value Reference Range Interpretation Comments POC-GLUCOSE METER 142 mg/dL 70-110 H : TESTED A T [facility] 6720 (BEAKER) (test code = KWAME Souza [facility], 1538) [address]: Plc Technician/Techni chad ID = [id number] for VALENTINE SINHASERGEI Singh Basic Metabolic [id number] 04:34:00 Test Item Value Reference Range Interpretation Comments Sodium (test code = 141 meq/L 191-788 3873-2) Potassium (test code = 4.3 meq/L 3.5-5.1 2823-3) Chloride (test code = 105 meq/L 98-107 2075-0) CO2 (test code = 30 meq/L 22-29 H 8-9) BUN (test code = 9 mg/dL 7-21 3094-0) Creatinine (test code 0.69 mg/dL 0.57-1.25 = 2160-0) Glucose (test code = 146 mg/dL 70-105 H 2345-7) Calcium (test code = 8.7 mg/dL 8.4-10.2 55030-0) EGFR (test code = 82 mL/min/1.73 [place] [address]-8) NOT ACCURATE CREATININE CLEARANCE IN PREDICTING GLOMERULAR FILTRATION RATE . ESTIMATED GFR I S NOT APPLICABLE FOR DIALYSIS PATIENTS. JAY (test code = JAY) Plc Technician ID - LUPE Seals Lab Interpretation Abnormal (test code = 02365-2) [facility] [id number] 04:34:00 Test Item Value Reference Range Interpretation Comments Protein, Total (test code 5.8 6.0- 8.3 gm/dL L = 2885-2) Albumin (test code = 2.9 g/dL 3.5-5 L 12651-7) Total Bilirubin (test code 0.6 mg/dL 0.2-1.2 = 1975-2) Bilirubin, Direct (test 0.3 mg/dL 0.1-0.5 code = 1968-7) Alkaline Phosphatase (test 105 U/L 40-150 code = 6768-6) AST (test code = 1920-8) 10 U/L 5-34 ALT (test code = 1742-6) 7 U/L 6-55 JAY (test code = JAY) Plc Technician COLTON Seals Lab Interpretation (test Abnormal code = 84783-4) [facility] 04:34:00 Test Item Value Reference Range Interpretation Comments Magnesium (test code = 1.9 mg/dL 1.6-2.6 96031-5) JAY (test code = JAY) Plc Technician COLTON ANDRADE W Lab Interpretation (test Normal code = 64345-9) [facility] 04:34:00 Test Item Value Reference Range Interpretation Comments Phosphorus (test code = 3.2 mg/dL 2.3-4.7 2777-1) JAY (test code = JAY) Plc Technician COLTON ANDRADE W Lab Interpretation (test Normal code = 97917-0) [facility]US2020-[facility]-15 04:34:00 Test Item Value Reference Range Interpretation Comments PHOSPHORUS (BEAKER) (test code = 3.2 mg/dL 2.3-4.7 604) Plc Technician COLTON ANDRADE [id number] 04:34:00 Test Item Value Reference Range Interpretation Comments MAGNESIUM (BEAKER) (test code = 1.9 mg/dL 1.6-2.6 627) Plc Technician COTLON ANDRADE WBASIC METABOLIC [id number] 04:34:00 Test Item Value Reference Range Interpretation [...] S NOT APPLICABLE FOR DIALYSIS PATIEN TS. Plc Technician ID Enriqueta ANDRADE [facility] [id number] 04:34:00 Test Item Value Reference Range Interpretation [...] (test code = 7 U/L 6-55 347) Plc Technician ID Enriqueta ANDRADE [id number] 04:23:00 Test Item Value Reference Range Interpretation Comments PTT (test code = 55509-5) 37.5 22.5- 36.0 seconds H Lab Interpretation (test code = Abnormal 53161-4) [facility] 04:23:00 Test Item Value Reference Range Interpretation Comments PARTIAL THROMBOPLASTIN TIME 37.5 seconds 22.5-36.0 H (BEAKER) (test code = 760) Prothrombin time/[id number] 04:22:00 Test Item Value Reference Range Interpretation [...] valves. Lab Interpretation Normal (test code = 71934-8) [facility] HospitalPROTHROMBIN TIME/[id number] 04:22:00 Test Item Value Reference Range Interpretation [...] 450 K/CU MM MPV (test code = 15233-2) 10.5 fL 9.4-12.3 nRBC (test code = 413) 0 0- 0 /100 WBC Lab Interpretation (test code = Abnormal 46353-4) [facility] (HEMOGRAM ONLY)2019-08-26 04:02:00 Test Item [...] 0-0 (BEAKER) (test code = 413) POCT-GLUCOSE [id number] 20:52:00 Test Item Value Reference Range Interpretation Comments POC-GLUCOSE METER 194 mg/dL 70-110 H : TESTED A T [facility] 6720 (BEAKER) (test code = [place], 1538) [address]: Plc Technician/Techni chad ID = [id number] for MELISSA SPANGLER POCT-GLUCOSE [id number] 17:24:00 Test Item Value Reference Range Interpretation Comments POC-GLUCOSE METER 146 mg/dL 70-110 H : [facility] (test code = [facility], 1538) [address]: Plc Technician/Techni chad ID = [id number] for JASON GARCIA POCT-GLUCOSE [id number] 12:41:00 Test Item Value Reference Range Interpretation Comments POC-GLUCOSE METER 170 mg/dL 70-110 H : Notified RN/MD: ([facility]) (test code = TESTED AT [facility] 6720 1538) [facility], [address]: Plc Technician/Techni chad ID = [id number] for MELIZA KRISHNAMURTHY POCT-GLUCOSE [id number] 07:51:00 Test Item Value Reference Range Interpretation Comments POC-GLUCOSE METER 135 mg/dL 70-110 H : [facility]) (test code = [facility], 1538) [address]: Plc Technician/Techni chad ID = [id number] for JASON GARCIA [id number] 06:04:00 Test Item Value Reference Range Interpretation Comments PHOSPHORUS (BEAKER) (test code = 3.3 mg/dL 2.3-4.7 604) Plc Technician ID - SCOTTY [id number] 06:04:00 Test Item Value Reference Range Interpretation Comments MAGNESIUM (BEAKER) (test code = 1.9 mg/dL 1.6-2.6 627) Plc Technician ID - SCOTTY MBASIC METABOLIC [id number] 06:04:00 Test Item Value Reference Range Interpretation [...] S NOT APPLICABLE FOR DIALYSIS PATIEN TS. Plc Technician ID - SCOTTY EPATIC FUNCTION [id number] 06:04:00 Test Item Value Reference Range Interpretation [...] (test code = 9 U/L 6-55 347) Plc Technician COLTON FAJARDO [id number] 05:37:00 Test Item Value Reference Range Interpretation Comments PARTIAL THROMBOPLASTIN TIME 31.6 seconds 22.5-36.0 (BEAKER) (test code = 760) PROTHROMBIN TIME/[id number] 05:36:00 Test Item Value Reference Range Interpretation [...] 0-0 (BEAKER) (test code = 413) POCT-GLUCOSE [id number] 21:35:00 Test Item Value Reference Range Interpretation Comments POC-GLUCOSE METER 204 mg/dL 70-110 H : TESTED A T [facility] 6720 (BEAKER) (test code = [facility], 153) [address]: Plc Technician/Techni chad ID = [id number] for Lupis Carney POCT-GLUCOSE [id number] 17:23:00 Test Item Value Reference Range Interpretation Comments POC-GLUCOSE METER 142 mg/dL 70-110 H : TESTED A T [facility] 6720 (BEAKER) (test code = [facility], 153) 15768: Plc Technician/Techni chad ID = [id number] for ROCK GAMA POCT-GLUCOSE [id number] 12:37:00 Test Item Value Reference Range Interpretation Comments POC-GLUCOSE METER 236 mg/dL 70-110 H : TESTED A T [facility] 6720 (BEAKER) (test code = [place], 1538) [address]: Plc Technician/Techni chad ID = [id number] for ROCK GAMA POCT-GLUCOSE [id number] 08:39:00 Test Item Value Reference Range Interpretation Comments POC-GLUCOSE METER 107 mg/dL 70-110 : TESTED A T [facility] 6720 (BEAKER) (test code = KW[place] Sou[place] [facility], 1538) [address]: Plc Technician/Techni chad ID = [id number] for ROCK GAMA Vkwvvgwqykard5967-10-29 05:58:00 Test Item Value Reference Range Interpretation Comments Procalcitonin (test code = 0.06 ng/mL <0.05 H 08259-5) JAY (test code = JAY) SEPSIS RISK (ng/mL)Low: 0.05-0.50Intermedi ate: 0.51-2.00High: >=2.01 Lab Interpretation (test Abnormal code = 53556-0) [facility] HospitalPROCALCITONIN2020-05-13 05:58:00 Test Item Value Reference Range Interpretation Comments PROCALCITONIN (BEAKER) (test code 0.06 ng/mL <0.05 H = 3036) SEPSIS RISK (ng/mL)Low: 0.05-0.50Intermediate: 0.51-2.00High: >=[id number] 04:47:00 Test Item Value Reference Range Interpretation Comments PHOSPHORUS (BEAKER) (test code = 3.8 mg/dL 2.3-4.7 604) Plc Technician ID - MALU [id number] 04:47:00 Test Item Value Reference Range Interpretation Comments MAGNESIUM (BEAKER) (test code = 1.9 mg/dL 1.6-2.6 627) Plc Technician ID - MALU LBASIC METABOLIC [id number] 04:47:00 Test Item Value Reference Range Interpretation [...] S NOT APPLICABLE FOR DIALYSIS PATIEN TS. Plc Technician ID - PIRJ EPATIC FUNCTION [id number] 04:47:00 Test Item Value Reference Range Interpretation [...] (test code = 14 U/L 6-55 347) Plc Technician ID - PIRJ [id number] 04:22:00 Test Item Value Reference Range Interpretation Comments PARTIAL THROMBOPLASTIN TIME 38.4 seconds 22.5-36.0 H (BEAKER) (test code = 760) PROTHROMBIN TIME/[id number] 04:21:00 Test Item Value Reference Range Interpretation [...] 0-0 (BEAKER) (test code = 413) POCT-GLUCOSE [id number] 21:26:00 Test Item Value Reference Range Interpretation Comments POC-GLUCOSE METER 202 mg/dL 70-110 H : TESTED Francisco Marin [facility] 6720 (BEAKER) (test code = [place], 1538) [address]: Plc Technician/Techni chad ID = [id number] for Charlene Gibbs POCT-GLUCOSE [id number] 17:43:00 Test Item Value Reference Range Interpretation Comments POC-GLUCOSE METER 252 mg/dL 70-110 H : TESTED A T [facility] 6720 (BEAKER) (test code = [facility], 1538) 48693: Plc Technician/Techni chad ID = [id number] for CATHERINE GAMAA POCT-GLUCOSE [id number] 16:57:00 Test Item Value Reference Range Interpretation Comments POC-GLUCOSE METER 278 mg/dL 70-110 H : TESTED A T [facility] 6720 (BEAKER) (test code = [facility], 1538) 68665: Plc Technician/Techni chad ID = [id number] for Salome Valladares POCT-GLUCOSE [id number] 13:23:00 Test Item Value Reference Range Interpretation Comments POC-GLUCOSE METER 121 mg/dL 70-110 H : TESTED A T [facility] 6720 (BEAKER) (test code = [facility], 1538) 29235: Plc Technician/Techni chad ID = [id number] for Ca daniela, Zanenia Urine [id number] 10:40:00 Test Item Value Reference Range Interpretation Comments Result (test code = 6463-4) No growth [facility] [id number] 10:40:00 Test Item Value Reference Range Interpretation Comments CULTURE (BEAKER) (test code = 1095) No growth POCT-GLUCOSE [id number] 09:14:00 Test Item Value Reference Range Interpretation Comments POC-GLUCOSE METER 167 mg/dL 70-110 H : TESTED A T [facility] 6720 (BEAKER) (test code = [facility], 153) 21663: Plc Technician/Techni chad ID = [id number] for CATHERINE GAMAA [id number] 05:24:00 Test Item Value Reference Range Interpretation Comments PHOSPHORUS (BEAKER) (test code = 3.4 mg/dL 2.3-4.7 604) Plc Technician ID - MALU [id number] 05:24:00 Test Item Value Reference Range Interpretation Comments MAGNESIUM (BEAKER) (test code = 1.7 mg/dL 1.6-2.6 627) Plc Technician ID - MALU LBASIC METABOLIC [id number] 05:24:00 Test Item Value Reference Range Interpretation [...] S NOT APPLICABLE FOR DIALYSIS PATIEN TS. Plc Technician ID - PIAYA EPATIC FUNCTION [id number] 05:24:00 Test Item Value Reference Range Interpretation [...] (test code = 12 U/L 6-55 347) Plc Technician ID - PIRJ [id number] 04:14:00 Test Item Value Reference Range Interpretation Comments PARTIAL THROMBOPLASTIN TIME 37.8 seconds 22.5-36.0 H (BEAKER) (test code = 760) PROTHROMBIN TIME/[id number] 04:13:00 Test Item Value Reference Range Interpretation [...] 0-0 (BEAKER) (test code = 413) POCT-GLUCOSE [id number] 21:50:00 Test Item Value Reference Range Interpretation Comments POC-GLUCOSE METER 139 mg/dL 70-110 H : TESTED A T [facility] 6720 (BEAKER) (test code = [place], 1538) 28183: Plc Technician/Techni chad ID = [id number] for DAYAMI BAUTISTA POCT-GLUCOSE [id number] 17:49:00 Test Item Value Reference Range Interpretation Comments POC-GLUCOSE METER 290 mg/dL 70-110 H : TESTED A T [facility] 6720 (BEAKER) (test code = [place], 1538) [address]: Plc Technician/Techni chad ID = [id number] for JONAH RUBIO Urinalysis w/Microscopic + Reflex to [id number] 15:33:00 Test Item Value Reference Range Interpretation Comments Color, UA (test code = Light Yellow 5778-6) Clarity, UA (test code Clear = 5767-9) Specific [place], UA 1.011 1.001-1.035 (test code = 5811-5) pH, UA (test code = 7.0 5.0-8.0 5803-2) Protein, UA (test code Negative Negative = 10383-6) Glucose, UA (test code Negative Negative = 365) Ketones, UA (test code Negative Negative = 2514-8) Bilirubin, UA (test Negative Negative code = 06927-9) Blood, UA (test code = Negative Negative 17533-2) Nitrite, UA (test code Negative Negative = 5802-4) Leukocytes, UA (test Negative Negative code = 5799-2) Urobilinogen, UA (test 0.2 mg/dL 0.2-1 code = 43391-9) RBC, UA (test code = 1 /HPF 41314-2) WBC, UA (test code = 1 /HPF 5821-4) Mucus (test code = Occasional 8247-9) Squam Epithel, UA 6 /HPF (test code = 87878-7) Specimen Source (test code = 2795) JAY (test code = JAY) Plc Technician ID - [auto]Plc Technician ID - tech [facility]/ REFLEX URINE [id number] 15:33:00 Test Item Value Reference Range Interpretation [...] = 516) SOURCE(BEAKER) (test code = 2795) Plc Technician ID - [auto]Plc Technician ID - techTransesophageal [id number] 13:17:33 Ejection FractionSLEH ECHO HEARTLAB MKCKESSON CPACSInterface, External Ris In - 08/22/2019 1:17 PM CDTTransesophageal Echocardiography Report (ARJUN) Demographics Patient Name GUADALUPE HERNANDEZ Dateof Study 08/22/2019 DAVIDA GenderFemale Visit Number [id number] Race Room Number 1411 Number Date of 1940 Referring Toño Cantrell Physician Age 79 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 Jason Cleaning Interpreting Javier Sapp MD Physician [...] Velocity: 2.68 m/s TR Gradient: 28.73 mmHgCHI [facility] HospitalPOCT-GLUCOSE [id number] 12:57:00 Test Item Value Reference Range Interpretation Comments POC-GLUCOSE METER 144 mg/dL 70-110 H : TESTED A T [facility] 6720 (BEAKER) (test code = [facility], 153) 64368: Plc Technician/Techni chad ID = [id number] for JOANNE, JONAH BEL POCT-GLUCOSE [id number] 09:58:00 Test Item Value Reference Range Interpretation Comments POC-GLUCOSE METER 162 mg/dL 70-110 H : TESTED A T [facility] 6720 (BEAKER) (test code = [facility], 153) 06137: Plc Technician/Techni chad ID = [id number] for JOANNE, JONAH BEL POCT-GLUCOSE [id number] 09:49:00 Test Item Value Reference Range Interpretation Comments POC-GLUCOSE METER 132 mg/dL 70-110 H : TESTED A T [facility] 6720 (BEIllumio) (test code = [facility], 153) 66777: Plc Technician/Techni chad ID = [id number] for AP URA, ARELY POCT-GLUCOSE [id number] 09:46:00 Test Item Value Reference Range Interpretation Comments POC-GLUCOSE METER 129 mg/dL 70-110 H : TESTED A T [facility] 6720 (OurShelf) (test code = [facility], 153) 67882: Plc Technician/Techni chad ID = [id number] for PI TTS, HUDSON POCT-GLUCOSE [id number] 09:42:00 Test Item Value Reference Range Interpretation Comments POC-GLUCOSE METER 230 mg/dL 70-110 H : TESTED A T [facility] 6720 (BEAKER) (test code [facility], = 1538) 27596: Plc Technician/Techni chad ID = [id number] for HORTENCIA MUÑOZO POCT-GLUCOSE [id number] 09:38:00 Test Item Value Reference Range Interpretation Comments POC-GLUCOSE METER 277 mg/dL 70-110 H : TESTED A T [facility] 6720 (BEAKER) (test code = [facility] Libby [facility], 1538) 44414: Plc Technician/Techni chad ID = [id number] for Ta tsch, Denny POCT-GLUCOSE [id number] 09:33:00 Test Item Value Reference Range Interpretation Comments POC-GLUCOSE METER 108 mg/dL 70-110 : TESTED A T [facility] 6720 (BEAKER) (test code [facility], = 1538) 19298: Plc Technician/Techni chad ID = [id number] for HORTENCIA MUÑOZO [id number] 05:08:00 Test Item Value Reference Range Interpretation Comments PHOSPHORUS (BEAKER) (test code = 3.2 mg/dL 2.3-4.7 604) Plc Technician ID - SCOTTY [id number] 05:08:00 Test Item Value Reference Range Interpretation Comments MAGNESIUM (BEAKER) (test code = 1.8 mg/dL 1.6-2.6 627) Plc Technician ID - SCOTTY MBASIC METABOLIC [id number] 05:08:00 Test Item Value Reference Range Interpretation [...] S NOT APPLICABLE FOR DIALYSIS PATIEN TS. Plc Technician ID - SCOTTY MHEPATIC FUNCTION [id number] 05:08:00 Test Item Value Reference Range Interpretation [...] (test code = 19 U/L 6-55 347) Plc Technician ID - SCOTTY [id number] 04:38:00 Test Item Value Reference Range Interpretation Comments Prealbumin (test code = 11 mg/dL 14-45 L 88934-4) JAY (test code = JAY) Plc Technician ID - DB Lab Interpretation (test Abnormal code = 04993-4) [facility]PREAL[facility]UMIN2020-[facility]-11 04:38:00 Test Item Value Reference Range Interpretation Comments PREALBUMIN (BEAKER) (test code = 11 mg/dL 14-45 L 586) Plc Technician ID - DBPROTHROMBIN TIME/[id number] 04:22:00 Test Item Value Reference Range Interpretation [...] INR is2.5-3.5 for patients wiht mechanical heart valves.[id number] 04:22:00 Test Item Value Reference Range Interpretation [...] WBC 0-0 (BEAKER) (test code = 413) [id number] 07:14:00 Test Item Value Reference Range Interpretation Comments PHOSPHORUS (BEAKER) (test code = 3.1 mg/dL 2.3-4.7 604) Plc Technician ID - [id number] 07:14:00 Test Item Value Reference Range Interpretation Comments MAGNESIUM (BEAKER) (test code = 1.8 mg/dL 1.6-2.6 627) Plc Technician ID - NTPBASIC METABOLIC [id number] 07:14:00 Test Item Value Reference Range Interpretation [...] S NOT APPLICABLE FOR DIALYSIS PATIEN TS. Plc Technician ID - NTPHEPATIC FUNCTION [id number] 07:14:00 Test Item Value Reference Range Interpretation [...] (test code = 19 U/L 6-55 347) Plc Technician ID - [id number] 07:06:00 Test Item Value Reference Range Interpretation [...] 0-0 (BEAKER) (test code = 413) POCT-GLUCOSE [id number] 21:55:00 Test Item Value Reference Range Interpretation Comments POC-GLUCOSE METER 450 mg/dL 70-110 HH : TESTED A T [facility] 6720 (BEAKER) (test code = KWAME Souza [facility], 153) 04987: Plc Technician/Techni chad ID = [id number] for UG ORJI, SOCORRO POCT-GLUCOSE [id number] 17:52:00 Test Item Value Reference Range Interpretation Comments POC-GLUCOSE METER 146 mg/dL 70-110 H : TESTED A T [facility] 6720 (BEAKER) (test code [facility], = 1538) 29917: Plc Technician/Techni chad ID = [id number] for KRISTA NEFF POCT-GLUCOSE [id number] 12:43:00 Test Item Value Reference Range Interpretation Comments POC-GLUCOSE METER 238 mg/dL 70-110 H : Notified RN/MD: TESTED (BEAKER) (test code AT [facility] 67[address] [facility] = 1538) [facility], 770 30: Plc Technician/Techni chad ID = [id number] for MOOD Y, SEEMAWNTELL POCT-GLUCOSE [id number] 08:45:00 Test Item Value Reference Range Interpretation Comments POC-GLUCOSE METER 236 mg/dL 70-110 H : Notified RN/MD: TESTED (BEAKER) (test code AT [facility] [address] [place] = 1538) [place], [address]: Plc Technician/Techni chad ID = [id number] for MOOD Y, SHAWNTELL [id number] 06:42:00 Test Item Value Reference Range Interpretation Comments PHOSPHORUS (BEAKER) (test code = 2.3 mg/dL 2.3-4.7 604) Plc Technician ID - MALU [id number] 06:42:00 Test Item Value Reference Range Interpretation Comments MAGNESIUM (BEAKER) (test code = 1.8 mg/dL 1.6-2.6 627) Plc Technician ID - MALU LBASIC METABOLIC [id number] 06:42:00 Test Item Value Reference Range Interpretation [...] S NOT APPLICABLE FOR DIALYSIS PATIEN TS. Plc Technician ID - MALU LHEPATIC FUNCTION [id number] 06:42:00 Test Item Value Reference Range Interpretation [...] (test code = 24 U/L 6-55 347) Plc Technician ID - MALU [id number] 05:47:00 Test Item Value Reference Range Interpretation [...] 0-0 (BEAKER) (test code = 413) POCT-GLUCOSE [id number] 01:04:00 Test Item Value Reference Range Interpretation Comments POC-GLUCOSE METER 252 mg/dL 70-110 H : TESTED A T [facility] 6720 (BEAKER) (test code = KARLHI Lib[place] [facility], 1538) 80820: Plc Technician/Techni chad ID = [id number] for SOCORRO ROBERSON POCT-GLUCOSE [id number] 17:37:00 Test Item Value Reference Range Interpretation Comments POC-GLUCOSE METER 190 mg/dL 70-110 H : TESTED A T [facility] 6720 (BEAKER) (test code = KWAME Souza [facility], 1538) 53295: Plc Technician/Techni chad ID = [id number] for JONAH RUBIO BEL Tissue [id number] 16:32:00 Test Item Value Reference Range Interpretation Comments Case Report (test code Surgical Pathology = 104) Report Case: [id number] Authorizing Provider: Cherrie Suarez Aba, MD Collected: 08/18/2019 03:45 PM Ordering Location: [facility] Received: 08/18/2019 04:10 PM PERIOPERATIVE SERVICES Pathologist: Guadalupe Vaca MD Specimen: Gallbladder, GALLBLADDER DIAGNOSIS (test code = z7aesGJuYQMno3ovESVhtZF 3220) uZzEwMzNcZnRuYmpcdWMxIH lsbrNpOCpgg7WeS8SvOwTrX FxhbnNpXGRlZmxhbmcxMDMz IOU8smJcPOFhLPpyFGOpBMg pZk9hgWBlkSrnUcHdRSQuz8 iiprXCrvcnnNo6z6dbIIFwR jX5cHYgPTtsI3auiuIwhDKo FAOkHZt7nQ53QZOxsR1shTW nGUaadgEzFzH2AIpfICDsZb F7CSRxxXXcXXRaL6fwMKDyG KvjLMNnRZulwVApANP6wQfm l5F4uBQrvTHswZkrMwOdZsT bBRJOy4JbOWl8xYlzD3NjTG CmHmB3lWAsBFSaWHknHGGsO NTqobD8pS87AUpfbgE4iMOi x3Psb44rs536tL6gzZRrFPF 7VGVzLFNwuEQyOBJkSND5ND VjgJGkI3h0QhZrzXLtI8Z8A yTmxQXaL5K5KvImaUTaY2K7 DlVkbXVmFITrtBKuRa6bbRN cvKJray9fmb21JWC0e7XtjP thOWR7ZPX5EiIfWg1rlBFhR KZfTA1lFtJedJTvTECuzc01 nVnfPAwzvjMfjF8wKyFsUBF niOAhNEQuEK8ohQDvWFFunJ 5ucmxjXHBnYnJkcmhlYWRcc LqfbuPyVb0hjGucUSC7FOpf H2yvcZ3gTqG3QNcwH6iomT4 kGZv2EBktrWX0VHBaeY2fIZ 6rawtln5htJyJnIJ2vupxhs 4wsZgVnWU8srpe5w3qvCoSz ZD5qgztip2ckZaXbCKnxVYT jdlkfVSRtk7VftgnoTJGes1 OwS4DojMbzJ67iaBqnS27mJ QBqyFnnrU8dxTlyxO0gBeEj ZnMyNFxxbFxwbGFpblxmMVx mczIwXGxhbmcxMDMzXGhpY2 doBnUzFDUxiAjpHGbhs3SjI GDoPEPvSyPrPR3uW1RCTTVH BCQVRMXdZStKZMTME2MEV1P XKhMDAF6JPAOYS1WHG6GCDZ p7CDNaauYeCMIOIURGHQpJV C3KUEvuE6dXU18YDdHSYbNy Nc0HMAfsWSUQCHFbE7bUSMN BRCNFPFNSP8xeKFHfOINFZF 9EXKlFIJlSUMLEO3llBWChV SBPTkUgQkVOSUdOIExZTVBI AO7AKSPiHVOpBVxqVJKLBEk kNMP0z6imbAAbPRUhkBRwHD AwMFxhbnNpXGRlZmxhbmcxM TMtGFY2txCzUYLdXYjdNKZc VIjsCh6jiBIlxJfqGtXoDQZ ut8gjceWVgqcemHi7w8feMD IvFhL5oUGeDAojE1sqauVuf DUuYBXsCZl4yB05QJEncC2t nYTlPZbbjqWfKkD6OYwaYPD dNwR3SVUxkSFjMSOuO0ktTN LbTMeeNACjWCzqfDKiBCY1e Ikdf1Z2nDTueXMpgJxyGkXx RwKgAzWUr8QaMJx4aXwuN6M dTCPmRdA6oBRdVNOsWBiuVR XrLADnnxK8tK61VVznoxL5g HIzm4Wry84nb957xZ1geBVg PHL9UDTwSNYxmAOqIEMdKJF 1EERlzFJzG2vdOMUcMI4yrw crTDvoLNuqQUIunGK5HAZdm HCkQ2TtXJWlRYttTHMxrtf6 LgEyUn5ieLXocVleRCzek5p cr6nnaHGyAhh3NJNhIfRqOx hcWAssv9Sbe5jzGLYzll9nL XM4cWImfLzgc3V1rRMmQDOw nUWoMWAcLJ5cmOVkOWJisX4 ucmxjXHBnYnJkcmhlYWRccG leswKgOv1hbIxpMAH6IBylV 3ytiN1fZtR7YWxnY8vfvP0p DWz5ECigMZEkqZI1dgQ2CTS vmWEdW9SslY2wIXMkKY5wzq e6h6qxTLT1ILdeRDXaDzF7t wZ0PBBsoDPeGMEvgWtgIDxf k918YKR5NxFxOPQgl7PhA7K pnLlwB50nrEmhU33kFCMrtF dphD8agSslwU4sBuNaMuRxW OwglKxnUS1hMRQoF3bcgNHq WRVbWJVlR0llPdPweK0irNq oRYqotsSlUEJsXrm7SIRcuZ UmKSIiYlf7FCSmRMCgN60vx upbVOR1lM1fi8vyb1WgSRbr JNW6GEKab44rAJcrjoC3NTh hKb8oOwXbNZI7ZKbeWPI3tV == CPT Code(s) (test code i2cjxUNzGKCwuLFtUdYmONT = 3357) nVQAeq7brBKSkfYCsOlLfGe NcZnRuYmpcdWMxXGRlZmYwe 7ulr720xHTwp9vhYVKfHnL4 sPLyZPRhhTFjN492x4rzn3v wngHcvNS7YBEoTWL7ZOwcjf SsquU3IWyxqDGjIzX2PZnos uVnUAhfmqAuloSeAla4JWJr M507CVJ3yLciz6hsYWY6CJE rTSIzRqSpVx3yrDRjJ675OF OzUAGECGMtxMv0JLQhucFom oCggRTXa253O870r8glITXh llYuvZaMxzsbq0ijN621EFV hcGVydzEyMjQwXHBhcGVyaD B2YBNpAY5zmrqnPfVbPG1il bcrPlPpYY7atrg4RmQqYO6v cmdiNzIwXGhlYWRlcnkwXGZ ee8CjoovkPS9cN2Alm1M8iP 9maXRcZGVmdGFiNzIwXGZvc t3qsJDxVOlbw4HuMHU3tfV1 lHTthDFqWBDfYI94Qydng0A iYbjtZZF9JSVaduTgm7Hge7 sjTcBznzVnV4zaS4EpPGKzE WLxBBTyGhSnizFak5Fby0Qe dDUgdGt9t4fvEDFzNZOjvKp dr7wfUVB1VMTfO7E4pLFhz6 bgJZibPWLjvIN4nnxvUGayA GEwspX1jgkfGTbgZCThmUK9 jbwaWJojMGEiOlG3swdnOMv mBZYuUWW3DFaqs373SOO7HO xzYmtwYWdlXHBnbmNvbnRcc GduZGVjXHBsYWluXHBsYWlu XGYwXGZzMjRccWxccGxhaW5 tLyAsKqSfNFbtPC3oPLZtR0 ktzJLxHCNqCLZoC2hwWuNsn T0ymXlyEBvxomXxLHc2PpE1 XHBhcn0= GROSS DESCRIPTION j1bpiLAxSVFpwZLsQeShXHF (test code = 3366) tWOWyo7wxKJJqxTCdWaMqOl NcZnRuYmpcdWMxXGRlZmYwe 0mvk911dFVqd2qbKSRaZrP8 jTSaPYAsrLErQ287GAPcPQr cn9qwb9HxHALuaQHgh5O7MI EHzzstuUm1cQboI28oo6W1A rxrO3puRVXkVRLdK7NwJC7w RASuKwo4MKO2CRG2HFAjMSG jL7YjRD1zOHJgaDGnKPe9j5 islPceVOZhDBE4p4ovZGyft yYaIP5cxe2hxPj0k4kdroSv DLIpWNDrpHQJKLBcR1PbyWf bAe8yzHh8gBhdSsooDTC1Rr r2NQ2xtk41uao0aYunGWLcz jdyYwJ1QXanGLEgqrrpBWj3 MFxtYXJnbDcyMFxtYXJncjc yMFxtYXJndDcyMFxtYXJnYj fxSVtkJGQnNGS2KIkjw534V JD3JYfbm8obp5ykyVOdWdc4 CCAlRaPcQripARfzs8Wdr6r xOWDrwy5uWQL0hBUpmDyue4 J4bNAxNJKnbJWyhuQtYTTdy l87pSHueBUyvTMegn6lqvRm tBMsoGQyCAK6wWUkmxBkEEV ueESrBBApEGGqB3rbPlBlrs QvF6nfV7EmGDRtMDFwSAUeN uCsvaIio5Flu8FxhJGvqLm2 y8xqSLOdXXLzyDdps1szQRH 1NPPhX1L1aZSwt0jfPCamWL SryFA2fcwdIZsqWXKxqpR5y wruFAnpWGZcsFM0kdawOGvp IVUkAbJ6kiljEIkmVIGdCAW 1QCzsh554OPH7WAtkLuhgML dlXHBnbmNvbnRccGduZGVjX HBsYWluXHBsYWluXGYwXGZz YzPqfGJfXAjme1DbmpPodQv pQZIlBUw8npMdlergjMo7jX GmpThlXLZcuMgddX6dKjIiA gNfBMpqRO8aCRHaC5tjyIVw OYUdUADtE9ogOqPcgJ8paKl mMVxmczIwIEEuIFxwbGFpbl xmMVxmczIwXGxhbmcxMDMzX NsnN0fyWhErFHFgqBmnBZpr e3McDYXtKKKtMmhpujIlZGm 3xvGeAYEknBwfyQ5oLlTeUt HfLMkeDT3zADDnA2grmFAwK WTlZJGeR9eqRrIchD8tiLag YLajanFoUYGhHFc0ZAVhZnL lj0lfCYUmCUzaFGPtTQJyHx BcbGFuZzEwMzNcaGljaFxmM BghYxBvJQGnOCaoD5juQhSq Y2EnFXMzEiWmzRWiQ5kmuOW iZWxlZFxwbGFpblxmMVxmcz CyDFdifizlNJEfBKwkI5nzE aRzGZDlnSmfHAcxf0VcNFGz XGZzMjAgIHdpdGggdGhlIHB wfFunycVascFwBT8mRWHUVk 9bFT5hBIJuZElcYAUgNRFfT jBcbGFuZzEwMzNcaGljaFxm UMmoSgTrORFkVIhmG3acDvT lD5PtUCQpOvLuiKMeP0ovLV xwbGFpblxmMVxmczIwXGxhb nwlGMOfYUbqH1hqFpNqCHLs tOtyEQdgf7KaOIXgKKJeIme pqhPkLPe5hsPbMXP4LrRqZK fcFBHbrBfocZ9cGjTuRxUoG IyhTL8kTCQmU9evnUZjODOa UIJeB3blUhNrbF7qfRofGWp jZjJcZnMyMFxsdHJjaCBnYW xsYmxhZGRlclxwbGFpblxmM VxmczIwXGxhbmcxMDMzXGhp X5axXjFhRJZdlYxnLBafh4T xELXyJXAtNoarpsKcLTw8gk UoUPW8LsWaLOcfSYIbrPtnh E7eYcWyHzAeOXhkUU6gLVMw L1zdkVXiEPBxTKGfF9ugJtE ebT8clMrrPLfiKqPpGjCeCL xsdHJjaCAgaXMgYSBccGxha Y0iPePfBcGrAHnsCY6dQCDb T3fcoZUnKXEdAUVeG0gpLxD htM7tnOjcAInzuiUoEWsvQc fibCYiEaTasOgwaH9qYiAtB kImZEfwKX8yQJLsE3dqbDHm HJMlEKWpR6ibXhHpsZ1yhBv mMVxjZjJcZnMyMFxsdHJjaC EccTDptRegxJ2rNiUxQvRyR DulJZ0dSKGkX9umfUObLUTk RUFiK8iyExQzmH3hcJvtNBu mczIwIGludGFjdFxwbGFpbl xmMVxmczIwXGxhbmcxMDMzX QwhJ1tdHxVvLBXwiHrzSDqt n5HzKRBfHNSdRzhdecQpRBd 0cmNoICBnYWxsYmxhZGRlci J0zIUiMVXyOUAfPScuTGUmT GZzMjBcbGFuZzEwMzNcaGlj rHhfVLwwXzGdZSPfGCwtC6l mLwSrEbHyKFFbWdjoR97vpK 4hUnN5ZELrNNPiaQZeajZcl PPuJTHxorDyxQyunR3dHgIm TyHsUGpaQH9hRVUfL3fzrTR eBDSnBZZhF7ioJyRheS1goU xmMVxjZjJcZnMyMFxsdHJja JXbcEG7aBXqWTPjpU3iZVVm KTSrNELhr7QkuLEvWXFxLBq uXGYxXGZzMjBcbGFuZzEwMz NcaGljaFxmMVxkYmNoXGYxX RpuV8hlQcCnCjGfDWL6CD0l cGluayBhbmQgaHlwZXJlbWl jXHBsYWluXGYxXGZzMjBcbG FuZzEwMzNcaGljaFxmMVxkY tGyAPPbDWrsQ0wmOrIsR5Ag UKZwFsNyvIRfB3zmFoMxlXn ljB2hEmYjWfFaJVasPJ3pNS GbQ6icjAQxMJTiQCPaI4dgK dJleT7sxRrqDGmwgnFmPMUt S7eebGgeRQR3K2ZjxJyieCi joz9bCHVxQWMjnJGlykkiRR 7cdGNdB6oxDtQcZ65euPCbk QAlqcRzHhpvWK0gpWAeBJPs YWluXGYxXGZzMjBcbGFuZzE wMzNcaGljaFxmMVxkYmNoXG RfDJybI3aqQbZsK4OlJTPrR pXzrNJfH8mdaDCzMN5jGT9g LU0rwcsmKTHbWDOtvMRsn9K gaXMgXHBsYWluXGYxXGZzMj BcbGFuZzEwMzNcaGljaFxmM QqwNfFlOPUfCTdxJ3mhOcWe BaMySZP0JG4qi1gkqYItIC5 yKRJxNZCiK3GdJZQxKSayeI FpblxmMVxmczIwXGxhbmcxM NByFBhpK3nsTjHeOTLxxSdd QHdhp0XiCQWmRJGvHqheiyI iCLv1vcHsOK5gECyrRKpyaR wgaXMgXHBsYWluXGYxXGZzM jBcbGFuZzEwMzNcaGljaFxm TOcuDsWeBGFvTXxjJ5daSmG cZnMyMCAwLjggXHBsYWluXG YxXGZzMjBcbGFuZzEwMzNca GljaFxmMVxkYmNoXGYxXGxv M8qjJsAcP1HwGIDtDaLfcGZ jJ3iyO63stSabjqyxQFVvZQ JlIGlzIFxwbGFpblxmMVxmc iEcCLcrtmnrAGBhXGmeS6zm WlYxFKPkqMtsANpyx8BiLMQ eGCUkNvLqLHDwra78xS6irQ NlqPLwNB9vKK7wAHemoJkbu dM6zFy1QUpwqUVmjcqpRJoj bqFrSZweuipkZEOdBIuuH3r tBtBbNOPjoChpVJdgq1QgIR RtKLAhZjxieqUpUIv2lyBeW TUrcOopOsEgkTsefY7uIzAy QmItHXleYL1xGEJxM3ayyDT qQVQqXLBsK0saRcBloT2lhC pnHBaxwoXvSL2bsMncbZ4wM cTpCcBpNRawEH4sTNKkK3af wKJiABPlHPRrM9puHmDahA2 jaFxmMVxjZjJcZnMyMFxsdH HtyNM8wMOkxMkvMXSpZYmuT GYxXGZzMjBcbGFuZzEwMzNc aGljaFxmMVxkYmNoXGYxXGx tK5vyJxAgMyWqXLRwT2CqyR U8vfHyokNaI2UsIaQtRDNjP FxwbGFpblxmMVxmczIwXGxh oiwvMYIuLHmkS4lkZrUrQWU hfBwdELehh4JiVXOpKCOtSy kapqQqTZe1pdUgMVWjSQcij WxpXHBsYWluXGYxXGZzMjBc bGFuZzEwMzNcaGljaFxmMVx jCqZzPQJuAVfmY7uiVkKeTl QtZKMmlvFxG2kmJgAtel9aP IZeCA7bGgFtP20ldB9tD8Zf VIWzj5RkVAjvAO8xmC0eQRO sYWluXGYxXGZzMjBcbGFuZz EwMzNcaGljaFxmMVxkYmNoX QFcCHivA1pbXbInJ2VyRTLa KgYvyCNaS8cxQFLpZEUimOx hzZ8hVaVbPkMjIHfbBM0uFM WsB3uarLXdYKBvJJFiQ8cvK cJdeG1abRgjEPeapeXhRLxr NlxwbGFpblxmMVxmczIwXGx ycvbwYKBbVRgwT8pwAeRwPH TlgWhmREbpi3SpIAKfGOSdC cyqglThPLi7qfZfTJkyvNyx bY3pLuNlVsKvUDydFG8uQRU nU4nnkSUsWDYtARRuI7ruZn EprE0deUvmLGhzxqQjPVBsb NblnX9lYsApBeOlMTvzLC3k AEDqG5uteGErEMSqAPJiL0d qIoBpvC0atBnqIBtkLbAnGa OuPWoftOLxnMT3MSRiFRnoO GYxXGZzMjBcbGFuZzEwMzNc aGljaFxmMVxkYmNoXGYxXGx wT5cjLhNyBwQsTFWcHdvwP3 8vcRnwkM1eMhUiYjUoLEvnW P5cAROzB8hqkJAvENJaWRFb G8ukCnYuhE9dsGtsKQekCbG qSeFpKRpskYIyvCJvcN8vGK dncmVnYXRlXHBsYWluXGYxX GZzMjBcbGFuZzEwMzNcaGlj mFreANszAlDhQXDgYXvlN3t cZjFcZnMyMCAgYXJlIGlkZW 71xBVcTBOfxAnarZ4rGvIlG bAlMUyzOC6vRLItO4kyzGYw SFAgVAVxL7ydEkJqvU0tgPe mMVxjZjJcZnMyMFxsdHJjaC AuIFRoZXJlXHBsYWluXGYxX GZzMjBcbGFuZzEwMzNcaGlj kRcxKMygYcZxFZUdNDouC7b cZjFcZnMyMCAgaXMgYSBccG vsfI2xZzWlYvAsXQvtWD8tB RHcZ1ddkWVfRUYwADTiA4cr GvFsjK3dvOjqYDyuOoYpQnK lPZpdkRAzeBWnGGweiKj9bu Kle2AeNWCvuAgmeA0lMbKtH pQyATdjHK6bQZMdW2nbvKQb SPHsPZNfJ2lnOtXunV3zmZi mIFevowWiFLD7wOEkvX6qLA BsYWluXGYxXGZzMjBcbGFuZ zEwMzNcaGljaFxmMVxkYmNo ARGgHJqeJ1vuZuQwQ1AiWKK qOcTbmIFzA1aduNazCMY2v2 NoRdPavCW6RtBqBsLqzjArY E72SICzsnGrg7LrsNuidlXw MTDzIWQ0Fn3vuHRtWNzkpQL pblxmMVxmczIwXGxhbmcxMD QmEJwtY2saViRlBAIleLcvS Qqhc5SpURLvCFKcVbCzBxuq WGDdqNAhFEgmvvINn6RqZuh vUJZzBeu3YVtaLPVqGLWmEd MfVNKkkQJeGQSkwtZKLQZ9w Q9lLWRuMAI1YTDhbbDUBDdi I8kyfSdpIXL8P2LuwAWdR0n uLCBlbiBmYWNlIGFuZCBjeX I5vEVlZJKmrHQfeZ7aoXQqi 2RlXHBhclxwYXJkXHNzcGFy FBH4eJZpvoLghJfeaHdegJ2 cZjBcZnMyNFxwbGFpblxmMV xmczIwXGxhbmcxMDMzXGhpY 4jySnOeXGQtlVopEWnqb3Bg OYTaVXBnViYbOPI7KHzehYt ibGFkZGVyIHdhbGxccGFyXH Bhcn0= MICROSCOPIC t1toaIDoTGZyeTBtOvUlLCK DESCRIPTION (test code wRQAnv1htYKUpkMEmDnWvRf = 3371) NcZnRuYmpcdWMxXGRlZmYwe 9iny135oGTmv6ztBBFyNxJ8 vMXkAWEqtDFzX077y7dhn3y fkaEbyBX4AWEsMKM0JXtvlm GxrvX9WLavzWKqZkG0UXtiu dCrJWndltUpksHaRbt2QZPd A239DNU7zRpeq7igXTH0BWL zVMFbCbJhWd0jcWEvY426XF RjQOYARAGvxAr2PVNarjZad kZngQTFx175Y367b6vyCIKs afGovMjCnstoo5rbP664TWS hcGVydzEyMjQwXHBhcGVyaD G2FPVpZY7nopimXwNxIT0xp mcgPxKoMO0vrzn2DeZfFH0p cmdiNzIwXGhlYWRlcnkwXGZ kp2HnavreTX9qG7Huh8D9mZ 9maXRcZGVmdGFiNzIwXGZvc s6anRDxCNwog0UbMXF5jwP1 jRWlgRPmGDWyIA92Acrgn0I oIxfzXTA2CWFnllMvj6Abu4 chQuPvioIyO1ylE8DdLUKiX VUkMRCaRsCbktRxq3Znt5Pr kAQqnLg5b8nmBVJgUPKhvEm zk0yqXXX8SHEvQ1H1pPQax9 uuVZrvFKTlyGO2ryaqRFetV UEdhmB4zyeySGonLEPncYK9 xjvoQUvrCEJuNjB8vdicGHi lFPByRQW0ZDuqp463YJX3SE xzYmtwYWdlXHBnbmNvbnRcc GduZGVjXHBsYWluXHBsYWlu XGYwXGZzMjRccWxccGxhaW5 jVeGxRnRyREwyVN6iNRBaE1 zszZGwDOMgKZXiS5ssVqPmn F2gpOmqPRodzrXfVQXxloNg qi5uUK7waKFgwO== [facility] [id number] 16:32:00Surgical Pathology Report Case: [id number] Authorizing Provider: Cherrie Suarez Aba, MD Collected: 08/18/2019 03:45 PM Ordering Location: [facility] Received: 08/18/2019 04:10 PM PERIOPERATIVE SERVICES Pathologist: Guadalupe Vaca MD Specimen: Gallbladder, GALLBLADDER A. GALLBLADDER, LAPAROSCOPIC CHOLECYSTECTOMY:- PREDOMINANTLY CHRONIC AND FOCAL ACUTE CHOLECYSTITIS- CHOLELITHIASIS- ONE BENIGN LYMPH NODE (0/1), 3MM Signing Pathologist Direct Phone Line: [phone] by Guadalupe Vaca MD on 08/19/2019 at 4:32 [id number]. Received fresh labeled with the patient's name, [...] a calculus lodged within the cystic duct. Cloth Worker sections are submitted.Ink Code:Blue: Hepatic bedSection Code:A1: Cystic duct margin, en face and cystic duct lymph nodeA2: Gallbladder wallPerformed.POCT-GLUCOSE METER 2019-08-19 12:25:00 Test Item Value Reference Range Interpretation Comments POC-GLUCOSE METER 158 mg/dL 70-110 H : TESTED A T [facility] 6720 ([employer]helf) (test code = [facility]) [id number]: Plc Technician/Techni chad ID = [id number] for JOANNE, JONAH BEL POCT-GLUCOSE [id number] 08:21:00 Test Item Value Reference Range Interpretation Comments POC-GLUCOSE METER 267 mg/dL 70-110 H : TESTED A T [facility] 6720 ([employer]) (test code = [facility], 1538) 39856: Plc Technician/Techni chad ID = [id number] for JOANNE, JONAH BEL POCT-GLUCOSE [id number] 06:23:00 Test Item Value Reference Range Interpretation Comments POC-GLUCOSE METER 288 mg/dL 70-110 H : [facility] T [facility] 67[facility] (test code = [facility], 1538) 13428: Plc Technician/Techni chad ID = [id number] for DAYAMI BAUTISTA [id number] 05:09:00 Test Item Value Reference Range Interpretation Comments PARTIAL THROMBOPLASTIN TIME 30.6 seconds 22.5-36.0 (MorningstarAKER) (test code = 760) [id number] 04:46:00 Test Item Value Reference Range Interpretation Comments MAGNESIUM (BEAKER) 1.9 mg/dL 1.6-2.6 Specimen slightly (test code = 627) hemolyzed Plc Technician ID - PIAYA [id number] 04:46:00 Test Item Value Reference Range Interpretation Comments PHOSPHORUS (BEAKER) 3.4 mg/dL 2.3-4.7 Specimen slightly (test code = 604) hemolyzed Plc Technician ID - MALU LBASIC METABOLIC [id number] 04:46:00 Test Item Value Reference Range Interpretation [...] S NOT APPLICABLE FOR DIALYSIS PATIEN TS. Plc Technician ID - PIAYA LHEPATIC FUNCTION [id number] 04:46:00 Test Item Value Reference Range Interpretation [...] Specimen slightly (test code = 347) hemolyzed Plc Technician ID - KRYSTINAAYA LCBC (HEMOGRAM ONLY)2019-08-19 04:27:00 [...] 0-0 (BEAKER) (test code = 413) POCT-GLUCOSE [id number] 00:06:00 Test Item Value Reference Range Interpretation Comments POC-GLUCOSE METER 334 mg/dL 70-110 H : TESTED A T [facility] 6720 (BEAKER) (test code = [place], 1538) 75452: Plc Technician/Techni chad ID = [id number] for PH DAYAMI ELLIOTT POCT-GLUCOSE [id number] 18:34:00 Test Item Value Reference Range Interpretation Comments POC-GLUCOSE METER 313 mg/dL 70-110 H : TESTED A T [facility] 6720 (BEAKER) (test code = [facility], 1538) 21709: Plc Technician/Techni chad ID = [id number] for SARA FLORES POCT-GLUCOSE [id number] 17:56:00 Test Item Value Reference Range Interpretation Comments POC-GLUCOSE METER 321 mg/dL 70-110 H : TESTED A T [facility] 6720 (BEAKER) (test code = [facility], 1538) 61053: Plc Technician/Techni chad ID = [id number] for KISHA SETHI POCT-GLUCOSE [id number] 17:21:00 Test Item Value Reference Range Interpretation Comments POC-GLUCOSE METER 322 mg/dL 70-110 H : TESTED A T [facility] 6720 (BEAKER) (test code = [facility], 1538) 64300: Plc Technician/Techni chad ID = [id number] for Srini Silverman POCT-GLUCOSE [id number] 11:46:00 Test Item Value Reference Range Interpretation Comments POC-GLUCOSE METER 265 mg/dL 70-110 H : TESTED A T [facility] 6720 (BEAKER) (test code = [facility], 1538) 18960: Plc Technician/Techni chad ID = [id number] for SARA FLORES RAD, CHEST, 1 VIEW, NON [id number] 08:25:00Reason for exam:->preop assessmentShould this be performed at the bedside?->YesFINAL REPORT INDICATION: preop assessment COMPARISON: August 16, 2019 TECHNIQUE: S victor m frontal view of the chest. FINDINGS: Lungs and pleura: Clear lungs. No effusion.Heart and mediastinum: Normal heart size. Unremarkable mediastinal contours.Osseous structures: No acute abnormality.Other: None. IMPRESSION: No acute intrathoracic abnormality. Signed: Amparo Frey Verified Date/Time: 08/18/2019 08:25:05 Reading Location: [facility] Radiology Reading Room XR chest 1 view portable / [id number] 08:25:00 Interface, External Ris In - 08/18/2019 8:27 AM CDTFINAL REPORT INDICATION: preop assessment COMPARISON: August 16, 2019 TECHNIQUE: Single frontal view of the chest. FINDINGS: Lungsand pleura: Clear lungs. No effusion.Heart and mediastinum: Normal heart size. Unremarkable mediastinal contours.Osseous structures: No acute abnormality.Other: None. IMPRESSION: No acute intrathoracic abnormality. Signed: Amparo Frey MDReport Verified Date/Time: 08/18/2019 08:25:05 Reading Location: [facility] Radiology Reading [facility] [id number] 08:10:00 Test Item Value Reference Range Interpretation Comments POC-GLUCOSE METER 270 mg/dL 70-110 H : TESTED A T [facility] 6720 (BEAKER) (test code = [place] [place] [facility], 1538) 89314: Plc Technician/Techni chad ID = [id number] for SARA FLORES HEPATIC FUNCTION [id number] 05:47:00 Test Item Value Reference Range Interpretation [...] (test code = 29 U/L 6-55 347) Plc Technician ID - SCOTTY MABLITA, [id number] 05:23:00 Test Item Value Reference Range Interpretation Comments ABO Grouping (test code = 2588) A Rh Factor (test code = 0863) POS ` [facility] [id number] 05:09:00 Test Item Value Reference Range Interpretation Comments ABO/RH AUTOMATED (BEAKER) (test A POSITIVE code = 2260) Ab Scrn (test code = 890-4) NEGATIVE [facility]PH[facility]2020-05-07 04:52:00 Test Item Value Reference Range Interpretation Comments PHOSPHORUS (BEAKER) (test code = 3.2 mg/dL 2.3-4.7 604) Plc Technician ID - SCOTTY [id number] 04:52:00 Test Item Value Reference Range Interpretation Comments MAGNESIUM (BEAKER) (test code = 1.7 mg/dL 1.6-2.6 627) Plc Technician ID - SCOTTY MBASIC METABOLIC [id number] 04:52:00 Test Item Value Reference Range Interpretation [...] S NOT APPLICABLE FOR DIALYSIS PATIEN TS. Plc Technician ID - SCOTTY MHEPATIC FUNCTION [id number] 04:52:00 Test Item Value Reference Range Interpretation [...] (test code = 30 U/L 6-55 347) Plc Technician ID - SCOTTY [id number] 04:36:00 Test Item Value Reference Range Interpretation Comments PARTIAL THROMBOPLASTIN TIME 31.2 seconds 22.5-36.0 (BEAKER) (test code = 760) PROTHROMBIN [id number] 04:35:00 Test Item Value Reference Range Interpretation [...] 0-0 (BEAKER) (test code = 413) POCT-GLUCOSE [id number] 21:40:00 Test Item Value Reference Range Interpretation Comments POC-GLUCOSE METER 344 mg/dL 70-110 H : TESTED A T [facility] 6720 (BEAKER) (test code = [facility], 1538) 08240: Plc Technician/Techni chad ID = [id number] for Charlene Gibbs POCT-GLUCOSE [id number] 13:56:00 Test Item Value Reference Range Interpretation Comments POC-GLUCOSE METER 256 mg/dL 70-110 H : TESTED A T [facility] 6720 (BEAKER) (test code = [employer] [facility], 1538) 60089: Plc Technician/Techni chad ID = [id number] for JONAH RUBIO [place], [id number] 10:54:00Reason for exam:->bile duct stonesFINAL REPORT A fluoroscopic unit was utilized for a procedure performed in the operating room. No interpretation was requested. Please refer to the operative report regarding findings. Please refer to PACS for patient radiation dose information. Signed: Amparo Frey MDReport Verified Date/Time: 08/17/2019 10:54:06 Reading Location: [facility] Radiology Reading Room [facility] Endoscopic Retrograde [id number] 10:54:00Interface, External Ris In - 08/17/2019 10:57 AM CDTFINAL REPORT A fluoroscopic unit was utilized for a procedure performed in the operating room. No interpretation was requested. Please refer to the operative report regarding findings. Please refer to PACS for patient radiationdose information. Signed: Amparo Frey MDReport Verified Date/Time: 08/17/2019 10:54:06 Reading L ocation: LUCINDA Suazo Radiology Reading [facility]PO[facility] [id number] 09:01:00 Test Item Value Reference Range Interpretation Comments POC-GLUCOSE METER 323 mg/dL 70-110 H : TESTED A T [facility] 67[address] (BEAKER) (test code = [place], 1538) 20179: Plc Technician/Techni chad ID = [id number] for LARISSA CASTANEDA [id number] 06:16:00 Test Item Value Reference Range Interpretation Comments PHOSPHORUS (BEAKER) (test code = 2.7 mg/dL 2.3-4.7 604) Plc Technician ID - SCOTTY [id number] 06:16:00 Test Item Value Reference Range Interpretation Comments MAGNESIUM (BEAKER) (test code = 1.8 mg/dL 1.6-2.6 627) Plc Technician ID - SCOTTY MBASIC METABOLIC [id number] 06:16:00 Test Item Value Reference Range Interpretation [...] S NOT APPLICABLE FOR DIALYSIS PATIEN TS. Plc Technician ID - SCOTTY MPOCT-GLUCOSE [id number] 05:42:00 Test Item Value Reference Range Interpretation Comments POC-GLUCOSE METER 316 mg/dL 70-110 H : [facility] (test code = [place], 1538) 55228: Plc Technician/Techni chad ID = [id number] for LESTER COBURN PROTHROMBIN TIME/[id number] 05:34:00 Test Item Value Reference Range Interpretation [...] INR is2.5-3.5 for patients wiht mechanical heart valves.[id number] 05:30:00 Test Item Value Reference Range Interpretation [...] (AKER) (test code = 412) PLATELET COUNT ([facility]) (test 194 K/CU MM 150-450 code = 756) MEAN PLATELET VOLUME (AKER) 10.3 fL 9.4-12.3 (test code = 754) NUCLEATED RED BLOOD CELLS 0 /100 WBC 0-0 ([facility]) (test code = 413) POCT-GLUCOSE [id number] 03:42:00 Test Item Value Reference Range Interpretation Comments POC-GLUCOSE METER 346 mg/dL 70-110 H : TESTED A T [facility] 6720 ([facility]) (test code = [facility], 1538) 15873: Plc Technician/Techni chad ID = [id number] for LESTER COBURN POCT-GLUCOSE [id number] 17:20:00 Test Item Value Reference Range Interpretation Comments POC-GLUCOSE METER 305 mg/dL 70-110 H : Notified RN/MD: ([facility]) (test code = TESTED AT [facility] 6720 1538) [facility], [address]: Plc Technician/Techni chad ID = [id number] for SEGUNDO EVANS 2D Echo W/Doppler(CW/PW/Color)2019-08-16 13:06:22Ejection FractionSLE ECHO HEARTLAB MKCKESSON CPACSInterface, External Ris In - 08/16/2019 1:06 PM C DTTransthoracic Echocardiography Report (TTE) Demographics Patient Name GUADALUPE HERNANDEZ Date of Study 08/16/2019 Gender Female Visit Number [id number] Race Room Number 1411 Number Date of 1940 Referring Physician Umer Valerio Age 79 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 Oralia Dick CS Interpreting Ying Leslie MD Physician [...] mmHg Pulmonic Valve Estimated PASP: 54 mmHgCHI [facility] [id number] 12:40:00 Test Item Value Reference Range Interpretation Comments POC-GLUCOSE METER 340 mg/dL 70-110 H : Notified RN/MD: TESTED ([facility]) (test code AT [place] [address] [place] = 1538) [facility], [facility] 30: Plc Technician/Techni chad ID = [id number] for MOOD Y, SEEMAWNTELL POCT-GLUCOSE [id number] 08:10:00 Test Item Value Reference Range Interpretation Comments POC-GLUCOSE METER 243 mg/dL 70-110 H : Notified RN/MD: TESTED ([facility]) (test code AT [place] [address] [place] = 1538) [facility], [facility] 30: Plc Technician/Techni chad ID = [id number] for MOOD Y, SHAWNTELL ECG 12 [id number] 06:47:50Interface, External Ris In - 08/16/2019 6:47 AM CDTVentricular Rate 83 BPMAtrial Rate 83 BPMP-R Interval 132 msQRS Duration 84 msQ-T Interval 362 msQTC Calculation(Bazett) 425 msP [place] 59 degreesR [place] -15 degreesT [place] 28 degreesNormal sinus rhythmSeptal infarct (cited on or before 15-AUG-2019)Inferior infarct , age undeterminedAbnormal ECGWhen compared with ECG of 15-AUG-2019 06:29,Sinus rhythm has replaced Atrial flutterConfirmed by Fili PARRA MICHAEL ([id number]) on 08/16/2019 6:47:47 [facility] 05:04[facility]00 Test Item Value Reference Range Interpretation Comments PHOSPHORUS (BEAKER) (test code = 2.0 mg/dL 2.3-4.7 L 604) Plc Technician ID Enriqueta TORIBIO [id number] 05:04:00 Test Item Value Reference Range Interpretation Comments MAGNESIUM (BEAKER) (test code = 1.8 mg/dL 1.6-2.6 627) Plc Technician ID Enriqueta TORIBIO LBASIC METABOLIC [id number] 05:04:00 Test Item Value Reference Range Interpretation [...] S NOT APPLICABLE FOR DIALYSIS PATIEN TS. Plc Technician ID Enriqueta TORIBIO LHEPATIC FUNCTION [id number] 05:04:00 Test Item Value Reference Range Interpretation [...] code = 65 U/L 6-55 H 347) Plc Technician ID - MALU LPOCT-GLUCOSE [id number] 05:00:00 Test Item Value Reference Range Interpretation Comments POC-GLUCOSE METER 200 mg/dL 70-110 H : TESTED A T [facility] 6720 (BEAKER) (test code = [place], 1538) [address]: Plc Technician/Techni chad ID = [id number] for KARI TTCHADWICK, KASIYELL [id number] 04:42:00 Test Item Value Reference Range Interpretation Comments PARTIAL THROMBOPLASTIN TIME 28.2 seconds 22.5-36.0 (BEAKER) (test code = 760) PROTHROMBIN TIME/[id number] 04:41:00 Test Item Value Reference Range Interpretation [...] = 413) RAD, CHEST, 1 VIEW, NON [id number] 04:14:00Reason for exam:->preop assessmentShould this be performed [...] Nikki Colindres Verified Date/Time: 08/16/2019 04:14:22 -GLUCOSE [id number] 23:35:00 Test Item Value Reference Range Interpretation Comments POC-GLUCOSE METER 255 mg/dL 70-110 H : TESTED A T [facility] 6720 (BEAKER) (test code = [place], 1538) [address]: Plc Technician/Techni chad ID = [id number] for BA TTCHADWICK, ARYELL RAD, CHEST, 1 VIEW, NON [id number] 09:53:00Reason for exam:->preop assessmentShould this be performed [...] MDReport Verified Date/Time: 08/15/2019 09:53:41 Reading Location: [facility] Radiology Reading Room MR, ABDOMEN, [id number] 07:34:00FINAL REPORT TECHNIQUE: MRI of the abdomen [...] MDRort Verified Date/Time: 08/15/2019 07:34:37 Reading Location: [facility] Diagnostic Imaging Reading Room - [place] [address] MR abdomen without & with IV [id number] 07:34:00Interface, External Ris In - 08/15/2019 7:36 [...] MDReport Verified Date/Time: 08/15/2019 07:34:37 Reading Location: [facility] Diagnostic Imaging Reading Room - [place] [address] [facility] [id number] 05:47:00 Test Item Value Reference Range Interpretation Comments POC-GLUCOSE METER 175 mg/dL 70-110 H : TESTED A T [facility] 6720 (BEAKER) (test code = [place], 1538) [address]: Plc Technician/Techni chad ID = [id number] for BERKLEY GRESHAM Troponin [id number] 05:18:00 Test Item Value Reference Range Interpretation Comments Troponin I (test code = 0.06 ng/mL 0-0.03 H 24344-3) JAY (test code = JAY) Troponin I [...] L Lab Interpretation (test Abnormal code = 76075-1) [facility] [id number] 05:18:00 Test Item Value Reference Range Interpretation [...] failure, acidosis, acute neurological disease, and persistent tachyarrhythmia.Plc Technician ID Enriqueta TORIBIO LB-type Natriuretic Factor (BNP)2019-08-15 05:13:00 Test Item Value Reference Range Interpretation Comments BNP (test code = 86768-1) 577 pg/mL 0-100 H JAY (test code = JAY) Plc Technician ID Enriqueta TORIBIO L Lab Interpretation (test Abnormal code = 27456-8) [facility] NAT[facility]URE[facility] (BNP)2019-08-15 05:13:00 Test Item Value Reference Range Interpretation Comments B-TYPE NATRIURETIC PEPTIDE (BEAKER) 577 pg/mL 0-100 H (test code = 700) Plc Technician ID - MALU [id number] 05:10:00 Test Item Value Reference Range Interpretation Comments PHOSPHORUS (BEAKER) (test code = 2.3 mg/dL 2.3-4.7 604) Plc Technician ID - MALU [id number] 05:10:00 Test Item Value Reference Range Interpretation Comments MAGNESIUM (BEAKER) (test code = 2.0 mg/dL 1.6-2.6 627) Plc Technician ID - MALU LBASIC METABOLIC [id number] 05:10:00 Test Item Value Reference Range Interpretation [...] S NOT APPLICABLE FOR DIALYSIS PATIEN TS. Plc Technician ID - PIAYA LHEPATIC FUNCTION [id number] 05:10:00 Test Item Value Reference Range Interpretation [...] code = 101 U/L 6-55 H 347) Plc Technician ID - MALU [id number] 04:51:00 Test Item Value Reference Range Interpretation Comments PARTIAL THROMBOPLASTIN TIME 29.3 seconds 22.5-36.0 (BEAKER) (test code = 760) PROTHROMBIN TIME/[id number] 04:50:00 Test Item Value Reference Range Interpretation [...] 0-0 (BEAKER) (test code = 413) POCT-GLUCOSE [id number] 00:31:00 Test Item Value Reference Range Interpretation Comments POC-GLUCOSE METER 190 mg/dL 70-110 H : TESTED A T [facility] 6720 (BEAKER) (test code = [facility] [facility], 1538) [id number]: Plc Technician/Techni chad ID = [id number] for BERKLEY GRESHAM POCT-GLUCOSE [id number] 17:38:00 Test Item Value Reference Range Interpretation Comments POC-GLUCOSE METER 243 mg/dL 70-110 H : TESTED A T [facility] 6720 (BEAKER) (test code = [facility], 1538) 88182: Plc Technician/Techni chad ID = [id number] for LINDSEY VASQUEZ RAD, CHEST, 1 VIEW, NON [id number] 09:13:00Reason for exam:->preop assessmentShould this be performed [...] MDReport Verified Date/Time: 08/14/2019 09:13:41 Reading Location: [facility] B1 C013X Ortho Consult Reading Room Hemoglobin [id number] 07:35:00 Test Item Value Reference Range Interpretation Comments Hemoglobin A1C (test code = 4548-4) 7.8 % 4.3-6.1 H Lab Interpretation (test code = Abnormal 34684-2) [facility] [id number] 07:35:00 Test Item Value Reference Range Interpretation Comments HEMOGLOBIN A1C (BEAKER) (test code = 7.8 % 4.3-6.1 H 368) [id number] 07:25:00 Test Item Value Reference Range Interpretation Comments PHOSPHORUS (BEAKER) (test code = 2.6 mg/dL 2.3-4.7 604) Plc Technician ID Enriqueta SHIPLEY [id number] 07:25:00 Test Item Value Reference Range Interpretation Comments MAGNESIUM (BEAKER) (test code = 1.9 mg/dL 1.6-2.6 627) Plc Technician ID Enriqueta SHIPLEY WBASIC METABOLIC [id number] 07:25:00 Test Item Value Reference Range Interpretation [...] S NOT APPLICABLE FOR DIALYSIS PATIEN TS. Plc Technician ID Enriqueta SHIPLEY WHEPATIC FUNCTION [id number] 07:25:00 Test Item Value Reference Range Interpretation [...] code = 183 U/L 6-55 H 347) Plc Technician ID Enriqueta SHIPLEY WTROPONIN [id number] 07:20:00 Test Item Value Reference Range Interpretation [...] failure, acidosis, acute neurological disease, and persistent tachyarrhythmia.Plc Technician ID Enriqueta SHIPLEY WPROTHROMBIN TIME/[id number] 07:06:00 Test Item Value Reference Range Interpretation [...] INR is2.5-3.5 for patients wiht mechanical heart valves.[id number] 07:06:00 Test Item Value Reference Range Interpretation [...] 0-0 (BEAKER) (test code = 413) POCT-GLUCOSE [id number] 06:45:00 Test Item Value Reference Range Interpretation Comments POC-GLUCOSE METER 240 mg/dL 70-110 H : TESTED Francisco T [facility] 6720 (BEAKER) (test code = [facility], 1538) 24679: Plc Technician/Techni chad ID = [id number] for Lupis Carney [id number] 05:40:00 Test Item Value Reference Range Interpretation Comments Amylase (test code = 21 U/L 25-125 L Specime n 1798-8) slightly hemolyzed JAY (test code = JAY) Plc Technician ID Enriqueta TORIBIO L Lab Interpretation Abnormal (test code = 76591-2) [facility] 05:40:00 Test Item Value Reference Range Interpretation Comments Lipase (test code = 41 U/L 878 3040-3) JAY (test code = JAY) Plc Technician ID Enriqueta TORIBIO L Lab Interpretation (test Normal code = 87601-3) [facility] 05:40:00 Test Item Value Reference Range Interpretation Comments AMYLASE (BEAKER) (test 21 U/L 25-125 L Speci men slightly code = 349) hemolyzed Plc Technician ID Enriqueta TORIBIO [id number] 05:40:00 Test Item Value Reference Range Interpretation Comments LIPASE (BEAKER) (test code = 749) 41 U/L 8-78 Plc Technician ID - MALU LTROPONIN [id number] 01:16:00 Test Item Value Reference Range Interpretation [...] failure, acidosis, acute neurological disease, and persistent tachyarrhythmia.Plc Technician ID - MALU [id number] 00:23:00 Test Item Value Reference Range Interpretation Comments MAGNESIUM (BEAKER) (test code = 1.9 mg/dL 1.6-2.6 627) Plc Technician ID Enriqueta TORIBIO LBASIC METABOLIC [id number] 00:22:00 Test Item Value Reference Range Interpretation [...] S NOT APPLICABLE FOR DIALYSIS PATIEN TS. Plc Technician COLTON TORIBIO [id number] 00:22:00 Test Item Value Reference Range Interpretation Comments PHOSPHORUS (BEAKER) (test code = 2.2 mg/dL 2.3-4.7 L 604) Plc Technician COLTON TORIBIO LHEPATIC FUNCTION [id number] 00:22:00 Test Item Value Reference Range Interpretation [...] code = 188 U/L 6-55 H 347) Plc Technician COLTON TORIBIO LRAD, CHEST, 1 VIEW, NON [id number] 00:09:00Reason for exam:->preopShould this be performed at [...] Casandra Gonzalezeplori Verified Date/Time: 08/14/2019 00:09:06 PROTHROMBIN [id number] 22:49:00 Test Item Value Reference Range Interpretation [...] INR is2.5-3.5 for patients wiht mechanical heart valves.[id number] 22:49:00 Test Item Value Reference Range Interpretation Comments PARTIAL THROMBOPLASTIN TIME 26.5 seconds 22.5-36.0 (BEAKER) (test code = 760) CBC with platelet count + automated [id number] 22:40:00 Test Item Value Reference Range Interpretation [...] 450 K/CU MM MPV (test code = 22754-4) 10.1 fL 9.4-12.3 nRBC (test code = [...] 2801) Lab Interpretation (test code = Abnormal 82906-2) [facility] W/PLT COUNT & AUTO [id number] 22:40:00 Test Item Value Reference Range Interpretation [...] PERCENT (BEAKER) (test code = 2801) POCT-GLUCOSE [id number] 21:56:00 Test Item Value Reference Range Interpretation Comments POC-GLUCOSE METER 130 mg/dL 70-110 H : TESTED A T [facility] 6720 (BEAKER) (test code = KWAME BARAJAS, 1538) 45531: Plc Technician/Techni chad ID = [id number] for TAMIKA CARTER SARS-CoV2/RT-PCR ([facility] Ref Labs)2019-08-11 23:10:00 Test Item Value Reference Range Interpretation Comments SARS-COV2/RT-PCR Not Detected Not Detected, (test code = Negative 53759-0) SARS-COV-2 [facility] PERFORMING LAB (test code = 44131-4) JAY (test code = Negative results do [...] of the Act. Fact Sheet for Healthcare Providers:https://www.RAREFORM/Documents/Xper t%20Xpress%20SARS%20CoV- 2/Fact%20Sheets/302-3802 %33YFTR-ZKH-7%20HEALTHCA RE%20PROVIDERS%20FACT%20 SHEET.pdf Fact Sheet for Healthcare Patients:https://www.FTRANS/Documents/Xpert %20Xpress%20SARS%20CoV-2 /Fact%20Sheets/302-3801% 50FBZR-RAE-0%20PATIENT%2 0FACT%20SHEET.pdf Performing Laboratory:[facility] [facility] [place] [address] [facility] ([facility] REF LABS)2019-08-11 23:10:00 Test Item Value Reference Range Interpretation Comments SARS-COV2/RT-PCR (test Not Detected Not Detected, Negative code = 9214395) SARS-COV-2 PERFORMING LAB [facility] (test code = 8996921) Negative results do not preclude SARS-CoV-2 infection [...] of the Act.Fact Sheet for Healthcare Pro viders:https://www.EcoFactor/Documents/Xpert%20Xpress%20SARS%20CoV-2/Fact%20Sh eets/3023802%87RBFW-QMC-8%20HEALTHCARE%20PROVIDERS%20FACT%20SHEET.pdfFact Sheet for Healthcare Patients:https://www.BoomBoom Prints/Documents/Xpert%20Xpress%20SARS%20CoV-2/Fact%20Sheets/3023801%20SARS-COV -2%20PATIENT%20FACT%20SHEET.pdfPerforming Laboratory:[facility] [place] [address]
[2020-02-27 01:46] LABS: Protime INR 1.26
[2020-02-27 01:48] LABS: Hematocrit 38.6 % (36.0-45.0); MPV 9.1 fL (7.6-11.3)
[2020-02-27 01:50] LABS: Absolute Lymphocytes (CBC) 1.7 K/uL (0.7-4.9); Basophils % 0.8 % (0-1.3); Lymphocytes % 31.2 % (15.3-44.8); RBC Red Blood Cell Count 4.35 M/uL (3.86-4.86)
[2020-02-27 02:03] LABS: ALT/SGPT 48 U/L (12-78); AST/SGOT 23 U/L (15-37); Albumin 3.4 g/dL (3.4-5.0); Alkaline Phosphatase 101 U/L (45-117); BUN Blood Urea Nitrogen 19 mg/dL (7-18); Bicarbonate 29 mmol/L (21-32); Bilirubin Direct 0.2 mg/dL (0-0.2); Bilirubin Total 0.7 mg/dL (0.2-1.0); Glucose Level 100 mg/dL (74-106); Magnesium 1.9 mg/dL (1.8-2.4); NT PRO-BNP 70 pg/mL (<450); Potassium 3.6 mmol/L (3.5-5.1); Protein, Total 6.6 g/dL (6.4-8.2); Sodium Level 145 mmol/L (136-145); Troponin (Emerg Dept Use Only) < 0.02 ng/mL (0.0-0.045)
--- NOTE | 2020-02-27 02:50 | EDPHYS ---
Physician Documentation [facility] Name: Guadalupe Marie Age: 80 yrs Sex: Female : 1940 Arrival Date: 02/27/2020 Time: 00:47 Bed 16 Private MD: ED Physician Noah Linn HPI: 02/26 01:42 This 80 yrs old Female presents to ER via Ambulatory with complaints of High mh7 Blood Pressure. 01:42 The patient has elevated blood pressure and discovered this at home, with a home mh7 device. Onset: The symptoms/episode began/occurred yesterday. Modifying factors: The symptoms are aggravated by nothing, The symptoms are alleviated by nothing. Associated signs and symptoms: Pertinent positives: headache, Pertinent negatives: chest pain, dizziness, dyspnea, lightheadedness, nausea, visual changes, vomiting, weakness. Severity of symptoms: At its worst the blood pressure was moderate, earlier today, 206 mm Hg, in the emergency department the blood pressure is improved, mildly. The patient has experienced similar episodes in the past, multiple times. Historical: - Allergies: 01:04 No Known Allergies; sg - Home Meds: 01:04 Clonidine Oral [Active]; Metoprolol Tartrate Oral [Active]; sg 01:07 Nifedipine Oral [Active]; losartan-hydrochlorothiazide oral oral [Active]; Eliquis Oral sg [Active]; - PMHx: 00:58 Diabetes - IDDM; Hypertension; sg - Immunization history:: Adult Immunizations up to date. - Social history:: Smoking status: Patient denies any tobacco usage or history of. ROS: 01:42 Constitutional: Negative for fever, chills, and weight loss, Eyes: Negative for injury, mh7 pain, redness, and discharge, ENT: Negative for injury, pain, and discharge, Neck: Negative for injury, pain, and swelling, Cardiovascular: Negative for chest pain, palpitations, and edema, Respiratory: Negative for shortness of breath, cough, wheezing, and pleuritic chest pain, Abdomen/GI: Negative for abdominal pain, nausea, vomiting, diarrhea, and constipation, Back: Negative for injury and pain, : Negative for injury, bleeding, discharge, and swelling, MS/Extremity: Negative for injury and deformity, Skin: Negative for injury, rash, and discoloration, Psych: Negative for depression, anxiety, suicide ideation, homicidal ideation, and hallucinations, Allergy/Immunology: Negative for hives, rash, and allergies, Endocrine: Negative for neck swelling, polydipsia, polyuria, polyphagia, and marked weight changes, Hematologic/Lymphatic: Negative for swollen nodes, abnormal bleeding, and unusual bruising. Exam: 01:42 Head/Face: Normocephalic, atraumatic. mh7 01:42 Eyes: Pupils equal round and reactive to light, extra-ocular motions intact. Lids and lashes normal. Conjunctiva and sclera are non-icteric and not injected. Cornea within normal limits. Periorbital areas with no swelling, redness, or edema. Neck: Trachea midline, no thyromegaly or masses palpated, and no cervical lymphadenopathy. Supple, full range of motion without nuchal rigidity, or vertebral point tenderness. No Meningismus. Chest/axilla: Normal chest wall appearance and motion. Nontender with no deformity. No lesions are appreciated. Cardiovascular: Regular rate and rhythm with a normal S1 and S2. No gallops, murmurs, or rubs. Normal PMI, no JVD. No pulse deficits. Respiratory: Lungs have equal breath sounds bilaterally, clear to auscultation and percussion. No rales, rhonchi or wheezes noted. No increased work of breathing, no retractions or nasal flaring. Abdomen/GI: Soft, non-tender, with normal bowel sounds. No distension or tympany. No guarding or rebound. No evidence of tenderness throughout. Back: No spinal tenderness. No costovertebral tenderness. Full range of motion. Skin: Warm, dry with normal turgor. Normal color with no rashes, no lesions, and no evidence of cellulitis. MS/ Extremity: Pulses equal, no cyanosis. Neurovascular intact. Full, normal range of motion. Neuro: Awake and alert, GCS 15, oriented to person, place, time, and situation. Cranial nerves II-XII grossly intact. Motor strength 5/5 in all extremities. Sensory grossly intact. Cerebellar exam normal. Normal gait. Psych: Awake, alert, with orientation to person, place and time. Behavior, mood, and affect are within normal limits. 01:42 Constitutional: The patient appears in no acute distress, alert, awake, anxious. Vital Signs: 00:55 BP 205 / 64; Pulse 62; Resp 17; Temp 97.8; Pulse Ox 99% on R/A; Pain 0/10; sg 01:43 BP 158 / 63; Pulse 56; Resp 17; Pulse Ox 98% on R/A; sg 02:21 BP 152 / 65; Pulse 53; Resp 16; Pulse Ox 98% on R/A; sg MDM: 02:48 Differential diagnosis: hypertensive crisis, Malignant HTN, intracerebral hemorrhage, mh7 Hypertension. Data reviewed: vital signs, nurses notes, old medical records, lab test result(s), cardiac enzymes, CBC, electrolytes, urinalysis, EKG, radiologic studies, CT scan, plain films. Data interpreted: Pulse oximetry: on room air is 98 %. Interpretation: normal. Counseling: I had a detailed discussion with the patient and/or guardian regarding: the historical points, exam findings, and any diagnostic results supporting the discharge/admit diagnosis, the presence of at least one elevated blood pressure reading (>120/80) during this emergency department visit, lab results, radiology results, the need for outpatient follow up, to return to the emergency department if symptoms worsen or persist or if there are any questions or concerns that arise at home. Response to treatment: the patient's symptoms have resolved after treatment, the patient's blood pressure is in an acceptable range, mental status has returned to baseline, the patient no longer shows bradycardia, the patient is not short of breath, the patient is not tachycardic, the patient's pain is gone, the patient's temperature has normalized, the patient is now symptom free. 02:50 Patient medically screened. [facility] 02/26 01:11 Order name: Basic Metabolic Panel; Complete Time: 02:04 [facility] 02/26 01:11 Order name: CBC with Diff; Complete Time: 02:04 [facility] 02/26 01:11 Order name: LFT's; Complete Time: 02:04 [facility] 02/26 01:11 Order name: Magnesium; Complete Time: 02:04 [facility] 02/26 01:11 Order name: NT PRO-BNP; Complete Time: 02:04 [facility] 02/26 01:11 Order name: PT-INR; Complete Time: 02:04 [facility] 02/26 01:11 Order name: Troponin (emerg Dept Use Only); Complete Time: 02:04 [facility] 02/26 01:11 Order name: XRAY Chest (1 view) [facility] 02/26 01:11 Order name: EKG; Complete Time: 01:12 [facility] 02/26 01:11 Order name: Cardiac monitoring; Complete Time: :14 [facility] 02/26 01:11 Order name: EKG - Nurse/Tech; Complete Time: 01:48 [facility] 02/26 01:11 Order name: IV Saline Lock; Complete Time: 01:14 [facility] 02/26 01:11 Order name: Labs collected and sent; Complete Time: 01:14 [facility] 02/26 01:11 Order name: CT Head Brain wo Cont [facility] 02/26 01:11 Order name: O2 Per Protocol; Complete Time: 01:14 [facility] 02/26 01:11 Order name: O2 Sat Monitoring; Complete Time: : [facility] Administered Medications: No medications were administered Disposition: 02/27/20 02:50 Discharged to Home. Impression: Hypertension. - Condition is Stable. - Discharge Instructions: Hypertension, [id number], Managing Your Hypertension. - Medication Reconciliation Form, Thank You Letter, Antibiotic Education, Prescription Opioid Use form. - Follow up: Private Physician; When: 1 - 2 days; Reason: Worsening of condition, Recheck today's complaints, Continuance of care, Re-evaluation by your physician. - Problem is chronic. - Symptoms have improved. Signatures: Dispatcher [employer] EDDrew Patel, PEE RN Noah Lopez MD MD mh7 Corrections: (The following items were deleted from the chart) 01:04 00:58 Allergies: No Known Allergies; [facility] 01:07 01:04 Home Meds: losartan oral oral; [facility] 03:04 02:50 02/27/2020 02:50 Discharged to Home. Impression: Hypertension. Condition is sg Stable. Forms are Medication Reconciliation Form, Thank You Letter, Antibiotic Education, Prescription Opioid Use. Follow up: Private Physician; When: 1 - 2 days; Reason: Worsening of condition, Recheck today's complaints, Continuance of care, Re-evaluation by your physician. Problem is chronic. Symptoms have improved. [facility]
--- NOTE | 2020-02-27 02:50 | ER ---
Nurse's Notes [facility] Name: Guadalupe Marie Age: 80 yrs Sex: Female : 1940 Arrival Date: 02/27/2020 Time: 00:47 Bed 16 Private MD: Diagnosis: Hypertension Presentation: 02/26 00:55 Chief complaint: Patient states: I was in here on the february for high blood sg pressure, I had taken a nerve pill and then as I was laying here the blood pressure had come down further on its own, pt states that she took a nerve pill tonight but the blood pressure is not coming down at this time. pt states having BP readings of systolics 200's/100's at home, pt denies any pain or any symptoms at this time. Coronavirus screen: Client denies travel out of the [place] in the last 14 days. At this time, the client does not indicate any symptoms associated with coronavirus-19. Ebola Screen: Patient negative for fever greater than or equal to 101.5 degrees Fahrenheit, and additional compatible Ebola Virus Disease symptoms Patient denies exposure to infectious person. Patient denies travel to an Ebola-affected area in the 21 days before illness onset. No symptoms or risks identified at this time. Initial Sepsis Screen: Does the patient meet any 2 criteria? No. Patient's initial sepsis screen is negative. Does the patient have a suspected source of infection? No. Patient's initial sepsis screen is negative. Risk Assessment: Do you want to hurt yourself or someone else? Patient reports no desire to harm self or others. Onset of symptoms was February 27, 2020. Care prior to arrival: None. Transition of care: patient was not received from another setting of care. 00:55 Method Of Arrival: Ambulatory sg 00:55 Acuity: JUAN 3 sg 00:55 Note pt reports having the sensation of ants crawling on in my head. sg 00:55 Note pt reports taking her xanax at around 2200. sg 00:58 Note pt reports her family PCP, has increased her BP medications but she sg states that there has been no change in the Blood pressures at home. Triage Assessment: 00:59 General: Appears in no apparent distress. Behavior is calm, cooperative, appropriate ea for age. Pain: Denies pain. Neuro: Level of Consciousness is awake, alert, obeys commands, Oriented to person, place, time, situation. Cardiovascular: Patient's skin is warm and dry. Respiratory: Airway is patent Respiratory effort is even, unlabored, Respiratory pattern is regular, symmetrical. Derm: Skin is pink, warm \T\ dry. Historical: - Allergies: 01:04 No Known Allergies; sg - Home Meds: 01:04 Clonidine Oral [Active]; Metoprolol Tartrate Oral [Active]; sg 01:07 Nifedipine Oral [Active]; losartan-hydrochlorothiazide oral oral [Active]; Eliquis Oral sg [Active]; - PMHx: 00:58 Diabetes - IDDM; Hypertension; sg - Immunization history:: Adult Immunizations up to date. - Social history:: Smoking status: Patient denies any tobacco usage or history of. Screenin:58 Abuse screen: Denies threats or abuse. Nutritional screening: No deficits noted. ea Tuberculosis screening: No symptoms or risk factors identified. Fall Risk None identified. Assessment: 01:15 General: Appears in no apparent distress. well groomed, well developed, well nourished, sg Behavior is calm, cooperative, appropriate for age. Pain: Denies pain. Neuro: Level of Consciousness is awake, alert, obeys commands, Oriented to person, place, time, Speech is normal, Facial symmetry appears normal, Pupils are PERRLA. Cardiovascular: Patient's skin is warm and dry. Chest pain is denied. Respiratory: Airway is patent Respiratory effort is even, unlabored, Respiratory pattern is regular, symmetrical. GI: No signs and/or symptoms were reported involving the gastrointestinal system. : No signs and/or symptoms were reported regarding the genitourinary system. EENT: No signs and/or symptoms were reported regarding the EENT system. Derm: Skin is pink, warm \T\ dry. Musculoskeletal: Circulation, motion, and sensation intact. Range of motion: intact in all extremities. 01:38 Reassessment: Patient appears in no apparent distress at this time. Xray at bedside at this time. 02:00 Reassessment: Patient and/or family updated on plan of care and expected duration. Pain ea level reassessed. Patient is alert, oriented x 3, equal unlabored respirations, skin warm/dry/pink. Pt taken to CT. Vital Signs: 00:55 BP 205 / 64; Pulse 62; Resp 17; Temp 97.8; Pulse Ox 99% on R/A; Pain 0/10; sg 01:43 BP 158 / 63; Pulse 56; Resp 17; Pulse Ox 98% on R/A; sg 02:21 BP 152 / 65; Pulse 53; Resp 16; Pulse Ox 98% on R/A; sg ED Course: 00:47 Patient arrived in ED. bp1 00:50 Alyssa Juan, RN is Primary Nurse. ea 00:55 Arm band placed on. sg 00:57 Triage completed. sg 00:57 Noah Linn MD is Attending Physician. [facility] 00:58 Patient has correct armband on for positive identification. Bed in low position. Call ea light in reach. bus driver/monitor on. Pulse ox on. NIBP on. 01:24 Missed attempt(s): 22 gauge in right wrist. Bleeding controlled, band aid applied, sg catheter tip intact. 01:30 No provider procedures requiring assistance completed. Initial lab(s) drawn, by nc, sg sent to lab. Inserted saline lock: 22 gauge in right forearm, using aseptic technique. Blood collected. 01:52 Awaiting radiology results. Awaiting CT Scan. sg 01:59 XRAY Chest (1 view) In Process Unspecified. EDMS 02:15 CT Head Brain wo Cont In Process Unspecified. EDMS 03:00 IV discontinued, intact, bleeding controlled, No redness/swelling at site. Pressure sg dressing applied. Administered Medications: No medications were administered Outcome: 02:50 Discharge ordered by . [facility] 03:00 Discharged to home ambulatory. sg 03:00 Condition: good 03:00 Discharge instructions given to patient, pt counseled on follow up with her PCP and Nuclear Medicine Pet Ct Technologist, pt stated understanding. Instructed on discharge instructions, follow up and referral plans. medication usage, safety practices, Demonstrated understanding of instructions, follow-up care, medications. 03:04 Patient left the ED. sg Signatures: Dispatcher [employer] EDMS Drew Wade RN RN sg Antunez, Elena, RN Kimmy Calvin ea [facility] Noah Linn MD MD [facility] Corrections: (The following items were deleted from the chart) 01:04 00:58 Allergies: No Known Allergies; sg sg 01:07 01:04 Home Meds: losartan oral oral; [facility]
[2020-02-27 04:13] VITALS: TEMP 97.8
[2020-02-27 04:15] VITALS: O2SAT 98
[2020-02-27 04:16] VITALS: BP 152/65
--- NOTE | 2020-02-27 08:26 | RAD REPORT ---
EXAM DESCRIPTION: Krystal Single View02/27/2020 1:59 am CLINICAL HISTORY: Hypertension COMPARISON: February 15, 2020 the FINDINGS: The left base is mildly hazy The remainder of the lungs appear clear of acute infiltrate. The heart is normal size IMPRESSION: Left base is mildly hazy probably secondary to overlying soft tissue. An infiltrate is c onsidered less likely. If patient continues have symptoms to suggest an infiltrate then PA and latera l chest series would be recommended
--- NOTE | 2020-02-27 11:36 | RAD REPORT ---
EXAM DESCRIPTION: CT - Head Brain Wo Cont - 02/27/2020 3:40 am CLINICAL HISTORY: HEADACHE COMPARISON: 02/16/2020 TECHNIQUE: Axial CT of the head obtained from the skull apex to the skull base without contrast. FINDINGS: No acute intracranial hemorrhage identified. No mass, mass effect, shift of the midline, a bnormal extra-axial fluid collection or CT evidence of acute ischemic change identified. The ventricu lar system and sulcal spaces are not enlarged. Scattered areas of hypodensity throughout the suprat entorial white matter are nonspecific and may be related to chronic small vessel ischemic change. The visualized paranasal sinuses and mastoid air cells are well aerated. No skull fracture identifi ed. Visualized orbits and globes are unremarkable. Atherosclerotic calcification of the intracranial internal carotid arteries. IMPRESSION: 1. No acute intracranial abnormality by CT criteria. This exam was performed according to our departmental dose-optimization program, which includes autom ated exposure control, adjustment of the mA and/or kV according to patient size and/or use of iterati ve reconstruction technique. Electronically signed by: Nima Staton 02/27/2020 2:22 AM CABBAGE SALTER Due to temporary technical issues with the PACS/Fluency reporting system, reports are being signed by the in house radiologist without review as a courtesy to ensure prompt reporting. The interpreting r adiologist is fully responsible for the content of the report.
== END 2020-02-27 03:04 | disposition home or self-care (01) ==
LOC: ER 00:42
DX: I10 Essential (primary) hypertension (principal); E11.9 Type 2 diabetes mellitus without complications
CPT/HCPCS: 36415; 70450; 71045; 80048; 80076; 83735; 83880; 84484; 85025; 85610; 93005; 99284